=== PATIENT | male | born 1950 | race Hispanic/Latino ===

== ENCOUNTER 2018-09-17 16:44 | Inpatient (IN) ==
[2018-09-17 22:04] LABS: BASO# 0.04 X1000 (0.0-0.2); BASO% 0.8 % (0.0-0.8); EOS# 0.18 X1000 (0.0-0.7); EOS% 3.5 % (0.0-10.0); HEMATOCRIT 26.7 % (42.0-52.0); HEMOGLOBIN 8.2 g/dL (14.0-18.0); LYMPH# 1.09 X1000 (1.2-3.4); LYMPH% 21.5 % (20.5-51.1); MCH 27.4 PG (27-31); MCHC 30.7 g/dL (33-37); MCV 89.3 FL (81-99); MONO# 0.68 X1000 (0.11-0.59); MONO% 13.4 % (1.7-9.3); MPV 12.5 FL (7.4-10.4); NEUT# 3.09 X1000 (1.4-6.5); NEUT% 60.8 % (42.2-75.2); PLT 104 X1000 (130-400); RBC 2.99 XMIL (4.7-6.1); WBC 5.08 X1000 (4.8-10.8)
[2018-09-17 22:07] LABS: INR 1.11; PROTIME 15.2 Seconds (11.0-16.0)
[2018-09-17 22:08] LABS: PTT 32.1 Seconds (22.3-41.8)
[2018-09-17 22:21] LABS: ALBUMIN 3.5 g/dL (3.5-5.0); CALCIUM 9.3 mg/dL (8.8-10.2); CREATININE 1.3 mg/dL (0.7-1.2); POTASSIUM 5.8 mmol/L (3.5-5.1); TOTAL BILIRUBIN 0.72 mg/dL (0.20-1.00); TOTAL PROTEIN 7.1 g/dL (6.3-8.3)
[2018-09-17] MEDS ORDERED: MORPHINE IV ONE (22:40)
[2018-09-17] MEDS ORDERED: ZOFRAN IV ONE (22:40)
[2018-09-17] MEDS ORDERED: ZOSYN 3.375 GM in NS 50 ML IV ONE (22:41)
[2018-09-17] MEDS ORDERED: VANCOMYCIN 1 GM/NS 1 GM/250 ML IVPB IV ONE (22:41)
[2018-09-17] MEDS ORDERED: KAYEXALATE PO ONE (22:43)
[2018-09-17] MEDS ORDERED: D50W SYRINGE IV ONE (22:43)
[2018-09-17] MEDS ORDERED: HUMULIN R IV ONE (22:43)
[2018-09-17] MEDS ORDERED: CALCIUM GLUCONATE IV PUSH ONE (22:43)
--- NOTE | 2018-09-17 22:48 | PROVIDER DOCUMENTATION ---
This chart was entered by Deanne Stewart Scribe, acting as scribe for David Jones MD. HPI-Rash/Wound/ReCheck - General Chief Complaint: Sores/Lesions Stated Complaint: RT FOOT PAIN Time Seen by Provider: 09/17/18 21:01 Source: patient Allergies/Adverse Reactions: Allergies Allergy/AdvReac Type Severity Reaction Status Date / Time No Known Allergies Allergy Verified 06/25/18 16:08 Home Medications: Home Medication List Medication Instructions Recorded Confirmed Last Taken Type Insulin Glargine [Lantus] 24 unit SUBQ QAM 12/22/14 09/03/18 02/26/18 History 21 Prednisone 7.5 mg PO DAILY 10/09/17 09/03/18 02/26/18 History Aspirin 81 mg PO QAM 12/22/17 09/03/18 09/02/18 History Insulin Lispro [Humalog] 10 unit SUBQ HS 12/22/17 09/03/18 02/26/18 History Tacrolimus [Prograf] 2 mg PO BID 12/22/17 09/03/18 02/26/18 History Metoprolol [Lopressor] 50 mg PO BID #60 tab 12/29/17 09/03/18 09/02/18 Rx Amlodipine [Norvasc] 10 mg PO DAILY 02/26/18 09/03/18 09/02/18 History Docusate Sodium [Colace] 100 mg PO PRN PRN 02/26/18 09/03/18 02/26/18 History LISINOpril [Prinivil] 10 mg PO DAILY 02/26/18 09/03/18 09/02/18 History Mycophenolate Sodium [Myfortic] 720 mg PO BID 02/26/18 09/03/18 09/02/18 History Hydrocodone/Acetaminophen 1 mg PO Q6HR PRN 02/27/18 09/03/18 09/03/18 History [Hydrocodone-Acetamin 10-325 mg] Clonidine [Catapres] 0.1 mg PO BID #60 tab 03/01/18 09/03/18 09/02/18 Rx Acetaminophen with Codeine 1 ea PO Q4H PRN PRN #10 tab 06/25/18 09/03/18 Unknown Rx [Tylenol with Codeine #3] Polyethylene Glycol 3350 [Miralax] 17 gm PO PRN PRN 09/03/18 09/03/18 Unknown History Cyanocobalamin [Vitamin B-12] 1,000 microgm PO DAILY tablet 09/10/18 Unknown Rx Folic Acid 1 mg PO BID #120 tab 09/10/18 Unknown Rx Sodium Bicarbonate 650 mg PO BID #120 tab 09/10/18 Unknown Rx - History of Present Illness-Dermatology Nature of Presenting Problem: pt is a 68 yr old male presenting with complaint of right foot pain, wounds, pt was seen by ortho [employer], ortho sent here for possible admission. pt had last surgery to right foot 2 months ago, wound not healing, multiple debridments. pt denies any other complaints, pt did have right 2-5 toes amputated 2 months ago. Location: reports: feet (right) Quality: reports: painful Severity: reports: severe Onset/Duration: reports: gradual Timing: reports: still present, getting worse Context/Associated Symptoms: reports: other (large non healing wound to right plantar surface) Identifiable cause?: No Exposure: reports: unknown cause Similar Symptoms Previously?: Yes Recently seen or treated by another doctor?: Yes Review of Systems - Adult - REVIEW OF SYSTEMS - ADULT Constitutional: denies: chills, fever Eyes: reports: no symptoms reported Ears, Nose, Mouth & Throat: reports: no symptoms reported Cardiovascular: reports: no symptoms reported Respiratory: reports: no symptoms reported Gastrointestinal: reports: no symptoms reported Genitourinary: reports: no symptoms reported Musculoskeletal: reports: no symptoms reported Integumentary: reports: skin sores/ulcer Endocrine: reports: no symptoms reported Allergic/Immunologic: reports: no symptoms reported All Other Systems: Reviewed and Negative Past History - Adult - PAST MEDICAL HISTORY-ADULT Review of Records: reports: Old Records Reviewed, Nursing Assessment Review, Medications Reviewed, Social history reviewed & non-contributory. Major Childhood Illnesses: reports: denies history Cardiovascular: reports: HTN, hyperlipidemia Respiratory: reports: denies history Gastrointestinal: reports: denies history Obstetrical/Gynecological: reports: denies history Genitourinary: reports: other (kidney transplant) Musculoskeletal: reports: denies history Neurological: reports: CVA Psychiatric: reports: denies history Endocrine/Immune: reports: Diabetes Other Conditions: reports: denies history - PRIOR SURGERIES/PROCEDURES Surgical/Procedure History: reports: cholecystectomy, orthopedic (extremity) ( toe amputation right foot), other (cardiac cath, cataract removal, kidney transplant, hemodialysis port) - PRIOR HOSPITALIZATIONS Prior Hospitalizations: reports: for similar symptoms - IMMUNIZATION STATUS Childhood Immunizations: See Nurse Assessment Flu Vaccine: See Nurse Assessment - FAMILY HISTORY Family History: reviewed, not pertinent - SOCIAL HISTORY Smoking: denies Substance Use: denies Living Situation: family Physical Exam-General - PHYSICAL EXAM-ADULT Initial Vital Signs Reviewed: Yes - CONSTITUTIONAL General Appearance: alert, moderate distress - EYES Eyes: PERRL/EOMI - HEAD, EARS, NOSE, MOUTH & THROAT HENMT: normocephalic/atraumatic, moist mucous membranes, normal ENT inspection - NECK Neck: non-tender, full range of motion, supple, normal inspection - RESPIRATORY Respiratory: chest non-tender, lungs clear, normal breath sounds - CARDIOVASCULAR Cardiovascular: normal peripheral pulses, regular rate, rhythm, no edema - GASTROINTESTINAL (ABDOMEN) Abdominal Exam: normal bowel sounds, non tender, soft - LYMPHATIC Lymphatic: no adenopathy - MUSCULOSKELETAL Back Exam: normal inspection, no CVA tenderness, no vertebral tenderness Extremity: normal range of motion, other (amputated 2nd-5th right toes) - SKIN Integumentary: normal color, normal turgor, warm/dry, other (large infected stage 4 ulcer in plantar aspect of right foot) - NEUROLOGIC Neurologic: grossly normal, no motor/sensory deficits - PSYCHIATRIC Psych/Mental Status: normal mood/affect, normal thought content, normal thought process, oriented x 3 Progress - PLAN OF CARE/RESULTS Progress/Plan/Lab Results: Vital Signs - 8 hr 09/17/18 17:28 09/17/18 20:55 Temperature 97.3 F L 98.3 F Pulse Rate 69 61 Respiratory Rate 16 14 Blood Pressure 150/56 154/60 O2 Sat by Pulse Oximetry 100 100 Laboratory Results - last 24 hr 09/17/18 09/17/18 09/17/18 21:39 21:39 21:39 WBC 5.08 RBC 2.99 L Hgb 8.2 L Hct 26.7 L MCV 89.3 MCH 27.4 MCHC 30.7 L RDW Std Deviation 17.0 H Plt Count 104 L MPV 12.5 H Immature Gran % (Auto) 0.0 Neut % (Auto) 60.8 Lymph % (Auto) 21.5 Crawford % (Auto) 13.4 H Eos % (Auto) 3.5 Baso % (Auto) 0.8 Immature Gran # (Auto) 0.00 Neut # (Auto) 3.09 Lymph # (Auto) 1.09 L Crawford # (Auto) 0.68 H Eos # (Auto) 0.18 Baso # (Auto) 0.04 PT 15.2 INR 1.11 PTT (Actin FS) 32.1 Sodium 138 Potassium 5.8 H Chloride 109 H Carbon Dioxide 20 L Anion Gap 9 BUN 32 H Creatinine 1.3 H Estimated GFR/1.73 m2 55 BUN/Creatinine Ratio 25 Glucose 144 H Calculated Osmolality 285 Calcium 9.3 Total Bilirubin 0.72 AST 576 H ALT 351 H Alkaline Phosphatase 175 H Total Protein 7.1 Albumin 3.5 Globulin 3.6 Albumin/Globulin Ratio 1.0 Orders Category Date Time Status BLOOD CULTURE [BLDCUL] Stat Lab 09/17/18 21:39 Results CBC WITH ELECTRONIC DIFF [HEME] Stat Lab 09/17/18 21:39 Completed COMPREHENSIVE METABOLIC PANEL [CHEM] Stat Lab 09/17/18 21:39 Completed PT [PROTIME WITH INR] [COAG] Stat Lab 09/17/18 21:39 Completed PTT [COAG] Stat Lab 09/17/18 21:39 Completed Calcium Gluconate Med 09/17/18 22:43 Once 1 gm IV PUSH NOW ONE Dextrose 50% Syringe [D50w Syringe] Med 09/17/18 22:43 Once 50 ml IV NOW ONE Insulin Human Regular [Humulin R] Med 09/17/18 22:43 Once 10 unit IV NOW ONE Morphine Med 09/17/18 22:40 Discontinued 4 mg IV NOW ONE Ondansetron [Zofran] Med 09/17/18 22:40 Discontinued 4 mg IV NOW ONE Piperacillin/Tazobactam [Zosyn] 3.375 gm Med 09/17/18 22:41 Active 0.9% Sodium Chloride Inj [Ns] 50 ml IV NOW Sodium Polystyrene [Kayexalate] Med 09/17/18 22:43 Once 30 gm PO NOW ONE Vancomycin 1 gm/Ns Med 09/17/18 22:41 Active 1 gm in 250 ml IV NOW EKG [EKG] Stat Ther 09/17/18 22:42 Ordered Result Diagrams: 09/17/18 21:39 09/17/18 21:39 - CONSULTS/PCP/HOSPITALIST Notification #1 *Consult/PCP/Hospitalist*: Dr. Loyd Time Discussed: 22:48 Consult Disposition: Admit Departure - Departure Date of Disposition Decision: 09/17/18 Time of Disposition Decision: 22:48 DIAGNOSIS: Gangrene, Osteomyelitis due to type 2 diabetes mellitus, Hyperkalemia Disposition: ADMITTED INPATIENT 09 Certified Medical Emergency: Emergent Condition: Serious - Critical Care Note This patient required my direct & personal management of CC.: No Attestation - Physician/ GERI Attestation The physician spent face to face time with patient:: Yes Advanced Practice Provider documentation review:: Supervising physician onsite and consulted in the evaluation and care of this patient. The physician did have a face to face encounter with the patient. This chart was documented by the indicated scribe, (Deanne Stewart Scribe) and accurately reflects the services I performed and decisions made by me, David Jones MD, as attested by the provider's signature.
[2018-09-18] MEDS ORDERED: ZOFRAN IV PRN (01:19)
[2018-09-18] MEDS ORDERED: TYLENOL PO PRN (01:19)
[2018-09-18] MEDS ORDERED: VANCOMYCIN IV PER PHARMACY MISC SCH (01:19)
[2018-09-18] MEDS ORDERED: NORCO-7.5 PO PRN (01:19)
[2018-09-18] MEDS: NS 1,000 ML IV SCH ×2 (01:34→18:33)
[2018-09-18] MEDS: ZOSYN 3.375 GM in NS 50 ML IV SCH ×4 (01:34→21:48)
[2018-09-18 02:20] LABS: HEMOGLOBIN A1C 7.2 % (4.8-6.0)
[2018-09-18] MEDS ORDERED: VANCOMYCIN 1,300 MG in NS 250 ML IV SCH (03:00)
[2018-09-18] MEDS: HUMALOG SUBQ SCH ×3 (07:01→21:53)
[2018-09-18] MEDS: LOVENOX SUBQ SCH (07:16)
--- NOTE | 2018-09-18 08:49 | HISTORY AND PHYSICAL ---
Patient of Dr. Holden. REASON FOR ADMISSION: Worsening right lower extremity leg pain. Mr. Jude Lynch is a 68-year-old man with past medical history of type 2 diabetes. He has a history of chronic kidney disease secondary to type 2 diabetes and hypertension. He is status post a renal transplant and is followed by [facility] for management of his renal graft. He was sent over to the ER by Dr. Alcantara, his convention services director to get admitted for possible elective right BKA when in consultation with Dr. Stark. Patient reports he has been having increasing pain in his right leg for over the last couple of weeks. He denies any fever or chills. No polyuria or polydipsia. He has had a chronic right lower extremity infection with osteomyelitis and has been managed conservatively with antibiotics by Dr. Alcantara. However, today when Dr. Alcantara saw his leg and foot, he felt that conservative management has failed and he needed to be admitted for a right BKA. REVIEW OF SYSTEMS: No cardiorespiratory complaints. No GI or complaints per patient. No neurological complaints. No rash. Does have occasional complaints of constipation however but this is not active. ALLERGIES: None. HOME MEDICATIONS: Have not been reconciled but he is on Prograf, prednisone, mycophenolate, lisinopril, Lantus, Humalog, Norvasc, aspirin, [place], metoprolol, Catapres, folic acid and sodium bicarbonate. SURGICAL HISTORY: 1. He has had renal transplant. 2. He has had amputation of his third right toe. 3. Cholecystectomy. 4. Cataract surgery. FAMILY HISTORY: No diabetes or kidney disease in first degree relatives. SOCIAL HISTORY: He does not smoke, drink or use illicit drugs. He is . White count 5,000, H and H 8 and 26, platelets 104,000 which is down from just under a week ago. Normal differential. Potassium is 5.8, bicarb 20, anion gap 9, BUN 32, creatinine 1.3, glucose 144. AST 5676, ALT 531, alk phos 175. PTT is normal. PHYSICAL EXAMINATION: VITAL SIGNS: Blood pressure 154/60, heart rate 61, respirations 14, temperature is 98.3 degrees, 100% on room air. GENERAL: He is a thin, slightly underweight pleasant man who is in no acute distress. A and O x3, normal mood and affect. HEENT: Head is normocephalic, atraumatic. Eyes PERRL, EOMI. Anicteric, not pale. ENT and oropharyngeal exam is grossly normal. NECK: Supple. No JVD, carotid bruits. CHEST: Clear to auscultation with good air entry in all lung goldsmith. CARDIOVASCULAR: First and second heart sounds are heard. No gallops, murmurs or rubs. Rhythm is regular. ABDOMEN: Full, soft, no tenderness or megaly. Bowel sounds are hyperactive. RECTAL: Deferred at this time. EXTREMITIES: The patient has a huge but dry necrotic area in the mid third of his right plantar surface of his foot. There is also a huge ulceration of the distal medial aspect part of his right leg. No overt erythema noted but there is barely any pulse in the dorsum of his right foot compared to the left. But he does have a good popliteal pulse on the right leg. No foul odor noted. No exudation noted. No clubbing or peripheral cyanosis. No edema. NEUROLOGIC: No focal deficits. SKIN: See above. MUSCULAR: Grossly normal. ASSESSMENT: 1. Chronic diabetic foot infection with osteomyelitis of the right foot. 2. Peripheral arterial disease. 3. Chronic kidney disease. 4. Hypertension. 5. Type 2 diabetes. PLAN: Patient is going to be admitted today. Start him on empiric antibiotics. Dr. Stark will be consulted in conjunction with Dr. Alcantara. Patient's A1c will be checked and blood sugars will be aggressively managed during this period. Blood pressure medications will also be reviewed and started. The patient has hyperkalemia and this is currently being corrected and will be followed over the next few hours. The patient also has thrombocytopenia. Although he was started on Lovenox because of DVT risk, this also needs to be followed and if it should drop, Lovenox needs to be discontinued. Etiology for thrombocytopenia has yet to be determined. Another thing that we need to be observing is Zosyn which can also cause thrombocytopenia, especially if it worsens. Antibiotic regimen might need to be Bactrim. cc: MD Shirley Potter MD Joseph R. Dupper, DPM
[2018-09-18 12:43] LABS: BASO# 0.02 X1000 (0.0-0.2); BASO% 0.4 % (0.0-0.8); EOS# 0.19 X1000 (0.0-0.7); EOS% 4.2 % (0.0-10.0); HEMATOCRIT 27.9 % (42.0-52.0); HEMOGLOBIN 8.7 g/dL (14.0-18.0); IMM GRAN# 0.03 X1000 (0.0-0.04); IMM GRAN% 0.7 % (0.0-0.5); LYMPH# 0.75 X1000 (1.2-3.4); LYMPH% 16.7 % (20.5-51.1); MCH 27.7 PG (27-31); MCHC 31.2 g/dL (33-37); MCV 88.9 FL (81-99); MONO# 0.44 X1000 (0.11-0.59); MONO% 9.8 % (1.7-9.3); MPV 12.6 FL (7.4-10.4); NEUT# 3.07 X1000 (1.4-6.5); NEUT% 68.2 % (42.2-75.2); PLT 111 X1000 (130-400); RBC 3.14 XMIL (4.7-6.1); RDW 16.8 % (11.5-14.5)
[2018-09-18 13:18] LABS: ALB/GLOB RATIO 0.8; ALBUMIN 3.3 g/dL (3.5-5.0); CALCIUM 9.5 mg/dL (8.8-10.2); CREATININE 1.2 mg/dL (0.7-1.2); POTASSIUM 5.3 mmol/L (3.5-5.1); TOTAL PROTEIN 7.2 g/dL (6.3-8.3)
--- NOTE | 2018-09-18 14:07 | PROGRESS NOTE ---
DATE: 09/18/2018 SUBJECTIVE: No acute events overnight. This patient has been admitted because of worsening right lower extremity pain, but at this moment he is not complaining of that much pain. Apparently, Dr. Alcantara saw his leg and he felt that conservative management has failed and sent this patient for possible right BKA. The problem is that at this moment his LFTs are elevated. Recently he was discharged on 09/10/2018 with daptomycin which can cause elevated LFTs. Also, he treatment with tacrolimus can cause elevated LFTs/ he came in, also hyperkalemic which can be cause also for this medication. I will hold this medication for now. Probably I will call his kidney transplant doctor next Thursday and discuss about it, about these patient. This patient has been placed on Zosyn and vancomycin. It looks like he received a dose of vancomycin today and he is going to be every 36 hours, so my plan is to continue with this and ask Infectious Disease department to evaluate this patient tomorrow morning. OBJECTIVE: Vital Signs: Temperature 97.6 degrees, pulse 77, respiratory rate 18, blood pressure 136/43, oxygen saturation 99% on room air. HEENT: Head normocephalic. No trauma. PERRLA. Neck: Supple. No JVD. No masses. Central trachea. Chest: Clear to auscultation. No wheezing. No rales. Abdomen: Soft, nontender, nondistended. No hepatosplenomegaly. Extremities: He does have a big necrotic area in the right plantar surface. I do not see any secretions. There is also a big ulcer at the level of the medial aspect of the right leg. I do not see any erythema, no foul odor or secretions like I mentioned before. Pulses are decreased distally. Neurologic: No focal deficits. LABORATORY: WBC 4.5, hemoglobin 8.7, hematocrit 27.9, platelets 111,000. Sodium 138, potassium 5.3, chloride 106, bicarbonate 21, BUN 32, creatinine 1.2, glucose 155, calcium 9.5. AST 485, ALT 468, alkaline phosphatase 272, albumin 3.3. ASSESSMENT AND PLAN: 1. Chronic diabetic foot infection with osteomyelitis on the right foot. He was recently discharged on 09/10/2018 and he was discharged with antibiotics, including daptomycin. He came in because his primary doctor recommended an amputation. His liver enzymes are elevated and probably is related with he is renal transplant treatment and daptomycin. Since tacrolimus also can cause elevated LFTs, I will hold those medications for now. He has been already placed on antibiotics during the night. Surgery Department has been consulted. But I think for now we need to continue with monitoring this patient. 2. Elevated LFTs. This is probably related to medications which are daptomycin and tacrolimus. He was recently discharged with daptomycin and he is supposed to use daptomycin for 8 weeks. We will monitor this closely. I will ask for new lab work in the morning. Compared with yesterday, his AST is trending down a little bit, but ALT and alkaline phosphatase are going up. 3. Thrombocytopenia probably also related to medications, but compared with yesterday a little bit better. We will monitor. 4. Hyperkalemia. Upon admission, his potassium level was 5.8. He was described that tacrolimus/Prograf can cause elevated potassium. His kidney function looks stable at baseline. 5. Chronic kidney disease in a patient with history of renal transplant, this seems to be stable. We will monitor. Continue with IV fluids. 6. Peripheral artery disease, aware. 7. Type 2 diabetes. Continue with the same management. Pattern of blood sugar and sliding scale insulin. 8. Hypertension, stable. I will restart some of his home medications. cc: Nakul Ware MD
[2018-09-18] MEDS: NORVASC PO SCH (14:11)
--- NOTE | 2018-09-18 15:02 | GENERAL SURGERY CONSULTATION ---
DATE: 09/18/2018 TIME: 1:55 p.m. SUBJECTIVE: Mr. Lynch is a patient of Dr. Alcantara who has followed him regarding his ischemic disease of his right foot. He has undergone a transmetatarsal amputation in the past and has ulceration of the right lateral foot and plantar aspect of the foot. He has extremely poor blood flow and he does not have disease that is amenable to revascularization. I have been asked to see him regarding amputation. He has a history of chronic kidney disease, and now has had a renal transplant. He has type 2 diabetes. He has hypertension. Previous surgery includes the renal transplant, amputation of the 3rd toe, and partial transmetatarsal amputation, cholecystectomy, and cataract surgery. MEDICATIONS: Listed. ALLERGIES: He has no known drug allergies. FAMILY HISTORY: Negative. SOCIAL HISTORY: Denies smoking or alcohol use. He is . REVIEW OF SYSTEMS: As noted in his HPI. PHYSICAL EXAMINATION: Vital Signs: He is afebrile. Heart rate 77, blood pressure 136/43, bilateral breath sounds are present. Heart: Regular rhythm and rate. Abdomen: Soft. Extremities: Femoral pulses are present. No pedal pulses are present. He has an ulceration on the right lateral foot in the plantar aspect of the right foot. Tendons are exposed. DIAGNOSTICS AND LABORATORY DATA: White count 4500, hemoglobin 8.7, hematocrit 27.9. BUN 23, creatinine 1.2. His LFTs are elevated. ASSESSMENT: Ischemic necrosis right foot. PLAN: The plan is amputation. We tentatively plan a BK amputation for Thursday, and we will get an SAMSON study to be certain that his flow is adequate below his knee to heal a BK amputation. cc: Azael Stark MD
[2018-09-18] MEDS: LOPRESSOR PO SCH (21:49)
[2018-09-18] MEDS: FOLIC ACID PO SCH (21:49)
--- NOTE | 2018-09-19 01:43 | ED EKG INTERP ---
This chart was entered by Deanne Stewart Scribe, acting as scribe for David Jones MD. EKG Interpretation - EKG Time of EKG reading by physician:: 23:23 EKG Read and Signed by:: David Jones EKG Interpretation (*Must complete 3 of following elements*): Abnormal (left anteroir fasicular block, bifascicular block, septal infarct-age undetermined) Rate: 68 Rhythm: nsr [place]: normal QRS: RBB SC Interval: normal ST Wave: normal Attestation - Physician/ GERI Attestation Patient care was provided by Advanced Practice Provider:: No The physician spent face to face time with patient:: Yes Advanced Practice Provider documentation review:: Supervising physician onsite and consulted in the evaluation and care of this patient. The physician did have a face to face encounter with the patient. This chart was documented by the indicated scribe, (Deanne Stewart Scribe) and accurately reflects the services I performed and decisions made by Karen allison Kofi X., MD, as attested by the provider's signature.
[2018-09-19] MEDS: ZOSYN 3.375 GM in NS 50 ML IV SCH ×4 (02:13→22:08)
[2018-09-19] MEDS: NS 1,000 ML IV SCH ×3 (02:16→19:03)
[2018-09-19] MEDS: LOVENOX SUBQ SCH (07:08)
[2018-09-19] MEDS: HUMALOG SUBQ SCH ×5 (07:18→22:12)
[2018-09-19 07:21] LABS: BASO# 0.03 X1000 (0.0-0.2); BASO% 0.6 % (0.0-0.8); EOS% 3.8 % (0.0-10.0); HEMATOCRIT 25.7 % (42.0-52.0); HEMOGLOBIN 7.8 g/dL (14.0-18.0); LYMPH# 0.88 X1000 (1.2-3.4); LYMPH% 16.8 % (20.5-51.1); MCHC 30.4 g/dL (33-37); MCV 88.9 FL (81-99); MONO# 0.43 X1000 (0.11-0.59); MONO% 8.2 % (1.7-9.3); MPV 12.6 FL (7.4-10.4); NEUT# 3.71 X1000 (1.4-6.5); NEUT% 70.6 % (42.2-75.2); PLT 92 X1000 (130-400); RBC 2.89 XMIL (4.7-6.1); RDW 16.6 % (11.5-14.5); WBC 5.25 X1000 (4.8-10.8)
[2018-09-19 07:47] LABS: ALB/GLOB RATIO 1.1; ALBUMIN 3.2 g/dL (3.5-5.0); CALCIUM 8.5 mg/dL (8.8-10.2); CREATININE 1.5 mg/dL (0.7-1.2); POTASSIUM 5.1 mmol/L (3.5-5.1); TOTAL BILIRUBIN 0.89 mg/dL (0.20-1.00); TOTAL PROTEIN 6.1 g/dL (6.3-8.3)
--- NOTE | 2018-09-19 08:27 | GENERAL SURGERY PROGRESS NOTE ---
DATE: 09/19/2018 Mr. Lynch is scheduled for an amputation tomorrow. We will check an SAMSON on him to be certain that the below-knee level will be adequately perfused. We will have blood prepared for him for surgery. cc: Azael Stark MD
[2018-09-19] MEDS: LOPRESSOR PO SCH ×2 (09:12→22:08)
[2018-09-19] MEDS: ULTRAM PO PRN ×2 (09:12→16:20)
[2018-09-19] MEDS: NORVASC PO SCH (09:12)
[2018-09-19] MEDS: VITAMIN B-12 PO SCH (09:12)
[2018-09-19] MEDS: PREDNISONE PO SCH (09:12)
[2018-09-19] MEDS: FOLIC ACID PO SCH ×2 (09:13→22:08)
--- NOTE | 2018-09-19 10:07 | PROGRESS NOTE ---
DATE: 09/19/2018 SUBJECTIVE: No acute events overnight. He is still complaining of some right lower extremity pain. His LFTs are getting better so we will continue with the same management. Vancomycin will be stopped due to his CKD and history of renal transplant patient. OBJECTIVE: Vital Signs: Temperature 98.1 degrees, pulse 65, respiratory rate 18, blood pressure 162/34, oxygen saturation 99 on room air. HEENT: Head normocephalic. No trauma. PERRLA. Neck: Supple. No JVD. No masses. Central trachea. Chest: Clear to auscultation. No wheezing. No rales. Abdomen: Soft, nontender, nondistended. No hepatosplenomegaly. Extremities: There is a big ulcer at the level of the medial aspect of the right leg. I do not see erythema. No foul odor or secretion. He does have a big necrotic area on the right plantar ulcer surface. Pulses are decreased distally. Neurological Examination: This patient is alert and oriented x3. No focal motor deficits. Laboratory: WBC 5.2, hemoglobin 7.8, hematocrit 25.7, platelets 92,000. Sodium 140, potassium 5.1, chloride 110, bicarbonate 17, BUN 26, creatinine 1.5, glucose 129, calcium 8.5. AST 166, ALT 304, alkaline phosphatase 216, albumin 3.2. ASSESSMENT AND PLAN: 1. Chronic diabetic foot infection with osteomyelitis to the right foot, recently discharged on 09/10/2018 with antibiotics including daptomycin which has been stopped due to elevated liver function tests. Infectious disease department following this patient currently. The plan is to go ahead and do an amputation tomorrow. 2. Elevated liver function tests. This is getting better. I will continue holding his daptomycin and tacrolimus which has been described to increase the liver function tests. Probably is related only to the antibiotic. After surgery, probably I will put this patient back on tacrolimus and I will check on that. 3. Thrombocytopenia, likely related to medications as well. I will keep an eye on that. 4. Hyperkalemia, resolved. 5. Chronic kidney disease in a patient with a history of renal transplant. Seems to be stable. Continue with fluids. We will stop the vancomycin due to nephrotoxicity. 6. Peripheral arterial disease. Aware. 7. Type 2 diabetes. Continue with the same management, pattern of blood sugar and sliding scale insulin. 8. Hypertension, stable. Some of his home medication have been restarted. cc: Nakul Ware MD
[2018-09-19] MEDS: PATIENT'S OWN MED PO SCH ×2 (10:31→22:16)
[2018-09-19] MEDS: TEFLARO 600 MG in NS 250 ML IV SCH ×2 (10:31→22:07)
--- NOTE | 2018-09-19 11:44 | INFECTIOUS DISEASE PROGRESS NO ---
DATE: 09/19/2018 PRESENT ILLNESS: The patient was readmitted because his right foot has gotten worse, to the point that the patient needs a jcyed-wpo-wxdv amputation of the leg. MEDICATIONS: The patient currently is on vancomycin and Zosyn. PHYSICAL EXAMINATION: Vital Signs: Temperature is 98.1 degrees, pulse 65, respirations 18, blood pressure 162/34. General: This is an ill-appearing, elderly male. He is in no acute distress. Head, eyes, ears, nose, throat: He can hear my spoken words and see near objects. He does not have any white patches on his tongue. Neck: No stiffness. Lungs: Clear to auscultation. Cardiovascular: Diminished peripheral pulses. Heart rate is regular. Abdomen : Soft and nontender. Extremities: The patient's right foot has large dry wounds with devitalized tissue. There is no odor to the wounds and there is no erythema of the foot. There is also no purulent drainage. Unfortunately, the foot has shown no signs of healing. LAB AND RADIOLOGY: CBC-WBC 5.25, hgb 7.8, platelets [id number]. Creatinine-1.5. GFR- 47. Liver function tests improving. Blood cultures negative at 48 hours. No radiographic today. ASSESSMENT AND PLAN: The patient has grown methicillin-resistant Staphylococcus aureus and Pseudomonas from his right foot. Therefore, I think it would be reasonable to put the patient on antibiotics to treat that infection, especially because the patient is going to have surgery tomorrow. I would probably continue the antibiotics to treat those 2 organisms for a few days after surgery, until such time that the patient's incision is healing well. The patient's creatinine is going up a little bit and he has a renal transplant, so I think it would be best to stop vancomycin and I have substituted ceftaroline. Dr. Abreu has discovered that the patient's liver function studies became elevated while the patient was on daptomycin and as a result of that daptomycin cannot be reinstituted. COMORBIDITIES: He is elderly. He has diabetes. He had end-stage renal disease. He has had a renal transplant and is on immunosuppressive medication for that transplant. cc: MD RAMIN Mendoza
[2018-09-20] MEDS: ZOSYN 3.375 GM in NS 50 ML IV SCH ×4 (01:16→21:42)
[2018-09-20] MEDS: NS 1,000 ML IV SCH ×2 (03:17→18:40)
[2018-09-20] MEDS: HUMALOG SUBQ SCH ×3 (06:24→17:28)
[2018-09-20] MEDS: LOVENOX SUBQ SCH (06:28)
[2018-09-20 07:27] LABS: BASO# 0.02 X1000 (0.0-0.2); BASO% 0.4 % (0.0-0.8); EOS# 0.11 X1000 (0.0-0.7); HEMATOCRIT 23.6 % (42.0-52.0); HEMOGLOBIN 7.4 g/dL (14.0-18.0); LYMPH# 0.94 X1000 (1.2-3.4); LYMPH% 17.3 % (20.5-51.1); MCH 27.5 PG (27-31); MCHC 31.4 g/dL (33-37); MCV 87.7 FL (81-99); MONO# 0.54 X1000 (0.11-0.59); MONO% 9.9 % (1.7-9.3); MPV 12.9 FL (7.4-10.4); NEUT# 3.83 X1000 (1.4-6.5); NEUT% 70.4 % (42.2-75.2); PLT 91 X1000 (130-400); RBC 2.69 XMIL (4.7-6.1); RDW 16.2 % (11.5-14.5); WBC 5.44 X1000 (4.8-10.8)
--- NOTE | 2018-09-20 07:33 | EKG Report ---
Test Performed on : 09/17/2018 11:23:56 PM Test Reason : HYPERKALEMIA Blood Pressure : / mmHG Vent. Rate : 068 BPM Atrial Rate : 068 BPM P-R Int : 164 ms QRS Dur : 114 ms QT Int : 390 ms P-R-T Axes : 036 -57 069 degrees QTc Int : 414 ms Normal sinus rhythm. Right bundle branch block Left anterior fascicular block Bifascicular block Septal infarct (cited on or before 22-DEC-2017) Abnormal ECG When compared with ECG of 03-SEP-2018 12:44, (Unconfirmed) Questionable change in initial forces of Septal leads Unconfirmed Result
[2018-09-20 07:35] LABS: ALB/GLOB RATIO 0.9; ALBUMIN 2.9 g/dL (3.5-5.0); CALCIUM 8.9 mg/dL (8.8-10.2); CREATININE 1.5 mg/dL (0.7-1.2); POTASSIUM 4.3 mmol/L (3.5-5.1); TOTAL BILIRUBIN 0.49 mg/dL (0.20-1.00); TOTAL PROTEIN 6.3 g/dL (6.3-8.3)
[2018-09-20] MEDS: LOPRESSOR PO SCH ×2 (08:10→21:40)
[2018-09-20] MEDS: PREDNISONE PO SCH (08:12)
[2018-09-20] MEDS: FOLIC ACID PO SCH ×2 (08:12→21:41)
[2018-09-20] MEDS: VITAMIN B-12 PO SCH (08:12)
[2018-09-20] MEDS: PATIENT'S OWN MED PO SCH ×2 (08:13→09:20)
[2018-09-20] MEDS: NORVASC PO SCH (08:13)
[2018-09-20] MEDS ORDERED: ROBINUL ONE (08:25)
[2018-09-20] MEDS ORDERED: QUELICIN (DOSE) ONE (08:25)
[2018-09-20] MEDS ORDERED: XYLOCAINE-MPF 2% ONE (08:25)
[2018-09-20] MEDS ORDERED: DIPRIVAN 1% ONE (08:26)
[2018-09-20] MEDS ORDERED: EPHEDRINE ONE (09:28)
[2018-09-20] MEDS: TEFLARO 600 MG in NS 250 ML IV SCH ×2 (09:30→22:44)
[2018-09-20] MEDS ORDERED: FENTANYL ONE (09:50)
[2018-09-20] MEDS: MORPHINE ONE ×6 (10:43→11:25)
[2018-09-20] MEDS ORDERED: ZOFRAN ONE (11:07)
[2018-09-20 11:41] LABS: HEMATOCRIT 25.3 % (42.0-52.0); HEMOGLOBIN 7.9 g/dL (14.0-18.0)
[2018-09-20] MEDS ORDERED: NORCO-10 ONE (11:45)
--- NOTE | 2018-09-20 11:49 | OPERATIVE NOTE ---
PROCEDURE DATE: 09/20/2018 PROCEDURE PERFORMED: Right below-knee amputation. SURGEON: Azael Stark MD. DATA COMPILER: Chelsie. PREOPERATIVE DIAGNOSIS: Ischemic gangrene of the right foot. POSTOPERATIVE DIAGNOSIS: Ischemic gangrene of the right foot. DESCRIPTION OF PROCEDURE: Satisfactory general anesthesia was achieved, the right leg was prepped and draped in a sterile fashion. The foot was excluded. We made a jessie 4 fingerbreadths below the tibial tubercle and then measured 12 cm distal to that to jessie our posterior flap. We then incised the skin in a fishmouth fashion with a short anterior flap and a long posterior flap. We carried our incision through the subcutaneous tissue. We ligated the greater saphenous vein incision with a 3-0 silk tie. We dissected through the anterior muscle compartment with electrocautery until we could surround the tibia. We then transected the tibia with a Gigli saw, tapering it anteriorly. We dissected the fibula. We raised the periosteum proximally and transected it with a bone biter. We then used a guillotine knife to slide behind both bones until we reached the distal end of the posterior flap and transected it there. The tibial vessels were suture ligated with 2-0 silk suture ligature. The distal leg and foot was handed off. We used a file on the bone to smooth it off on its anterior aspect. We then copiously irrigated the flap to remove all debris. We brought the posterior flap forward and used 0 Polysorb in the muscle groups into the fascia over the bone. We then used 3-0 Polysorb in the subcutaneous tissue. The skin was reapproximated with christopher. Xeroform, sterile 4 x 4s, sterile Kerlix was applied. This was followed by an OCL splint, and a 6-inch Hilton to keep the joint straight. He tolerated it well, was sent to the recovery room in satisfactory condition. cc: Azael Stark MD
[2018-09-20] MEDS: MORPHINE IV PRN ×4 (13:31→21:35)
--- NOTE | 2018-09-20 18:08 | PROGRESS NOTE ---
DATE: 09/20/2018 SUBJECTIVE: No acute events overnight. He just had a surgery done today, right gukcu-ipc-fbfu amputation. This patient is complaining of some pain, but it is tolerable. Family members at the bedside. All of their questions were answered. He has been placed back on his diet. OBJECTIVE: Vital Signs: Temperature 96.1, pulse 63, respiratory rate 18, blood pressure 145/56, oxygen saturation 98% on nasal cannula. HEENT: Head normocephalic. No trauma. PERRLA. Neck: Supple. No JVD. No masses. Central trachea. Chest: Clear to auscultation. No wheezing. No rales. Abdomen: Soft, nontender, nondistended. No hepatosplenomegaly. Extremities: He has a right BKA that is covered with a clean dressing. Neurological: The patient is alert and oriented x3. No focal deficits. LABORATORY DATA: WBC 5.4, hemoglobin 7.9, hematocrit 25.3, platelets 91,000. Sodium 141, potassium 4.3, chloride 109, bicarbonate 22, BUN 24, creatinine 1.5, glucose 178, calcium 8.9, AST 59, ALT 185, alkaline phosphatase 163. Albumin 2.9. ASSESSMENT AND PLAN: 1. 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 Continue with pain medication. Surgery Department on board, as well as Infectious Disease Department on board. 2. Elevated liver function tests. This is getting better. Likely it was related to his treatment with daptomycin, which has been stopped, and even though tacrolimus has been described to increase the LFTs, I will put him back on that and monitor closely because he has a history of renal transplant. 3. Thrombocytopenia. Stable. Continue to monitor. 4. Hyperkalemia, resolved. 5. Chronic kidney disease in a patient with a history of renal transplant, seems to be stable, seems to be at baseline. 6. Peripheral arterial disease. Aware. 7. Type 2 diabetes. Continue with the same management, sliding scale insulin and pattern blood sugar. 8. Hypertension, stable. I have restarted some of his home medications already. cc: Nakul Ware MD
--- NOTE | 2018-09-20 19:23 | INFECTIOUS DISEASE PROGRESS NO ---
DATE: 09/20/2018 PRESENT ILLNESS: The patient is status post nyvgs-dby-bslk amputation of the right leg. MEDICATIONS: The patient is receiving ceftaroline and Zosyn. PHYSICAL EXAMINATION: Vital Signs: Temperature is 97 degrees, pulse 63, respirations 18, blood pressure 145/56. General: This is an ill-appearing elderly male. He is in no acute distress. Head, Eyes, Ears, Nose, and Throat: He can hear my spoken words and see near objects. He does not have any white patches on his tongue. Neck: No meningismus. Lungs: Clear to auscultation. Cardiovascular: Heart rate is regular. Abdomen: Soft and nontender. Extremities: The patient has a large dressing on his right leg. He has just come back from having a right below knee amputation. Neurologic: The patient is awake. He can move his extremities. There is no tremor. LAB AND X-RAY: CBC today shows a white count of 5440, hemoglobin 7.9, and platelet count 91,000. Creatinine is 1.5. GFR is 47. ALT is 185. Blood cultures are sterile. ASSESSMENT AND PLAN: The patient is status post right BKA. My plan is to continue antibiotics for a few more days, until we are sure that the patient's wound is healing well. COMORBIDITIES: The patient is elderly, and he has diabetes mellitus. He also has end-stage renal disease. He is a renal transplant patient, and he on immunosuppressive medication to prevent rejection of the transplant. cc: Ochoa Minor MD
[2018-09-20] MEDS: PROGRAF PO SCH (22:37)
[2018-09-21] MEDS: MORPHINE IV PRN ×6 (02:10→22:18)
[2018-09-21] MEDS: ZOSYN 3.375 GM in NS 50 ML IV SCH ×4 (02:11→22:18)
[2018-09-21] MEDS: HUMALOG SUBQ SCH ×5 (02:19→22:52)
[2018-09-21] MEDS: LOVENOX SUBQ SCH (06:42)
[2018-09-21] MEDS: NS 1,000 ML IV SCH ×3 (06:42→23:47)
[2018-09-21 07:38] LABS: BASO# 0.03 X1000 (0.0-0.2); BASO% 0.4 % (0.0-0.8); EOS# 0.05 X1000 (0.0-0.7); EOS% 0.7 % (0.0-10.0); HEMATOCRIT 25.1 % (42.0-52.0); HEMOGLOBIN 7.6 g/dL (14.0-18.0); LYMPH# 0.59 X1000 (1.2-3.4); LYMPH% 8.4 % (20.5-51.1); MCH 27.2 PG (27-31); MCHC 30.3 g/dL (33-37); MONO% 7.1 % (1.7-9.3); MPV 12.8 FL (7.4-10.4); NEUT# 5.86 X1000 (1.4-6.5); NEUT% 83.4 % (42.2-75.2); PLT 103 X1000 (130-400); RBC 2.79 XMIL (4.7-6.1); RDW 16.9 % (11.5-14.5); WBC 7.03 X1000 (4.8-10.8)
[2018-09-21 07:49] LABS: CALCIUM 9.2 mg/dL (8.8-10.2); CREATININE 1.2 mg/dL (0.7-1.2); POTASSIUM 4.5 mmol/L (3.5-5.1)
[2018-09-21] MEDS: VITAMIN B-12 PO SCH (08:34)
[2018-09-21] MEDS: PREDNISONE PO SCH (08:34)
[2018-09-21] MEDS: FOLIC ACID PO SCH ×2 (08:34→22:17)
[2018-09-21] MEDS: NORVASC PO SCH (08:35)
[2018-09-21] MEDS: TEFLARO 600 MG in NS 250 ML IV SCH ×2 (08:35→22:15)
[2018-09-21] MEDS: LOPRESSOR PO SCH ×2 (08:35→22:17)
[2018-09-21] MEDS: NORCO-10 PO PRN ×2 (11:41→15:25)
[2018-09-21] MEDS ORDERED: MIRALAX PO PRN (14:09)
--- NOTE | 2018-09-21 14:58 | PROGRESS NOTE ---
DATE: 09/21/2018 SUBJECTIVE: No acute events overnight. He had a right stwjo-fnv-gkvk amputation yesterday. He is still complaining of some pain, but it is tolerable. Family members at the bedside. All their questions were answered. We started talking about rehab center placement. He will think about it. I do believe he prefers to go home with physical therapy at home. OBJECTIVE: Vital Signs: Temperature. 98, pulse 88, respiratory rate 20, blood pressure 163/80, oxygen saturation 99% on room air. HEENT: Head normocephalic. No trauma. PERRLA. Neck: Supple. No JVD. No masses. Central trachea. Chest: Clear to auscultation. No wheezing. No rales. Abdomen: Soft, nontender, nondistended. No hepatosplenomegaly. Extremities: He has a right BKA that is covered with a clean dressing. Neurologic: The patient is alert and oriented x 3. No focal deficits. LABORATORY: WBC 7, hemoglobin 7.6, hematocrit 25.1, platelet 103,000. Sodium 137, potassium 4.5, chloride 105, bicarbonate 20, BUN 15, creatinine 1.2, glucose 175, calcium 9.2. ASSESSMENT AND PLAN: 1. 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 Continue with pain medication, antibiotics. Surgery Department on board as well as Infectious Disease Department. 2. Elevated liver function tests. This is getting better. I will repeat the liver function tests in the morning. I do believe this is related to the daptomycin that he was getting before. LFTs trending down. We will monitor. 3. Thrombocytopenia, stable. Continue to monitor. 4. Hyperkalemia, resolved. 5. Chronic kidney disease in a patient with a history of renal transplant. Seems to be stable, baseline. 6. Peripheral arterial disease. Aware. 7. Type 2 diabetes. Continue with same management. Sliding-scale insulin and pattern of blood sugar. 8. Hypertension. We have restarted some of his home medications already. Blood pressure is still elevated, though. cc: Nkaul Ware MD MTDD
--- NOTE | 2018-09-21 15:03 | VASCULAR LAB ---
DATE: 09/20/2018 PROCEDURE: Bilateral lower extremity segmental Doppler exam. INTERPRETING PHYSICIAN: Marisela Mcleod MD. BUS GIRL: Pham. REQUESTING PHYSICIAN: Dr. Azael Stark. INDICATION: Evaluate for amputation level. Ischemic right foot. PRESSURES: Brachial pressure on the right is 155. High thigh on the right is noncompressible, on the left noncompressible. Low thigh on the right is noncompressible, on the left noncompressible. Calf on the right is noncompressible, on the left noncompressible. DP on the right is noncompressible, on the left noncompressible. PT on the right is noncompressible, on the left noncompressible. TJ on the right is 1.61, on the left 1.61. Toe pressure on the right is 0, on the left 79 with toe-brachial indices on the left of 0.51. SUMMARY: There are pulsatile waveforms to the level of the tibial vessels bilaterally. However, this does suggest significant calcific disease and non compressibility throughout. There is lack of pulsatile flow to the right toe. FINDINGS: Severe peripheral vascular disease changes suspect, but there is pulsatile flow noted to the level of the tibial vessels. cc: MD Azael Guevara MD
[2018-09-21] MEDS: PROGRAF PO SCH ×2 (15:25→22:18)
[2018-09-21] MEDS: PATIENT'S OWN MED PO SCH ×2 (15:26→22:20)
--- NOTE | 2018-09-21 19:35 | INFECTIOUS DISEASE PROGRESS NO ---
DATE: 09/21/2018 PRESENT ILLNESS: Mr. Lynch is status post right dohnc-jrr-eutp amputation due to ischemic gangrene with a previous methicillin-resistant Staph aureus and Pseudomonas to that right foot. MEDICATIONS: Today is day 3 of Zosyn 3.375 g IV every 6 hours and day 2 of ceftaroline 600 mg IV every 12 hours. PHYSICAL EXAMINATION: Vital Signs: Temperature is 98 degrees, pulse rate 88, respiratory rate 22, blood pressure 163/80, O2 saturation 99% on room air. General: This is a chronically ill- appearing elderly gentleman. He is lying in bed in no acute distress. HEENT: Atraumatic, normocephalic. Oral mucous membranes are pink and moist. Conjunctivae are pale. Neck: Supple. Trachea is midline. Cardiovascular: Heart rate and rhythm are regular. Normal sinus rhythm on the monitor. Left pedal and radial pulses are +1. There is a surgical dressing in place to the right qidbp-dhu-rxfe amputation; not removed at this time. It is clean, dry and intact. Respiratory: Lung sounds are clear in the upper lobes. Crackles noted to the left lower lobe. Diminished to the right middle and lower lobes. Abdomen: Soft, round and nontender. Bowel sounds are active. Neurologic: He is awake, alert and oriented; able to move all extremities fairly well in the bed. No tremors noted. There is a PICC line in place to the right upper arm. The site is without edema, erythema, or drainage. LABORATORY AND X-RAY: Today his white count is 7.03, hemoglobin 7.6, platelet count 103,000, creatinine is 1.2, GFR 60. No imaging reports today. ASSESSMENT AND PLAN: Mr. Lynch is doing fairly well status post right below- the-knee amputation. He is receiving ceftaroline and Zosyn which we will continue for the previous bacteria which he had grown to his right foot. At this point the duration of treatment will relate to the progress of his healing. The plan is to eventually get him to a rehab unit. His son is in the room and discussed plans with him and the patient. These plans have been discussed with and recommended by Dr. Minor. COMORBIDITIES: Include that he is elderly with diabetes mellitus, history of renal transplant with immunosuppressive medications. He currently has a noted anemia, thrombocytopenia and transaminitis. Dictated by ESHA Cortes for Ochoa Minor MD This chart was documented by, ESHA Cortes and accurately reflects the services performed, treatment plan and medical decisions as attested by the providers signature Ochoa Minor MD. cc: Ochoa Minor MD [facility]
[2018-09-21] MEDS: CATAPRES PO SCH (22:17)
[2018-09-22] MEDS: ZOSYN 3.375 GM in NS 50 ML IV SCH ×3 (01:24→09:25)
[2018-09-22] MEDS: MORPHINE IV PRN ×4 (01:24→18:27)
[2018-09-22] MEDS: NORCO-10 PO PRN ×2 (01:24→09:30)
--- NOTE | 2018-09-22 01:47 | GENERAL SURGERY PROGRESS NOTE ---
DATE: 09/21/2018 SUBJECTIVE: Mr. Lynch is postop day 1 after right below-knee amputation. His splint is still in place. His hemodynamics were okay. PLAN: The plan will be to remove the splint tomorrow and look at his wound. His pain relief appears adequate. cc: Azael Stark MD
[2018-09-22] MEDS: NS 1,000 ML IV SCH ×3 (05:16→18:29)
[2018-09-22] MEDS: HUMALOG SUBQ SCH ×4 (06:17→23:10)
[2018-09-22] MEDS: LOVENOX SUBQ SCH (06:18)
[2018-09-22 07:54] LABS: ALB/GLOB RATIO 0.9; CALCIUM 9.1 mg/dL (8.8-10.2); CREATININE 1.3 mg/dL (0.7-1.2); POTASSIUM 4.7 mmol/L (3.5-5.1); TOTAL BILIRUBIN 0.65 mg/dL (0.20-1.00); TOTAL PROTEIN 6.3 g/dL (6.3-8.3)
[2018-09-22 07:58] LABS: BASO# 0.02 X1000 (0.0-0.2); BASO% 0.3 % (0.0-0.8); EOS# 0.05 X1000 (0.0-0.7); EOS% 0.7 % (0.0-10.0); HEMATOCRIT 21.5 % (42.0-52.0); HEMOGLOBIN 6.6 g/dL (14.0-18.0); LYMPH# 1.01 X1000 (1.2-3.4); LYMPH% 13.8 % (20.5-51.1); MCH 27.6 PG (27-31); MCHC 30.7 g/dL (33-37); MONO# 0.77 X1000 (0.11-0.59); MONO% 10.5 % (1.7-9.3); MPV 13.1 FL (7.4-10.4); NEUT# 5.45 X1000 (1.4-6.5); NEUT% 74.7 % (42.2-75.2); PLT 95 X1000 (130-400); RBC 2.39 XMIL (4.7-6.1)
[2018-09-22] MEDS: LOPRESSOR PO SCH ×2 (09:26→20:46)
[2018-09-22] MEDS: PROGRAF PO SCH ×2 (09:26→20:44)
[2018-09-22] MEDS: PREDNISONE PO SCH (09:26)
[2018-09-22] MEDS: TEFLARO 600 MG in NS 250 ML IV SCH (09:27)
[2018-09-22] MEDS: PRINIVIL PO SCH (09:27)
[2018-09-22] MEDS: CATAPRES PO SCH ×2 (09:27→20:46)
[2018-09-22] MEDS: NORVASC PO SCH (09:27)
[2018-09-22] MEDS: FOLIC ACID PO SCH ×2 (09:27→20:46)
[2018-09-22] MEDS: VITAMIN B-12 PO SCH (09:27)
[2018-09-22] MEDS: PATIENT'S OWN MED PO SCH ×2 (09:31→20:50)
[2018-09-22] MEDS: ASPIRIN PO SCH (09:31)
--- NOTE | 2018-09-22 10:12 | GENERAL SURGERY PROGRESS NOTE ---
DATE: 09/22/2018 TIME: 9:50 in the morning. Mr. Lynch's stump is inspected. It is healing satisfactorily. We will leave his splint off and just wrap his stump with a Kerlix. We will get Physical Therapy to assist him with transfer training. His hemoglobin today is 6.6, hematocrit 21.5. We will order a unit of blood. cc: Azael Stark MD
--- NOTE | 2018-09-22 14:58 | PROGRESS NOTE ---
DATE: 09/22/2018 SUBJECTIVE: Patient seems to be stable. He is having some generalized weakness. He has had a right qillz-tja-gokx amputation two days ago. He is still complaining of some pain. Hemoglobin dropped to 6.6, and he is getting 2 units of PRBCs. Now he has decided to go to a rehab center. wire web worker on board. OBJECTIVE: Vital Signs: Temperature 98.1, pulse 59, respiratory rate 18, blood pressure 162/45. Oxygen saturation 100% on room air. HEENT: Head normocephalic. No trauma. PERRLA. Neck: Supple. No JVD. No masses. Central trachea. Chest: Clear to auscultation. No wheezing. No rales. Abdomen: Soft, nontender, nondistended. No hepatosplenomegaly. Extremities: Right BKA that is covered with a dressing. Neurological: The patient is alert and oriented x3. No focal deficits. LABORATORY: WBC 7.3, hemoglobin 6.6, hematocrit 21.5, platelets 95. Sodium 137, potassium 4.7, chloride 107, bicarbonate 22, BUN 14, creatinine 1.3, glucose 111, calcium 9.1. AST 95, ALT 183, alkaline phosphatase 205, albumin 3. ASSESSMENT AND PLAN: 1. 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 Postoperative day #2. Continue with pain medication, antibiotics. Surgery department on board as well as Infectious Disease department. 2. Elevated liver function tests. This has been stable. It has been decreasing compared with admission, but we will monitor. Probably this was related to his previous treatment with daptomycin which has been already stopped. 3. Thrombocytopenia, stable. Continue to monitor. 4. Hyperkalemia, resolved. 5. Chronic kidney disease in a patient with a history of renal transplant, he seems to be stable. Probably this is his baseline. 6. Peripheral arterial disease. Aware. 7. Type 2 diabetes. Continue with same management. Sliding-scale insulin and pattern of blood sugar. 8. Hypertension, stable. He has been a little bit hypertensive, but probably also related to his pain. 9. Generalized weakness in a patient with recent amputation. We are trying to set up a rehab center for this patient. cc: Nakul Ware MD
--- NOTE | 2018-09-22 16:29 | INFECTIOUS DISEASE PROGRESS NO ---
DATE: 09/22/2018 PRESENT ILLNESS: Mr. Lynch is status post right veczv-tod-nwsh amputation with a previous methicillin-resistant Staph aureus and Pseudomonas to that right foot. MEDICATIONS: He is on day 3 of ceftaroline 600 mg IV every 12 hours and day 4 of Zosyn 3.375 g IV every 6 hours. PHYSICAL EXAMINATION: Vital Signs: Temperature 98.1 degrees, pulse rate 59, respiratory rate 18, blood pressure 162/45, O2 saturations 99% on room air. General: This is a chronically ill- appearing, elderly gentleman. He is lying in the bed, currently in no acute distress. HEENT: Atraumatic, normocephalic. Oral mucous membranes are pink and moist. Conjunctivae are pale. Neck: Supple. Trachea is midline. Cardiovascular: Heart rate and rhythm are regular and slow, sinus bradycardia on the monitor. Radial pulses are palpable bilaterally. Right fycbq-uvq-cpxq amputation stump has a dressing in place which is dry and intact. No edema, erythema or drainage around the dressing. The patient does not tolerate checking his popliteal pulse on that side. Respiratory: Lung sounds are clear to auscultation, diminished in the bases. Abdomen: Soft, round and nontender. Bowel sounds are active. Neurologic: He is awake, alert and oriented, able to move upper extremities without weakness. Bilateral lower extremities are weak. Extremities: There is a PICC line in place to the right upper arm. Site is without edema, erythema, or drainage. LABORATORY AND X-RAY: Today, his white count is 7.3, hemoglobin 6.6. He is receiving a unit of blood at this time. Platelet count is 95,000. Creatinine is 1.3. GFR 55. AST 95, ALT 183, alkaline phosphatase 205. Blood cultures show no growth after 48 hours. No imaging reports today. ASSESSMENT AND PLAN: Mr. Lynch is doing fair status post right awdny-ntt-wujv amputation. Dr. Minor has spoken with Dr. Stark, and they agree on discontinuing ceftaroline and Zosyn. These have been discontinued. At this point, we will sign off, and be available as needed. COMORBIDITIES: He is elderly with diabetes mellitus and history of a renal transplant with immunosuppressive medications. He is currently having a noted anemia and thrombocytopenia as well as a transaminitis. Dictated by ESHA Cortes for Ochoa Minor MD This chart was documented by, ESHA Cortes and accurately reflects the services performed, treatment plan and medical decisions as attested by the providers signature Ochoa Minor MD. cc: Ochoa Minor MD [facility]
[2018-09-23] MEDS: MORPHINE IV PRN ×3 (01:29→11:51)
[2018-09-23] MEDS: NS 1,000 ML IV SCH (01:30)
[2018-09-23] MEDS: LOVENOX SUBQ SCH (06:11)
[2018-09-23] MEDS: HUMALOG SUBQ SCH ×2 (06:13→12:41)
[2018-09-23 07:22] LABS: BASO# 0.02 X1000 (0.0-0.2); BASO% 0.3 % (0.0-0.8); EOS# 0.06 X1000 (0.0-0.7); EOS% 0.8 % (0.0-10.0); HEMATOCRIT 29.9 % (42.0-52.0); HEMOGLOBIN 9.7 g/dL (14.0-18.0); LYMPH% 14.9 % (20.5-51.1); MCH 28.6 PG (27-31); MCHC 32.4 g/dL (33-37); MCV 88.2 FL (81-99); MONO# 0.74 X1000 (0.11-0.59); MPV 12.7 FL (7.4-10.4); NEUT# 5.45 X1000 (1.4-6.5); PLT 94 X1000 (130-400); RBC 3.39 XMIL (4.7-6.1); RDW 16.2 % (11.5-14.5); WBC 7.37 X1000 (4.8-10.8)
[2018-09-23 07:43] LABS: AGAP 9; ALB/GLOB RATIO 0.7; ALBUMIN 2.7 g/dL (3.5-5.0); ALKALINE PHOSPHATASE 175 U/L (32-122); BUN 21 mg/dL (8-22); CALCIUM 9.5 mg/dL (8.8-10.2); CHLORIDE 108 mmol/L (98-107); COSMO 283; CREATININE 1.1 mg/dL (0.7-1.2); ESTIMATED GFR > 60; GLUCOSE 175 mg/dL (70-104); GOT 35 U/L (10-34); GPT 130 U/L (10-44); POTASSIUM 4.9 mmol/L (3.5-5.1); SODIUM 138 mmol/L (136-145); TCO2 21 mmol/L (25-35); TOTAL BILIRUBIN 0.73 mg/dL (0.20-1.00); TOTAL PROTEIN 6.4 g/dL (6.3-8.3)
[2018-09-23 08:04] VITALS: BP 148/47
[2018-09-23] MEDS: PRINIVIL PO SCH (09:47)
[2018-09-23] MEDS: VITAMIN B-12 PO SCH (09:47)
[2018-09-23] MEDS: NORVASC PO SCH (09:47)
[2018-09-23] MEDS: ASPIRIN PO SCH (09:47)
[2018-09-23] MEDS: NORCO-10 PO PRN (09:48)
[2018-09-23] MEDS: LOPRESSOR PO SCH (09:48)
[2018-09-23] MEDS: FOLIC ACID PO SCH (09:48)
[2018-09-23] MEDS: CATAPRES PO SCH (09:48)
[2018-09-23] MEDS: PREDNISONE PO SCH (09:48)
[2018-09-23] MEDS: PROGRAF PO SCH (09:51)
[2018-09-23] MEDS: PATIENT'S OWN MED PO SCH (09:55)
--- NOTE | 2018-09-23 13:45 | DISCHARGE SUMMARY ---
ADMISSION DATE: 09/17/2018 DISCHARGE DATE: 09/23/2018 DISCHARGE DIAGNOSES: 1. 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 2. Elevated liver function test, likely medication related. 3. Thrombocytopenia. 4. Hyperkalemia/resolved. 5. Chronic kidney disease in a patient with history of renal transplant. 6. Peripheral arterial disease. 7. Type 2 diabetes. 8. Hypertension. 9. Generalized weakness. HOSPITAL COURSE: A 68-year-old male with a past medical history of type 2 diabetes, CKD with a history of renal transplant, hypertension. He was sent over to the ER by Dr. Alcantara, his tube sorter, to get admitted for possible elective right BKA. Surgery Department , Dr. Stark, evaluated this patient. The patient was admitted on 09/17/2018. At that time, he reported that he has been having increasing pain in his right leg for at least 2 weeks. He denied fever or chills. No polyuria. No polydipsia. He has had a chronic right lower extremity infection with osteomyelitis, and this has been managed conservatively with antibiotics and wound care by Dr. Alcantara. After evaluation by Surgery Department, they did a bilateral lower extremity segmental Doppler exam that shows severe peripheral vascular disease changes suspect, but there is pulsatile flow noted to the level of the tibial vessels. Infectious Disease Department has evaluated this patient before, and actually he was discharged on 09/10/2018 home with daptomycin. Upon admission, we noticed that this patient became a little bit hyperkalemic, that then got better and also, he came in with elevated LFTs that likely is related with his medications. We stopped the daptomycin, and we placed this patient on another antibiotic. He had an amputation on 09/20/2018 due to has ischemic gangrene right foot, and he had a right below-the -knee amputation. The patient tolerated the procedure well. The next day, his hemoglobin dropped to 6.6, so he received 2 units of PRBCs. This patient is still complaining of some pain, but is appropriate due to his amputation. We have decided to stop completely the antibiotics since the source of infection has been gone, and the vital signs have been stable. I will continue with the home medications including the medication to avoid rejection of his kidney transplant: Dr. Stark, from Surgery Department, would like to follow this patient up as an outpatient in 3 weeks. Also follow up with his primary care doctor, but he needs to call for an appointment. At the moment of discharge, this patient was in a stable medical condition tolerating p.o., working with physical therapy. Family members at the bedside. He will be discharged to a rehab center. PHYSICAL EXAMINATION: Vital signs: Temperature 98.4 degrees, pulse 51, respiratory rate 22, blood pressure 148/47, oxygen saturation 98 on room air. HEENT: Head normocephalic. No trauma. PERRLA. Neck: Supple. No JVD. No masses. Central trachea. Chest: Clear to auscultation. No wheezing. No rales. Abdomen: Soft, nontender, nondistended. No hepatosplenomegaly. Extremities: Right BKA with no sign of bleeding or infection. Neurological: Alert and oriented x3. No focal deficits. LABORATORY: WBC 7.3, hemoglobin 9.7, hematocrit 29.9, platelets 94,000. Sodium 138, potassium 4.9, chloride 108, bicarbonate 21, BUN 21, creatinine 1.1, glucose 175, calcium 9.5. AST 35, ALT 138, alkaline phosphatase 175, albumin 2.7. DISCHARGE MEDICATIONS: Prograf 2 mg p.o. b.i.d., sodium bicarbonate 650 mg p.o. b.i.d., prednisone 7.5 mg p.o. daily, MiraLAX 17 g p.o. as needed, mycophenolate sodium 720 mg p.o. b.i.d., metoprolol 50 mg p.o. b.i.d., lisinopril 10 mg p.o. daily, Lantus 24 units subq q.a.m., folic acid 1 mg p.o. b.i.d., vitamin B12 1000 mcg p.o. daily, clonidine 0.1 mg p.o. b.i.d., aspirin 81 mg p.o. q.a.m., amlodipine 10 mg p.o. daily, docusate 100 mg p.o. as needed, [place] 10 one tablet p.o. q.4 hours as needed, and Tylenol 650 p.o. q.6 hours as needed for fever. TIME DISCHARGING THIS PATIENT: 35 minutes. cc: Nakul Ware MD MTDD
== END 2018-09-23 17:21 | DRG 240 ==
LOC: ED 16:44 → 3N 16:45 → SUATTDRO 16:45
PROVIDERS: ATTEND Internal Medicine
CPT/HCPCS: 36415; 36430; 80048; 80053; 82550; 82948; 83036; 85014; 85018; 85025; 85610; 85730; 86850; 86900; 86901; 86920; 87040; 88307; 93005; 93923; 94761; 94799; 96374; 96375; 97110; 97162; 97530; 99285; A9270; J0330; J0610; J0712; J1650; J1815; J2270; J2405; J2543; J3010; J3370; J7030; J7050; J7506; J7512; P9016; XXXXX

== ENCOUNTER 2019-04-14 11:14 | Inpatient (IN) ==
[2019-04-14] MEDS ORDERED: NS 1,000 ML IV ONE (12:32)
[2019-04-14] MEDS ORDERED: ZOFRAN IV ONE ×2 (12:32→16:13)
--- NOTE | 2019-04-14 12:56 | Diag Imaging Result Doc PS360 ---
FLAT/UPRIGHT ABD/1 VIEW CHEST - 04/14/2019 INDICATION: vomiting TECHNIQUE: COMPARISON: 12/22/2014 FINDINGS: There is some minimal scarring in the right middle lobe. Otherwise the lungs are clear. Heart size is normal. No pneumothorax or pleural effusion. There is a dense calcification overlying the upper right psoas muscle. This may represent a renal stone. This measures about 15 x 6 mm. No bowel obstruction or free air. There is extremely severe vascular disease, with severe calcification of all the arteries in the pelvis. IMPRESSION: Possible right renal stone. Electronically signed by Too Arriaga 04/14/2019 12:53 PM
[2019-04-14 12:57] LABS: HEMOGLOBIN 15.3 g/dL (14.0-18.0); MCHC 32.6 g/dL (33-37); NEUT% 84.7 % (42.2-75.2); PLT 84 X1000 (130-400); RBC 5.28 XMIL (4.7-6.1); RDW 13.9 % (11.5-14.5); WBC 18.13 X1000 (4.8-10.8)
[2019-04-14 12:58] LABS: BASO# 0.02 X1000 (0.0-0.2); BASO% 0.1 % (0.0-0.8); EOS# 0.04 X1000 (0.0-0.7); EOS% 0.2 % (0.0-10.0); IMM GRAN# 0.16 X1000 (0.0-0.04); IMM GRAN% 0.9 % (0.0-0.5); LYMPH# 1.14 X1000 (1.2-3.4); LYMPH% 6.3 % (20.5-51.1); MONO# 1.41 X1000 (0.11-0.59); MONO% 7.8 % (1.7-9.3); NEUT# 15.36 X1000 (1.4-6.5)
[2019-04-14 13:20] LABS: ALLEN TEST YES; BE -18.2 mmoll (-3.0-3.0); BLOOD TYPE ARTERIAL; HCO3-(ACT) 10.7 mmoll (20.0-26.0); METHB 0.6 % (0.0-1.5); O2(CT) 19.4 mL/dL (15.0-23.0); O2HB 95.9 % (95.0-99.0); PCO2(98.6) 26 mmHg (35-45); PO2(98.6) 99 mmHg (60-100); SAMPLE BLOOD; SAO2 97.3 % (95.0-100.0); THB 14.3 g/dL (11.5-17.4)
[2019-04-14 13:23] LABS: MODALITY ROOM AIR; pH(98.6) 7.15 (7.35-7.45)
--- NOTE | 2019-04-14 13:29 | Diag Imaging Result Doc PS360 ---
EXAM: CHEST-1 VIEW 04/14/2019 HISTORY: leukocytosis TECHNIQUE: AP portable upright at 1321 COMMENT: Considering differences in inspiration the appearance the chest has not changed significantly since the previous study of 1247. The opacity in the right middle lobe present on 12/22/2014 is no longer present. IMPRESSION: No evidence of acute disease. Electronically signed by Paras Panda 04/14/2019 1:27 PM
[2019-04-14 13:38] LABS: ALB/GLOB RATIO 1.2; ALBUMIN 3.4 g/dL (3.5-5.0); POTASSIUM 8.2 mmol/L (3.5-5.1); TOTAL BILIRUBIN 0.82 mg/dL (0.20-1.00); TOTAL PROTEIN 6.3 g/dL (6.3-8.3)
[2019-04-14] MEDS ORDERED: CALCIUM GLUCONATE 1 GM in NS 50 ML IV ONE (13:56)
[2019-04-14] MEDS ORDERED: ALBUTEROL NEB INH ONE (13:57)
[2019-04-14] MEDS ORDERED: HUMULIN R IV ONE ×2 (13:57→20:49)
[2019-04-14] MEDS ORDERED: SOLU-MEDROL IV ONE (14:15)
[2019-04-14] MEDS ORDERED: NS 500 ML IV ONE ×3 (14:17→19:10)
--- NOTE | 2019-04-14 15:53 | EKG Report ---
Test Performed on : 04/14/2019 1:59:52 PM Test Reason : ED. No order in [place] Blood Pressure : / mmHG Vent. Rate : 101 BPM Atrial Rate : 101 BPM P-R Int : 204 ms QRS Dur : 124 ms QT Int : 360 ms P-R-T Axes : 065 -85 084 degrees QTc Int : 466 ms Sinus tachycardia. Left axis deviation Right bundle branch block Septal infarct (cited on or before 22-DEC-2017) Abnormal ECG When compared with ECG of 17-SEP-2018 23:23, Significant changes have occurred Unconfirmed Result
[2019-04-14] MEDS ORDERED: ZOFRAN ONE (16:05)
[2019-04-14] MEDS ORDERED: HUMULIN R SUBQ ONE (17:53)
[2019-04-14 18:41] LABS: INR 1.17; PROTIME 15.1 Seconds (11.0-16.0)
[2019-04-14 18:42] LABS: PTT 27.1 Seconds (22.3-41.8)
[2019-04-14] MEDS: HUMALOG SUBQ SCH ×2 (18:57→19:59)
[2019-04-14] MEDS ORDERED: SODIUM BICARBONATE 8.4% IV PUSH ONE (19:11)
[2019-04-14] MEDS ORDERED: LEVOPHED 8 MG in D5 1/2 NS 250 ML IV SCH (19:15)
--- NOTE | 2019-04-14 19:43 | HISTORY AND PHYSICAL ---
PRIMARY CARE PHYSICIAN: Dr. Holden. BASTING MARKER: Dr. Stephens. CHIEF COMPLAINT: Vomiting coffee-ground emesis and abdominal pain, that began on Thursday and has progressively worsened. HISTORY OF PRESENTING ILLNESS: This is a 69-year-old male who presents to [facility], with complaints of coffee-ground emesis and abdominal pain since Thursday. He is noncompliant with his medication and medical regimen. He had a kidney transplant in 2009 and is a diabetic, but does not check his blood glucose levels. His laboratory data showed a white blood cell count of 18.13. His ABGs showed a pH of 7.15, pCO2 of 26, pO2 99, bicarb 10.7, and this was on room air. His sodium is 130, potassium of 8.2, chloride 94, CO2 10, anion gap of 26, BUN of 86, creatinine 5, glucose 671. Amylase and lipase were both negative. His acetone level was negative. Abdomen x-ray showed a possible right renal stone, and his chest x-ray showed no evidence of acute disease. So, he will be admitted for further evaluation and treatment. PAST MEDICAL HISTORY: 1. Diabetes type 2. 2. Chronic kidney disease. 3. Hypertension. 4. CVA. 5. Hyperlipidemia. PAST SURGICAL HISTORY: 1. Renal transplant in 2009 that is followed by [facility]. 2. Amputation of the right 3rd toe. 3. Cholecystectomy. 4. Cataract surgery. 5. Right BKA. FAMILY HISTORY: Reviewed and noncontributory. SOCIAL HISTORY: He currently lives with family. Denies any tobacco, alcohol, or illicit drug use. LABORATORY DATA: White blood cell count of 18.13, hemoglobin 15.3, hematocrit 47, platelets 84,000. ABG with a pH of 7.15, pCO2 26, pO2 99, bicarb 10.7 on room air. Sodium 130, potassium 8.2, chloride 94, CO2 10, BUN of 86, creatinine 5, glucose 671. Troponin of 0.059. Amylase 64, lipase 37. Acetone level was negative. Abdomen x-ray shows a possible right renal stone. Chest x-ray showed no evidence of acute disease. REVIEW OF SYSTEMS: He denied any fever, chills, blurred vision, dizziness, chest pain, coughing, shortness of breath. He did have abdominal pain, nausea, vomiting of coffee ground emesis. Denied any constipation or burning or hurting with urination. PHYSICAL EXAMINATION: VITAL SIGNS: On arrival, he had a pulse of 97, respirations 21, blood pressure 90/69, saturating 100% on room air. Currently, blood pressure is up to 122/68. GENERAL: This is a 69-year-old male who is lying in the bed. Answers questions appropriately. HEENT: Normocephalic, atraumatic. Normal ENT inspection. Oropharynx and nares are clear. EYES: Pupils are equal, round, reactive to light and accommodation. Extraocular movements are intact. NECK: Normal inspection. Normal range of motion. LUNGS: Clear to auscultation bilaterally with equal lung expansion and chest wall movement. HEART: Regular rate and rhythm. No murmurs, rubs, or gallops. ABDOMEN: Soft. There is some generalized tenderness to palpation. Bowel sounds are present x4 quadrants. MUSCULOSKELETAL: He has 5/5 strength to his upper extremities. He did have a right BKA and he has 4/5 strength to his lower left extremity. NEUROLOGICAL: The cranial nerves 2 through 12 appear grossly intact. ASSESSMENT: 1. Diabetic ketoacidosis. 2. Upper gastrointestinal bleed. 3. Hyperkalemia. 4. Acute kidney injury on chronic kidney disease. 5. Leukocytosis. PLAN: 1. He will be admitted to the intensive care unit. 2. We will consult Nephrology and GI. 3. Place on diabetic ketoacidosis protocol. 4. Place on telemetry. 5. Hold n.p.o. 6. In the emergency room, he received Solu-Medrol 125 mg intravenously x1, albuterol 2.5 mg intravenously x1, calcium gluconate 1 gram intravenously x1, regular insulin 10 units intravenously x1, and 2 L of normal saline. PENDING LABS: Include blood cultures x2, magnesium, PT with INR and a PTT, urinalysis, and serial lactate. Further orders after seen by Attending and by consultants. Dictated by ESHA Mcdowell for Srinivas Vital MD cc: ESHA Mcdowell MD Dr. Sparacino
--- NOTE | 2019-04-14 19:48 | HISTORY AND PHYSICAL ---
HISTORY OF PRESENT ILLNESS: Mr. Jude Lynch came to the emergency department today because of generalized weakness, nausea, vomiting that has been going on for about 4 days, associated with some coffee-grounds emesis. Upon presenting to the emergency department, he has been thoroughly evaluated. His initial blood pressures were in the low end with 90/69. PHYSICAL EXAM: GENERAL: Shows an elderly gentleman who looks chronically ill, emaciated, with BMI of 19.1. HEENT: Mucosa is dry. Anicteric, acyanotic. NECK: Is supple. CHEST: Clear to auscultation. CARDIOVASCULAR: Tachycardic. ABDOMEN: Is soft. There is an old scar on the right flank from previous renal surgery. There is a right BKA. The left side is unremarkable. There is the left previous fistula on the left arm. LABORATORY DATA: Has been reviewed. The patient has leukocytosis predominantly neutrophilia. His ABG shows significant metabolic acidosis with elevated lactic acid. His chemistry shows a high anion gap metabolic acidosis with elevated potassium and glucose of 671. ASSESSMENT: 1. Severe clinical volume depletion associated with hypotension and lactic acidosis. The patient will continue with adequate fluid resuscitation. 2. High anion gap metabolic acidosis presumably from lactic acid. However, patient's glucose is also remarkably elevated and there is a very high probability that he could also be in diabetic ketoacidosis. Unfortunately, the acetone is negative; however, acetone is a very late byproduct of the ketone body. It is very possible Mr. Lynch could be in diabetic ketoacidosis with negative acetone. 3. Leukocytosis with hypotension with elevated lactic acidosis. This is all concerning for infectious etiology. Patient will be covered with IV antibiotics until we know the infection has completely been ruled out. So far chest x-ray does not show any acute pathology. A KUB shows a possible right renal stone. 4. Chronic kidney disease stage IIIB with worsening renal function. 5. Status post renal transplant on chronic immunosuppressive therapy. 6. Status post right below-knee amputation due to severe peripheral vascular disease. 7. Critical hyperkalemia. This has been treated emergently. We will repeat the labs and continue addressing all the electrolyte abnormalities. Please refer to the details of the history and physical that has been dictated by the SEPARATOR TENDER in the chart. cc: Srinivas Vital MD
[2019-04-14] MEDS ORDERED: HUMALOG SUBQ SCH (20:00)
[2019-04-14] MEDS ORDERED: D5 1/2 NS 1,000 ML IV PRN (20:49)
[2019-04-14] MEDS ORDERED: MAGNESIUM SULFATE 2 GM/S.W.I. 2 GM/50 ML IVPB IV PRN (20:49)
[2019-04-14] MEDS ORDERED: ZOSYN 2.25 GM in NS 50 ML IV ONE (20:57)
[2019-04-14] MEDS ORDERED: HUMULIN R 100 UNIT in NS 100 ML IV SCH (21:00)
[2019-04-14] MEDS ORDERED: BLISTEX MEDICATED BERRY LIP BALM TOP PRN (21:03)
--- NOTE | 2019-04-14 21:10 | NEPHROLOGY CONSULTATION ---
DATE: 04/14/2019 REASON FOR ADMISSION: DKA, dehydration, life-threatening hyperkalemia. REASON FOR CONSULTATION: Assist with management of above. CONSULTING PHYSICIAN: Dr. Vital. HISTORY OF PRESENT ILLNESS: This is a 69-year-old gentleman known to our service for renal transplantation with previous dialysis in the distant past. He has moderate baseline chronic kidney disease secondary to an episode of rejection historically. His last admission to the hospital was in September of this year, for a chronic infection of his right foot. Since then, he has done fairly well. His baseline creatinine since that time has been about 1.8 and he was this in March of this year. The patient, when I see him, is extremely lethargic. Information is obtained from his . She states that he has had nausea, vomiting, and diarrhea since at least Thursday. They had planned to go see his primary care physician, but because he was so ill, she called the ambulance instead and had him brought to the emergency room. Initial workup here indicated the patient with a sodium of 130, a potassium of 8.2, a CO2 of 10, a creatinine of 5. His glucose was 671. His acetone level currently is negative. He had a blood gas with a pH of 7.1, pCO2 of 26, bicarbonate of 10.7, a base excess of -18.2, lactate of 3.8. Blood counts with a WBC of 18.3, hemoglobin 15.3, and a platelet count of 84,000. The patient has had some continued vomiting of bilious material. The patient has extremely tenuous IV access and his last blood draw, they were unable to obtain enough to rerun his potassium level after he has been treated with insulin, D50, calcium, albuterol. PAST MEDICAL HISTORY: Diabetes, hypertension, hyperlipidemia, chronic kidney disease, history of renal transplantation. SURGICAL HISTORY: He has had a 3rd toe amputation, diabetic wound treatment, a renal transplant about 8 years ago, cholecystectomy, cataract surgery. ALLERGIES: No known drug allergies. HOME MEDICATIONS: Medication list is currently being reconciled. It is noted that he has been on mycophenolate, prednisone, and Prograf in the past for his transplant. FAMILY HISTORY: Noncontributory. SOCIAL HISTORY: He is . His is at the bedside. No ETOH, tobacco, or illicit drug use currently. REVIEW OF SYSTEMS: Patient is significantly lethargic. Nausea, vomiting, diarrhea. PHYSICAL EXAMINATION: Vital Signs: Temperature 96.2 degrees. Heart rate on the monitor is 120, respiratory rate is 18, blood pressure 122/68. General: This is a chronically ill-appearing, critically ill-appearing gentleman currently in bed. He is lethargic. It takes a good deal of tactile stimuli to get him to open his eyes and acknowledge my presence. He drifts off back to sleep almost immediately. HEENT: Normocephalic, atraumatic. His oral mucosa is exceptionally dry, dentition poor. Neck: Supple. His neck veins are flat. Cardiovascular: Tachycardic, regular. Pulmonary: He has no rales or wheezes. He has equal excursion. Abdomen: Soft. Denies tenderness. Genitourinary: He has not voided. Extremities: There is no clubbing, cyanosis, edema. His extremities are extremely thin. Integumentary: His skin is dry, warm. Neurologic: Again, quite sleepy. LABORATORY DATA: Initial WBC of 18.1, hemoglobin 15.3, platelets of 87,000. Sodium 130, potassium 8.2, chloride 94, CO2 of 10, BUN 86, creatinine 5.0, glucose of 671. Acetone negative. Blood gases, pH of 7.15, base excess of -18, pCO2 of 26, and a lactate of 3.8. IMAGING: Chest x-ray was negative. Abdomen flat and upright, possible right renal stone. ASSESSMENT AND PLAN: 1. Profound hyperkalemia in the setting of diabetic ketoacidosis. His gap is 25. He has received 1 liter of IV fluid resuscitation. He has a second liter infusing. We have been unable to obtain an adequate specimen to recheck his potassium. His volume status is low. I requested to the attending, if the patient needs additional access to go ahead and place a vascular catheter with a third port, so that if his potassium level does not improve and he requires emergent dialysis, we will already have access, and then they will also have a central access for fluid resuscitation and blood draw. 2. Acute on chronic kidney disease. He has extremely high BUN and likely this is dehydration, acute on top of his chronic disease. Again, recheck labs and further orders to follow. 3. Acid base balance. CO2 is 10. Would add bicarbonate. Dictated by ESHA Hanson for Claudio Stephens MD Face to face encounter, data reviewed, discussed with Jayden Castillo on 04/14/19. I agree with the above assessment and plan of care. cc: Claudio Stephens MD [facility]
[2019-04-14] MEDS: NS 1,000 ML IV SCH (21:25)
[2019-04-14] MEDS ORDERED: NS 1,000 ML ONE (21:27)
[2019-04-14 21:51] LABS: URINE SOURCE CATH
[2019-04-14 22:28] LABS: BILIRUBIN URINE NEGATIVE (NEGATIVE); BLOOD URINE NEGATIVE (NEGATIVE); COLOR YELLOW; GLUCOSE URINE 70 mg/dL (NEGATIVE); KETONE URINE NEGATIVE (NEGATIVE); LEUKOCYTES URINE NEGATIVE (NEGATIVE); NITRITE URINE NEGATIVE (NEGATIVE); PROTEIN URINE 30 mg/dL (NEGATIVE); TURBIDITY URINE CLEAR (CLEAR); UROBILINOGEN URINE NORMAL (NORMAL)
[2019-04-14 22:29] LABS: UR EPITHELIAL CELLS <10 /HPF (<10); URINE BACTERIA NEGATIVE /HPF; URINE RBC <10 /HPF (<10); URINE WBC <10 /HPF (<10)
[2019-04-14] MEDS ORDERED: VANCOMYCIN 1 GM/NS 1 GM/250 ML IVPB IV ONE (22:30)
[2019-04-14 23:09] LABS: HEMOGLOBIN A1C 10.4 % (4.8-6.0)
[2019-04-14 23:40] LABS: ALBUMIN 2.4 g/dL (3.5-5.0); CALCIUM 8.9 mg/dL (8.8-10.2); CREATININE 4.5 mg/dL (0.7-1.2); MAGNESIUM 1.9 mg/dL (1.5-2.7); PHOSPHORUS 5.7 mg/dL (2.7-4.5)
[2019-04-14 23:57] LABS: HEMATOCRIT 33.8 % (42.0-52.0); HEMOGLOBIN 11.3 g/dL (14.0-18.0)
[2019-04-15] MEDS: NEXIUM IV SCH ×3 (00:13→22:44)
--- NOTE | 2019-04-15 00:29 | OPERATIVE NOTE ---
PROCEDURE DATE: 04/14/2019 PREOPERATIVE DIAGNOSIS: Acute on chronic kidney disease, dehydration. POSTOPERATIVE DIAGNOSIS: Acute on chronic kidney disease, dehydration. PROCEDURE: Attempted central venous catheter placement. SURGEON: Fantasma Fraser MD. ESTIMATED BLOOD LOSS: Scant. FINDINGS: The right internal jugular vein was very small and perhaps had some thrombus in it. TECHNIQUE: He was placed in Trendelenburg. His right neck was prepped and draped in usual sterile fashion. Lidocaine 1% was used to anesthetize the skin. The right internal jugular vein was visualized with ultrasound, and initially it was felt to be compressible, patent, and without thrombus. I accessed the vein twice under ultrasound-guidance, but could not thread the wire successfully. Further evaluation of the vein revealed a small nondistended vein and there was some sonographic haziness that could be indicative of thrombus in the proximal portion of the vein. At this point, the patient was getting nauseated and felt like he needed to throw up and we aborted the procedure at this time. He will get another bolus of IV fluids and we will re-attempt later tonight. cc: Fantasma Fraser MD
[2019-04-15] MEDS: HUMALOG SUBQ SCH ×7 (01:33→21:50)
[2019-04-15] MEDS: FLAGYL 500 MG/NS 500 MG/100 ML IVPB IV SCH ×4 (01:35→18:42)
[2019-04-15 01:39] LABS: CALCIUM 8.7 mg/dL (8.8-10.2); CREATININE 4.8 mg/dL (0.7-1.2); MAGNESIUM 1.9 mg/dL (1.5-2.7); POTASSIUM 3.9 mmol/L (3.5-5.1)
[2019-04-15] MEDS: ZOFRAN IV PRN (01:40)
--- NOTE | 2019-04-15 02:28 | OPERATIVE NOTE ---
PROCEDURE DATE: 04/14/2019 PREOPERATIVE DIAGNOSES: 1. Acute on chronic kidney failure with hypotension and hypovolemia. 2. Hyperkalemia. 3. Metabolic acidosis. POSTOPERATIVE DIAGNOSES: 1. Acute on chronic kidney failure with hypotension and hypovolemia. 2. Hyperkalemia. 3. Metabolic acidosis. PROCEDURE: Insertion of central venous Trialysis-type catheter in the right femoral vein with ultrasound guidance. SURGEON: Fantasma Fraser MD. ANESTHESIA: None. ESTIMATED BLOOD LOSS: 5 mL. COMPLICATIONS: None apparent. SPECIMENS: None. FINDINGS: The right femoral vein was found with ultrasound. It was compressible, patent, and without thrombus. TECHNIQUE: He was kept supine in his ICU bed. His right groin was prepped and draped in usual sterile fashion. lidocaine 1% was used to anesthetize the skin over the femoral vein, which was found with ultrasound. The vein was compressible, patent, and without thrombus. The vein was then accessed with a needle and syringe under ultrasound guidance, drawing back dark, nonpulsatile blood. The wire passed through the needle. The track was dilated over the wire. A Trialysis catheter was passed over the wire via the Seldinger technique into the femoral vein. The wire was removed. All ports effie back blood and were flushed with saline. Sterile caps were applied. The port was anchored to the skin with nylon suture and a sterile dressing was applied. There were no apparent complications. cc: Fantasma Fraser MD
[2019-04-15 02:49] LABS: ALLEN TEST YES; BE -14.1 mmoll (-3.0-3.0); BLOOD TYPE ARTERIAL; HCO3-(ACT) 13.9 mmoll (20.0-26.0); METHB 0.7 % (0.0-1.5); O2(CT) 16.3 mL/dL (15.0-23.0); O2HB 95.9 % (95.0-99.0); PCO2(98.6) 30 mmHg (35-45); PO2(98.6) 93 mmHg (60-100); SAMPLE BLOOD; SAO2 97.3 % (95.0-100.0); pH(98.6) 7.22 (7.35-7.45)
[2019-04-15 02:50] LABS: MODALITY ROOM AIR
[2019-04-15 05:18] LABS: BASO% 0.1 % (0.0-0.8); HEMATOCRIT 34.7 % (42.0-52.0); HEMOGLOBIN 11.9 g/dL (14.0-18.0); IMM GRAN% 0.7 % (0.0-0.5); LYMPH% 8.3 % (20.5-51.1); MCH 29.4 PG (27-31); MCHC 34.3 g/dL (33-37); MCV 85.7 FL (81-99); MONO% 15.6 % (1.7-9.3); MPV 13.8 FL (7.4-10.4); NEUT% 75.3 % (42.2-75.2); PLT 117 X1000 (130-400); RBC 4.05 XMIL (4.7-6.1); RDW 13.3 % (11.5-14.5); WBC 13.13 X1000 (4.8-10.8)
[2019-04-15 05:19] LABS: BASO# 0.01 X1000 (0.0-0.2); IMM GRAN# 0.09 X1000 (0.0-0.04); LYMPH# 1.09 X1000 (1.2-3.4); MONO# 2.05 X1000 (0.11-0.59); NEUT# 9.89 X1000 (1.4-6.5)
[2019-04-15 05:32] LABS: CALCIUM 8.6 mg/dL (8.8-10.2); CREATININE 4.9 mg/dL (0.7-1.2); MAGNESIUM 1.8 mg/dL (1.5-2.7); POTASSIUM 4.1 mmol/L (3.5-5.1)
[2019-04-15 05:49] LABS: BANDS 6 % (0-1); LYMPHS 9 % (21-51); MONO 10 % (1-9); SEGS 74 % (42-75)
[2019-04-15] MEDS ORDERED: VANCOMYCIN ORAL SOLN PO SCH (08:00)
[2019-04-15] MEDS: VANCOMYCIN ORAL SOLN PO SCH ×3 (08:53→20:18)
[2019-04-15] MEDS ORDERED: LANTUS INSULIN SUBQ SCH (09:45)
[2019-04-15] MEDS ORDERED: D5 1/2 NS 1,000 ML IV PRN (09:47)
--- NOTE | 2019-04-15 10:21 | PROGRESS NOTE ---
DATE: 04/15/2019 SUBJECTIVE: This morning Mr. Lynch refers to be doing a little better. He still is complaining of generalized weakness, mild abdominal discomfort, diarrhea, and thirsty. OBJECTIVE: Vital Signs: Blood pressure is 105/58, pulse of 105, respirations 13, and temperature 97.5 degrees. General: Mr. Lynch is a 69-year-old gentleman. He is in bed in no distress. Mucosa is pink and slightly dry. Anicteric. Acyanotic. Neck: Supple. Chest: Good air entry bilaterally. No crepitations. No rhonchi. Cardiovascular: Regular rate and rhythm. No murmurs. No rubs. No gallops. GI: Abdomen is soft. There is an old scar on the right flank. Extremities: No pedal edema. There is a right BKA. Left is unremarkable. LABORATORY DATA: WBC is down to 13.13, hemoglobin is 11.9, and platelet count of 117,000. Chemistry is also reviewed. Creatinine is down to 4.9. Potassium has normalized. Bicarb is 14 with anion gap of 19. Glucose is down to 141. So far, blood cultures are still pending. Stool is positive for C. Diff. ASSESSMENT: 1. Septic shock on presentation secondary to C. Diff colitis. The patient is currently on both IV metronidazole as well as p.o. vancomycin. He seems to be hemodynamically more stable today. 2. High anion gap metabolic acidosis presumably combination of lactic acid and mild DKA, improving. 3. Acute on chronic renal disease (stage IIIB). The patient is getting IV fluids, and he is making some urine as well. We are going to continue with the current fluid resuscitation. Nephrology is on board. 4. Status post renal transplant on chronic immunosuppressive therapy. The patient was given some a stress dose of methylprednisone yesterday. We will continue with methylprednisone IV for now until he is able to tolerate his po prednisone. His Prograf will also be started, however, we will hold off on the CellCept for now. 5. Status post right below-knee amputation due to severe peripheral vascular disease. 6. Critical hyperkalemia on presentation resolved. In general, Mr. Lynch seems to be a little bit more stable today. He presented yesterday because of nausea and vomiting, diarrhea, which has proven to be C. Diff colitis leading to severe/septic shock associated with severe lactic acidosis and mild diabetic ketoacidosis. He continues to be on IV fluids and antibiotics for the C. Diff colitis, and control of his other chronic comorbidities. We are going to start him also on diabetic diet today if he can tolerate it, and titrate his insulin demands for better glycemic control. I have spoken to the mold yard supervisor about the care of Mr. Lynch today. TIME SPENT: Critical time spent is 45 minutes. cc: Srinivas Vital MD [facility]
[2019-04-15] MEDS: NS 1,000 ML IV SCH (11:02)
[2019-04-15 11:11] LABS: CALCIUM 8.4 mg/dL (8.8-10.2); POTASSIUM 4.6 mmol/L (3.5-5.1)
[2019-04-15 11:12] LABS: MAGNESIUM 1.9 mg/dL (1.5-2.7)
[2019-04-15] MEDS: SOLU-MEDROL IV SCH ×2 (11:37→22:42)
[2019-04-15] MEDS: SODIUM CHLORIDE 0.9% INJ SCH ×2 (11:38→22:44)
[2019-04-15 15:27] LABS: CREATININE 4.1 mg/dL (0.7-1.2); MAGNESIUM 1.8 mg/dL (1.5-2.7); POTASSIUM 4.6 mmol/L (3.5-5.1)
[2019-04-15 20:28] LABS: CREATININE 3.7 mg/dL (0.7-1.2)
[2019-04-15 20:29] LABS: CALCIUM 7.9 mg/dL (8.8-10.2)
--- NOTE | 2019-04-15 20:51 | NEPHROLOGY PROGRESS NOTE ---
DATE: 04/15/2019 SUBJECTIVE: Patient is much more awake and alert today. He is able to discuss events. OBJECTIVE: Vital Signs: Temperature 97.5 degrees, pulse 103, respiratory rate 16, blood pressure 92/44. Intake 1.7 L, output 250 mL. General: This is a chronically ill- appearing, elderly gentleman, resting in bed. He is awake and alert today. He does not appear in distress. HEENT: Normocephalic, atraumatic. His oral mucous is moist. Neck: Supple without JVD. Cardiovascular: Controlled rate, occasional PVCs. Pulmonary: No wheezes, rales, rhonchi. Abdomen: Soft. Positive bowel sounds. Genitourinary: Voiding. He has a Vas-Cath to the right groin with insertion site clean, dry, and intact. Extremities: No clubbing, cyanosis, edema. integumentary: Skin is warm and dry. LABORATORY DATA: WBC of 13.1, hemoglobin 11.3. Sodium 142, potassium 4.6, CO2 of 12, anion gap of 17, creatinine 5.0, calcium 8.4. Clostridium difficile assay toxin positive. ASSESSMENT/PLAN: 1. Acute on chronic kidney disease. His renal function is improving. Patient has been aggressively rehydrated in the emergency room and then in the unit overnight. We will make no changes. 2. Electrolytes, acid-base balance. His potassium is in normal range. His anion gap is closing. 3. Sepsis secondary to Clostridium difficile colitis. He has been placed on vancomycin and metronidazole. 4. Status post renal transplant. He has Solu-Medrol ordered. We are getting a final list from Pharmacy regarding his other anti-rejection medications. Dictated by ESHA Hanson for Claudio Stephens MD Face to face encounter, data reviewed, discussed with Jayden Castillo on 04/15/19. I agree with the above assessment and plan of care. cc: Claudoi Stephens MD [facility]
[2019-04-15] MEDS ORDERED: SODIUM BICARBONATE 8.4% 100 MEQ in D5W 1,000 ML IV SCH (21:45)
[2019-04-15 21:48] LABS: POTASSIUM 6.2 mmol/L (3.5-5.1)
[2019-04-15] MEDS ORDERED: CALCIUM GLUCONATE 1 GM in NS 50 ML IV ONE (21:58)
[2019-04-15] MEDS ORDERED: ALBUTEROL 0.5% INH CONC FOR HYPERKALEMIA INH ONE (21:59)
[2019-04-15] MEDS ORDERED: HUMULIN R IV ONE (22:00)
--- NOTE | 2019-04-15 23:58 | GASTROENTEROLOGY CONSULTATION ---
DATE: 04/15/2019 Reason for consultation: abdominal pain, coffee ground emesis HPI: Mr. Jude Lynch is a 69 year old man with poorly controlled IDDM2, ESRD s/p renal transplant (2009), HTN, prior CVA, HLD who presented with coffee ground emesis and lower abdominal pain. The patient reports that his hematemesis and abdominal pain was proceeded with multiple episodes of N/V with retching. +diarrhea. No melena or rectal bleeding. No prior EGD or colonoscopy. No NSAIDs. ROS: as per HPI; otherwise 12 point ROS negative PMH: IDDM2, ESRD s/p renal transplant, HTN, CVA, HLD PSH: renal transplant 2010, Amputation of the right 3rd toe, CCY, cataract surgery, right BKA FH: No FHx of GI malignancies SH: No T/E/D MED: reviewed in chart ALL: NKDA PE: On arrival, P 97, RR 21, BP 90/69, 100% on room air. Currently, blood pressure is up to 122/68 GEN: awake, alert, mild distress HEENT: anicteric, MMM, EOMI NECK: supple, no LAD CV: RRR, no mumurs PULM: CTAB, no wheezing ABD: mid abdominal TTP, NABS, negative Carnett's EXT: no cce NEURO: nonfocal LABS: White blood cell count of 18.13, hemoglobin 15.3, hematocrit 47, platelets 84,000. ABG with a pH of 7.15, pCO2 26, pO2 99, bicarb 10.7 on room air. Sodium 130, potassium 8.2, chloride 94, CO2 10, BUN of 86, creatinine 5, glucose 671. Troponin of 0.059. Amylase 64, lipase 37. Acetone level was negative. Abdomen x-ray shows a possible right renal stone. Chest x-ray showed no evidence of acute disease. A/P: Mr. Jude Lynch is a 69 year old man with poorly controlled IDDM2, ESRD s/p renal transplant (2009), HTN, prior CVA, HLD who presented with coffee ground emesis and lower abdominal pain found to be in DKA. He has been hypotensive concerning for sepsis. His coffee ground emesis is likely secondary to MWT vs esophagitis in the setting of multiple episodes of N/V with retching. He is insulin drip and PPI IV. Notable KAY on CKD. Recommend holding blood thinners, fluid resuscitation, and PPI. # Hematemesis: continue PPI and antiemetics prn # Anemia: stable # DKA: defer mgmt to primary # History of renal transplant: noted # KAY on CKD; fluids as above # Hyperkalemia: corrected metabolic derangements Thank you for this consult. Will follow with you AXELD
[2019-04-16] MEDS: NS 1,000 ML IV SCH (00:15)
[2019-04-16] MEDS: FLAGYL 500 MG/NS 500 MG/100 ML IVPB IV SCH ×4 (00:18→18:21)
[2019-04-16 01:27] LABS: CALCIUM 8.4 mg/dL (8.8-10.2); CREATININE 4.4 mg/dL (0.7-1.2); MAGNESIUM 1.8 mg/dL (1.5-2.7); POTASSIUM 5.4 mmol/L (3.5-5.1)
[2019-04-16] MEDS: VANCOMYCIN ORAL SOLN PO SCH ×4 (02:21→19:40)
[2019-04-16] MEDS: HUMALOG SUBQ SCH ×7 (06:19→20:56)
[2019-04-16 06:47] LABS: BASO# 0.01 X1000 (0.0-0.2); BASO% 0.1 % (0.0-0.8); EOS# 0.01 X1000 (0.0-0.7); EOS% 0.1 % (0.0-10.0); HEMATOCRIT 33.3 % (42.0-52.0); HEMOGLOBIN 11.8 g/dL (14.0-18.0); IMM GRAN# 0.08 X1000 (0.0-0.04); IMM GRAN% 0.7 % (0.0-0.5); LYMPH# 0.19 X1000 (1.2-3.4); LYMPH% 1.7 % (20.5-51.1); MCH 29.6 PG (27-31); MCHC 35.4 g/dL (33-37); MCV 83.7 FL (81-99); MONO# 0.73 X1000 (0.11-0.59); MONO% 6.6 % (1.7-9.3); NEUT# 10.01 X1000 (1.4-6.5); NEUT% 90.8 % (42.2-75.2); PLT 78 X1000 (130-400); RBC 3.98 XMIL (4.7-6.1); RDW 13.7 % (11.5-14.5); WBC 11.03 X1000 (4.8-10.8)
[2019-04-16 07:36] LABS: BANDS 32 % (0-1); HYPOCHROM 1+; LYMPHS 6 % (21-51); SEGS 54 % (42-75)
[2019-04-16 08:00] LABS: CALCIUM 8.1 mg/dL (8.8-10.2); CREATININE 4.9 mg/dL (0.7-1.2); MAGNESIUM 1.8 mg/dL (1.5-2.7); PHOSPHORUS 5.4 mg/dL (2.7-4.5); POTASSIUM 5.2 mmol/L (3.5-5.1)
[2019-04-16] MEDS: SOLU-MEDROL IV SCH ×2 (09:07→22:46)
[2019-04-16] MEDS: LANTUS INSULIN SUBQ SCH (09:07)
[2019-04-16] MEDS: SODIUM BICARBONATE 8.4% 100 MEQ in STERILE WATER INJ. 1,000 ML IV SCH ×2 (09:15→23:49)
[2019-04-16] MEDS: ZOFRAN IV PRN ×2 (10:56→16:04)
--- NOTE | 2019-04-16 12:27 | PROGRESS NOTE ---
DATE: 04/16/2019 Today Mr. Lynch referred to be doing a lot better. Feels stronger. No new complaints. OBJECTIVE: Vital signs: Blood pressure is 117/63, pulse of 123, respirations 17, temperature 98.6 degrees. The patient is saturating about 94%. General: Mr. Lynch is a 69-year-old gentleman. He is in bed, no distress. HEENT: Mucosa is pink. Still slightly dry but anicteric. Acyanotic. Neck: Supple. No JVD. No carotid bruit. Cardiovascular: Regular rate and rhythm. No murmurs, no rubs, no gallops. Respiratory: There is good air entry bilaterally. No crepitations. No rhonchi. GI: Abdomen is soft, nontender. Bowel sounds present. There is an old scar on the right flank. Extremities: No pedal edema. There is a right BKA. Left is unremarkable. LABORATORY DATA: WBC is down to 13.03, hemoglobin is 11.8, platelet count 78,000. The patient has 32% of bands on the peripheral smear. Chemistry is also reviewed. Glucose is 396, gap is closed and bicarb is still elevated. So far blood cultures have been 48 hours negative. ASSESSMENT: 1. Septic shock on presentation secondary to C. diff colitis, improving. The patient was on pressor which this has been gradually tapered off. We will continue with current antimicrobial therapy. 2. High anion gap metabolic acidosis secondary to lactic acid and mild diabetic ketoacidosis. Gap is closed. The patient continues to be acidotic, which I think it is due to his underlying renal disease. 3. Acute on chronic renal disease. 4. Status post renal transplant on chronic immunosuppressive therapy. The patient is on stress doses of prednisone at this point. 5. Status post right below-knee amputation due to severe peripheral vascular disease. 6. Critical hyperkalemia on presentation resolved. 7. Diabetes mellitus, insulin dependent, with presenting A1c of 10.4. The patient is currently on insulin regimen. So today Mr. Lynch is doing a lot better. We are going to switch his fluids to sterile with bicarb. Continue with the current insulin regimen and antimicrobials. Re-evaluate him with blood tests in the morning. The patient is also being seen by Nephrology and we will be pending any further recommendations from them. cc: Srinivas Vital MD
[2019-04-16] MEDS: SODIUM CHLORIDE 0.9% INJ SCH ×2 (12:30→22:47)
[2019-04-16] MEDS: NEXIUM IV SCH ×2 (12:30→22:47)
--- NOTE | 2019-04-16 20:10 | NEPHROLOGY PROGRESS NOTE ---
DATE: 04/16/2019 SUBJECTIVE: Patient is doing much better today. He is still complaining of nausea and vomiting. OBJECTIVE: Vital Signs: Temperature 98.6 degrees, pulse 123, respiratory rate 17, blood pressure 117/63. Intake 3.1 L, output 400 mL plus multiple liquid stools. PHYSICAL EXAMINATION: General: Elderly gentleman resting in bed. Awake and alert. No acute distress. HEENT: Normocephalic, atraumatic. MADI. Neck: Supple without JVD. Cardiovascular: Regular rate and rhythm. Pulmonary: Clear bilaterally. Abdomen: Soft, positive bowel sounds. : Voiding. Continues with a Vas-Cath right groin. Extremities: No clubbing, cyanosis, or edema. Integumentary: Skin is warm and dry. LAB DATA: WBC of 11, hemoglobin 11.8, sodium 135, potassium 5.3. CO2 12, BUN 15, creatinine 4.9, albumin 2.0, calcium 8.1. ASSESSMENT AND PLAN: 1. Acute on chronic kidney disease. His renal function with minimal change overnight. We would like to put this patient back on his anti-rejection medications, however he is still complaining of some nausea and vomiting. We will leave him on Solu-Medrol probably over today and maybe tomorrow and then get him back to home medications. 2. C. difficile followed by primary on appropriately dosed vancomycin and Flagyl. 3. Status post transplant. We do have his home medications reconciled in the computer but again until we are sure that he can keep those down, we will keep him on the stress doses of steroids. It is noted that the patient did have acute kidney injury with residual decreased kidney function previously and we would prefer to try to maintain this patient's transplanted kidneys if at all possible. Dictated by ESHA Hanson for Claudio Stephens MD cc: Claudio Stephens MD [facility]
[2019-04-17] MEDS: VANCOMYCIN ORAL SOLN PO SCH ×4 (03:24→19:55)
[2019-04-17] MEDS: FLAGYL 500 MG/NS 500 MG/100 ML IVPB IV SCH ×4 (03:24→19:55)
[2019-04-17] MEDS: HUMALOG SUBQ SCH ×7 (06:24→20:02)
[2019-04-17 07:17] LABS: CALCIUM 7.2 mg/dL (8.8-10.2); CREATININE 4.4 mg/dL (0.7-1.2); PHOSPHORUS 5.3 mg/dL (2.7-4.5); POTASSIUM 5.4 mmol/L (3.5-5.1)
[2019-04-17] MEDS: ZOFRAN IV PRN ×3 (08:23→19:58)
[2019-04-17] MEDS: LANTUS INSULIN SUBQ SCH (08:23)
--- NOTE | 2019-04-17 08:56 | Diag Imaging Result Doc PS360 ---
EXAM: CHEST-PORTABLE HISTORY: dyspnea TECHNIQUE: Portable chest single view COMPARISON: 04/14/2019 FINDINGS: The lungs are well expanded. The heart is not enlarged. The vessels are not distended. There are increased interstitial markings medially in the right base with minimal increased markings posterior to the heart in the left base. No effusion identified. IMPRESSION: Small basilar infiltrates and atelectasis. Electronically signed by Branden Scales 04/17/2019 8:53 AM
[2019-04-17] MEDS: SODIUM BICARBONATE 8.4% 150 MEQ in STERILE WATER INJ. 1,000 ML IV SCH ×2 (09:40→22:39)
--- NOTE | 2019-04-17 11:18 | PROGRESS NOTE ---
DATE: 04/17/2019 SUBJECTIVE: This morning, Mr. Lynch refers to be feeling a little stronger. He said he still continues to have diarrhea. There is documented 5 bowel movements yesterday, only 2 this morning. OBJECTIVE: Vital Signs: Blood pressure is 129/79, pulse of 110, respirations 17, temperature 97.9 degrees, the patient is saturating 93%. General: Mr. Lynch is a 69-year-old gentleman. He is in bed. No distress. HEENT: Mucosa is pink and moist. Anicteric. Acyanotic. Neck: Supple. No JVD. No carotid bruit. Cardiovascular: Regular rate and rhythm. No murmurs, no rubs, no gallops. Respiratory: There is good air entry bilaterally. Few crackles in the posterior lung goldsmith. GI: Abdomen is soft, nontender. Bowel sounds present. There is an old scar on the right flank from the renal transplant. Extremities: No pedal edema. There is a right BKA. COMMERCIAL ROOFING ESTIMATOR: The patient is awake, alert, and oriented. LABORATORY DATA: Sodium is 133, potassium is 5.4, chloride 99, bicarb is 18, creatinine is 4.4. The patient continues to make marginal urine output. ASSESSMENT: 1. Septic shock on presentation secondary to Clostridium difficile colitis, improving. The patient is not on any more pressors. 2. High anion gap metabolic acidosis on presentation secondary to lactic acid and mild diabetic ketoacidosis. Gap is closed. 3. Acute on chronic renal failure. Creatinine continues to be trending down. 4. Status post renal transplant, on chronic immunosuppressive therapy. Medications have been restarted. 5. Status post right below-knee amputation due to severe peripheral vascular disease noted. 6. Critical hyperkalemia on presentation, improving. 7. Diabetes mellitus with presenting A1c of 10.4. Will continue with insulin regimen. 8. Mild hypoxemia. The patient is on O2 therapy. A chest x-ray reveals mild atelectasis. Would encourage the patient to do incentive spirometer, sit up in the chair to help open up some of the atelectatic lung. cc: Srinivas Vital MD MTDD
[2019-04-17] MEDS: SODIUM CHLORIDE 0.9% INJ SCH ×2 (11:36→22:39)
[2019-04-17] MEDS: SOLU-MEDROL IV SCH ×2 (11:36→22:39)
[2019-04-17] MEDS: NEXIUM IV SCH ×2 (11:36→22:40)
[2019-04-17] MEDS: ALBUTEROL NEB INH PRN ×2 (11:46→16:31)
--- NOTE | 2019-04-17 12:59 | NEPHROLOGY PROGRESS NOTE ---
DATE: 04/17/2019 SUBJECTIVE: Patient resting in bed. No events overnight. OBJECTIVE: Vital Signs: Temperature 97.9 degrees, pulse 110, respiratory rate 17, blood pressure 129/79. Intake 2.4 L, output 425 mL. He also has multiple liquid stools. General: This is an elderly gentleman, resting in bed. No acute distress. HEENT: Normocephalic, atraumatic. Oral mucosa dry. Neck: Supple. No JVD. Cardiovascular: Regular rate and rhythm. Pulmonary: Clear bilaterally. Equal excursion. Abdomen: Soft. Positive bowel sounds. : Continues to void. Extremities: No clubbing, cyanosis, or edema. Integumentary: Skin is warm and dry. IMAGING AND LABORATORY DATA: No CBC. Sodium 133, potassium 5.4, CO2 of 18, creatinine 4.4 (4.9), his glucose was 191, calcium 7.2, phosphorus is 5.3, and albumin is 2.0. His chest x-ray this morning indicates infiltrates versus atelectasis. ASSESSMENT AND PLAN: 1. Acute on chronic kidney disease in a transplanted patient. His creatinine has been stable and slightly improved overnight. Urine output, he is voiding as well as liquid stools, and unclear if there is any incontinence. The patient is not overloaded on exam. Again, we are continuing the patient on a stress-dose steroid until his nausea and vomiting has resolved for the next probably 24 hours, and then will reinitiate his home dosing of antirejection medications. 2. Clostridium difficile, on appropriately dosed vancomycin and Flagyl. 3. Acidosis. He continues on sodium bicarbonate. Dictated by ESHA Hanson for Claudio Stephens MD cc: Claudio Stephens MD
[2019-04-18] MEDS: SODIUM BICARBONATE 8.4% 150 MEQ in STERILE WATER INJ. 1,000 ML IV SCH (00:43)
[2019-04-18] MEDS: VANCOMYCIN ORAL SOLN PO SCH ×4 (03:09→23:02)
[2019-04-18] MEDS: FLAGYL 500 MG/NS 500 MG/100 ML IVPB IV SCH ×4 (03:09→23:01)
[2019-04-18] MEDS: HUMALOG SUBQ SCH ×7 (06:09→23:02)
[2019-04-18 07:01] LABS: ALBUMIN 1.7 g/dL (3.5-5.0); CALCIUM 7.2 mg/dL (8.8-10.2); CREATININE 4.3 mg/dL (0.7-1.2); PHOSPHORUS 5.6 mg/dL (2.7-4.5); POTASSIUM 5.4 mmol/L (3.5-5.1)
[2019-04-18 07:12] LABS: BASO# 0.01 X1000 (0.0-0.2); BASO% 0.1 % (0.0-0.8); EOS# 0.01 X1000 (0.0-0.7); EOS% 0.1 % (0.0-10.0); HEMATOCRIT 33.2 % (42.0-52.0); HEMOGLOBIN 11.5 g/dL (14.0-18.0); IMM GRAN# 0.11 X1000 (0.0-0.04); IMM GRAN% 1.1 % (0.0-0.5); LYMPH# 0.41 X1000 (1.2-3.4); LYMPH% 4.1 % (20.5-51.1); MCHC 34.6 g/dL (33-37); MCV 83.6 FL (81-99); MONO# 0.75 X1000 (0.11-0.59); MONO% 7.5 % (1.7-9.3); MPV 13.8 FL (7.4-10.4); NEUT# 8.77 X1000 (1.4-6.5); NEUT% 87.1 % (42.2-75.2); PLT 62 X1000 (130-400); RBC 3.97 XMIL (4.7-6.1); RDW 13.9 % (11.5-14.5); WBC 10.06 X1000 (4.8-10.8)
[2019-04-18 07:23] LABS: BANDS 10 % (0-1); HYPOCHROM 1+; LARGE PLATELETS 1+; LYMPHS 2 % (21-51); MONO 2 % (1-9); SEGS 86 % (42-75)
[2019-04-18] MEDS: LANTUS INSULIN SUBQ SCH (08:07)
[2019-04-18] MEDS ORDERED: LOKELMA POWDER PACKET PO SCH (09:00)
[2019-04-18] MEDS: SOLU-MEDROL IV SCH (09:14)
[2019-04-18] MEDS: SODIUM BICARBONATE PO SCH ×2 (09:14→23:01)
[2019-04-18] MEDS: PREDNISONE PO SCH (10:06)
--- NOTE | 2019-04-18 10:27 | PROGRESS NOTE ---
DATE: 04/18/2019 SUBJECTIVE: This morning, Mr. Lynch referred to be doing a whole lot better. No new complaints. He is tolerating his meals. He, however, continues to have bowel movements. OBJECTIVE: Vital Signs: Blood pressure is 99/57, pulse of 97, respirations are 20, temperature is 97.4 degrees, patient is saturating 92% on room air. General Examination: Mr. Lynch is a 69- year-old, gentleman. He is in bed. No distress. HEENT: Mucosa is pink and moist. Anicteric. Acyanotic. Neck: Supple. Chest: Good air entry bilaterally. A few crackles in the posterior lung. Cardiovascular: Regular rate and rhythm. Abdomen: Soft, nontender. Bowel sounds present. There is an old scar at the right flank from a previous right renal transplant surgery. Extremities: No pedal edema. There is a right BKA. COMPENSATION ADJUSTER: The patient is awake, alert, oriented. The patient had a total of five BMs yesterday. Two have been documented so far today. The ones today look soft, green, but nonliquid. Laboratory Data: Has also been reviewed. WBC is back to normal at 10.09, hemoglobin and hematocrit are 11.5 and 33.3, platelet count is 63,000. Chemistry is also reviewed. Creatinine is 4.3. ASSESSMENT: 1. Septic shock on presentation secondary to Clostridium difficile colitis, improving. 2. High anion gap metabolic acidosis on presentation due to lactic acid and mild diabetic ketoacidosis, improved. 3. Acute on chronic renal failure. Creatinine continues to be trending slowly down. 4. Status post renal transplant, on chronic immunosuppressive therapy. Medications have been restarted. 5. Status post right below knee amputation due to severe peripheral vascular disease, noted. 6. Critical hyperkalemia on presentation, resolved. 7. Diabetes mellitus with presenting A1c of 10.4. Patient continues to be on insulin regimen. 8. Mild hypoxemia, presumably due to atelectasis, improving. PLAN: In general, I think Mr. Lynch seems to be doing a whole lot better. He feels well. We are going to discontinue the Kat catheter. We have changed his steroids to p.o. prednisone and we have restarted his Prograf and mycophenolate this morning. We are going to transfer him to a regular medical floor and also get physical therapy to start working with him. cc: Srinivas Vital MD
[2019-04-18] MEDS: SODIUM CHLORIDE 0.9% INJ SCH (11:50)
[2019-04-18] MEDS: NEXIUM IV SCH ×2 (11:50→23:01)
[2019-04-18] MEDS: LOKELMA POWDER PACKET PO SCH (11:51)
[2019-04-18] MEDS ORDERED: PROGRAF PO SCH (12:00)
--- NOTE | 2019-04-18 14:04 | GASTROENTEROLOGY PROGRESS NOTE ---
DATE: 04/18/2019 ATTENDING PHYSICIAN: Dr. Vital. PRIMARY CARE DOCTOR: None. SUBJECTIVE: The patient is resting in bed. He is feeling better. His diarrhea is slowly improving. He had 2 bowel movements today which were soft, green, but he continues to have poor oral intake. He denies any fevers, rigors, and chills. He denies any blood in the stools. Denies any nausea or vomiting, or vomiting blood. PHYSICAL EXAMINATION: Vital Signs: Temperature of 97.4 degrees, pulse rate of 97, respiratory rate 20, blood pressure 114/61, saturating 91% on room air. Body weight of 126 pounds and 5 ounces. BMI 21.0 kg/m2. General Appearance: Thinly built, lying in bed, in no acute distress. HEENT: Mild pallor. No icterus. Pupils equal, reactive to light and accommodation. Neck: Supple. Abdomen: Soft. Mild discomfort periumbilical region. No rebound or guarding. Extremities: No cyanosis, clubbing. He has status post right below-knee amputation. Otherwise, no cyanosis, clubbing, and edema on the left lower extremity. Neurology: He is awake, alert, oriented x3. LABS: Hemoglobin and hematocrit are 11.5 and 33.2, white count of 10.06, platelet count of 62,000. Sodium of 132, potassium 5.4, chloride 96, bicarb 20, anion gap 15, BUN of 107, creatinine 4.3, glucose of 147, calcium 7.2, phosphorus 5.6, and albumin of 1.7. His lipase was 37, amylase 64, lactate was 1.6, his AST is 17, ALT 10, alkaline phosphatase 85, total protein 6.3 on admission. Urinalysis positive for protein and glucose. Microbiology, stool for white cells were few. C. difficile toxin was positive. Stool for occult blood was positive. Blood culture x2 negative after 48 hours. Imaging reyes, he had a chest x-ray done yesterday. It showed small bibasilar infiltrates and atelectasis. An abdominal x-ray done on 04/14/2019 showed possible right renal stone. IMPRESSION AND PLAN: 1. Septic shock on presentation, likely secondary to Clostridium difficile colitis. It is improving. Patient is on oral vancomycin 250 mg every 6 hours, started on 04/15/2019 and then patient also is on Flagyl 500 mg intravenous every 6 hours. We will start the patient on Culturelle 1 capsule by mouth twice a day. The patient needs to be on vancomycin for 10 days. He will continue on Culturelle for 6 weeks. We will continue to follow his electrolytes and they need to be repleted per the primary care team. 2. Gastrointestinal prophylaxis with Nexium twice a day. 3. Diabetes. He is on Lantus and sliding scale insulin. 4. Malnutrition. He is on a diabetic diet. We will start him on Glucerna 3 times daily. 5. Anemia. We will continue to watch and transfuse as needed. I will start him on iron C twice a day and multivitamin once daily. 6. Peripheral vascular disease. Aware. 7. On admission, he had lactic acid doses and diabetic ketoacidosis has improved. 8. Status post renal transplant, on chronic immunosuppressive therapy. Aware. 9. Acute on chronic renal failure. Aware. Continue to follow up with the primary care team. 10. Status post right below-knee amputation. There is severe vascular disease. Aware. 11. We will follow along. The along the above plan was discussed with the patient and all questions were answered. I also spoke to the nursing staff. Please call us with any further questions. cc: MD Srinivas Sparrow MD Reginald D. Gladish, MD MTDD
--- NOTE | 2019-04-18 14:47 | NEPHROLOGY PROGRESS NOTE ---
DATE: 04/18/2019 TIME SEEN: 0705 SUBJECTIVE: Mr. Lynch is resting quietly in bed. He states that he is feeling much better. He is more awake and alert with no complaints. OBJECTIVE: Vital Signs: Temperature 97.8 degrees, blood pressure 105/60, heart rate 90, respirations 16, he is on room air, last recorded saturation 93%, he has had 1620 in, 250 out to Kat catheter. LAB: Sodium 132, potassium 5.4, chloride 96, CO2 21, BUN 107, creatinine 4.3, glucose 147, his anion gap is 15, calcium 7.2, phosphorus 5.6, albumin 1.7. White count 10.06, hemoglobin 11.5, hematocrit 33.2 with a platelet count of 62,000. PHYSICAL EXAMINATION: General: This is a 69-year-old male he is resting quietly in bed. He appears chronically ill no acute distress. Skin: Warm and dry. HEENT: Normocephalic, atraumatic. Conjunctiva is pale pink. He has MADI. Mucous membranes are dry. Neck: Supple. Trachea midline. No evidence of JVD. Cardiovascular: Regular rate and rhythm. He is without murmur or gallop. Lungs: Clear to auscultation bilaterally. Equal excursion on room air. Abdomen: Soft, nontender, positive bowel sounds. Palpable donor kidney to the right lower quadrant. No distress. Genitourinary: Not inspected. Patient has Kat catheter in place. Urine output has diminished. Extremities: Have no edema, no clubbing or cyanosis. Neurologic: Alert and oriented x3. Integumentary: Warm and dry without rashes or lesions. ASSESSMENT AND PLAN: 1. Acute on chronic kidney disease status post transplant. The patient's BUN and creatinine have remained stable over the last 48 hours. Urine output has decreased. He continues with a Kat catheter. We will continue to keep a strict I and O. We will restart his Prograf back at half his dose and his CellCept at his full dose continuing with the prednisone and continue to encourage patient to eat and drink. He continues on sodium bicarbonate in sterile water at 75 mL an hour. We will continue to monitor patient's labs. No indications for intervention at this time. 2. Electrolytes and acidosis. Patient's acidosis is slowly improving. He continues on a sodium bicarbonate drip in sterile water at 75 mL an hour. Mild hyperkalemia. We will monitor. 3. Anemia. This remains stable. 4. Clostridium difficile appropriately dosed on Vancocin and Flagyl. Like to thank you for allowing us to follow with this patient. Dictated by ESHA Cho for Claudio Stephens MD Face to face encounter, data reviewed, discussed with Milagros Bermudez on 04/18/19. I agree with the above assessment and plan of care. cc: ESHA Cho MD [facility]
[2019-04-18] MEDS: PROGRAF PO SCH ×2 (15:08→23:01)
[2019-04-18] MEDS: PATIENT'S OWN MED PO SCH ×2 (16:45→23:04)
[2019-04-18] MEDS ORDERED: CULTURELLE PO SCH (21:00)
[2019-04-18] MEDS ORDERED: MYCOPHENOLATE SODIUM 720 MG PO SCH (21:00)
[2019-04-18] MEDS ORDERED: ICAR-C PO SCH (21:00)
[2019-04-19] MEDS: ZOFRAN IV PRN ×4 (02:50→21:06)
[2019-04-19] MEDS: FLAGYL 500 MG/NS 500 MG/100 ML IVPB IV SCH ×4 (02:50→21:06)
[2019-04-19] MEDS: VANCOMYCIN ORAL SOLN PO SCH ×4 (02:50→21:06)
[2019-04-19] MEDS: HUMALOG SUBQ SCH ×8 (06:07→21:07)
[2019-04-19 07:30] LABS: HEMATOCRIT 41.2 % (42.0-52.0); HEMOGLOBIN 13.8 g/dL (14.0-18.0); MCH 29.1 PG (27-31); MCHC 33.5 g/dL (33-37); MCV 86.9 FL (81-99); PLT 64 X1000 (130-400); RBC 4.74 XMIL (4.7-6.1); RDW 14.7 % (11.5-14.5); WBC 12.08 X1000 (4.8-10.8)
[2019-04-19 08:09] LABS: CALCIUM 7.8 mg/dL (8.8-10.2); CREATININE 4.7 mg/dL (0.7-1.2); PHOSPHORUS 7.1 mg/dL (2.7-4.5); POTASSIUM 5.6 mmol/L (3.5-5.1)
[2019-04-19] MEDS: LR 1,000 ML IV SCH ×3 (08:36→23:29)
[2019-04-19] MEDS: PREDNISONE PO SCH (08:39)
[2019-04-19] MEDS: PROGRAF PO SCH ×2 (08:39→21:05)
[2019-04-19] MEDS: LANTUS INSULIN SUBQ SCH ×2 (08:39→08:43)
[2019-04-19] MEDS: SODIUM BICARBONATE PO SCH ×2 (08:39→21:05)
[2019-04-19] MEDS: PATIENT'S OWN MED PO SCH ×2 (08:40→21:07)
[2019-04-19] MEDS ORDERED: CENTRUM SILVER PO SCH (09:00)
[2019-04-19] MEDS ORDERED: ALBUTEROL 0.5% INH CONC FOR HYPERKALEMIA INH ONE (09:11)
[2019-04-19] MEDS ORDERED: NS 2,000 ML MISC PRN (09:14)
--- NOTE | 2019-04-19 10:05 | NEPHROLOGY PROGRESS NOTE ---
DATE: 04/19/2019 SUBJECTIVE: Mr. Lynch is resting in bed. States that he is not well. He is chronically nauseated. He does have some dry heaves, decreased urinary output. He states that he is unable to eat or drink. OBJECTIVE: His most recent vital signs temperature 98 degrees, blood pressure 116/61, heart rate 87, respirations 14. He is on room air. Last recorded saturation 92%. He has had 295 in, he has had 100 out per Kat and 2 voids in 24 hours. He is 8 L positive. LABORATORY DATA: Sodium is 134, potassium 5.6, chloride 96, CO2 23, BUN 124, creatinine 4.7, glucose 94. Anion gap is 15, calcium 7.8, phosphorus 7.1, albumin is 2. White count 12, hemoglobin 13.8, hematocrit 41.2 with a platelet count of 64,000. PHYSICAL EXAMINATION: General: This is a 69-year-old male who is currently resting in bed. He appears ill, modest distress secondary to chronic nausea and abdominal discomfort with chronic stooling. Skin: Warm and dry. HEENT: Normocephalic, atraumatic. Conjunctiva is pale pink. He has MADI. Mucous membranes are dry. Neck: Supple. Trachea midline. He has no JVD. Cardiovascular: Regular rate and rhythm without murmur or gallop. Lungs: Clear to auscultation bilaterally. Equal excursion on room air. Abdomen: Slightly tender right upper quadrant. No tenderness noted over the transplant kidney to the right lower quadrant. Genitourinary: Not inspected. Diminished urinary output. Kat catheter had been in place. Extremities: Have no edema. No clubbing or cyanosis. Neurological: Alert and oriented x3. Integumentary: No rashes or lesions evident. ASSESSMENT AND PLAN: 1. Acute on chronic kidney disease. Patient is status post renal transplant. We have started him back on his antirejection medications yesterday. The patient's BUN and creatinine have continued to elevate over the last 24 to 48 hours with decreased urinary output. We have started IVF of LR at 150ml/hr. We had discussed secondary to these findings that if his labs returned today and were not improved, that we would start hemodialysis. The patient stated understanding. Due to these findings today, we have consulted Dr. Fantasma Fraser for placement of Vas-Cath. Once in place, we will plan for hemodialysis today and again plans for tomorrow. 2. Electrolytes. Patient has mild hyperkalemia, again with plan for correction on dialysis. 3. Acidosis. This remains fairly stable. His sodium bicarbonate drip had been stopped when he was moved out of ICU. We will continue to monitor with correction on dialysis. 4. Anemia. This remains in target. 5. Positive Clostridium difficile, patient remains on renally dosed antibiotics followed by primary care. I would like to thank you for allowing us to follow with this patient. Dictated by ESHA Cho for Claudio Stephens MD Face to face encounter, data reviewed, discussed with Milagros Bermudez on 04/19/19. I agree with the above assessment and plan of care. cc: ESHA Cho MD [facility] [place]
--- NOTE | 2019-04-19 11:16 | PROVIDER PROGRESS NOTE ---
Progress Note S: Patient reports abdominal pain and continued diarrhea without rectal bleeding with PO intake. No vomiting. Afebrile. No CP/SOB O: Last Vital Signs Temp 98.9 F 04/19/19 08:00 Pulse 98 H 04/19/19 09:50 Resp 20 04/19/19 09:50 BP 86/62 04/19/19 10:00 Pulse Ox 98 04/19/19 09:50 Height 5 ft 5 in Weight 124 lb 8 oz RA GEN: awake, alert, NAD HEENT: anicteric NECK: supple, no jvd CV: tachycardic, regular PULM: CTAB, no wheezing ABD: obese, BS present, TTP throughout, no rebound or guarding EXT: right BKA, no cce on left NEURO: nonfocal LABS: 04/19/19 04/19/19 06:43 06:43 WBC 12.08 H Hgb 13.8 L D Plt Count 64 L Sodium 134 L Potassium 5.6 H Chloride 96 L Carbon Dioxide 23 L Anion Gap 15 BUN 124 H Creatinine 4.7 H Glucose 94 Calcium 7.8 L Phosphorus 7.1 H Albumin 2.0 L A/P: Mr. Jude Lynch is a 69 year old man with HTN, HLD, prior CVA, IDDM2 and CKD s/p DDRT who was admitted with septic shock, DKA, and AKY in the setting of N/V and diarrhea found to have cdiff infection. # CDI: continue oral vancomycin 250mg QID; continue for 14d; consider stopping flagyl; trend BMs daily, I/O # Anemia: stable hgb # N/V with coffee ground emesis: improved: continue PPI and antiemetics prn Will follow with you. Please call with questions.
[2019-04-19] MEDS: PROTONIX IV SCH ×2 (12:28→21:06)
[2019-04-19] MEDS: SODIUM CHLORIDE 0.9% INJ SCH ×2 (12:28→21:06)
[2019-04-19] MEDS: LOKELMA POWDER PACKET PO SCH (12:28)
[2019-04-19] MEDS ORDERED: SOLU-MEDROL IV ONE (12:55)
[2019-04-19] MEDS ORDERED: LEVOPHED 8 MG in D5 1/2 NS 250 ML IV SCH (13:00)
--- NOTE | 2019-04-19 13:08 | PROVIDER DOCUMENTATION ---
This chart was entered by Malika Tuttle Scribe, acting as scribe for Fred Galo MD. HPI-General Adult - General Chief Complaint: Nausea/Vomiting Stated Complaint: n/v Time Seen by Provider: 04/14/19 12:10 Source: patient, family, EMS Allergies/Adverse Reactions: Patient Allergies Allergy/AdvReac Type Severity Reaction Status Date / Time No Known Allergies Allergy Verified 04/14/19 13:16 Home Medications: Home Medication List Medication Instructions Recorded Confirmed Last Taken Type Insulin Glargine [Lantus] 22 unit SUBQ QAM 12/22/14 04/16/19 03/15/19 08:00 History Prednisone 7.5 mg PO DAILY 10/09/17 04/16/19 03/15/19 08:00 History Aspirin 81 mg PO QAM 12/22/17 09/18/18 09/17/18 08:00 History Tacrolimus [Prograf] 2 mg PO BID 12/22/17 04/16/19 03/15/19 20:00 History Metoprolol [Lopressor] 50 mg PO BID #60 tab 12/29/17 04/16/19 03/15/19 08:00 Rx Amlodipine [Norvasc] 10 mg PO DAILY 02/26/18 09/18/18 09/17/18 08:00 History Docusate Sodium [Colace] 100 mg PO PRN PRN 02/26/18 09/18/18 02/26/18 History LISINOpril [Prinivil] 10 mg PO DAILY 02/26/18 04/16/19 03/15/19 08:00 History Mycophenolate Sodium [Myfortic] 720 mg PO BID 02/26/18 04/16/19 03/15/19 20:00 History Clonidine [Catapres] 0.1 mg PO BID #60 tab 03/01/18 09/18/18 09/17/18 08:00 Rx Polyethylene Glycol 3350 [Miralax] 17 gm PO PRN PRN 09/03/18 09/18/18 Unknown History Cyanocobalamin [Vitamin B-12] 1,000 microgm PO DAILY tablet 09/10/18 09/18/18 09/17/18 08:00 Rx Folic Acid 1 mg PO BID #120 tab 09/10/18 09/18/18 09/17/18 08:00 Rx Sodium Bicarbonate 650 mg PO BID #120 tab 09/10/18 09/18/18 09/17/18 08:00 Rx Acetaminophen [Tylenol] 650 mg PO Q6H PRN PRN tablet 09/23/18 Unknown Rx Hydrocodone/APAP 10 mg/325 mg 1 each PO Q4H PRN PRN #0 tablet 09/23/18 Unknown Rx [Deary-10] Amlodipine Besylate 10 mg PO DAILY 04/16/19 04/16/19 03/15/19 08:00 History Chlorthalidone 12.5 mg PO DAILY 04/16/19 04/16/19 03/15/19 08:00 History Insulin Lispro [Humalog Kwikpen] 10 unit SQ TID 04/16/19 04/16/19 03/15/19 18:00 History - History of Present Illness -Gen Adult Nature of Presenting Problems: 69 yom presents to the ed with c/o coffee ground emesis and abdominal pain since thursday. pt did have a kidney transplant in 2009 and is a diabetic but does not check his BGL. pt on exam is ill appearing and is actively vomiting Location of Pain/Injury: reports: abdomen Pain Radiation: reports: no radiation Quality of Pain: reports: cramping Severity: reports: moderate Onset/Duration: reports: 4 days ago Timing: reports: still present, intermittent, getting worse Context/Activities at Onset: reports: light activity Modifying Factors: improves with: nothing. worse with: other (anything PO) Associated Symptoms: reports: fatigue, malaise, nausea, vomiting, weakness. denies: back/neck pain, chest pain, diarrhea, shortness of breath Similar Symptoms Previously?: No Recently seen or treated by another doctor?: No - Diabetes Related Context Context: reports: high blood sugar, prior DKA hospitalization Review of Systems - Adult - REVIEW OF SYSTEMS - ADULT Constitutional: reports: fatiedwar. denies: chills, fever Eyes: reports: no symptoms reported Ears, Nose, Mouth & Throat: reports: no symptoms reported Cardiovascular: denies: chest pain, palpitations, syncope Respiratory: denies: shortness of breath, wheezing Gastrointestinal: reports: see HPI, abdominal pain, hematemesis, nausea, poor appetite, vomiting. denies: diarrhea, rectal bleeding Genitourinary: reports: no symptoms reported Musculoskeletal: denies: back pain, neck pain Integumentary: reports: no symptoms reported Neurological: denies: dizziness/vertigo, headache/migraines Psychiatric: reports: no symptoms reported Endocrine: reports: no symptoms reported Hematologic/Lymphatic: reports: no symptoms reported Allergic/Immunologic: reports: no symptoms reported All Other Systems: Reviewed and Negative Past History - Adult - PAST MEDICAL HISTORY-ADULT Review of Records: reports: Nursing Assessment Review, Medications Reviewed, Social history reviewed & non-contributory. Major Childhood Illnesses: reports: denies history Cardiovascular: reports: HTN, hyperlipidemia Respiratory: reports: denies history Gastrointestinal: reports: denies history Obstetrical/Gynecological: reports: denies history Genitourinary: reports: dialysis (in past), ESRD (in past), other (kidney transplant) Musculoskeletal: reports: denies history Neurological: reports: CVA Psychiatric: reports: denies history Endocrine/Immune: reports: Diabetes Other Conditions: reports: denies history - PRIOR SURGERIES/PROCEDURES Surgical/Procedure History: reports: cholecystectomy, orthopedic (extremity) (toe amputation right foot), other (cardiac cath, cataract removal, kidney transplant, hemodialysis port) - PRIOR HOSPITALIZATIONS Prior Hospitalizations: reports: for similar symptoms - IMMUNIZATION STATUS Childhood Immunizations: See Nurse Assessment Flu Vaccine: See Nurse Assessment - FAMILY HISTORY Family History: reviewed, not pertinent - SOCIAL HISTORY Smoking: denies Substance Use: denies Living Situation: family Physical Exam-General - PHYSICAL EXAM-ADULT Initial Vital Signs Reviewed: Yes - CONSTITUTIONAL General Appearance: alert, moderate distress, thin. negative: appears well - EYES Eyes: PERRL/EOMI, pale conjunctivae - HEAD, EARS, NOSE, MOUTH & THROAT HENMT: TMs normal. negative: moist mucous membranes (dry oral) - NECK Neck: full range of motion, normal inspection - RESPIRATORY Respiratory: chest non-tender, normal breath sounds - CARDIOVASCULAR Cardiovascular: normal peripheral pulses, tachycardia (102) - GASTROINTESTINAL (ABDOMEN) Abdominal Exam: soft, guarding, tenderness (generalized), other (well healed scar on RLQ). negative: distended - LYMPHATIC Lymphatic: no adenopathy - MUSCULOSKELETAL Back Exam: normal inspection, no CVA tenderness, no vertebral tenderness Extremity: normal range of motion, normal capillary refill, pelvis stable, tenderness, other (RBKA noted well healed) - SKIN Integumentary: normal color, normal turgor, warm/dry - NEUROLOGIC Neurologic: grossly normal, no motor/sensory deficits - PSYCHIATRIC Psych/Mental Status: normal mood/affect, normal thought content, normal thought process, oriented x 3 Progress - PLAN OF CARE/RESULTS Progress/Plan/Lab Results: Orders Category Date Time Status FLAT/UPRIGHT ABD/1 VIEW CHEST [RAD] Stat Exams 04/14/19 12:34 Ordered ABG [RESP] Routine Lab 04/14/19 12:32 Ordered ACETONE SERUM [CHEM] Stat Lab 04/14/19 12:32 Ordered AMYLASE [CHEM] Stat Lab 04/14/19 12:11 Uncollected CBC WITH ELECTRONIC DIFF [HEME] Stat Lab 04/14/19 12:11 Uncollected COMPREHENSIVE METABOLIC PANEL [CHEM] Stat Lab 04/14/19 12:11 Uncollected LIPASE [CHEM] Stat Lab 04/14/19 12:11 Uncollected TROPONIN T Stat Lab 04/14/19 12:34 Ordered URINALYSIS W/POSS RFLX CULT [URINALYSIS] Stat Lab 04/14/19 12:11 Uncollected 0.9% Sodium Chloride Inj [Ns] 1,000 ml Med 04/14/19 12:32 Active IV 999 mls/hr Ondansetron [Zofran] Med 04/14/19 12:32 Discontinued 4 mg IV NOW ONE Result Diagrams: 04/20/19 15:37 04/20/19 05:30 - REASSESSMENT Reassessment #1 Time Reassessed: 13:30 ( at bedside) Status: unchanged Reassessment #2 Time Reassessed: 13:40 (pt is dka and acute renal failure) Status: unchanged Reassessment #3 Time Reassessed: 14:06 (dr crockett at bedside) Status: unchanged - EKG 1 Time of EKG reading by physician:: 13:59 EKG Read and Signed by:: Fred Galo EKG Interpretation (*Must complete 3 of following elements*): Abnormal Rate: 101 Rhythm: sinus tachycardia [place]: left (deviation) QRS: RBB RI Interval: normal Prior EKG Comparison: changes noted (09/17/18 peaked T waves) - XRAY 1 XRAY: Bilateral XRAY Study: Abdomen Impression: See EMR Report (FLAT/UPRIGHT ABD/1 VIEW CHEST - 04/14/2019 INDICATION: vomiting TECHNIQUE: COMPARISON: 12/22/2014 FINDINGS: There is some minimal scarring in the right middle lobe. Otherwise the lungs are clear. Heart size is normal. No pneumothorax or pleural effusion. There is a dense calcification overlying the upper right psoas muscle. This may represent a renal stone. This measures about 15 x 6 mm. No bowel obstruction or free air. There is extremely severe vascular disease, with severe calcification of all the arteries in the pelvis. IMPRESSION: Possible right renal stone. Electronically signed by Too Arriaga 04/14/2019 12:53 PM 04/14/19 1253 Interpreting Physician: Too Arriaga MD Dictated Date/Time: 04/14/19 1252 cc: Fred Galo MD; None,PCP) 2 XRAY: Bilateral XRAY Study: Chest Impression: See EMR Report (EXAM: CHEST-1 VIEW 04/14/2019 HISTORY: leukocytosis TECHNIQUE: AP portable upright at 1321 COMMENT: Considering differences in inspiration the appearance the chest has not changed significantly since the previous study of 1247. The opacity in the right middle lobe present on 12/22/2014 is no longer present. IMPRESSION: No evidence of acute disease. Electronically signed by Paras Panda 04/14/2019 1:27 PM 04/14/19 1327 In terpreting Physician: Paras Panda MD Dictated Date/Time: 04/14/19 1325 cc: Fred Galo MD; None,PCP) - CONSULTS/PCP/HOSPITALIST Notification #1 *Consult/PCP/Hospitalist*: dr breaux Time Discussed: 13:52 (dka and renal failure/wants to see if EKG has changes if so call y dr breaux back juan a) Reason/Comments: phone consult #2 Consult: dr breaux Time Discussed: 14:01 (pt willgo to dialysis) Reason/Comments: phone consult #3 Consult: hospitalist dr britt Time Discussed: 13:58 Consult Disposition: Admit Departure - Departure Date of Disposition Decision: 04/14/19 Time of Disposition Decision: 17:50 DIAGNOSIS: DKA (diabetic ketoacidoses), Renal failure Disposition: ADMITTED INPATIENT 09 Certified Medical Emergency: Emergent Condition: Serious - Critical Care Note This patient required my direct & personal management of CC.: Yes Total Time (mins): 37 Critical Care Statement: This patient required my direct personal management to treat or rule out processes, the absence of which, could potentiallly result in sudden, clinically significant life or limb threatening deterioration. Attestation - Physician/ GERI Attestation Patient care was provided by Advanced Practice Provider:: No The physician spent face to face time with patient:: Yes Advanced Practice Provider documentation review:: Supervising physician onsite and consulted in the evaluation and care of this patient. The physician did have a face to face encounter with the patient. This chart was documented by the indicated scribe, (Malika Tuttle Scribe) and accurately reflects the services I performed and decisions made by me, Fred Galo MD, as attested by the provider's signature.
--- NOTE | 2019-04-19 13:32 | PROGRESS NOTE ---
DATE: 04/19/2019 SUBJECTIVE: Mr. Lynch this morning has been extremely nauseated and vomiting, continues to also have diarrhea. He is feeling remarkably sicker than yesterday. cc: Srinivas Vital MD
--- NOTE | 2019-04-19 13:38 | PROGRESS NOTE ---
DATE: 04/19/2019 SUBJECTIVE: This morning Mr. Lynch refers to be feel sicker, extremely nauseating, and has been having multiple bowel movements which just continues to be diarrhea. He feels very weak with stomach pain. OBJECTIVE: Vital Signs: Blood pressure 63/41, pulse of 121, respirations 14 and temperature is 98.6 degrees. General: Mr. Lynch is a 69-year-old male. He is in bed. He looks sick. HEENT: Mucosa is pink and moist. Anicteric. Acyanotic. Neck: Supple. Chest: Good air entry bilaterally. No crepitations. No rhonchi. Cardiovascular: Regular rate and rhythm. Abdomen: Soft. Some tenderness in the mid abdomen. There are some old scars on the anterior abdominal wall. Extremities: There is right BKA. Left is unremarkable. SENIOR RESEARCH FELLOW: Patient is awake, alert, and oriented. LABORATORY DATA: WBC is 12.08, hemoglobin is 13.8, and platelet count of 64,000. Chemistry is also reviewed. Creatinine is climbing up. ASSESSMENT: 1. Septic shock on presentation secondary to C. Diff colitis. This seems to have improved, however, this morning just a while ago patient has been extremely hypotensive with tachycardia. We are concerned if the patient has developed any superimposed infection. We are going to do a CT scan of the chest, abdomen, and pelvis. The patient has been started on IV fluids by Nephrology. We will transfer him from the medical floor to the ICU. We will give the patient stress doses of steroids. 2. Acute on chronic renal failure. Creatinine has gone up this morning. The patient has been started back on IV fluids, and we will follow up with further renal studies that has been ordered by Nephrology. 3. Status post renal transplant. Patient is on chronic immunosuppressive therapy. Medications were restarted yesterday. 4. Diabetes mellitus with presenting A1c of 10.4. In general, Mr. Lynch is continued to be nauseated. Continues having multiple bowel movements which still is diarrhea and he is hypotensive. We are going to transfer him to the ICU. We will continue with the current fluids. He is going to be started back on IV steroids at stress doses. We will get a CT scan of the chest, abdomen, and pelvis to rule out any occult infection. We will consult ID. cc: Srinivas iVtal MD [facility]
[2019-04-19 13:41] LABS: URINE SOURCE CATH
[2019-04-19 13:51] LABS: BILIRUBIN URINE NEGATIVE (NEGATIVE); BLOOD URINE NEGATIVE (NEGATIVE); COLOR ORANGE; GLUCOSE URINE NEGATIVE (NEGATIVE); KETONE URINE NEGATIVE (NEGATIVE); LEUKOCYTES URINE NEGATIVE (NEGATIVE); NITRITE URINE NEGATIVE (NEGATIVE); PROTEIN URINE TRACE mg/dL (NEGATIVE); SP GRAVITY URINE 1.016; TURBIDITY URINE CLEAR (CLEAR); UR EPITHELIAL CELLS <10 /HPF (<10); URINE BACTERIA NEGATIVE /HPF; URINE RBC <10 /HPF (<10); URINE WBC <10 /HPF (<10); UROBILINOGEN URINE NORMAL (NORMAL)
[2019-04-19 14:21] LABS: UR CREAT RANDOM 129.1 mg/dL (14-26); UR PROT RANDOM 19.7 mg/dL; UR SODIUM < 10 mmoll
--- NOTE | 2019-04-19 15:37 | Diag Imaging Result Doc PS360 ---
EXAM: CT THORAX/ABD/PELVIS W/O CON INDICATION: hypotension. Sepsis TECHNIQUE: This exam was performed using automated exposure control, adjustment of mA or kV according to patient size, and/or use of iterative reconstruction technique. COMPARISON: CT chest dated 12/22/2014. No prior abdominal CT is available for comparison. FINDINGS: CHEST: There is a small right pleural effusion and a trace left effusion. There is associated bibasilar atelectasis. There is focal fibrosis and traction bronchiectasis involving the right middle lobe this is in the region of a pulmonary abscess seen on the previous study from 2014. There is also a calcified granuloma in the right middle lobe. There are a few calcified mediastinal and right hilar lymph nodes indicating prior granulomatous disease. There is no cardiomegaly. There is patchy coronary artery and aortic atherosclerotic calcification. ABDOMEN/PELVIS: There has been a prior cholecystectomy. There is small volume ascites tracking around the liver and spleen and along the paracolic gutters. The liver, spleen, pancreas, and adrenal glands are grossly unremarkable. There are markedly atrophic [place] kidneys bilaterally. There is a pelvic renal allograft on the right. There is a Kat catheter in urinary bladder and the bladder is largely nondistended. There has been a prior hysterectomy. There is severe wall thickening involving the ascending, transverse, and at least part of the descending colon indicating severe colitis. Although likely infectious, ischemic and inflammatory etiologies should be considered. There is no obstructive bowel pattern. The remainder of the GI tract is essentially unremarkable as imaged with unenhanced CT. No free abdominal gas is appreciated. There is patchy aortoiliac atherosclerotic calcification. IMPRESSION: 1.Very severe colitis as described. 2.Small volume ascites. 3.Small right pleural effusion and trace left effusion with adjacent atelectasis. 4.Focal fibrosis involving the right middle lobe. 5.Other incidental/nonacute findings detailed above. Electronically signed by Ifeanyi Martin 04/19/2019 3:34 PM
[2019-04-19] MEDS ORDERED: MISC. PHARMACY COMMUNICATION SCH (16:15)
--- NOTE | 2019-04-19 16:27 | INFECTIOUS DISEASE CONSULT REP ---
DATE: 04/19/2019 CONCLUSION: Mr. Lynch has a Clostridium difficile colitis with complaints of nausea, vomiting, diarrhea, and abdominal pain which started about a week ago. RECOMMENDATIONS: We agree with the use of vancomycin 250 mg oral solution by mouth every 6 hours. He is also on metronidazole 500 mg IV every 6 hours which we will change to every 8 hours. Because the patient is vomiting, he may not be able to keep down the oral vancomycin, so we suggest leaving the Flagyl until the vomiting has subsided. The CT scan done today shows "very severe colitis," so we will order vancomycin enemas. These plans have been discussed with and recommended by Dr. Minor. DISCUSSION: Mr. Lynch is a patient known to us from a bout of osteomyelitis to his right lower extremity last year. The patient is known to be noncompliant. He ended up having to have a right [id number] amputation. It was difficult to get an accurate, updated history from the patient. He is clearly not feeling well at this time. The patient has a history of renal transplant. At this point, there is an acute kidney injury on chronic kidney disease, and there are plans for hemodialysis. DIAGNOSTIC STUDIES: Today his white count is 12.08, hemoglobin 13.8, platelet count 64,000. Creatinine is 4.7, GFR is 12. A urinalysis done today shows no urine bacteria and less than 10 WBCs. Stool for C difficile toxin was positive. Blood cultures have shown no growth after 48 hours. Another set of blood cultures has been ordered this afternoon and is preliminary. A CT scan of the chest, abdomen, and pelvis done today shows severe colitis, a small amount of ascites, pleural effusions, atelectasis, and some fibrosis. PAST MEDICAL HISTORY: Positive for poorly controlled diabetes mellitus, hypertension, chronic kidney disease, previous stroke, and hyperlipidemia. PAST SURGICAL HISTORY: Includes renal transplant, right 3rd toe amputation with a subsequent ojnko-uth-jake amputation on the right, cholecystectomy, and cataract surgery. FAMILY HISTORY: Positive for hypertension. SOCIAL HISTORY: He lives with family and has had home health care in the past, but not currently. He denies any tobacco, alcohol, or illicit drug use. ALLERGIES: No known drug allergies. MEDICATIONS AT HOME: Include Lantus, prednisone, Prograf, Lopressor, Myfortic, Prinivil, chlorthalidone, amlodipine, and lispro insulin. PHYSICAL EXAMINATION: Vital Signs: He has been afebrile this admission. Most recently, his temperature was 97.6, pulse rate 114, respiratory rate 16, blood pressure 101/58, O2 saturation 94% on room air. General: This is a chronically ill-appearing, elderly gentleman. He is lying in the bed, currently on his right lateral side. He is nauseated and has recently vomited a small amount of green fluid. HEENT: Atraumatic, normocephalic. Conjunctiva are pink. Oral mucous membranes are pink and dry. Neck: Supple. Trachea is midline. Respiratory: Lung sounds are clear to auscultation bilaterally. No work of breathing is noted. Cardiovascular: Heart rate and rhythm are regular and tachycardic. Sinus tachycardia on the monitor. Abdomen: Soft, round, and tender, particularly to the lower quadrants. Bowel sounds are audible. He is complaining of abdominal pain, nausea, vomiting, and diarrhea. Extremities: He does have a right elagk-[id number]-[id number] amputation. That incision is clean, dry and healed. There is a Trialysis catheter in place to his right groin. That site is without edema, erythema, or drainage. Neurologic: He is awake, alert, and oriented. Able to move from side to side in the bed independently. Thank you for allowing us to see Mr. Lynhc. Dictated by ESHA Cortes for Ochoa Minor MD cc: Ochoa Minor MD [facility]
[2019-04-19] MEDS: TYLENOL PO PRN (16:39)
[2019-04-19] MEDS: NON-FORMULARY MED PR SCH (17:47)
[2019-04-19] MEDS ORDERED: FLAGYL 500 MG/NS 500 MG/100 ML IVPB IV SCH (22:00)
[2019-04-20] MEDS: NON-FORMULARY MED PR SCH ×2 (01:50→06:44)
[2019-04-20] MEDS: VANCOMYCIN ORAL SOLN PO SCH ×4 (02:30→20:02)
[2019-04-20] MEDS: LR 1,000 ML IV SCH ×3 (05:20→20:00)
[2019-04-20] MEDS: FLAGYL 500 MG/NS 500 MG/100 ML IVPB IV SCH ×2 (05:20→20:02)
[2019-04-20 06:01] LABS: BASO# 0.02 X1000 (0.0-0.2); BASO% 0.1 % (0.0-0.8); HEMATOCRIT 36.1 % (42.0-52.0); HEMOGLOBIN 12.5 g/dL (14.0-18.0); IMM GRAN# 0.55 X1000 (0.0-0.04); IMM GRAN% 3.3 % (0.0-0.5); LYMPH# 0.56 X1000 (1.2-3.4); LYMPH% 3.4 % (20.5-51.1); MCH 29.1 PG (27-31); MCHC 34.6 g/dL (33-37); MCV 84.1 FL (81-99); MONO# 0.93 X1000 (0.11-0.59); MONO% 5.6 % (1.7-9.3); NEUT# 14.56 X1000 (1.4-6.5); NEUT% 87.6 % (42.2-75.2); PLT 73 X1000 (130-400); RBC 4.29 XMIL (4.7-6.1); RDW 13.9 % (11.5-14.5); WBC 16.62 X1000 (4.8-10.8)
[2019-04-20 06:07] LABS: CALCIUM 7.3 mg/dL (8.8-10.2); CREATININE 6.1 mg/dL (0.7-1.2); PHOSPHORUS 7.1 mg/dL (2.7-4.5)
[2019-04-20] MEDS ORDERED: NS 2,000 ML MISC PRN (06:31)
[2019-04-20] MEDS: HUMALOG SUBQ SCH ×7 (06:44→20:01)
[2019-04-20] MEDS: SOLU-MEDROL IV SCH ×2 (06:44→18:02)
[2019-04-20 07:21] LABS: LYMPHS 4 % (21-51); MONO 1 % (1-9); SEGS 95 % (42-75)
[2019-04-20] MEDS ORDERED: CATHFLO IV ONE ×2 (08:08→08:09)
[2019-04-20] MEDS ORDERED: STERILE WATER INJ. INJ ONE ×2 (08:08→08:09)
--- NOTE | 2019-04-20 08:23 | NEPHROLOGY PROGRESS NOTE ---
DATE: 04/20/2019 TIME SEEN: 0655. SUBJECTIVE: Mr. Lynch is awake and alert, lying quietly in bed. Able to turn himself. OBJECTIVE: His most recent vital signs, temperature 97.9 degrees, blood pressure 112/72, heart rate 109, respirations are 17. He is on 2 L nasal cannula. Last recorded saturation is 95%. He has had 1600 in, 100 out to Kat catheter. Labs: Sodium is 137, potassium 5, chloride is 100, CO2 is 23, BUN 132, creatinine is 6.1, glucose 237, anion gap 14, calcium 7.3, phosphorus 7.1, albumin 2. White count 16.6, hemoglobin 12.5, hematocrit 36.1, with a platelet count of 73,000. Physical Examination: General: This is a 69-year-old male who is currently resting quietly in bed. He appears chronically ill. He is in no acute distress. Skin is warm and dry. HEENT: Normocephalic, atraumatic. Conjunctivae are pale. He has MADI. Mucous membranes are dry. Neck: Supple. Trachea midline. No evidence of JVD. Cardiovascular: He is regular rate and rhythm. He is without murmur or gallop. Tachycardic on the monitor. Lungs: Clear to auscultation bilaterally. Equal excursion, on O2. Abdomen: Soft, nontender. Positive bowel sounds. Palpable donor kidney to the right lower quadrant. No complaints of pain. Genitourinary: Not inspected. Diminished urine output documented. Extremities: The patient has a right BKA, no edema. No edema to the left lower extremity. Neurological: Alert and oriented x3. ASSESSMENT AND PLAN: 1. Acute on chronic kidney disease. Patient's BUN and creatinine have continued to worsen over the last 72 hours. Patient has a right femoral catheter. We will start the patient on sustained low-efficiency dialysis today. He is to be on a 4 K bath. He is to dialyze for [address] him on 30 bicarb. We will attempt to pull 2 L with ultrafiltration. 2. Sepsis with hemodynamic instability. Patient has been on Levophed secondary to hypotension yesterday. He remains on renal dosed antibiotics. Levophed is currently on hold. This is available during dialysis if needed. 3. Electrolytes and acid-base balance, with correction on dialysis. 4. Anemia. This is close to target. 5. Positive Clostridium difficile. Patient remains on renal dosed antibiotics, now receiving vancomycin per enema per Dr. Minor. I would like to thank you for allowing us to follow with this patient. Dictated by ESHA Cho for Claudio Stephens MD Face to face encounter, data reviewed, discussed with Milagros Bermudez on 04/20/19. I agree with the above assessment and plan of care. cc: ESHA Cho MD [facility]
[2019-04-20] MEDS: SODIUM BICARBONATE PO SCH ×2 (08:43→20:01)
[2019-04-20] MEDS: TYLENOL PO PRN (08:43)
[2019-04-20] MEDS: ZOFRAN IV PRN (08:43)
[2019-04-20] MEDS: PROGRAF PO SCH ×2 (08:43→20:01)
[2019-04-20] MEDS: LANTUS INSULIN SUBQ SCH (09:05)
[2019-04-20] MEDS: PATIENT'S OWN MED PO SCH ×2 (09:39→20:01)
[2019-04-20] MEDS: PROTONIX IV SCH ×2 (10:46→21:26)
[2019-04-20] MEDS: SODIUM CHLORIDE 0.9% INJ SCH ×2 (10:47→21:26)
[2019-04-20] MEDS: LOKELMA POWDER PACKET PO SCH (10:47)
--- NOTE | 2019-04-20 11:02 | INFECTIOUS DISEASE PROGRESS NO ---
DATE: 04/20/2019 PRESENT ILLNESS: The patient has very severe Clostridium difficile colitis. MEDICATIONS: The patient is getting IV Flagyl, p.o. vancomycin and vancomycin enemas. PHYSICAL EXAMINATION: Vital Signs: Temperature is 97.6 degrees, pulse 106, respirations 16, blood pressure 133/72. General: This is an ill-appearing, elderly male. He is in no acute distress. Head, Eyes, Ears, Nose, and Throat: He can hear my spoken words and see near objects. He does not have any white patches on his tongue. Neck: No meningismus. Lungs: Clear to auscultation. Cardiovascular: Regular heart rate. Abdomen: Soft and to light palpation was not tender. The patient has a Trialysis catheter in the right groin. Neurologic: The patient is alert. He can move his extremities. There is no tremor. LAB AND X-RAY: A CT scan of the abdomen and pelvis shows very severe colitis. The creatinine is 6.1. GFR is 9. CBC shows a white count of 16,620, hemoglobin 12.5, and platelet count 73,000. ASSESSMENT AND PLAN: The patient has very severe Clostridium difficile colitis. My plan is to continue intravenous Flagyl and continue oral vancomycin. Because the patient is having nausea and vomiting, I am going to also continue the vancomycin enemas. The patient's white blood cell count is increased and this is due to the patient having Clostridium difficile colitis and also because the patient is on steroids, the white count is elevated. COMORBIDITIES: The patient is a renal transplant patient. He is on immunosuppressive medication. The patient also is a diabetic and the patient has end-stage renal disease. cc: Ochoa Minor MD
[2019-04-20] MEDS: CALMOSEPTINE OINTMENT TOP PRN (13:47)
--- NOTE | 2019-04-20 14:38 | PROGRESS NOTE ---
DATE: 04/20/2019 SUBJECTIVE: This morning, Mr. Lynch refers to be doing a lot better. He still continues to have some diarrhea which this morning, I am told is bloody. OBJECTIVE: Vital Signs: Blood pressure is 105/67, pulse of 101, respirations are 18, temperature is 97.6 degrees. General Examination: Mr. Lynch is a 69-year-old, male. He is in bed. No distress. HEENT: Mucosa is pink and moist. Anicteric. Acyanotic. Neck: Supple. Chest: Good air entry bilaterally. No crepitations. No rhonchi. Cardiovascular: Regular rate and rhythm. Slightly tachycardic. Abdomen: Soft. It is minimally tender in the entire anterior abdomen. Bowel sounds are present but hypoactive. There are old scars on the anterior abdominal wall. Extremities: There is a right BKA. Left is unremarkable. 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 Laboratory Data: WBC is up to 16.61, hemoglobin is 12.5, platelet count of 73,000. There are no bands at this time. Chemistry is also reviewed. Creatinine is up to 6.1. Imaging Studies: A CT scan of the abdomen, pelvis, and chest was done yesterday which shows very severe colitis as described, small volume ascites, there was a right pleural effusion with adjacent atelectasis. There is a focal fibrosis involving the right middle lobe. ASSESSMENT: 1. Septic shock on presentation secondary to Clostridium difficile colitis. 2. Severe colitis. The patient had been treated for Clostridium difficile. He was doing slightly better. However, yesterday, he was borderline hypotensive again and tachycardic, and was transferred to the intensive care unit. His imaging studies revealed severe colitis. I am not 100% sure if this is all infectious. I think there is now a great component of ischemic colitis, taking into consideration that he has severe peripheral vascular disease and he has been hypotensive on other occasions during this hospital course. 3. Acute on chronic renal failure. Creatinine has gotten remarkably worse. Nephrology plans to start dialysis. 4. Status post renal transplant. 5. Diabetes mellitus with a presenting A1c of 10.4. Patient is on insulin regimen. PLAN: In general, I think Mr. Lynch is now a little bit more stable than yesterday. He is still complaining of some abdominal pain. Unfortunately, we cannot give him contrast to check on the abdomen vessels because of his kidney function. However, I have been told that he had some bloody stool. He is having abdominal pain. He ran a few episodes of hypotension and he has a history of severe peripheral vascular disease. I suspect Mr. Lynch has some element of ischemic colitis on top of the C. difficile colitis at this point. I am going to repeat his lactate and follow it accordingly. If there is no any remarkable improvement, I think it would be reasonable to involve surgery. cc: Srinivas Vital MD MTDD
--- NOTE | 2019-04-20 15:31 | PROVIDER PROGRESS NOTE ---
Progress Note S: Patient reports multiple episodes of N/V and diarrhea since yesterday. He has diffuse moderate abdominal discomfort. No CP or SOB. Patient will be started on dialysis today. He is receiving vancomycin enemas given N/V. O: Last Vital Signs Temp 97.8 F 04/20/19 12:00 Pulse 104 H 04/20/19 14:02 Resp 18 04/20/19 14:02 BP 104/65 04/20/19 14:02 Pulse Ox 92 L 04/20/19 14:00 Height 5 ft 5 in Weight 135 lb RA GEN: awake, alert, NAD HEENT: anicteric NECK: supple, no jvd CV: tachycardic, regular PULM: CTAB, no wheezing ABD: obese, BS present, TTP throughout, no rebound or guarding EXT: right BKA, no cce on left NEURO: nonfocal LABS: 04/20/19 04/20/19 05:30 05:30 WBC 16.62 H Hgb 12.5 L Plt Count 73 L Sodium 137 Potassium 5.0 Chloride 100 Carbon Dioxide 23 L BUN 132 H Creatinine 6.1 H Glucose 237 H D Calcium 7.3 L Phosphorus 7.1 H Albumin 2.0 L A/P: Mr. Jude Lynch is a 69 year old man with HTN, HLD, prior CVA, IDDM2 and CKD s/p DDRT who was admitted with septic shock, DKA, and oligouric KAY in the setting of N/V and diarrhea found to have cdiff infection. I suspect that his persistent N/V may be related uremia. Typically patients with cdiff do not have vomiting. He has persistent leukocytosis and low albumin concerning for severe CDI. ID is giving him oral and rectal vancomycin as well as flagyl. # CDI: on abx; defer mgmt to ID; trend BMs daily, I/O # Anemia: stable hgb; trending # N/V: continue PPI and antiemetics prn; added phenergan, current electrolyte abnormalities; consider checking tacrolimus trough # Oligouric KAY: HD per renal # DM2: glycemic control Will follow with you. Please call with questions.
[2019-04-20 15:37] LABS: HEMOGLOBIN 12.1 g/dL (14.0-18.0)
[2019-04-20] MEDS: PHENERGAN IV PRN (20:00)
[2019-04-20] MEDS: SODIUM CHLORIDE 0.9% INJ PRN (20:01)
--- NOTE | 2019-04-20 20:54 | OPERATIVE NOTE ---
PROCEDURE DATE: 04/20/2019 PREOPERATIVE DIAGNOSES: 1. Acute on chronic kidney disease. 2. Dysfunctional dialysis catheter. POSTOPERATIVE DIAGNOSES: 1. Acute on chronic kidney disease. 2. Dysfunctional dialysis catheter. PROCEDURE: Insertion of central venous dialysis catheter with ultrasound guidance. FINDINGS: The right internal jugular vein was found with ultrasound and found to be compressible, patent without thrombus. TECHNIQUE: He was placed in Trendelenburg in his ICU bed. His right neck was prepped and draped in usual sterile fashion. 1% lidocaine was used to anesthetize the skin over the right internal jugular vein, which was seen with ultrasound. The vein was accessed under ultrasound guidance with a needle and syringe. The wire passed through the needle. The track was dilated over the wire. A Trialysis catheter was passed over the wire into the internal jugular vein. The wire was removed. Each port effie back blood and was flushed with saline easily. Sterile caps were applied. The port was anchored to the skin with nylon suture. A sterile dressing was applied. There were no apparent complications. cc: Fantasma Fraser MD
[2019-04-21] MEDS: LR 1,000 ML IV SCH (03:10)
[2019-04-21] MEDS: VANCOMYCIN ORAL SOLN PO SCH ×4 (03:10→21:09)
[2019-04-21] MEDS: FLAGYL 500 MG/NS 500 MG/100 ML IVPB IV SCH ×2 (03:10→16:57)
[2019-04-21] MEDS: NORCO-7.5 PO PRN (03:35)
[2019-04-21] MEDS: SODIUM CHLORIDE 0.9% INJ PRN (03:36)
[2019-04-21] MEDS: PHENERGAN IV PRN (03:36)
[2019-04-21 05:50] LABS: HEMATOCRIT 32.3 % (42.0-52.0); HEMOGLOBIN 10.7 g/dL (14.0-18.0)
[2019-04-21] MEDS: SOLU-MEDROL IV SCH ×2 (05:58→21:08)
[2019-04-21] MEDS: HUMALOG SUBQ SCH ×7 (06:22→21:09)
[2019-04-21] MEDS ORDERED: NS 2,000 ML MISC PRN (06:25)
[2019-04-21 06:57] LABS: ALBUMIN 1.8 g/dL (3.5-5.0); CALCIUM 7.3 mg/dL (8.8-10.2); CREATININE 3.5 mg/dL (0.7-1.2); PHOSPHORUS 7.3 mg/dL (2.7-4.5)
[2019-04-21 07:08] LABS: POTASSIUM 5.9 mmol/L (3.5-5.1)
--- NOTE | 2019-04-21 07:49 | INFECTIOUS DISEASE PROGRESS NO ---
DATE: 04/21/2019 PRESENT ILLNESS: The patient has very severe Clostridium difficile colitis. This morning, I notice the patient also appears to have oral candidiasis. MEDICATIONS: The patient is getting IV Flagyl and p.o. vancomycin. Because he was having hematochezia last night, I stopped the patient's vancomycin enemas, and his diarrhea is not quite as severe as it was yesterday. PHYSICAL EXAMINATION: Vital Signs: Temperature is 97.4 degrees, pulse 97, respirations 13, blood pressure is 127/71. General: This is an ill-appearing, elderly male. He is in no acute distress. HEENT: He can hear my spoken words and see near objects. He does have white coating on his tongue now. Neck: The patient has a right-sided dialysis catheter in the internal jugular vein that was put in yesterday by Dr. Fraser. Lungs: Clear to auscultation. Cardiovascular: Heart rate is regular. Abdomen: Soft and nontender. The right groin catheter has been removed. The right groin site is not erythematous or draining. Neurologic: The patient is alert. He can move his extremities. He does not have a tremor. LABORATORY DATA: The patient's CBC today shows a white count of 16,620, hemoglobin 10.7, and platelet count 73,000. Creatinine is 3.5. GFR is 17. Blood cultures are negative. ASSESSMENT AND PLAN: The patient has Clostridium difficile colitis. I am going to continue with intravenous Flagyl and oral vancomycin. The patient also appears to have now oral candidiasis. I have ordered for that, nystatin swish and swallow. COMORBIDITIES: The patient has a renal transplant, and because of that, he is on immunosuppressive medication. The patient also has diabetes, and he has end-stage renal disease. cc: Ochoa Minor MD
[2019-04-21] MEDS: SODIUM BICARBONATE PO SCH ×2 (09:01→21:08)
[2019-04-21] MEDS: MYCOSTATIN SUSP PO SCH ×4 (09:01→21:08)
[2019-04-21] MEDS: PROGRAF PO SCH ×2 (09:01→21:08)
[2019-04-21] MEDS: PROTONIX IV SCH ×2 (09:01→21:08)
[2019-04-21] MEDS: PATIENT'S OWN MED PO SCH ×2 (09:03→21:09)
[2019-04-21] MEDS: LANTUS INSULIN SUBQ SCH (09:03)
[2019-04-21] MEDS: D50W 250 ML, AMINOSYN 15% 500 ML, LIPOSYN 20% 250 ML MISC SCH ×3 (10:25)
--- NOTE | 2019-04-21 11:29 | PROGRESS NOTE ---
DATE: 04/21/2019 SUBJECTIVE: This morning, Mr. Lynch refers to be doing a little better. He is less nauseated, and he has been able to tolerate some breakfast. He is, however, continues to have multiple bowel movements which are still diarrhea. Yesterday, 5 were documented; however, this morning, only 1 has been documented. OBJECTIVE: Vital Signs: Blood pressure is 109/66, pulse of 116, respiration is 18, temperature is 97.6 degrees. On general exam, Mr. Lynch is a 69-year-old male. He is in be. No distress. Mucosa is pink and moist. Anicteric. Acyanotic. Neck is supple. His face looks slightly puffy. Chest: Good air entry bilaterally, a few crackles posteriorly. Cardiovascular: Slightly tachycardic. No murmurs. Abdomen is soft, mildly tender, but less than yesterday. Bowel sounds are present, but hypoactive. There are old scars on the anterior abdominal wall. Extremities: There is a right BKA. Left is unremarkable. Central Nervous System: Patient is awake, alert, and oriented. There is no focal deficit. LABORATORY DATA: WBC is 10.7. Chemistry is reviewed, which is consistent with renal disease. ASSESSMENT: 1. Septic shock on presentation secondary to Clostridium difficile colitis. The patient is doing relatively a little better than days before. He was off the Levophed. They had to put him back on that for dialysis. 2. Severe Clostridium difficile colitis. Patient is currently on p.o. vancomycin, IV metronidazole, and p.r.n. vancomycin enema. Infectious Disease is on board. Fidaxomicin will be the next agent to be used if needed; however, this morning Mr. Lynch refers to be doing a little better. 3. Intractable nausea. We think this was probably related to the worsening renal function (uremia). This morning Mr. Lynch refers to feel a lot better since he got dialyzed yesterday. He is currently undergoing another session of dialysis. 4. Acute on chronic renal failure. 5. Status post renal transplant. Patient is on immunosuppressive therapy. He is currently on IV steroids for stress doses. 6. Diabetes mellitus with presenting A1c of 10.4. Patient is on insulin regimen. In general, I think Mr. Lynch is looking a little better today. He is undergoing another session of dialysis. He has been able to tolerate some food this morning. We are going to continue with the current antimicrobial therapy, and we will follow up with further recommendations from the subspecialties involved. We appreciate the input from Nephrology, ID, Surgery, and Gastroenterology. cc: Srinivas Vital MD Critical time 45 minutes. AXELD
--- NOTE | 2019-04-21 12:36 | GASTROENTEROLOGY PROGRESS NOTE ---
DATE: 04/21/2019 SUBJECTIVE: Patient is resting in bed. His diarrhea is slowing. He is on oral vancomycin 250 mg every 6 hours and Flagyl 500 mg IV q.8 h. The patient is starting to eat. He is having liquid brown stools. No blood seen this morning. OBJECTIVE: Vital signs: Temperature of 97.6, pulse rate of 116, respiratory rate 18, blood pressure 109/60, saturating 97% on 4 L nasal cannula. Weight: Body weight of 139 pounds 9.6 ounces, BMI 23.2 kg/m2. General Appearance: Thinly built, lying in bed, in no acute. HEENT: Pale conjunctivae. No icterus. Neck is supple. Abdomen: Mild periumbilical discomfort noted. no rebound or guarding. Extremities: No cyanosis or clubbing. He has a right below-knee amputation. Neurologic: He is alert, awake, oriented x3. DIAGNOSTIC STUDIES: Hemoglobin 10.7, hematocrit 32.3, white count yesterday was 16.6, platelet count 73,000. Sodium 133, potassium 5.9, chloride 102, bicarbonate 21, anion gap 13, BUN 62, creatinine 3.5, glucose 126, calcium 7.3, phosphorus 7.3, albumin 1.8. Lactate of 1.8 yesterday. Urinalysis done 2 days ago showed trace protein. Blood culture x2 negative at 48 hours from 04/19/2019. PROCEDURE: The patient had a dialysis catheter placed on 04/20/[address] Fraser. IMPRESSION AND PLAN: 1. Clostridium difficile colitis. ID is following. He will continue on intravenous Flagyl and oral vancomycin. 2. He also is on nystatin swish and swallow for oral candidiasis per Dr. Minor. We will start him on Culturelle 1 capsule p.o. b.i.d. for probiotic effect. 3. Anemia. Continue to follow and transfuse as needed. 4. End-stage renal disease, on hemodialysis. He is getting SLED today. He had a catheter placement yesterday by Dr. Fraser. 5. Nausea and vomiting, improved. Continue PPIs, antiemetics. 6. Type 2 diabetes. Continue sliding scale. 7. History of hypertension, hyperlipidemia, and prior cerebrovascular accident. Aware. 8. History of right below-knee amputation. Aware. 9. Hypoalbuminemia. We will start him on Glucerna shakes 3 times daily. 10. Gastrointestinal prophylaxis with Protonix. Bowel regimen not required. Patient is having diarrhea. 11. History of kidney transplant. He is on tacrolimus. The above plans were discussed with the patient and the nursing staff and also with Dr. Vital. All questions were answered. Please call us with any further questions. cc: MD Srinivas Sparrow MD MTDD
--- NOTE | 2019-04-21 12:48 | NEPHROLOGY PROGRESS NOTE ---
DATE: 04/21/2019 DATE AND TIME SEEN: 04/21/2019 at 0700. SUBJECTIVE: Mr. Lynch is resting quietly in bed. Head of the bed is slightly elevated. He denies any chest pain or increased work of breathing. OBJECTIVE: VITAL SIGNS: Temperature 97.4 degrees, blood pressure 127/71, heart rate 102, respirations 14. He is on 2 L nasal cannula. Last recorded saturation 96%. He has had 2627 in, 1770 out with 1.6 L on dialysis yesterday. LABORATORY DATA: Sodium 136, potassium 5.9, chloride 102, CO2 21, BUN 62, creatinine 3.5, glucose 156, anion gap 13, calcium 7.3. Phosphorus 7.3, albumin 1.8. Previous hemoglobin 10.7 with hematocrit of 32.3. Blood cultures have returned negative. PHYSICAL EXAMINATION: General: This is a 69-year-old male who appears chronically ill. He is in no acute distress. Skin: Warm and dry. HEENT: Normocephalic, atraumatic. Conjunctiva is pale pink. He has MADI. Mucous membranes are dry. Neck: Supple. Trachea midline. No evidence of JVD. Cardiovascular: Regular rate and rhythm. He is tachycardic on the monitor. Lungs: Clear to auscultation bilaterally. Equal excursion on O2. Abdomen: Soft, nontender. Positive bowel sounds with palpable donor kidney to the right lower quadrant. No complaints of pain. Genitourinary: Not inspected. Minimal urine out with dialysis assist yesterday. Extremities: Has right BKA. No edema to the left lower extremity. Facial swelling is present. Neurological: Alert and oriented x3. ASSESSMENT AND PLAN: 1. Acute on chronic kidney disease. Patient's BUN and creatinine have improved. We will plan for dialysis again today. We will place him on SLED, 4K bath, 8 hours, 30 bicarb with plan to pull 2 to 3 L of ultrafiltration as tolerated. 2. Sepsis with hemodynamic instability. Patient remains on Levophed. Blood pressure is stable. Renal dosed antibiotics continue. 3. Electrolytes and acid-base balance. Correction on dialysis. 4. Anemia. This is close to target. 5. Fluid volume overload. We will stop patient's lactated Ringer's. He continues on Levophed for blood pressure support. 6. Positive Clostridium difficile. The patient remains on renal dosed antibiotics and receiving vancomycin per enema per Dr. Minor. I would like to thank you for allowing us to follow with this patient. Dictated by ESHA Cho for Claudio Stephens MD Face to face encounter, data reviewed, discussed with Milagros Bermudez on 04/21/19. I agree with the above assessment and plan of care. cc: ESHA Cho MD [facility]
[2019-04-21] MEDS: TYLENOL PO PRN (14:43)
[2019-04-21] MEDS: CULTURELLE PO SCH (21:08)
[2019-04-21] MEDS: SODIUM CHLORIDE 0.9% INJ SCH (21:08)
[2019-04-22] MEDS: VANCOMYCIN ORAL SOLN PO SCH ×4 (01:21→20:49)
[2019-04-22] MEDS: HUMALOG SUBQ SCH ×7 (06:11→20:48)
[2019-04-22] MEDS ORDERED: NS 2,000 ML MISC PRN (06:27)
[2019-04-22 06:31] LABS: BASO# 0.01 X1000 (0.0-0.2); BASO% 0.1 % (0.0-0.8); HEMATOCRIT 34.1 % (42.0-52.0); HEMOGLOBIN 11.1 g/dL (14.0-18.0); IMM GRAN# 0.24 X1000 (0.0-0.04); IMM GRAN% 1.3 % (0.0-0.5); LYMPH% 2.8 % (20.5-51.1); MCH 28.8 PG (27-31); MCHC 32.6 g/dL (33-37); MCV 88.6 FL (81-99); MONO# 0.69 X1000 (0.11-0.59); MONO% 3.8 % (1.7-9.3); NEUT# 16.54 X1000 (1.4-6.5); PLT 66 X1000 (130-400); RBC 3.85 XMIL (4.7-6.1); RDW 14.5 % (11.5-14.5); WBC 17.98 X1000 (4.8-10.8)
[2019-04-22 06:46] LABS: CALCIUM 7.7 mg/dL (8.8-10.2); CREATININE 2.1 mg/dL (0.7-1.2); PHOSPHORUS 3.8 mg/dL (2.7-4.5); POTASSIUM 5.7 mmol/L (3.5-5.1)
[2019-04-22] MEDS: MYCOSTATIN SUSP PO SCH ×4 (08:48→20:48)
[2019-04-22] MEDS: PROGRAF PO SCH ×2 (08:49→20:48)
[2019-04-22] MEDS: SOLU-MEDROL IV SCH (08:49)
[2019-04-22] MEDS: CULTURELLE PO SCH ×2 (08:49→20:48)
[2019-04-22] MEDS: LANTUS INSULIN SUBQ SCH (08:49)
[2019-04-22] MEDS: SODIUM BICARBONATE PO SCH ×2 (08:50→20:48)
[2019-04-22] MEDS: FLAGYL 500 MG/NS 500 MG/100 ML IVPB IV SCH ×3 (08:50→16:16)
[2019-04-22] MEDS: PATIENT'S OWN MED PO SCH ×2 (08:50→20:56)
[2019-04-22] MEDS: PROTONIX IV SCH (09:00)
[2019-04-22] MEDS: TYLENOL PO PRN (09:00)
--- NOTE | 2019-04-22 09:02 | Diag Imaging Result Doc PS360 ---
EXAM: CHEST-PORTABLE 04/22/2019 HISTORY: dyspnea TECHNIQUE: AP portable upright at 0838 COMMENT: There are bilateral pleural effusions which were not present on 04/17/2019. There is a right internal jugular central venous catheter with its tip just above the right atrium. There is atelectasis in the right middle and lower lobes and the left lower lobe. IMPRESSION: Bibasilar atelectasis and/or pneumonia with pleural effusions. Electronically signed by Paras Panda 04/22/2019 8:59 AM
[2019-04-22] MEDS: D50W 250 ML, AMINOSYN 15% 500 ML, LIPOSYN 20% 250 ML MISC SCH ×3 (10:15)
--- NOTE | 2019-04-22 10:35 | INFECTIOUS DISEASE PROGRESS NO ---
DATE: 04/22/2019 PRESENT ILLNESS: The patient has severe Clostridium difficile colitis. It appears that it is getting better now. The patient also has oral candidiasis. MEDICATIONS: The patient is on IV Flagyl and p.o. vancomycin. This is day 7 of treatment with these 2 agents. The patient is on nystatin swish and swallow for his oral candidiasis. PHYSICAL EXAMINATION: Vital Signs: Temperature is 97.5 degrees, pulse 98, respirations 19, blood pressure is 176/89. General: This is an ill-appearing elderly male. He is in no acute distress. Head/eyes/ears/nose/throat: He can hear my spoken words and see near objects. The patient's white coating on his tongue is looking better. Neck: The patient has a right internal jugular vein dialysis catheter in place. He is actually receiving dialysis when I came in the room to see him. Lungs: Clear to auscultation. Cardiovascular: Heart rate is regular. Abdomen: Soft and nontender. Neurologic: The patient is alert. He can move his extremities. He does not have a tremor. He talks in a coherent fashion. LAB AND RADIOLOGIC STUDIES: CBC shows a white count of 17,980, hemoglobin 11.1, and platelet count 66,000. There is no other lab reports back at this time. The patient does not have a radiographic study ordered for today. ASSESSMENT AND PLAN: The patient has Clostridium difficile colitis. I plan to continue with IV Flagyl and p.o. vancomycin. Dr. Cruz has added Culturelle which is a probiotic to the patient's regimen. The patient does have a leukocytosis, certainly part of it could be from his Clostridium difficile diarrhea, but also the patient is on a high dose of steroids which could be contributing to the leukocytosis as well. COMORBIDITIES: The patient's comorbidities: He is a renal transplant patient and is on immunosuppressive medication. He also has diabetes and end-stage renal disease. The patient also is elderly. cc: Ochoa Minor MD
--- NOTE | 2019-04-22 11:27 | PROGRESS NOTE ---
DATE: 04/22/2019 SUBJECTIVE: This morning Mr. Lynch refers to be doing a little better. No abdominal pain, and he has a little bit of better appetite today. He said he had a bowel movement which was a little soft, but not as watery as days before. He has been able to tolerate some breakfast this morning. OBJECTIVE: Vital signs: Blood pressure is 126/78, pulse of 97, respirations 23, temperature was 97.8. General: Mr. Lynch is a 69-year-old gentleman, he is in bed, no distress. HEENT: Mucosa is pink and moist. Anicteric. Acyanotic. Neck: Supple. Chest: Good air entry bilaterally. 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 Cardiovascular: Regular rate and rhythm. Abdomen: Soft, it is nontender. Bowel sounds are present but hypoactive. There are some old scars on the anterior abdominal wall from previous laparoscopic surgeries. Extremities: Positive right BKA. The left is unremarkable. 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 Has no focal neurological deficit. LABORATORY DATA: Has been reviewed. WBC is up to 17.98, but I think it is because of the steroids. Potassium is also slightly elevated. So far repeat blood cultures have been 48 hours negative. A chest x-ray this morning shows bibasilar atelectasis and/or pneumonia with pleural effusions. ASSESSMENT: 1. Septic shock on presentation secondary to Clostridium difficile colitis. The patient is currently on intravenous metronidazole and by p.o. vancomycin. He is no more on Levophed. 2. Severe colitis presumably due to Clostridium difficile; however, an underlying ischemic colitis is also a possibility. The patient seems to be doing a lot better now. 3. Intractable nausea, improved. 4. Acute on chronic renal failure. The patient is currently on sustained low- efficiency dialysis. 5. Status post renal transplant. The patient is on immunosuppressive therapy. 6. Diabetes mellitus with presenting A1c of 10.4. The patient is on insulin regimen. 7. Leukocytosis. We think this is a combination of infection and the fact that the patient is on steroids as well. So in general I think Mr. Lynch is improving clinically. He is getting some intravenous nutrition with dialysis, but he is also tolerating some by mouth diet. Abdominal pain seems to have resolved and he is clinically getting better. We are going to continue with the current antimicrobial and follow with further recommendations from the other subspecialties involved with his care. cc: Srinivas Vital MD MTDD
--- NOTE | 2019-04-22 19:34 | NEPHROLOGY PROGRESS NOTE ---
DATE: 04/22/2019 SUBJECTIVE: He states he is still not feeling well. Still having diarrhea. OBJECTIVE: Vital Signs: Blood pressure 124/81, heart rate 97, respirations 16, afebrile. General: No acute distress. Skin: Warm and dry. Pale. Neck: Neck veins are not appreciated. Heart: Regular and tachycardic. Lungs: Equal. Abdomen: Soft. Bowel sounds are present. Mildly tender. Extremities: Have 1+ edema. IMPRESSION: Acute kidney injury overlying chronic kidney disease and renal transplantation. We have decreased his Prograf dose and continued his mycophenolate at his home dose. He is still receiving intravenous steroids. I will cut the dose down to 20 mg once a day. SLED today and a goal of 4 L ultrafiltration as his blood pressure allows. We will administer IV albumin. cc: Claudio Stephens MD
--- NOTE | 2019-04-22 23:08 | PROVIDER PROGRESS NOTE ---
Progress Note S: No acute overnight events. Patient tolerating diet this AM. No N/V. No rectal bleeding. O: Last Vital Signs Temp 99.2 F 04/22/19 19:35 Pulse 96 H 04/22/19 21:02 Resp 21 04/22/19 21:02 BP 117/69 04/22/19 21:02 Pulse Ox 97 04/22/19 21:02 Height 5 ft 5 in Weight 136 lb 4.8 oz GEN: awake, alert, NAD HEENT: anicteric NECK: supple, no jvd CV: tachycardic, regular PULM: CTAB, no wheezing ABD: obese, BS present, NT, no rebound or guarding EXT: right BKA, no cce on left NEURO: nonfocal LABS: 04/22/19 04/22/19 05:10 05:10 WBC 17.98 H Hct 34.1 L Plt Count 66 L Sodium 139 Potassium 5.7 H Chloride 108 H Carbon Dioxide 25 BUN 34 H Creatinine 2.1 H Glucose 99 Calcium 7.7 L Phosphorus 3.8 Albumin 2.0 L A/P: Mr. Jude Lynch is a 69 year old man with HTN, HLD, prior CVA, IDDM2 and CKD s/p DDRT who was admitted with septic shock, DKA, and oligouric KAY in the setting of N/V and diarrhea found to have severe cdiff infection that is slowly improving with flagyl and vancomyin. Hgb stable. Persistent leukocytosis. # CDI: on abx; defer mgmt to ID; trend BMs daily, I/O # Anemia: stable hgb; trending # N/V: continue PPI and antiemetics prn; added phenergan, current electrolyte abnormalities # Oligouric KAY: HD per renal # DM2: glycemic control Will follow with you. Please call with questions
[2019-04-23] MEDS: FLAGYL 500 MG/NS 500 MG/100 ML IVPB IV SCH ×3 (01:44→17:40)
[2019-04-23] MEDS: VANCOMYCIN ORAL SOLN PO SCH ×4 (01:45→20:53)
[2019-04-23] MEDS: HUMALOG SUBQ SCH ×7 (06:09→21:06)
[2019-04-23 07:10] LABS: BASO# 0.01 X1000 (0.0-0.2); EOS# 0.02 X1000 (0.0-0.7); EOS% 0.1 % (0.0-10.0); HEMATOCRIT 35.5 % (42.0-52.0); HEMOGLOBIN 11.4 g/dL (14.0-18.0); IMM GRAN# 0.15 X1000 (0.0-0.04); IMM GRAN% 0.7 % (0.0-0.5); LYMPH# 0.69 X1000 (1.2-3.4); LYMPH% 3.2 % (20.5-51.1); MCH 28.9 PG (27-31); MCHC 32.1 g/dL (33-37); MCV 89.9 FL (81-99); MONO% 3.2 % (1.7-9.3); NEUT# 20.08 X1000 (1.4-6.5); NEUT% 92.8 % (42.2-75.2); PLT 43 X1000 (130-400); RBC 3.95 XMIL (4.7-6.1); RDW 14.8 % (11.5-14.5); WBC 21.65 X1000 (4.8-10.8)
[2019-04-23 07:25] LABS: ALBUMIN 1.7 g/dL (3.5-5.0); CALCIUM 7.3 mg/dL (8.8-10.2); CREATININE 1.8 mg/dL (0.7-1.2); PHOSPHORUS 2.2 mg/dL (2.7-4.5); POTASSIUM 4.5 mmol/L (3.5-5.1)
[2019-04-23] MEDS: ALBUMIN 25% IV SCH (08:01)
[2019-04-23] MEDS: SODIUM BICARBONATE PO SCH ×2 (08:02→20:54)
[2019-04-23] MEDS: PROTONIX IV SCH (08:02)
[2019-04-23] MEDS: CULTURELLE PO SCH ×2 (08:03→20:54)
[2019-04-23] MEDS: PROGRAF PO SCH ×2 (08:03→20:53)
[2019-04-23] MEDS: MYCOSTATIN SUSP PO SCH ×4 (08:06→20:53)
[2019-04-23] MEDS: PATIENT'S OWN MED PO SCH ×2 (08:06→20:54)
[2019-04-23] MEDS: LANTUS INSULIN SUBQ SCH (08:06)
[2019-04-23] MEDS ORDERED: SOLU-MEDROL IV SCH (09:00)
[2019-04-23 09:06] LABS: INR 1.51; PROTIME 18.5 Seconds (11.0-16.0)
--- NOTE | 2019-04-23 09:47 | PROGRESS NOTE ---
DATE: 04/23/2019 SUBJECTIVE: This morning, Mr. Lynch referred to be doing a whole lot better. He was taking his breakfast at the time of the encounter. He denies any abdominal pain. He had 4 bowel movements yesterday, has 2 this morning which according to him is soft, not as watery as days before. OBJECTIVE: Vital signs: Blood pressure is 108/63, pulse of 97, respiration is 18, temperature is 97.3 degrees. General: Mr. Lynhc is a 69-year-old male. He is in bed in no distress. HEENT: Mucosa is pink and moist. Anicteric. Acyanotic. Neck: Supple. Chest: Good air entry bilateral. There was no crepitations no rhonchi. Cardiovascular: Regular rate and rhythm. Abdomen: Soft, nontender. There are some old scars on the anterior abdominal wall from previous surgeries. Extremities: Right has a BKA. Left is unremarkable. Central nervous system: Patient is awake, alert, oriented. There is no focal neurological deficit. LABORATORY DATA: WBC is up to 21.65, hemoglobin is 11.4, platelet count of 43,000. Chemistry is also reviewed. Creatinine is down to 1.8. ASSESSMENT: 1. Septic shock on presentation secondary to Clostridium difficile colitis. The patient is off pressor for the past almost 48 hours. 2. Severe Clostridium difficile colitis, improving. 3. Intractable nausea, improved. Presumably uremic component. 4. Acute on chronic renal failure, improved. 5. Status post renal transplant. Patient is on chronic immunosuppressive therapy. 6. Diabetes mellitus controlled on insulin. 7. Leukocytosis, presumably being driven by the steroids. The dose of the IV steroids has been titrated down. 8. Thrombocytopenia presumably as a result of the acute illness. Hopefully in the next couple days, he should be bouncing back. PLAN: In general, Mr. Lynch looks a lot better this morning. He is tolerating his breakfast. We are going to be keeping an eye on his CBC numbers. He will still be observed in the ICU throughout the weekend. Mr. Lynch is also seen by Nephrology, GI and ID, and we appreciate their input. cc: Srinivas Vital MD
[2019-04-23] MEDS: TYLENOL PO PRN (10:54)
[2019-04-23 13:24] LABS: HEPATITIS PROFILE ACUTE SEE COMMENTS
--- NOTE | 2019-04-23 15:47 | NEPHROLOGY PROGRESS NOTE ---
DATE: 04/23/2019 SUBJECTIVE: He states he still has diarrhea. No vomiting, no shortness of breath. OBJECTIVE: Vital Signs: Blood pressure 135/81, heart rate 98, respirations 23, afebrile. Intake 1 L. Output 1.8 L. Physical Examination: No acute distress. Skin: Warm and dry. Neck: Neck veins are not appreciated. Heart: Regular. Lungs: Equal. No crackles. Abdomen: Soft, nontender. Decreased bowel sounds. Extremities: 2+ edema in the elbows, around the hips. No clubbing or cyanosis. 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 We have decreased his overall anti-rejection medications. He is currently receiving his tacrolimus 2 mg b.i.d. and steroids in the form of methylprednisolone. I will cut that down 10 mg today. His mycophenolate is being withheld currently as it may worsen his diarrhea. cc: Claudio Stephens MD
[2019-04-24] MEDS: VANCOMYCIN ORAL SOLN PO SCH ×4 (01:33→20:42)
[2019-04-24] MEDS: FLAGYL 500 MG/NS 500 MG/100 ML IVPB IV SCH ×3 (01:33→16:15)
[2019-04-24 06:40] LABS: EOS# 0.05 X1000 (0.0-0.7); EOS% 0.3 % (0.0-10.0); HEMATOCRIT 30.2 % (42.0-52.0); HEMOGLOBIN 9.6 g/dL (14.0-18.0); IMM GRAN# 0.08 X1000 (0.0-0.04); IMM GRAN% 0.5 % (0.0-0.5); LYMPH# 0.67 X1000 (1.2-3.4); MCH 28.7 PG (27-31); MCHC 31.8 g/dL (33-37); MCV 90.1 FL (81-99); MONO# 0.56 X1000 (0.11-0.59); MONO% 3.4 % (1.7-9.3); MPV 12.7 FL (7.4-10.4); NEUT% 91.8 % (42.2-75.2); RBC 3.35 XMIL (4.7-6.1); RDW 14.8 % (11.5-14.5); WBC 16.66 X1000 (4.8-10.8)
[2019-04-24] MEDS: HUMALOG SUBQ SCH ×7 (06:44→21:12)
[2019-04-24 06:55] LABS: PLT 37 X1000 (130-400)
[2019-04-24 07:03] LABS: ALBUMIN 2.4 g/dL (3.5-5.0); CALCIUM 7.8 mg/dL (8.8-10.2); CREATININE 2.9 mg/dL (0.7-1.2); PHOSPHORUS 2.6 mg/dL (2.7-4.5); POTASSIUM 4.7 mmol/L (3.5-5.1)
[2019-04-24] MEDS: ALBUMIN 25% IV SCH (08:47)
[2019-04-24] MEDS: SODIUM CHLORIDE 0.9% INJ SCH (08:48)
[2019-04-24] MEDS: SODIUM BICARBONATE PO SCH ×2 (08:48→20:43)
[2019-04-24] MEDS: PROGRAF PO SCH ×2 (08:48→20:43)
[2019-04-24] MEDS: SOLU-MEDROL IV SCH (08:48)
[2019-04-24] MEDS: PROTONIX IV SCH (08:48)
[2019-04-24] MEDS: MYCOSTATIN SUSP PO SCH ×4 (08:48→20:42)
[2019-04-24] MEDS: CULTURELLE PO SCH ×2 (08:48→20:43)
[2019-04-24] MEDS: LANTUS INSULIN SUBQ SCH (08:49)
[2019-04-24] MEDS: PATIENT'S OWN MED PO SCH ×2 (08:49→20:43)
--- NOTE | 2019-04-24 09:38 | PROGRESS NOTE ---
DATE: 04/24/2019 SUBJECTIVE: This morning, Mr. Lynch refers to be doing a little better. However, he continues to have constant persistent diarrhea, which is bloody. OBJECTIVE: Vital Signs: Blood pressure is 143/81, pulse of 81, respirations are 16, temperature is 98.3 degrees. General Examination: Mr. Lynch is a 69-year-old, male. He is in bed. No distress. HEENT: Mucosa is pink and moist. Anicteric. Acyanotic. Neck: Supple. Chest: Good air entry bilaterally. 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 Cardiovascular: Regular rate and rhythm. Abdomen: Soft, nontender. Extremities: There is a right BKA. Left is unremarkable. There is remarkable edema on the left upper extremity. FONDANT PUFF MAKER: The patient is awake, alert, and oriented. Laboratory Data: WBC is down to 16.66, hemoglobin is 9.6, platelet count of 37,000. Still pending the manual differential. Chemistry is also reviewed. Creatinine is up to 2.9 this morning. The patient's Is and Os, urine output was just about 230 in 24 hours. The patient is still positive balance of over 13,000 mL. Current medications have all been reviewed. The patient is still on IV metronidazole, p.o. vancomycin. ASSESSMENT: 1. Septic shock on presentation secondary to Clostridium difficile colitis. The patient has been off pressors. 2. Severe Clostridium difficile colitis. The patient continues to have bowel movements which are diarrhea with bloody stool. This is presumed to be from the Clostridium difficile colitis. However, an underlying ischemic colitis is also possible. Lactate level is ok. 3. Intractable nausea and vomiting, improved. 4. Acute on chronic renal failure. The patient has been on sustained low- efficiency dialysis for about 2 days. Nephrology is on board. Creatinine continues to be creeping up. Urine output is very oliguric and patient seems to be retaining fluid in the upper extremities. He probably will need renal replacement therapy in the coming days. 5. Status post renal transplant. Patient is on chronic immunosuppressive therapy. 6. Diabetes mellitus, controlled. 7. Thrombocytopenia of unclear course but presumed to be related to the acute illness. The patient's fibrinogen is low and INR is slightly elevated, which would be concerning for disseminated intravascular coagulation. We are going to repeat the panel again today and get hematology/oncology to evaluate him. cc: Srinivas Vital MD [facility]
[2019-04-24] MEDS: TYLENOL PO PRN (10:24)
[2019-04-24] MEDS: CALMOSEPTINE OINTMENT TOP PRN (10:24)
[2019-04-24 10:35] LABS: IRON SATURATION 52 %; TIBC 60 ug/dL; TOTAL IRON 31 ug/dL (53-167); UNBOUND IRON 29 ug/dL (112-346)
[2019-04-24 10:47] LABS: FERRITIN 229 ng/mL (30-400)
[2019-04-24 10:49] LABS: ANISOCYTOSIS 1+; LYMPHS 2 % (21-51); MONO 2 % (1-9); NRBC 1 % (0-0); SEGS 96 % (42-75)
[2019-04-24 10:53] LABS: POIKILOCYTOSIS 1+; SCHISTOCYTES 1+
[2019-04-24 11:02] LABS: INR 1.34; PROTIME 16.8 Seconds (11.0-16.0)
[2019-04-24 13:05] LABS: RETIC% 2.42 % (0.8-2.1); RETIC-HE 35.1 PG (28.2-36.6)
[2019-04-24] MEDS: FOLIC ACID PO SCH (14:00)
--- NOTE | 2019-04-24 14:42 | HEMO/ONC CONSULTATION ---
DATE: 04/24/2019 CHIEF COMPLAINT: We are being consulted for evaluation of thrombocytopenia. HISTORY OF PRESENT ILLNESS: The patient was admitted on April 14 with complaints of coffee- grounds emesis and abdominal pain the Thursday before. He has a history of a kidney transplant in 2009 and is a diabetic. It is noted that he is noncompliant with medications, medical regimen, and checking his blood glucose levels. Since this admission, he has been diagnosed with Clostridium difficile colitis, resulting in septic shock, acute on chronic renal failure, and thrombocytopenia. It is noted that the patient came in with thrombocytopenia which has slowly decreased until the present critical level. It is also noted that the patient has had several admissions in the past where he has also had thrombocytopenia. The patient appears comfortable today, although his daughter states that he continues to have bloody diarrhea. PAST MEDICAL HISTORY: 1. Type 2 diabetes. 2. Chronic kidney disease. 3. Hypertension. 4. CVA. 5. Hyperlipidemia. PAST SURGICAL HISTORY: 1. Renal transplant in 2009, followed by [facility]. 2. Amputation of the right third toe. 3. Cholecystectomy. 4. Cataract surgery. 5. Right BKA. SOCIAL HISTORY: Denies tobacco, alcohol, or illicit drugs. REVIEW OF SYSTEMS: Vomiting coffee-grounds emesis, bloody diarrhea, abdominal pain, nausea, vomiting. ALLERGIES: No known allergies. HOME MEDICATIONS: Amlodipine, aspirin, chlorthalidone, clonidine, vitamin B12, folic acid, [place] 10, Lantus, insulin lispro, lisinopril, metoprolol, tacrolimus. VITAL SIGNS: Temperature 97.9 degrees, pulse rate 102, respiratory rate 18, blood pressure 148/89, O2 saturation 95% on 3 L via nasal cannula, 0/10 pain. PHYSICAL EXAMINATION: General: Elderly-appearing, chronically ill, male in no acute distress. HEENT: Oral mucosa is pink and moist. Sclerae are anicteric. Chest: Upper airways sound clear. A few crackles in the bases. Cardiovascular: Normal S1, S2. Regular rate and rhythm. Slightly tachycardic. Abdomen: Soft, nontender, nondistended. Extremities: There is a right BKA. Left is unremarkable. Edema noted to left upper extremity. Neurological: Awake, alert, and oriented. Follows commands. LABORATORY: WBCs 16.66, hemoglobin 9.6, hematocrit 30.2, platelet count 37,000, ANC 15.30. PT 16.8, INR 1.34, fibrinogen 137, D-dimer 5.79. LDH 136. Creatinine 2.9, calcium 7.8, phosphorus 2.6. Iron 31, iron percent saturation 52%, ferritin 229, vitamin B12 of 966, folate 7.2. Chest, abdomen, and pelvis CT reveals normal spleen. There is severe colitis. ASSESSMENT: 1. Septic shock on presentation secondary to Clostridium difficile colitis. 2. Severe Clostridium difficile colitis. 3. Intractable nausea and vomiting. 4. Acute on chronic renal failure. 5. Thrombocytopenia. PLAN: We have added further labs for a DIC profile. We will continue to monitor and evaluate, and provide further suggestions. Continue treatment per medical management. We will continue to monitor closely. Dictated by ESHA Wilkinson for Kurt Sampson MD Patient seen and examined. Patient presented with nausea, vomiting, diarrhea and abdominal pain of 1 week duration. He was diagnosed to have septic shock . CT scan revealed severe colitis. He was diagnosed to have Clostridium difficile colitis. He has been started on vancomycin and Flagyl. He has a history of kidney transplant and is on tacrolimus. He has acute kidney injury. He has chronic thrombocytopenia which has worsened during this admission. We will check labs and review his blood smear. No splenomegaly on his recent scan reported. 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 Transfuse platelets if bleeding or count less than 20,000. We will continue to follow with you. Kurt Sampson M.D. cc: Kurt Sampson MD [facility]
[2019-04-24] MEDS: NORCO-7.5 PO PRN (20:42)
[2019-04-24] MEDS ORDERED: MYLICON PO ONE (21:58)
[2019-04-25] MEDS: VANCOMYCIN ORAL SOLN PO SCH ×4 (01:43→20:03)
[2019-04-25] MEDS: FLAGYL 500 MG/NS 500 MG/100 ML IVPB IV SCH ×2 (01:44→09:21)
[2019-04-25] MEDS: NORCO-7.5 PO PRN ×2 (06:07→10:08)
[2019-04-25] MEDS: HUMALOG SUBQ SCH ×7 (06:26→20:01)
[2019-04-25 06:30] LABS: RBC 3.14 XMIL (4.7-6.1); WBC 14.36 X1000 (4.8-10.8)
[2019-04-25 06:31] LABS: EOS# 0.06 X1000 (0.0-0.7); EOS% 0.4 % (0.0-10.0); HEMATOCRIT 28.1 % (42.0-52.0); IMM GRAN# 0.07 X1000 (0.0-0.04); IMM GRAN% 0.5 % (0.0-0.5); LYMPH% 4.9 % (20.5-51.1); MCH 28.7 PG (27-31); MCV 89.5 FL (81-99); MONO# 0.68 X1000 (0.11-0.59); MONO% 4.7 % (1.7-9.3); MPV 12.7 FL (7.4-10.4); NEUT# 12.85 X1000 (1.4-6.5); NEUT% 89.5 % (42.2-75.2); PLT 50 X1000 (130-400); RDW 14.6 % (11.5-14.5)
[2019-04-25 06:52] LABS: CREATININE 2.5 mg/dL (0.7-1.2); POTASSIUM 4.6 mmol/L (3.5-5.1)
[2019-04-25 06:53] LABS: ALBUMIN 2.5 g/dL (3.5-5.0); CALCIUM 7.9 mg/dL (8.8-10.2); PHOSPHORUS 2.7 mg/dL (2.7-4.5)
[2019-04-25] MEDS: ALBUMIN 25% IV SCH (09:20)
[2019-04-25] MEDS: FOLIC ACID PO SCH (09:21)
[2019-04-25] MEDS: MYCOSTATIN SUSP PO SCH ×4 (09:21→20:01)
[2019-04-25] MEDS: SOLU-MEDROL IV SCH (09:21)
[2019-04-25] MEDS: CULTURELLE PO SCH ×2 (09:21→20:01)
[2019-04-25] MEDS: PROGRAF PO SCH ×2 (09:21→20:01)
[2019-04-25] MEDS: SODIUM BICARBONATE PO SCH ×2 (09:21→20:01)
[2019-04-25] MEDS: PROTONIX IV SCH (09:22)
[2019-04-25] MEDS: LANTUS INSULIN SUBQ SCH (09:40)
[2019-04-25] MEDS: PATIENT'S OWN MED PO SCH ×2 (09:41→20:02)
--- NOTE | 2019-04-25 11:38 | NEPHROLOGY PROGRESS NOTE ---
DATE: 04/25/2019 SUBJECTIVE: Patient resting in bed. States he is still having bloody stools. OBJECTIVE: Vital Signs: Temperature 98.3 degrees, pulse 72, respiratory rate 17, blood pressure 146/80. Intake 1.1 L, output 1.21. General: Elderly gentleman resting in bed. No acute distress. HEENT: Normocephalic, atraumatic. MADI. Neck: Supple without JVD. Cardiovascular: Regular rate and rhythm. Pulmonary: Clear bilaterally. Equal excursion. Abdomen: Soft, positive bowel sounds. : Minimal void. Kat catheter. Extremities: 1+ to 2+ edema. No clubbing or cyanosis. Integumentary: Skin is warm and dry. LABORATORY DATA: Sodium 138, potassium 4.6, CO2 22, creatinine 2.5 (2.9). ASSESSMENT AND PLAN: 1. 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 We have adjusted his anti-rejection medications. He did have dialysis transiently over the weekend primarily for fluid removal in the form of SLED. He has had adequate urine output over the last 24 hours and his creatinine is actually dropped so hold his dialysis today. 2. Clostridium difficile colitis. Followed by primary. Followed by GI. 3. Thrombocytopenia. Hematology/oncology evaluating. [place] that this is related to his acute illness. They will follow and transfuse platelets as needed. 4. Immunosuppression. Continue Prograf and prednisone. ross Dictated by ESHA Hanson for Claudio Stephens MD Face to face encounter, data reviewed, discussed with Jayden Castillo on 04/25/19. I agree with the above assessment and plan of care. ross cc: Claudio Stephens MD [facility]
--- NOTE | 2019-04-25 12:31 | GASTROENTEROLOGY PROGRESS NOTE ---
DATE: 04/25/2019 SUBJECTIVE: The patient is resting in bed. His is present at the bedside. The patient has shown improvement. He is having soft, brown stools. He was noted to have a very small amount of blood in the stools, which according to the nursing staff could be from anal irritation or hemorrhoids. He denies any fevers, rigors, chills. OBJECTIVE: Vital Signs: Temperature 97.8, pulse of 80, respiratory rate 17, blood pressure 137/87, saturating 98% on 3 L nasal cannula. Body weight of 140 pounds, BMI 23.3 kg. General Appearance: Thinly built, lying in bed in no acute distress. HEENT: Pale conjunctiva. No icterus. Neck: Supple. Abdomen: Soft, nondistended. No guarding. Mild discomfort in the periumbilical region. Extremities: No cyanosis, clubbing. He is status post right-sided below-knee amputation. Neurologic: He is alert, awake, oriented x3. LABORATORY DATA: His hemoglobin and hematocrit are 9 and 28.1, white count of 14.36, platelet count of 50,000. Sodium 138, potassium 4.6, chloride 111, BUN of 52, creatinine of 2.5, glucose of 92, calcium is 7.9. Phosphorus 2.7. Albumin of 2.5. Iron studies show a percent saturation of 52, iron level of 31, TIBC 60, and ferritin of 29. Hepatitis panel nonreactive. Blood cultures x2 are negative for 5 days from 04/19/2019. IMPRESSION AND PLAN: 1. Clostridium difficile colitis. He is on oral vancomycin 250 mg every 6 hours and Flagyl 500 mg intravenously every 8 hours. He also continues on Culturelle 1 capsule by mouth twice daily. 2. He continues on a diabetic diet. 3. Status post kidney transplant. He is on tacrolimus 2 mg by mouth twice daily per the primary care team. 4. Gastrointestinal prophylaxis with proton pump inhibitors once daily. 5. Oral candidiasis. He is on nystatin suspension 5 mL by mouth 4 times daily. 6. Diabetes. He is on sliding scale Humalog and insulin glargine. 7. Pain control, on hydrocodone/acetaminophen. 8. He is day 10 of his oral vancomycin. 9. Nausea and vomiting is improved. 10. History of hypertension, hyperlipidemia, prior cerebrovascular accident, chronic kidney disease. Aware. The above plans were discussed with the patient and family at bedside. All questions were answered. Please call us with any further questions. cc: MD Srinivas Sparrow MD MTDD
[2019-04-25] MEDS: PRINIVIL PO SCH (13:24)
--- NOTE | 2019-04-25 13:39 | PROGRESS NOTE ---
DATE: 04/25/2019 SUBJECTIVE: This morning Mr. Lynch refers to be doing a whole lot better. Still has some bowel movement which is blood tinged but not as frequent as days before. OBJECTIVE: Vital signs: Blood pressure is 178/86, pulse of 97, respiration is 19, temperature is 98 degrees, patient is saturating 96 percent on 3 L. General: Mr. Lynch is a 69-year-old male he is in bed no distress. Mucosa is pink and moist. Anicteric. Acyanotic. Neck: Supple. No JVD. Chest: Good entry bilaterally. Few crackles in the posterior lung goldsmith. Cardiovascular: Regular rate and rhythm. No murmurs, no rubs, no gallops. Abdomen: Soft, nontender. Bowel sounds present. There is some old scars on anterior abdominal wall. Extremities: There is a right BKA. Left is unremarkable. There is edema in the upper extremities which seems to be a little better than yesterday. CHIEF ORDER DISPATCHER: Patient is awake, alert, and oriented. The patient I's and O's urine output has been 1245 today. There is a remarkable improvement from days before. CURRENT MEDICATIONS: Have all been reviewed. No changes. ASSESSMENT: 1. Septic shock on presentation secondary to Clostridium difficile colitis. Patient was on pressors at some point currently off, blood pressure is actually on the high end. We will start him back on his p.o. medications. 2. Severe Clostridium difficile colitis. Will continue on the p.o. vanc and IV metronidazole. ID and GI on board. 3. Intractable nausea and vomiting improved. 4. Acute on chronic renal failure. Patient did receive SLED last week, over the weekend he seems to be fairly stable. His creatinine seems to be trending down today and he is making adequate urine output. Nephrology is on board. We are going to follow up with further recommendations from them. 5. Status post renal transplant. Patient is on immunosuppressive therapy. He was started on intravenous steroids. We will switch this to p.o. his regular dose at home. 6. Diabetes mellitus controlled. 7. Thrombocytopenia of unclear course. Patient has been evaluated by Heme-Onc. Platelet count this morning is trending up. So in general Mr. Lynch is 11 days in hospital because of severe C difficile colitis. He was hypotensive and shock at some point and his renal function worsened. During the hospital course he seems to be progressively getting better. This morning he feels a lot stronger. He is making less bowel movement and he is making urine. His creatinine is down to 2.5 from 2.9 yesterday. We going to continue with the current antimicrobial therapy and continue follow up with the rest of subspecialties that have been seeing him. cc: Srinivas Vital MD [facility]
--- NOTE | 2019-04-25 13:52 | HEMO/ONC PROGRESS NOTE ---
DATE: 04/25/2019 HISTORY OF PRESENT ILLNESS: The patient is awake this morning, lying comfortably in bed. He has no complaints today. He states that he feels much better than he did yesterday. He tells me that he is still having blood in his stool. He denies any pain. OBJECTIVE: Vital Signs: Temperature 98 degrees, pulse rate 97, respiratory rate 19, blood pressure 178/86, O2 saturation 96% on nasal cannula at 3 L. He is in 2/10 pain. PHYSICAL EXAM: General: He is a frail, elderly appearing, chronically ill male in no acute distress. Oral mucosa is pink and moist. The sclera is anicteric. Conjunctivae pale. Respiratory: Lung sounds clear. No respiratory distress. Cardiovascular: Normal S1, S2. Regular rate and rhythm. Abdomen: Soft and nondistended. He has pain to palpation to epigastric area and lower quadrants. Extremities: There is a right [id number]. Left leg is unremarkable. Edema noted to the upper extremities. Neurological: Awake, alert, and oriented. Follows commands appropriately. LABORATORY: WBC 14.36, hemoglobin 9.0, hematocrit 28.0, MCV 89.5, platelet count 50,000. ANC 12.85, creatinine 2.5. Iron profile is adequate. B12 and folate adequate. ASSESSMENT: 1. Septic shock on presentation secondary to clostridium difficile colitis. 2. Severe clostridium difficile colitis. 3. Intractable nausea, vomiting. 4. Acute on chronic renal failure. 5. Thrombocytopenia. PLAN: The patient was thrombocytopenic upon admission, which has worsened during his stay. We will continue to monitor labs, review his blood smear. No splenomegaly is noted. Dr. Sampson suspects he has chronic peripheral destruction is now increased due to this acute illness. Transfuse platelets if bleeding or count of less than 20,000. Will continue to follow closely. Dictated by ESHA Wilkinson for Kurt Sampson MD Patient seen and examined. As above. Patient has chronic thrombocytopenia. During this admission his platelet count has gradually trended down. 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 For now continue to monitor and expect improvement in his platelets. If not we will consider therapy for ITP. Transfuse for platelet count less than 20,000 or if bleeding. Kurt Sampson M.D. cc: Kurt Sampson MD [facility]
--- NOTE | 2019-04-25 14:21 | INFECTIOUS DISEASE PROGRESS NO ---
DATE: 04/25/2019 HISTORY OF PRESENT ILLNESS: Mr. Lynch is being treated for Clostridium difficile colitis and oral Candidiasis. MEDICATIONS: He is receiving Flagyl 500 mg IV every 8 hours, vancomycin 250 mg by mouth every 6 hours, and nystatin swish and swallow 4 times a day. PHYSICAL EXAMINATION: Vital Signs: Temperature is 98 degrees, pulse rate 88, respiratory rate 15, blood pressure 141/72, O2 saturation is 97% on 3 L nasal cannula. General: This is a chronically ill-appearing elderly gentleman. He is sitting up in bed, currently in no acute distress. HEENT: Atraumatic, normocephalic. Oral mucous membranes are pink and dry with a mild white coating to the back of his tongue which seems to be improving. Conjunctivae are pale. Neck: Has a right internal jugular Trialysis catheter in place. The site is without edema, erythema, or drainage. Respiratory: Lung sounds are clear to auscultation bilaterally. No work of breathing is noted. Cardiovascular: Heart rate and rhythm are regular. Normal sinus rhythm on the monitor. Abdomen: Soft, round, and nontender. Bowel sounds are active. Neurologic: He is awake, alert, and oriented and able to move around in the bed with generalized mild edema and weakness. There is a left [id number] amputation. LABORATORY AND X-RAY: Today, his white count is 14.36, hemoglobin 9, platelet count 50,000. Creatinine is 2.5, GFR 26. No imaging reports today. ASSESSMENT AND PLAN: Mr. Lynch is being treated for Clostridium difficile colitis and oral candidiasis. We have been giving him vancomycin by mouth and IV Flagyl due to the patient's difficulty in keeping down the vancomycin. At this point, it looks as though he is taking oral vancomycin without difficulty, so we will stop the IV Flagyl at this time and continue oral vancomycin as ordered. He is also receiving nystatin swish and swallow and the oral candidiasis is improving, so we will continue the swish and swallow as well. These plans have been discussed with and recommended by Dr. Minor. COMORBIDITIES: For Mr. Lynch include that he is elderly, with acute kidney injury on chronic kidney disease with intermittent hemodialysis, diabetes mellitus, thrombocytopenia, and anemia. Dictated by ESHA Cortes for Ochoa Minor MD cc: Ochoa Minor MD [facility]
[2019-04-25] MEDS: LOPRESSOR PO SCH (20:01)
[2019-04-26] MEDS: VANCOMYCIN ORAL SOLN PO SCH ×4 (02:00→20:00)
[2019-04-26] MEDS: NORCO-7.5 PO PRN ×3 (05:38→18:07)
[2019-04-26] MEDS: HUMALOG SUBQ SCH ×7 (06:03→20:40)
[2019-04-26 06:18] LABS: EOS# 0.02 X1000 (0.0-0.7); EOS% 0.2 % (0.0-10.0); HEMATOCRIT 27.4 % (42.0-52.0); HEMOGLOBIN 8.9 g/dL (14.0-18.0); IMM GRAN# 0.05 X1000 (0.0-0.04); IMM GRAN% 0.4 % (0.0-0.5); LYMPH# 0.61 X1000 (1.2-3.4); LYMPH% 4.9 % (20.5-51.1); MCH 29.1 PG (27-31); MCHC 32.5 g/dL (33-37); MCV 89.5 FL (81-99); MONO# 0.67 X1000 (0.11-0.59); MONO% 5.4 % (1.7-9.3); MPV 13.3 FL (7.4-10.4); NEUT% 89.1 % (42.2-75.2); PLT 64 X1000 (130-400); RBC 3.06 XMIL (4.7-6.1); RDW 14.8 % (11.5-14.5); WBC 12.35 X1000 (4.8-10.8)
[2019-04-26 06:41] LABS: LYMPHS 4 % (21-51); MONO 4 % (1-9); SEGS 90 % (42-75)
[2019-04-26 07:07] LABS: CALCIUM 8.3 mg/dL (8.8-10.2); CREATININE 2.6 mg/dL (0.7-1.2); PHOSPHORUS 3.1 mg/dL (2.7-4.5); POTASSIUM 4.8 mmol/L (3.5-5.1)
[2019-04-26] MEDS: PROGRAF PO SCH ×2 (08:08→20:40)
[2019-04-26] MEDS: CULTURELLE PO SCH ×2 (08:08→20:41)
[2019-04-26] MEDS: SODIUM BICARBONATE PO SCH ×2 (08:08→20:40)
[2019-04-26] MEDS: MYCOSTATIN SUSP PO SCH ×4 (08:09→20:40)
[2019-04-26] MEDS: FOLIC ACID PO SCH (08:09)
[2019-04-26] MEDS: PREDNISONE PO SCH (08:09)
[2019-04-26] MEDS: PRINIVIL PO SCH (08:09)
[2019-04-26] MEDS: LOPRESSOR PO SCH ×2 (08:10→20:40)
[2019-04-26] MEDS: PROTONIX IV SCH (08:13)
--- NOTE | 2019-04-26 09:12 | NEPHROLOGY PROGRESS NOTE ---
DATE: 04/26/2019 SUBJECTIVE: Patient is sitting up in bed. He states that he has not wanted anything to eat. OBJECTIVE: Vital Signs: Temperature 97.9 degrees, pulse 67, respiratory rate 12, blood pressure 140/69. Intake 1.4 L. Output 1.6 L plus multiple liquid stools. General: This is a chronically ill-appearing elderly gentleman sitting up in bed. He is in no acute distress today. HEENT: Normocephalic, atraumatic. MADI. His oral mucosa is dry. Dentition poor. Neck: Supple without JVD. Cardiovascular: Regular rate and rhythm. No murmur. Equal excursion. Remains on O2 supplementation. Abdomen: Soft, slightly tender. Positive bowel sounds. : He has a Kat catheter. He had 2 L of urine output. Extremities: Continues with 1 to 2+ upper and lower extremity edema. No clubbing, cyanosis. Integumentary: Skin remains pale, warm, and dry. LAB DATA: WBC of 12.3, hemoglobin 8.9. Sodium 139, potassium 4.8, CO2 21, creatinine 2.6 (2.5). Albumin 3. ASSESSMENT AND PLAN: 1. Acute kidney injury in a patient with chronic transplant glomerulonephropathy. We did not dialyze him yesterday. His renal function remains stable. His baseline creatinine is 2. Urine output has been adequate over the last 24 hours, so we believe we will not have to continue with further dialysis intervention at this time. 2. Fluid volume. The patient has been in negative territory and nutrition is of concern. It appears that between his urine output and liquid stools he is likely remaining in negative territory. We will start IV fluids today so that he does not become intravascularly depleted. 3. Clostridium difficile colitis. Followed by Primary and GI. Dictated by ESHA Hanson for Claudio Stephens MD Face to face encounter, data reviewed, discussed with Jayden Castillo on 04/26/19. I agree with the above assessment and plan of care. cc: Claudio Stephens MD [facility]
--- NOTE | 2019-04-26 09:14 | INFECTIOUS DISEASE PROGRESS NO ---
DATE: 04/26/2019 SUBJECTIVE: The patient is being treated for Clostridium difficile colitis and oral candidiasis. MEDICATIONS: The patient is on the 11th day of p.o. vancomycin. The patient also is receiving nystatin for his oral candidiasis. PHYSICAL EXAMINATION: Vital Signs: Temperature is 98 degrees, pulse 67, respirations 12, blood pressure 140/69. General: This is an ill-appearing, elderly male. He is weak. HEENT: He can hear my spoken words and see near objects. I did not notice any white patches in his mouth. Neck: The patient has an internal jugular venous catheter in place. The site is not erythematous or purulent. Lungs: Clear to auscultation. Cardiovascular: Heart rate is regular. Abdomen: Soft and nontender. Neurologic: The patient is awake. He can move his extremities. There is no tremor. Integument: No rash noted. IMAGING AND LABORATORY DATA: The patient's CBC shows a white count of 12,350, hemoglobin 8.9, and platelet count is 64,000. Creatinine is 2.9. GFR is 25. Hepatitis panel is nonreactive. The patient does not have any recent radiographic study. ASSESSMENT AND PLAN: The patient has Clostridium difficile diarrhea. My plan is to continue with oral vancomycin. The patient also has oral candidiasis. I plan on continuing with nystatin swish and swallow. COMORBIDITIES: The patient has a renal transplant and is on immunosuppressive therapy. He also is elderly. He has acute kidney injury superimposed on chronic kidney disease with intermittent hemodialysis. The patient also has diabetes mellitus, thrombocytopenia, and anemia. cc: Ochoa Minor MD
[2019-04-26] MEDS: LANTUS INSULIN SUBQ SCH (09:37)
[2019-04-26] MEDS: NS 1,000 ML IV SCH ×2 (09:37→22:00)
[2019-04-26] MEDS: PATIENT'S OWN MED PO SCH ×2 (09:54→20:41)
[2019-04-26] MEDS: DIFICID PO SCH ×2 (11:52→20:40)
--- NOTE | 2019-04-26 12:04 | PROGRESS NOTE ---
DATE: 04/26/2019 SUBJECTIVE: The patient is still having a lot of diarrhea. I do think he is improving overall, but per the nurse, he had 5 bowel movements last night, and 3 are recorded today. OBJECTIVE: Vital Signs: Blood pressure is 142/64, heart rate 61, respiratory rate 21, temperature 97.2 degrees. Cardiovascular: Regular rate and rhythm. Pulmonary: Bilateral breath sounds. Clear to auscultation. GI: Soft, nontender, nondistended. Bowel sounds are positive. LABORATORY DATA: White count is down to 10, hemoglobin and hematocrit 11 and 33, platelets 62,000. BUN and creatinine are 56 and 2.6, which is pretty much unchanged compared to yesterday. PROBLEM LIST: 1. Septic shock due to Clostridium difficile. He is off pressors. His blood pressure is actually a little bit on the high side. I am going to hold lisinopril just because I am worried about his renal function, but it will need to be resumed at some point since he has got glomerulonephropathy. 2. Severe Clostridium difficile colitis. He is on oral vancomycin alone. I think Flagyl was stopped, but he is having still a lot of diarrhea. I know his white count is better, but clinically still having a lot of diarrhea to the point that we had to start fluids today to compensate for his volume loss, so I am going to go ahead and start Dificid, at least until he improves. Gastroenterology and Infectious Disease are on board. 3. Acute on chronic renal failure. Kidney function is stable. We started intravenous fluids. 4. Status post renal transplant. He is on his regular immunosuppressive therapy, which is Prograf and prednisone. 5. Hypertension. We may use different agents pending. Reluctant to start Norvasc because he has already got such significant peripheral edema. He is on Lopressor. Will continue to follow. 6. Disposition. He is stabilizing. He is off pressors. He may be able to go to the floor soon. Will continue to follow closely. cc: Robert Cunningham MD
--- NOTE | 2019-04-26 23:52 | PROVIDER PROGRESS NOTE ---
Progress Note S: Minimal diarrhea. No rectal bleeding. 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 Jude Lynhc is a 69 year old man with HTN, HLD, prior CVA, IDDM2 and CKD s/p DDRT who was admitted with septic shock, DKA, and oligouric KAY in the setting of N/V and diarrhea from severe cdiff infection. He was on flagyl and vancomycin. Switched to Dificid. Hgb stable. Leukocytosis improving. # CDI: on abx; defer mgmt to ID; trend BMs daily, I/O # Anemia: stable hgb; trending # N/V: continue PPI and antiemetics prn # Oligouric KAY: HD per renal # DM2: glycemic control Will sign off. Please call with questions
[2019-04-27] MEDS: NORCO-7.5 PO PRN ×2 (00:57→12:27)
[2019-04-27] MEDS: VANCOMYCIN ORAL SOLN PO SCH ×4 (01:45→21:00)
[2019-04-27] MEDS: HUMALOG SUBQ SCH ×8 (06:06→21:23)
[2019-04-27 06:32] LABS: EOS# 0.07 X1000 (0.0-0.7); EOS% 0.8 % (0.0-10.0); HEMATOCRIT 25.4 % (42.0-52.0); HEMOGLOBIN 8.1 g/dL (14.0-18.0); IMM GRAN# 0.03 X1000 (0.0-0.04); IMM GRAN% 0.3 % (0.0-0.5); LYMPH# 0.56 X1000 (1.2-3.4); LYMPH% 6.1 % (20.5-51.1); MCH 28.7 PG (27-31); MCHC 31.9 g/dL (33-37); MCV 90.1 FL (81-99); MONO# 0.71 X1000 (0.11-0.59); MONO% 7.8 % (1.7-9.3); MPV 13.2 FL (7.4-10.4); NEUT# 7.77 X1000 (1.4-6.5); PLT 81 X1000 (130-400); RBC 2.82 XMIL (4.7-6.1); WBC 9.14 X1000 (4.8-10.8)
[2019-04-27 06:48] LABS: ALBUMIN 2.4 g/dL (3.5-5.0); CALCIUM 8.1 mg/dL (8.8-10.2); CREATININE 2.3 mg/dL (0.7-1.2); PHOSPHORUS 2.8 mg/dL (2.7-4.5); POTASSIUM 4.8 mmol/L (3.5-5.1)
[2019-04-27] MEDS: PREDNISONE PO SCH (08:33)
[2019-04-27] MEDS: FOLIC ACID PO SCH (08:33)
[2019-04-27] MEDS: LOPRESSOR PO SCH ×2 (08:33→21:06)
[2019-04-27] MEDS: SODIUM BICARBONATE PO SCH ×2 (08:33→21:08)
[2019-04-27] MEDS: CULTURELLE PO SCH ×2 (08:34→21:05)
[2019-04-27] MEDS: LANTUS INSULIN SUBQ SCH (08:34)
[2019-04-27] MEDS: MYCOSTATIN SUSP PO SCH ×4 (08:34→21:07)
[2019-04-27] MEDS: PROTONIX PO SCH (08:34)
[2019-04-27] MEDS: PROGRAF PO SCH ×2 (08:35→21:07)
[2019-04-27] MEDS: DIFICID PO SCH ×2 (08:35→21:05)
[2019-04-27] MEDS: PATIENT'S OWN MED PO SCH ×2 (08:36→21:07)
[2019-04-27] MEDS: NS 1,000 ML IV SCH ×3 (11:06→23:51)
[2019-04-27] MEDS ORDERED: LASIX IV ONE (12:09)
[2019-04-27] MEDS ORDERED: ALBUMIN 25% IV ONE (12:09)
--- NOTE | 2019-04-27 12:44 | INFECTIOUS DISEASE PROGRESS NO ---
DATE: 04/27/2019 PRESENT ILLNESS: The patient has Clostridium difficile diarrhea. MEDICATIONS: This is the 12th day medications the question this is the 12th day of p.o. vancomycin. Because the patient still has a lot of diarrhea, Dr. Cunningham added Dificid and this is day 1 of Dificid and it does seem that the Dificid has cut down the amount of diarrhea. PHYSICAL EXAMINATION: Vital Signs: Temperature is 97 degrees, pulse 75, respirations 14, blood pressure 154/73. General: This is a chronically ill-appearing elderly male. He is in no acute distress. Head/eyes/ears/nose/throat: There is no drainage from the nose or ears. He can hear my spoken words and see near objects. Patient does not have any white coating of his tongue. Neck: No meningismus. The patient has a right-sided internal jugular venous catheter in place. The site is not erythematous or purulent. Lungs: Clear to auscultation. Cardiovascular: Heart rate is regular. Abdomen: Soft and nontender. Neurologic: The patient is alert. He can move his extremities. He does not have a tremor. Integument: No rash noted. LABORATORY AND RADIOLOGY: There is no new radiographic study. The patient's CBC today shows a white count of 9140, hemoglobin 8.1, and platelet count 81,000. Creatinine is 2.3. GFR is 28. ASSESSMENT AND PLAN: The patient has Clostridium difficile diarrhea. I plan to continue oral vancomycin. It does certainly seem that the Dificid that Dr. Cunningham added has cut back the patient's diarrhea. I also plan on continuing nystatin swish and swallow for the patient's oral candidiasis. COMORBIDITIES: Patient is a renal transplant and is on immunosuppressive therapy. He also is elderly. He has diabetes mellitus. He has chronic kidney disease and he has had hemodialysis. The patient also is thrombocytopenic and anemic. cc: Ochoa Minor MD
--- NOTE | 2019-04-27 12:51 | PROGRESS NOTE ---
DATE: 04/27/2019 SUBJECTIVE: Patient has no major complaints. OBJECTIVE: Vital signs: Blood pressure is 162/89, heart rate of 80, respiratory rate of 10, temperature was 96 degrees. Cardiovascular: Regular rate and rhythm. Pulmonary: Diminished at the bases. Gastrointestinal: Soft, nontender, nondistended. Bowel sounds are positive. Extremities: He has 2 to 3+ pitting edema in his legs and in his upper extremities. LABORATORY DATA: His white count is 9, hemoglobin and hematocrit 8 and 25, platelets of 81,000, which is all an improvement. Creatinine is down to 2.3, albumin 2.4. PROBLEM LIST: 1. Clostridium difficile with septic shock. He is improving. He is still having a lot of diarrhea per himself. Recorded, he has only had 1 today, maybe 3 yesterday and it looks like it is forming up a bit more. In any case, I put him on Dificid just because he was still having a lot of diarrhea and he is on oral vancomycin, and ID is following and GI is following. 2. Acute on chronic renal failure, slowly improving. He is still on IV fluids. He is third- spacing significantly. I am going to give him a dose of Lasix with albumin and see how he does. 3. Status post renal transplant. He is on Prograf, prednisone, not sure what the status of his transplant is, but we will follow. 4. Hypertension. He is on Lopressor. Probably do need to add another agent. May put him on a little bit of hydralazine and we will see how he does. DISPOSITION: He is still very weak and does not look like he is getting around very much at all. I am going to pursue PT, possibly consider LTAC and follow clinically. cc: Robert Cunningham MD
[2019-04-27] MEDS ORDERED: APRESOLINE PO SCH (13:00)
--- NOTE | 2019-04-27 13:10 | HEMO/ONC PROGRESS NOTE ---
DATE: 04/27/2019 SUBJECTIVE: The patient is awake and comfortable this morning. He states he continues to have multiple bowel movements. He does feel better than he did yesterday. He denies any significant pain. OBJECTIVE: VITAL SIGNS: Temperature 96 degrees, heart rate 80, respiratory rate 18, blood pressure 162/89, O2 saturation 96% on room air. 0/10 pain. PHYSICAL EXAMINATION: General: Frail, elderly-appearing male, in no acute distress. Skin: Warm, dry, and intact. Color appropriate for ethnicity. HEENT: Oral mucosa is pink and moist. Sclerae is anicteric. Conjunctivae pale. Cardiovascular: Normal S1, S2. Regular heart rate and rhythm. Respiratory: Lung sounds are clear to auscultation. No signs of respiratory distress. Abdomen: Soft and nondistended. General tenderness all over. Extremities: There is a right BKA. Left leg is unremarkable. Edema noted to bilateral upper extremities. Neurological: Awake, alert, and oriented. Follows commands appropriately. LABORATORY DATA: WBC 9.14, hemoglobin 8.1, hematocrit 25.4, platelet count 81,000. ANC 7.77. PLAN: The patient appears to have chronic thrombocytopenia. 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 For now, we will continue to monitor and slowly expect improvement in his platelets, as it has been doing over the last several days. If it began to decrease again, we will consider therapy for ITP. Transfuse for platelet count less than 20,000 or if he is bleeding. Please refer the patient to our clinic for an outpatient follow-up. We will sign off at this point. Please contact us if we are needed for anything further. Dictated by ESHA Wilkinson for Kurt Sampson MD cc: Kurt Sampson MD [facility]
--- NOTE | 2019-04-27 13:58 | NEPHROLOGY PROGRESS NOTE ---
DATE: 04/27/2019 SUBJECTIVE: Patient resting in bed. He states that he feels he is doing better. He has not been out of bed but has been working with physical therapy. OBJECTIVE: Vital Signs: Temperature 98.3 degrees, pulse 84, respiratory rate 15, blood pressure 144/68. Intake 2.6 L. Output 870 mL. General: This is a chronically ill- appearing elderly gentleman, resting in bed. He is in no acute distress. HEENT: Normocephalic, atraumatic. MADI. Oral mucosa is moist today. Neck: Supple. There is no JVD noted. Cardiovascular: Regular rate and rhythm. No gallop or murmur. Pulmonary: Equal excursion. Clear bilaterally. Abdomen: Soft, positive bowel sounds. : Continues with a Kat catheter. Yellow urine noted. Extremities: Upper extremities with 1 to 2+ edema but more wrinkling and softer today. Lower extremities continue with 1+ edema. Integumentary: Skin is warm and dry. LAB DATA: WBC of 9.1, hemoglobin 8.1. Sodium 140, potassium 4.8, CO2 20, creatinine 2.3 (2.6), calcium 8.1, albumin 2.4. ASSESSMENT AND PLAN: 1. Acute kidney injury. Patient with chronic transplant glomerulonephropathy. We have been able to discontinue his dialysis. His renal function has improved slightly and urine output has been adequate. We will continue to monitor him daily with further orders as indicated. 2. Fluid volume. We did give him a little bit of fluid yesterday and he was just slightly positive. His edema actually appears to be improving. Hopefully we will continue to make some progress there. 3. Clostridium difficile colitis, followed by primary and GI. The patient does have some improvement. Dictated by ESHA Hnason for Claudio Stephens MD Face to face encounter, data reviewed, discussed with Jayden Castillo on 04/27/19. I agree with the above assessment and plan of care. cc: Claudio Stephens MD [facility]
[2019-04-28] MEDS: VANCOMYCIN ORAL SOLN PO SCH ×4 (01:17→21:00)
[2019-04-28] MEDS: HUMALOG SUBQ SCH ×7 (06:04→21:28)
[2019-04-28 07:16] LABS: EOS# 0.09 X1000 (0.0-0.7); EOS% 1.1 % (0.0-10.0); HEMATOCRIT 26.8 % (42.0-52.0); HEMOGLOBIN 8.6 g/dL (14.0-18.0); IMM GRAN% 0.4 % (0.0-0.5); LYMPH# 0.52 X1000 (1.2-3.4); LYMPH% 6.2 % (20.5-51.1); MCH 29.2 PG (27-31); MCHC 32.1 g/dL (33-37); MCV 90.8 FL (81-99); MONO# 0.67 X1000 (0.11-0.59); MPV 12.9 FL (7.4-10.4); NEUT# 7.09 X1000 (1.4-6.5); NEUT% 84.3 % (42.2-75.2); PLT 68 X1000 (130-400); RBC 2.95 XMIL (4.7-6.1); RDW 15.1 % (11.5-14.5)
[2019-04-28 07:17] LABS: IMM GRAN# 0.03 X1000 (0.0-0.04)
[2019-04-28 07:30] LABS: ALBUMIN 2.7 g/dL (3.5-5.0); CALCIUM 8.4 mg/dL (8.8-10.2); CREATININE 1.7 mg/dL (0.7-1.2); PHOSPHORUS 2.4 mg/dL (2.7-4.5); POTASSIUM 4.5 mmol/L (3.5-5.1)
[2019-04-28] MEDS: FOLIC ACID PO SCH (09:06)
[2019-04-28] MEDS: PROGRAF PO SCH ×2 (09:06→21:28)
[2019-04-28] MEDS: PREDNISONE PO SCH (09:06)
[2019-04-28] MEDS: SODIUM BICARBONATE PO SCH ×2 (09:06→21:28)
[2019-04-28] MEDS: LANTUS INSULIN SUBQ SCH (09:07)
[2019-04-28] MEDS: PROTONIX PO SCH (09:07)
[2019-04-28] MEDS: MYCOSTATIN SUSP PO SCH ×4 (09:07→21:27)
[2019-04-28] MEDS: LOPRESSOR PO SCH ×2 (09:07→21:28)
[2019-04-28] MEDS: CULTURELLE PO SCH ×2 (09:09→21:28)
[2019-04-28] MEDS: PATIENT'S OWN MED PO SCH ×2 (09:09→21:28)
[2019-04-28] MEDS: NORCO-7.5 PO PRN (10:28)
[2019-04-28] MEDS: DIFICID PO SCH ×2 (10:28→21:27)
[2019-04-28] MEDS: NS 1,000 ML IV SCH ×2 (13:03→15:14)
--- NOTE | 2019-04-28 14:34 | NEPHROLOGY PROGRESS NOTE ---
DATE: 04/28/2019 SUBJECTIVE: The patient has been transferred out of the intensive care unit to a regular room. He states that he feels fine today. OBJECTIVE: Vital Signs: Temperature 97.9 degrees, pulse 63, respiratory rate 15, blood pressure 149/61. Intake 2.5 L. Output 3 L. General: This is an elderly gentleman resting in bed. He is awake and alert. No acute distress. HEENT: He is normocephalic and atraumatic. MADI. Neck: Supple. He has no JVD. Cardiovascular: Regular rate and rhythm without murmur or gallop. Pulmonary: He is clear bilaterally. He has equal excursion and no increased work of breathing. Abdomen: Soft, with positive bowel sounds. He continues to have a small amount of diarrhea but much improved. : Kat catheter with significant urine. Extremities: No clubbing or cyanosis. He continues with 1 to 2+ upper and lower extremity edema. This appears dependent. Integumentary: Skin is warm and dry. He has a Vas-Cath to the right IJ. Dressing is clean, dry, and intact. Lab Data: WBC of 8.4, hemoglobin 8.6. Sodium 139, potassium 4.5, CO2 of 20, creatinine 1.7, calcium 8.4, albumin 2.7. ASSESSMENT AND PLAN: Acute on chronic kidney injury. Patient has chronic transplant glomerulonephropathy. His creatinine has continued to improve. His urine output has been excellent. We will continue him on his mycophenolate and prednisone therapy. We are holding his CellCept. Dictated by ESHA Hanson for Claudio Stephens MD Face to face encounter, data reviewed, discussed with Jayden Castillo on 04/28/19. I agree with the above assessment and plan of care. cc: Claudio Stephens MD [facility]
[2019-04-28] MEDS ORDERED: ALBUMIN 25% IV ONE (14:36)
--- NOTE | 2019-04-28 15:07 | PROGRESS NOTE ---
DATE: 04/28/2019 SUBJECTIVE: Patient has no major complaints. OBJECTIVE: Blood pressure 153/59, heart rate of 62, respiratory rate 15, temperature 97.8 degrees, 100% on room air. Cardiovascular: Regular rate and rhythm. Pulmonary: Bilateral breath sounds clear to auscultation. GI: Soft, nontender, nondistended. Bowel sounds were positive. Laboratory Data: White count is 8, hemoglobin and hematocrit 8 and 26, platelets 68,000. Creatinine is down to 1.7. PROBLEM LIST: 1. Clostridium difficile is improving. He is on Dificid and vancomycin. Infectious disease is following. Gastroenterology is following. 2. Acute on chronic renal failure. He is improving. I am just worried about his significant third-spacing. We did give him a little bit of Lasix yesterday so we will continue to follow. I am going to give him another dose of albumin today and hold any Lasix, but maybe we can stop the fluids tomorrow. 3. Status post renal transplant for chronic glomerulonephropathy. He is on his usual medications. 4. Disposition. He really wants to go home. I am just not really sure. He just seems so profoundly weak. I do not know how well he is going to do getting up and around. As far as I can tell, there is no physical therapy but we need to get him up a bit and see how he does. Disposition pending clinical status. cc: Robert Cunningham MD
[2019-04-29] MEDS: NS 1,000 ML IV SCH ×3 (01:04→16:29)
[2019-04-29] MEDS: VANCOMYCIN ORAL SOLN PO SCH (01:04)
[2019-04-29] MEDS: HUMALOG SUBQ SCH ×7 (05:59→21:16)
--- NOTE | 2019-04-29 06:53 | INFECTIOUS DISEASE PROGRESS NO ---
DATE: 04/29/2019 PRESENT ILLNESS: The patient has Clostridium difficile diarrhea. The patient initially was very ill and he has gotten over that part of it, but he still was having loose stools and it was not until Dificid was added that his stool count now is down to just 1 per 24 hours for the past 2 days. MEDICATIONS: This is the 14th day of treatment with vancomycin and the third day of treatment with Dificid. PHYSICAL EXAMINATION: Vital Signs: Temperature is 97.9 degrees, pulse 67, respirations 17, blood pressure is 166/64. General: This is a chronically ill-appearing, elderly male. He is in no acute distress. Head, eyes, ears, nose, and throat: The patient does not have any drainage from his nose or ears. He can hear my spoken words and see near objects. I saw just a few white patches on his tongue. Neck: No pain with movement of the neck. The patient has a right-sided jugular venous catheter in place. The site is not purulent or tender. Lungs: Clear to auscultation. Cardiovascular: Heart rate is regular. Abdomen: Soft and nontender. The patient is alert. He can move his extremities. He does not have a tremor. Integument: No rash. LABORATORY AND RADIOLOGY: The patient's CBC shows a white count of 8400, hemoglobin 8.6, and platelet count 68,000. Patient's creatinine is 1.7. The GFR is 40. There is no new radiographic study for today. ASSESSMENT AND PLAN: The patient has Clostridium difficile diarrhea. He has completed 2 weeks of vancomycin and I am going to stop it today. The patient did seem to get much better when Dificid was added. This is day 3 of Dificid. I would suggest giving the patient 11 more days to complete a 2 week course of Dificid. As regarding the patient's nystatin, I would suggest keeping it going for another 3 to 5 days. COMORBIDITIES: The patient is a renal transplant patient and he is on immunosuppressive therapy. He also has diabetes, chronic kidney disease, and he is on hemodialysis. The patient also is thrombocytopenic and anemic. cc: Ochoa Minor MD [facility]
[2019-04-29] MEDS: MYCOSTATIN SUSP PO SCH ×4 (08:26→20:26)
[2019-04-29] MEDS: PROTONIX PO SCH (08:26)
[2019-04-29] MEDS: PREDNISONE PO SCH (08:26)
[2019-04-29] MEDS: DIFICID PO SCH ×2 (08:26→20:26)
[2019-04-29] MEDS: FOLIC ACID PO SCH (08:26)
[2019-04-29] MEDS: CULTURELLE PO SCH ×2 (08:26→20:26)
[2019-04-29] MEDS: SODIUM BICARBONATE PO SCH ×2 (08:26→20:26)
[2019-04-29] MEDS: LOPRESSOR PO SCH ×2 (08:26→20:26)
[2019-04-29] MEDS: PATIENT'S OWN MED PO SCH ×2 (08:28→20:52)
[2019-04-29] MEDS: LANTUS INSULIN SUBQ SCH (08:42)
[2019-04-29] MEDS: PROGRAF PO SCH ×2 (08:42→20:54)
[2019-04-29 09:05] LABS: ALBUMIN 2.9 g/dL (3.5-5.0); CALCIUM 8.3 mg/dL (8.8-10.2); CREATININE 1.4 mg/dL (0.7-1.2); PHOSPHORUS 1.9 mg/dL (2.7-4.5); POTASSIUM 4.2 mmol/L (3.5-5.1)
[2019-04-29 09:18] LABS: EOS# 0.05 X1000 (0.0-0.7); EOS% 0.7 % (0.0-10.0); HEMATOCRIT 23.8 % (42.0-52.0); HEMOGLOBIN 7.6 g/dL (14.0-18.0); IMM GRAN# 0.02 X1000 (0.0-0.04); IMM GRAN% 0.3 % (0.0-0.5); LYMPH# 0.53 X1000 (1.2-3.4); LYMPH% 7.5 % (20.5-51.1); MCHC 31.9 g/dL (33-37); MCV 90.8 FL (81-99); MONO# 0.66 X1000 (0.11-0.59); MONO% 9.4 % (1.7-9.3); MPV 12.2 FL (7.4-10.4); NEUT# 5.79 X1000 (1.4-6.5); NEUT% 82.1 % (42.2-75.2); PLT 90 X1000 (130-400); RBC 2.62 XMIL (4.7-6.1); RDW 15.2 % (11.5-14.5); WBC 7.05 X1000 (4.8-10.8)
[2019-04-29] MEDS: D50W SYRINGE IV PRN (11:43)
[2019-04-29] MEDS ORDERED: SODIUM PHOSPHATE 40 MEQ in NS 250 ML IV ONE (12:30)
--- NOTE | 2019-04-29 14:23 | NEPHROLOGY PROGRESS NOTE ---
DATE: 04/29/2019 SUBJECTIVE: He is still having diarrhea. No real abdominal pain. Still having some swelling. OBJECTIVE: Vital Signs: Blood pressure 132/53, heart rate 74, respirations 17, afebrile. General: No acute distress. Skin: Warm and dry. Neck: Neck veins are not distended. Heart: Regular. No gallops. Lungs: Equal. No crackles or wheezes. Abdomen: Soft, nontender. Extremities: Have edema only in the elbows. 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 Back to baseline. He is currently receiving prednisone and Prograf but no mycophenolate. I would continue this regimen until his diarrhea is resolved. He is receiving 7.5 mg of prednisone where his baseline dose is 5 mg. Continue same. cc: Claudio Stephens MD
--- NOTE | 2019-04-29 17:39 | PROGRESS NOTE ---
DATE: 04/29/2019 SUBJECTIVE: Patient has no major complaints. OBJECTIVE: Vital Signs: Blood pressure 154/58, heart rate of 66, respiratory rate of 16, temperature 97.8 degrees, 97% on room air. Cardiovascular: Regular rate and rhythm. Pulmonary: Bilateral breath sounds, clear to auscultation Gastrointestinal: Soft, nontender, nondistended. Bowel sounds are positive. DIAGNOSTIC DATA: White count 7, hemoglobin and hematocrit of 7 and 23, platelets of 90,000. Creatinine is down to 1.4. PROBLEM LIST: 1. Acute on chronic renal failure. He seems to be doing okay. Urine output has been pretty good, 3000, 2140s, 600 today, so he is still fairly edematous, but we will continue to follow. Today I am just going to kind of monitor. 2. Clostridium difficile colitis. He is on Dificid, which is now day 4 and oral vancomycin, he has got 2 weeks of it. 3. Acute on chronic renal failure is stable. He has got chronic transplant glomerulopathy, stage III. He is at baseline. He is on prednisone, Prograf, and we will continue to follow. DISPOSITION: Need to work on strength training. He is very weak. He cannot walk, but he does not want to go to rehab, so we are having to deal with those issues and follow accordingly. cc: Robert Cunningham MD
[2019-04-30] MEDS: NORCO-7.5 PO PRN (00:22)
[2019-04-30] MEDS: NS 1,000 ML IV SCH (05:05)
[2019-04-30] MEDS: HUMALOG SUBQ SCH ×7 (06:03→20:02)
[2019-04-30 07:08] LABS: EOS# 0.08 X1000 (0.0-0.7); EOS% 1.4 % (0.0-10.0); HEMATOCRIT 22.7 % (42.0-52.0); HEMOGLOBIN 7.2 g/dL (14.0-18.0); LYMPH# 0.58 X1000 (1.2-3.4); LYMPH% 10.2 % (20.5-51.1); MCH 28.9 PG (27-31); MCHC 31.7 g/dL (33-37); MCV 91.2 FL (81-99); MONO# 0.48 X1000 (0.11-0.59); MONO% 8.5 % (1.7-9.3); MPV 11.7 FL (7.4-10.4); NEUT# 4.52 X1000 (1.4-6.5); NEUT% 79.9 % (42.2-75.2); PLT 94 X1000 (130-400); RBC 2.49 XMIL (4.7-6.1); RDW 15.3 % (11.5-14.5); WBC 5.66 X1000 (4.8-10.8)
[2019-04-30 07:37] LABS: ALBUMIN 2.7 g/dL (3.5-5.0); CALCIUM 7.5 mg/dL (8.8-10.2); CREATININE 1.5 mg/dL (0.7-1.2); POTASSIUM 4.3 mmol/L (3.5-5.1)
[2019-04-30] MEDS: PROGRAF PO SCH ×2 (08:54→20:36)
[2019-04-30] MEDS: DIFICID PO SCH ×2 (08:54→20:37)
[2019-04-30] MEDS: PROTONIX PO SCH (08:55)
[2019-04-30] MEDS: PREDNISONE PO SCH (08:55)
[2019-04-30] MEDS: LOPRESSOR PO SCH ×2 (08:55→20:37)
[2019-04-30] MEDS: CULTURELLE PO SCH ×2 (08:55→20:36)
[2019-04-30] MEDS: FOLIC ACID PO SCH (08:55)
[2019-04-30] MEDS: MYCOSTATIN SUSP PO SCH ×4 (08:56→20:36)
[2019-04-30] MEDS: SODIUM BICARBONATE PO SCH ×2 (08:56→20:37)
[2019-04-30] MEDS: LANTUS INSULIN SUBQ SCH (08:56)
[2019-04-30] MEDS: PATIENT'S OWN MED PO SCH ×2 (08:57→20:38)
[2019-04-30] MEDS ORDERED: BENADRYL PO ONE (16:06)
[2019-04-30] MEDS ORDERED: NS 500 ML IV ONE ×2 (16:06→17:45)
[2019-04-30] MEDS ORDERED: TYLENOL PO ONE (16:06)
[2019-04-30] MEDS ORDERED: LASIX IV SCH (16:15)
--- NOTE | 2019-04-30 17:21 | PROGRESS NOTE ---
DATE: 04/30/2019 SUBJECTIVE: The patient has no major complaints. OBJECTIVE: 161/56, heart rate 66, respiratory rate of 18, temperature 98.5 degrees, 95% on room air.Cardiovascular: Regular rate and rhythm. Pulmonary: Bilateral breath sounds clear to auscultation. GI: Soft, nontender, nondistended. Bowel sounds are positive. LABORATORY DATA: White count 5, hemoglobin and hematocrit 7 and 22, platelets 94,000. Creatinine of 1.5. PROBLEM LIST: 1. Acute on chronic renal failure. He is doing well and he is not really on any medications, he has been on some IV fluids but today I am going to give him 1 unit of blood and will see how he does. 2. Clostridium difficile colitis. That also seems to be improving. He is on Dificid, continue that for a total of 10 days. 3. 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 Again that seems to be stable on Prograf and prednisone. We are not doing mycophenolate. 4. Disposition. He really needs PT, he cannot walk but he can stand which is better than what it has been but he has not done anything so we will look at rehab options next week. cc: Robert Cunningham MD
[2019-05-01] MEDS: HUMALOG SUBQ SCH ×6 (06:18→21:50)
[2019-05-01] MEDS: NORCO-7.5 PO PRN (06:28)
[2019-05-01] MEDS: PHENERGAN IV PRN (06:28)
[2019-05-01 07:20] LABS: BASO# 0.01 X1000 (0.0-0.2); BASO% 0.2 % (0.0-0.8); EOS# 0.04 X1000 (0.0-0.7); EOS% 0.6 % (0.0-10.0); HEMATOCRIT 27.4 % (42.0-52.0); HEMOGLOBIN 9.1 g/dL (14.0-18.0); IMM GRAN# 0.02 X1000 (0.0-0.04); IMM GRAN% 0.3 % (0.0-0.5); LYMPH# 0.61 X1000 (1.2-3.4); LYMPH% 9.5 % (20.5-51.1); MCHC 33.2 g/dL (33-37); MCV 90.4 FL (81-99); MONO# 0.39 X1000 (0.11-0.59); MONO% 6.1 % (1.7-9.3); MPV 11.7 FL (7.4-10.4); NEUT# 5.34 X1000 (1.4-6.5); NEUT% 83.3 % (42.2-75.2); PLT 88 X1000 (130-400); RBC 3.03 XMIL (4.7-6.1); RDW 14.6 % (11.5-14.5); WBC 6.41 X1000 (4.8-10.8)
[2019-05-01 07:29] LABS: ALBUMIN 2.7 g/dL (3.5-5.0); CREATININE 1.4 mg/dL (0.7-1.2); PHOSPHORUS 2.8 mg/dL (2.7-4.5); POTASSIUM 4.4 mmol/L (3.5-5.1)
[2019-05-01] MEDS: MYCOSTATIN SUSP PO SCH ×4 (08:52→20:15)
[2019-05-01] MEDS: PROGRAF PO SCH ×2 (08:53→20:15)
[2019-05-01] MEDS: LOPRESSOR PO SCH ×2 (08:53→20:15)
[2019-05-01] MEDS: LANTUS INSULIN SUBQ SCH (08:53)
[2019-05-01] MEDS: CULTURELLE PO SCH ×2 (08:53→20:15)
[2019-05-01] MEDS: SODIUM BICARBONATE PO SCH ×2 (08:53→20:15)
[2019-05-01] MEDS: FOLIC ACID PO SCH (08:53)
[2019-05-01] MEDS: DIFICID PO SCH ×2 (08:53→20:15)
[2019-05-01] MEDS: PREDNISONE PO SCH (08:53)
[2019-05-01] MEDS: PROTONIX PO SCH (08:53)
[2019-05-01] MEDS: PATIENT'S OWN MED PO SCH ×2 (08:54→21:50)
--- NOTE | 2019-05-01 10:26 | INFECTIOUS DISEASE PROGRESS NO ---
DATE: 05/01/2019 PRESENT ILLNESS: The patient has Clostridium difficile diarrhea. The patient is passing 1 and 2 stools a day. Some are listed as watery, others are listed as soft but not watery. MEDICATIONS: The patient is on day 5 of treatment with Dificid. The patient has completed a 2- week treatment course with p.o. vancomycin. PHYSICAL EXAMINATION: Vital Signs: Temperature is 97.9 degrees, pulse 67, respirations 17, blood pressure 166/68. General: This is a chronically ill-appearing elderly male. He is in no acute distress. Head, eyes, ears, nose, and throat: Can hear my spoken words and see near objects. There is no drainage from the nose or ears. He does not have any white patches in his mouth. Neck: No pain with movement of the neck. Lungs: Clear to auscultation. Cardiovascular: Heart rate is regular. Abdomen: Soft and nontender. Neurologic: The patient is awake. He seems somewhat confused. He can move his extremities. There is no tremor. LAB AND X-RAY: CBC today shows a white count of 6410, hemoglobin 9.1, platelet count 88,000. Creatinine is 1.4. GFR is 50. There is no radiographic study for today. There is no radiographic study today for the patient. ASSESSMENT AND PLAN: The patient has Clostridium difficile diarrhea. He has finished 2 weeks of p.o. vancomycin. I would suggest continuing Dificid for 9 more days which will complete a 2-week treatment course with it. Regarding the patient's oral candidiasis, it appears to have cleared, and I think when the patient goes, it can be discontinued. COMORBIDITIES: The patient is a renal transplant patient and because of that, he is on immunosuppressive therapy. The patient also has diabetes, chronic kidney disease, which has necessitated the patient being on dialysis. The patient also has thrombocytopenia and anemia. cc: Ochoa Minor MD
[2019-05-01] MEDS ORDERED: LASIX IV ONE (15:01)
--- NOTE | 2019-05-01 15:22 | PROGRESS NOTE ---
DATE: 05/01/2019 SUBJECTIVE: Patient has no major complaints. OBJECTIVE: Blood pressure is 151/59, heart rate 63, respiratory 17, temperature 97.3 degrees, 94% on room air.Cardiovascular: Regular rate and rhythm. Pulmonary: Bilateral breath sounds. Clear to auscultation. GI: Soft, nontender, nondistended. Bowel sounds are positive. LABORATORY DATA: White count 6, hemoglobin and hematocrit 9 and 27, platelets 88,000. Creatinine is at 1.4. PROBLEM LIST: 1. Acute on chronic renal failure. He has been doing fine. Creatinine stable. His urine output is decent. I would like to work on a little bit of diuresis because he is just so overloaded third spacing so I am just going to put him on a little bit of Lasix. 2. Clostridium difficile colitis he is on Dificid, which we started on the . He has had about 5 days. Bowel movements are less so we will continue to follow. 3. 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 We will continue to monitor. His blood sugars have kind of been all over the place. He is on a pretty decent amount of Lantus so I am going to stop that. I am not stop as much as I am going to cut down on it and see how that works. DISPOSITION: I think he is stable to go to the floor now. He will need a private room though because of his transplant status and we will continue his Prograf and prednisone and follow. We are waiting on see how he progresses with PT which he is standing. He was not doing that before, that being said he is very debilitated. I think he has somewhat unrealistic idea of how well he is going to progress and then just going to have to see how he does. Disposition pending clinical status as above. cc: Robert Cunningham MD
[2019-05-01] MEDS: TYLENOL PO PRN (20:15)
[2019-05-02] MEDS: HUMALOG SUBQ SCH ×5 (06:54→21:03)
--- NOTE | 2019-05-02 07:13 | INFECTIOUS DISEASE PROGRESS NO ---
DATE: 05/02/2019 HISTORY OF PRESENT ILLNESS: The patient has Clostridium difficile diarrhea. He passed, according to the information in the computer one stool two days ago and two stools yesterday. They were described as being soft and formed. I saw the stool myself this morning and it is a dark brown color. It does not have much of an odor and it does look soft but not watery. MEDICATIONS: This is the 6th day of treatment with Dificid. PHYSICAL EXAMINATION: Vital Signs: Temperature 98.6 degrees, pulse 79, respirations 20, and blood pressure 162/62. General: This is an ill-appearing elderly male who is in no acute distress. Head/eyes/ears/nose/throat: He can hear my spoken words and see near objects. He does not have any white patches on his tongue or anywhere else in his mouth. Neck: No pain with movement. The patient has a right-sided internal jugular venous catheter in place. The site is not erythematous or purulent. Lungs: Clear to auscultation. Cardiovascular: Heart rate is regular. Abdomen: Soft and nontender. Neurologic: The patient is awake. He can move his extremities. There is no tremor. LABS: There are no new labs yet for today in the computer. IMAGING STUDIES: There are no new radiographic studies either. ASSESSMENT AND PLAN: The patient has Clostridium difficile diarrhea. I agree with Dr. Cunningham that overall the patient is getting better. I am going to go ahead and stop his nystatin because he does not have any more oral candidiasis. Regarding his diarrhea, my plan would be to continue with Dificid every 12 hours for a total of 14 days and then put the patient on Dificid daily for 14 days and then have the patient take Dificid every other day for 14 days and hopefully that will be the end of his Clostridium difficile diarrhea. COMORBIDITIES: The patient is a renal transplant and he is on immunosuppressive therapy. He also has diabetes and chronic kidney disease, for which he is on dialysis. The patient also has thrombocytopenia and anemia. cc: Ochoa Minor MD
[2019-05-02 07:41] LABS: BASO# 0.01 X1000 (0.0-0.2); BASO% 0.1 % (0.0-0.8); EOS# 0.03 X1000 (0.0-0.7); EOS% 0.4 % (0.0-10.0); HEMATOCRIT 28.7 % (42.0-52.0); HEMOGLOBIN 9.6 g/dL (14.0-18.0); LYMPH# 0.43 X1000 (1.2-3.4); LYMPH% 5.2 % (20.5-51.1); MCH 31.1 PG (27-31); MCHC 33.4 g/dL (33-37); MCV 92.9 FL (81-99); MONO# 0.43 X1000 (0.11-0.59); MONO% 5.2 % (1.7-9.3); MPV 11.8 FL (7.4-10.4); NEUT# 7.31 X1000 (1.4-6.5); NEUT% 89.1 % (42.2-75.2); PLT 66 X1000 (130-400); RBC 3.09 XMIL (4.7-6.1); RDW 14.8 % (11.5-14.5); WBC 8.21 X1000 (4.8-10.8)
[2019-05-02] MEDS: FOLIC ACID PO SCH (07:59)
[2019-05-02] MEDS: SODIUM BICARBONATE PO SCH ×2 (07:59→21:02)
[2019-05-02] MEDS: PROTONIX PO SCH (07:59)
[2019-05-02] MEDS: DIFICID PO SCH ×2 (07:59→21:02)
[2019-05-02] MEDS: LOPRESSOR PO SCH ×2 (07:59→21:02)
[2019-05-02] MEDS: PREDNISONE PO SCH (07:59)
[2019-05-02] MEDS: CULTURELLE PO SCH ×2 (08:00→21:02)
[2019-05-02] MEDS: TYLENOL PO PRN (08:01)
[2019-05-02] MEDS: MYCOSTATIN SUSP PO SCH ×4 (08:01→21:02)
[2019-05-02] MEDS: PROGRAF PO SCH ×2 (08:01→21:02)
[2019-05-02 08:03] LABS: BANDS 6 % (0-1); EOS 2 % (1-10); LYMPHS 2 % (21-51); MONO 4 % (1-9); SEGS 86 % (42-75)
[2019-05-02 08:04] LABS: HYPOCHROM 1+
[2019-05-02 08:08] LABS: ALBUMIN 2.7 g/dL (3.5-5.0); CALCIUM 8.6 mg/dL (8.8-10.2); CREATININE 1.4 mg/dL (0.7-1.2); PHOSPHORUS 2.7 mg/dL (2.7-4.5); POTASSIUM 4.4 mmol/L (3.5-5.1)
[2019-05-02] MEDS: LANTUS INSULIN SUBQ SCH (08:12)
--- NOTE | 2019-05-02 09:58 | NEPHROLOGY PROGRESS NOTE ---
DATE: 05/02/2019 SUBJECTIVE: Mr. Lynch is resting quietly in bed. States that he feels just a slightly bit stronger. He does continue to complain of slight abdominal cramping. He also states that he has been attempting to get up and out of bed during the day. OBJECTIVE: Vital Signs: Temperature 98.6 degrees, blood pressure 162/62, heart rate is 79, respirations are 20. He is on room air, last recorded saturation 100%. He has had 1480 in, 2200 out to Kat catheter. Laboratory data: His sodium is 139. His potassium is 4.4, chloride is 110, CO2 is 21, BUN is 31. His creatinine is down to 1.4, glucose of 90. The patient has an anion gap of 8. His calcium is 8.6, phosphorus 2.7, albumin is 2.7. The patient has a white count of 8.21, hemoglobin 9.6, hematocrit is 28.7 with a platelet count of 66,000. General: This is a 69-year-old white male resting quietly in bed. He appears chronically ill in no acute distress. Skin: Warm and dry. HEENT: Normocephalic, atraumatic. Conjunctiva is pale. Mucous membranes are dry. Neck: Supple. Trachea midline. He has no evidence of JVD. Cardiovascular: Regular rate and rhythm. S4 is present. Lungs: Clear to auscultation bilaterally. Equal excursion on room air. Abdomen: Soft with slight tenderness to the right upper quadrant. Genitourinary: Not inspected. Patient has Kat catheter in place. Adequate urine output documented. Extremities: Has no edema except into the upper arms. Integumentary: Patient has a Vas-Cath to his right IJ. This is dry and intact. Neurological: Alert and oriented x3. Occasional complaints of a headache. ASSESSMENT AND PLAN: 1. Acute kidney injury, overlying chronic transplant glomerulopathy stage III. The patient is currently at his baseline. He does remain on prednisone and Prograf. We continue to hold his mycophenolate. Adequate urine output noted per Kat catheter. We will remove the Kat catheter today. Request that the patient start getting up out of bed at least for meals. Continue with physical therapy. 2. Electrolytes and acid-base balance and anemia. These are all acceptable. 3. Chronic Clostridium difficile. This continues to be followed by Dr. Ochoa Minor. He continues on Dificid. I would like to thank you for allowing us to follow with this patient. Dictated by ESHA Cho for Claudio Stephens MD Face to face encounter, data reviewed, discussed with Milagros Bermudez on 05/02/19. I agree with the above assessment and plan of care. cc: ESHA Cho MD [facility]
[2019-05-02] MEDS: NORCO-7.5 PO PRN ×4 (10:41→22:59)
[2019-05-02] MEDS: PATIENT'S OWN MED PO SCH ×2 (11:33→21:03)
[2019-05-02] MEDS ORDERED: IMODIUM PO PRN (11:58)
--- NOTE | 2019-05-02 12:26 | PROGRESS NOTE ---
DATE: 05/02/2019 SUBJECTIVE: The patient is still having diarrhea. He is still very weak, but no major issues. OBJECTIVE: Vital Signs: Blood pressure is 168/64, heart rate of 80, respiratory rate 18, temperature 98.5 degrees. He is afebrile. He has had recorded 4 bowel movements, so it has kind of bumped up again. Cardiovascular: Regular rate and rhythm. Pulmonary: Bilateral breath sounds, clear to auscultation. Gastrointestinal: Soft, nontender, nondistended. DIAGNOSTIC DATA: White count is 8; hemoglobin and hematocrit are 9 and 28, which are stable; platelets 66,000. Creatinine 1.4 which is also stable. PROBLEM LIST: 1. Clostridium difficile colitis. It is still persistent, so this is day 6 of Dificid, Dr. Minor says for a total of 14 days, and then he is recommending Dificid every other day for 14 days in case it comes back. I will add a little bit of Questran maybe to slow down the bowel movements and see how he does there. 2. Acute on chronic renal failure. He is back to baseline. He is status post renal transplant. We are going to continue to follow. 3. Posttransplant glomerular nephropathy. He seems to be doing okay. We will continue Prograf. We will continue prednisone. 4. Disposition: Still very weak. He is working with physical therapy. I personally think he will need rehabilitation, but he really wants to go home if at all possible, but I am not entirely sure that is realistic. 5. Anemia, felt to be due to chronic inflammation. We will continue to monitor closely. cc: Robert Cunningham MD
[2019-05-02] MEDS: QUESTRAN PO SCH ×2 (12:33→22:15)
[2019-05-03] MEDS: HUMALOG SUBQ SCH ×4 (06:06→20:33)
[2019-05-03 08:10] LABS: HEMOGLOBIN 9.9 g/dL (14.0-18.0); RBC 3.21 XMIL (4.7-6.1); WBC 7.46 X1000 (4.8-10.8)
[2019-05-03 08:11] LABS: BASO# 0.02 X1000 (0.0-0.2); BASO% 0.3 % (0.0-0.8); EOS# 0.07 X1000 (0.0-0.7); EOS% 0.9 % (0.0-10.0); HEMATOCRIT 30.6 % (42.0-52.0); LYMPH% 5.4 % (20.5-51.1); MCH 30.8 PG (27-31); MCHC 32.4 g/dL (33-37); MCV 95.3 FL (81-99); MONO# 0.46 X1000 (0.11-0.59); MONO% 6.2 % (1.7-9.3); MPV 11.5 FL (7.4-10.4); NEUT# 6.51 X1000 (1.4-6.5); NEUT% 87.2 % (42.2-75.2); PLT 47 X1000 (130-400)
[2019-05-03] MEDS: NORCO-7.5 PO PRN ×3 (08:16→17:19)
[2019-05-03] MEDS: MYCOSTATIN SUSP PO SCH ×4 (08:17→20:33)
[2019-05-03] MEDS: CULTURELLE PO SCH ×2 (08:17→20:33)
[2019-05-03] MEDS: PREDNISONE PO SCH (08:17)
[2019-05-03] MEDS: LOPRESSOR PO SCH ×2 (08:17→20:33)
[2019-05-03] MEDS: FOLIC ACID PO SCH (08:17)
[2019-05-03] MEDS: PROGRAF PO SCH ×2 (08:18→20:33)
[2019-05-03] MEDS: PROTONIX PO SCH (08:18)
[2019-05-03] MEDS: DIFICID PO SCH ×2 (08:18→20:33)
[2019-05-03] MEDS: SODIUM BICARBONATE PO SCH ×2 (08:18→20:34)
[2019-05-03] MEDS: QUESTRAN PO SCH ×2 (08:18→21:57)
[2019-05-03 08:25] LABS: BANDS 6 % (0-1); LYMPHS 8 % (21-51); SEGS 86 % (42-75)
[2019-05-03] MEDS: PATIENT'S OWN MED PO SCH ×2 (08:25→20:33)
[2019-05-03] MEDS: LANTUS INSULIN SUBQ SCH (08:26)
[2019-05-03 08:44] LABS: ALBUMIN 2.7 g/dL (3.5-5.0); CALCIUM 8.2 mg/dL (8.8-10.2); CREATININE 1.6 mg/dL (0.7-1.2); PHOSPHORUS 2.8 mg/dL (2.7-4.5); POTASSIUM 5.2 mmol/L (3.5-5.1)
[2019-05-03] MEDS ORDERED: LASIX IV ONE (09:00)
--- NOTE | 2019-05-03 09:50 | NEPHROLOGY PROGRESS NOTE ---
DATE: 05/03/2019 TIME SEEN: 0710. SUBJECTIVE: Mr. Lynch is resting quietly in bed. His head of the bed is elevated. States that he is feeling very well today. OBJECTIVE: Vital Signs: Temperature afebrile, heart rate 79, respirations 12. He is on room air. Last recorded saturation 95%. He has had 720 in. He has voided 1100. Laboratory Data: Sodium 134, his potassium is 5.2, chloride is 107, CO2 is 19, his BUN is 30, his creatinine is 1.6, glucose is 131, the patient has an anion gap of 8, his calcium is 8.2, phosphorus is 2.8, albumin of 2.7. White count 7.46, hemoglobin 9.9, hematocrit is 30.6, platelet count of 47,000. Physical Examination: General: This is a 69-year-old male who is currently resting quietly in bed. He appears chronically ill. No acute distress. Skin is warm and dry. HEENT: Normocephalic, atraumatic. Conjunctivae pale. Mucous membranes are dry. Neck: Supple. Trachea midline. Positive JVD of 6 cm. Cardiovascular: He is regular rate and rhythm. No murmur or gallop appreciated. Lungs: Clear to auscultation bilaterally. Equal excursion, on room air. Abdomen: Soft, nontender. Palpable transplant kidney to the right lower quadrant. Genitourinary: Not inspected. Patient is voiding. Kat catheter removed. Extremities: Now has 1+ edema to the lower extremities. He has 2+ to 3+ edema to the upper arms. Integumentary: Vas-Cath remains to the right IJ. Skin is dry and intact. Neurological: Alert and oriented x3. ASSESSMENT AND PLAN: 1. 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 The patient's BUN and creatinine are back to his baseline. Adequate urine output continues. 2. Electrolytes and acid-base balance. These are acceptable. 3. Anemia. This is low but stable. 4. Hypoalbuminemia. The patient's albumin level is less than 2.7. I will order albumin x3 days. 5. Fluid volume overload. Patient now has positive jugular venous distention with lower extremity swelling and upper extremity swelling. We will give him Lasix intravenous push 40 mg at this time. Re-evaluate in the morning. I would like to thank you for allowing us to follow with this patient. Dictated by ESHA Cho for Claudio Stephens MD Face to face encounter, data reviewed, discussed with Milagros Bermudez on 05/03/19. I agree with the above assessment and plan of care. cc: ESHA Cho MD [facility]
[2019-05-03] MEDS: ALBUMIN 25% IV SCH (10:01)
--- NOTE | 2019-05-03 10:46 | PROGRESS NOTE ---
DATE: 05/03/2019 SUBJECTIVE: Patient has no major complaints. OBJECTIVE: Vital Signs: Blood pressure is 168/68, heart rate 73, respiratory rate 22, temperature 97.8 degrees, satting 98% on room air. Cardiovascular: Regular rate and rhythm. Pulmonary: Bilateral breath sounds. Clear to auscultation. Extremities: Upper extremity has 2+ to 3+ pitting edema. LABORATORY DATA: White count is 7, hemoglobin and hematocrit is 9.9 and 30.6, platelets down to 47, potassium 5.2, BUN and creatinine of 30 and 1.6. PROBLEM LIST: 1. Clostridium difficile colitis. This is day 7 of Dificid. We will continue to follow. He is on Questran just to slow bowel movements down a bit. It is charted he had 4 yesterday, but only 1 today. He feels like that is better. 2. Acute on chronic renal failure. He is I think at his baseline status post renal transplant. 3. Posttransplant glomerulonephropathy. Renal is following. They have started albumin because he is extremely edematous and third spacing, and then we also gave him Lasix. Just stopped his fluids I think yesterday because he has just been getting overloaded. 4. Anemia is stable. DISPOSITION: Again he really should pursue inpatient rehab, but he continues to fight that, but he cannot ambulate, he really cannot do very much for himself. I do not think he has progressed very much at all with PT, but we will continue to follow and see how he does. cc: Robert Cunningham MD
[2019-05-03] MEDS: TYLENOL PO PRN (20:33)
[2019-05-04] MEDS: HUMALOG SUBQ SCH ×4 (06:35→21:05)
[2019-05-04] MEDS: D50W SYRINGE IV PRN (06:39)
[2019-05-04 07:41] LABS: BASO# 0.01 X1000 (0.0-0.2); BASO% 0.1 % (0.0-0.8); EOS# 0.03 X1000 (0.0-0.7); EOS% 0.4 % (0.0-10.0); HEMATOCRIT 25.9 % (42.0-52.0); HEMOGLOBIN 8.2 g/dL (14.0-18.0); LYMPH# 0.24 X1000 (1.2-3.4); LYMPH% 3.6 % (20.5-51.1); MCH 29.6 PG (27-31); MCHC 31.7 g/dL (33-37); MCV 93.5 FL (81-99); MONO# 0.43 X1000 (0.11-0.59); MONO% 6.4 % (1.7-9.3); MPV 11.4 FL (7.4-10.4); NEUT# 5.97 X1000 (1.4-6.5); NEUT% 89.5 % (42.2-75.2); PLT 64 X1000 (130-400); RBC 2.77 XMIL (4.7-6.1); RDW 14.7 % (11.5-14.5); WBC 6.68 X1000 (4.8-10.8)
[2019-05-04 07:42] LABS: ALBUMIN 2.8 g/dL (3.5-5.0); CALCIUM 8.5 mg/dL (8.8-10.2); PHOSPHORUS 2.9 mg/dL (2.7-4.5); POTASSIUM 4.8 mmol/L (3.5-5.1)
--- NOTE | 2019-05-04 08:00 | INFECTIOUS DISEASE PROGRESS NO ---
DATE: 05/04/2019 PRESENT ILLNESS: The patient has Clostridium difficile diarrhea. Two days ago, the patient had according to the data in the chart four stools, and they were listed as being liquid. Yesterday he had 1 stool, but it was also listed as being liquid. MEDICATIONS: This is the 8th day of Dificid treatment. PHYSICAL EXAMINATION: Vital Signs: Temperature is 99.4 degrees, pulse 86, respirations 14, blood pressure is 172/47. General: This is an ill-appearing elderly male. He is in no acute distress. Head/eyes/ears/nose/throat: He can hear my spoken words and see near objects. I did not see any white patches on his tongue today. Neck: No pain with movement. The patient has a right-sided internal jugular venous catheter in place. The site is not swollen or tender. Lungs: Clear to auscultation. Cardiovascular: Regular heart rate. Abdomen: Soft and nontender. Neurologic: The patient is alert. He can move his extremities. He does not have a tremor. He talks in a coherent fashion. LAB AND X-RAY: The CBC for today is pending. There is no other laboratory study or radiographic study ordered for today. ASSESSMENT AND PLAN: Patient has Clostridium difficile diarrhea. My suggestion would be to continue Dificid every 12 hours for 14 days, and then take Dificid every other day for 14 days. If this is not successful, then I think the next step for the patient would be a fecal transplant. COMORBIDITIES: Patient has a renal transplant and he is on immunosuppressive therapy. He also is a diabetic and he has chronic kidney disease for which he gets dialyzed. The patient also has thrombocytopenia and anemia. cc: Ochoa Minor MD
[2019-05-04 08:02] LABS: BANDS 12 % (0-1); EOS 2 % (1-10); LYMPHS 6 % (21-51); MONO 4 % (1-9); SEGS 76 % (42-75)
[2019-05-04] MEDS: ALBUMIN 25% IV SCH (09:15)
[2019-05-04] MEDS: PROTONIX PO SCH (09:16)
[2019-05-04] MEDS: PREDNISONE PO SCH (09:16)
[2019-05-04] MEDS: MYCOSTATIN SUSP PO SCH ×4 (09:16→21:04)
[2019-05-04] MEDS: PROGRAF PO SCH ×2 (09:16→21:05)
[2019-05-04] MEDS: FOLIC ACID PO SCH (09:17)
[2019-05-04] MEDS: SODIUM BICARBONATE PO SCH ×2 (09:17→21:05)
[2019-05-04] MEDS: CULTURELLE PO SCH ×2 (09:17→21:04)
[2019-05-04] MEDS: DIFICID PO SCH ×2 (09:17→21:05)
[2019-05-04] MEDS: LOPRESSOR PO SCH ×2 (09:17→21:05)
[2019-05-04] MEDS: LANTUS INSULIN SUBQ SCH (09:18)
[2019-05-04] MEDS: QUESTRAN PO SCH ×2 (09:18→21:04)
[2019-05-04] MEDS: PATIENT'S OWN MED PO SCH ×2 (09:18→21:06)
--- NOTE | 2019-05-04 09:19 | Diag Imaging Result Doc PS360 ---
CHEST-PORTABLE - 05/04/2019 INDICATION: dyspnea COMPARISON: 04/22/2019 FINDINGS: There is a stable right central line with the catheter tip at the lower SVC. There has been significant improvement in the consolidation at the right lung base. There is some residual patchy infiltrate in the right lung base. There is also improvement in the consolidation of the left lower lobe, with some residual patchy infiltrate/atelectasis. No significant pleural effusion. Heart size is top normal. IMPRESSION: Significant improvement in aeration of both lung bases. Electronically signed by Too Arriaga 05/04/2019 9:17 AM
[2019-05-04] MEDS: NORCO-7.5 PO PRN ×2 (09:34→17:43)
[2019-05-04] MEDS: LASIX IV SCH ×2 (10:14→21:04)
--- NOTE | 2019-05-04 14:22 | NEPHROLOGY PROGRESS NOTE ---
DATE: 05/04/2019 TIME SEEN: DICTATION CUT OFF SUBJECTIVE: Mr. Lynch is resting quietly in bed. He states that he is feeling slightly better. He is attempting to get up on the side of the bed with physical therapy. OBJECTIVE: Vital Signs: Temperature 99.4, blood pressure 172/47, heart rate 86, respirations 14. He is on room air. Last recorded saturation is 95%. He has had 1040 in and 1300 out to void. LABS: Sodium 136, potassium 4.8, chloride 104, C02 23, BUN 37, creatinine 2, glucose 155, anion gap 9, calcium 8.5, phosphorus 2.9, albumin 2.8, white count 6.65, hemoglobin 8.2, hematocrit 25.9 with platelet count 64. PHYSICAL EXAMINATION: This is a 69-year-old male who is currently resting quietly in bed. The head of the bed is elevated. He appears chronically ill but in no acute distress. Skin: Warm and dry. HEENT: Normocephalic, atraumatic. Conjunctiva are pale. He has MADI. Mucous membranes are dry. Neck: Supple. Trachea midline. He continues with positive JVD in the upright position. Cardiovascular: Regular rate and rhythm. No gallop appreciated. Lungs: Clear to auscultation bilaterally. Equal excursion on room air. Abdomen: Soft, nontender. Positive bowel sounds. Genitourinary: Not inspected. The patient has been voiding adequate amounts. Extremities: The patient has 2+ dependent upper extremity edema and 1-2+ lower extremity edema up into the mid thigh/hip region. Left leg pulse palpable. Right BKA. Integumentary: Vascath remains to the right IJ. Skin is warm and dry. Neurological: Alert and oriented x 3. ASSESSMENT AND PLAN: 1. 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 The patient's BUN and creatinine remain at his baseline. He continues to have swelling. We will go ahead and add some Lasix 40 mg b.i.d. for the next several days to assist with this and monitor his creatinine. 2. Electrolytes and acid based balance. These are acceptable. 3. Anemia. This is stable. 4. Hypoalbuminemia. We have started him on albumin yesterday 50 grams x 3 days. Today will be his second dose. 5. Fluid volume overload. The patient does have JVD and edema. We gave Lasix 40 mg IV push one time yesterday. We will add Lasix 40 b.i.d. for the next 1-2 days and continue with albumin and re-evaluate at that time. 6. Positive C. difficile. This is followed by primary care and Dr. Minor. I would like to thank you for allowing us to follow with this patient. Dictated by ESHA Cho for Claudio Stephens MD Face to face encounter, data reviewed, discussed with Milagros Bermudez on 05/04/19. I agree with the above assessment and plan of care. cc: ESHA Cho MD [facility]
[2019-05-04] MEDS ORDERED: CUBICIN 600 MG in NS 100 ML IV SCH ×2 (16:00→16:30)
[2019-05-04 16:51] LABS: INR 1.25; PROTIME 15.9 Seconds (11.0-16.0)
--- NOTE | 2019-05-04 17:07 | PROGRESS NOTE ---
DATE: 05/04/2019 SUBJECTIVE: He does not feel good today, but no major issues. He did have a little bit of a fever, but he had a temperature of a 102.9 degrees yesterday, and I did not know that OBJECTIVE: Vital Signs: Temperature maximum was 102.9 degrees. Cardiovascular: Regular rate and rhythm. Pulmonary: Bilateral breath sounds clear to auscultation. Gastrointestinal: Soft, nontender, nondistended. Bowel sounds are positive. LABORATORY DATA: White count 6, hemoglobin 8, hematocrit 25, platelets 64,000. Creatinine has come up to 2. PROBLEM LIST: 1. Clostridium difficile colitis. Day 8 of Dificid, I think out of 10 days. 2. Acute on chronic renal failure, seems stable. 3. Fever. I am worried that his IV line may be infected. Try to see if we can get a peripheral on him and take out his dialysis catheter because it has been in there for a little bit of time; it was put in on the 7th, that was 2 weeks ago. I will discuss with Dr. Minor. I will put him on daptomycin, and we will continue to follow. 4. Status post renal transplant. Seems to be doing okay. His repeat C difficile toxin is negative, which to me would suggest that he has potentially not active C difficile right now, although we obviously need to treat for the allotted number of times, and we will follow. I think I may go ahead and start daptomycin just to be on the safe side. cc: Robert Cunningham MD
[2019-05-04 21:48] LABS: URINE SOURCE CATH
[2019-05-04 22:12] LABS: BILIRUBIN URINE NEGATIVE (NEGATIVE); BLOOD URINE LARGE (NEGATIVE); COLOR ORANGE; GLUCOSE URINE NEGATIVE (NEGATIVE); KETONE URINE NEGATIVE (NEGATIVE); LEUKOCYTES URINE LARGE (NEGATIVE); NITRITE URINE POSITIVE (NEGATIVE); PH URINE 6.5; PROTEIN URINE 200 mg/dL (NEGATIVE); TURBIDITY URINE TURBID (CLEAR); UROBILINOGEN URINE NORMAL (NORMAL)
[2019-05-04 22:17] LABS: UR EPITHELIAL CELLS <10 /HPF (<10); URINE BACTERIA 2+ /HPF; URINE RBC TNTC /HPF (<10); URINE WBC TNTC /HPF (<10)
[2019-05-04 22:34] LABS: URINE YEAST NONE SEEN
[2019-05-04 22:35] LABS: URINE CASTS NONE SEEN; URINE CRYSTALS NONE SEEN; URINE SMALL ROUND CELLS NONE SEEN
[2019-05-05] MEDS: HUMALOG SUBQ SCH ×4 (06:13→21:05)
[2019-05-05 07:30] LABS: BASO# 0.01 X1000 (0.0-0.2); BASO% 0.2 % (0.0-0.8); EOS# 0.01 X1000 (0.0-0.7); EOS% 0.2 % (0.0-10.0); HEMATOCRIT 24.7 % (42.0-52.0); IMM GRAN# 0.03 X1000 (0.0-0.04); IMM GRAN% 0.5 % (0.0-0.5); LYMPH# 0.35 X1000 (1.2-3.4); LYMPH% 5.6 % (20.5-51.1); MCH 30.1 PG (27-31); MCHC 32.4 g/dL (33-37); MCV 92.9 FL (81-99); MONO# 0.52 X1000 (0.11-0.59); MONO% 8.3 % (1.7-9.3); MPV 11.3 FL (7.4-10.4); NEUT# 5.38 X1000 (1.4-6.5); NEUT% 85.2 % (42.2-75.2); PLT 59 X1000 (130-400); RBC 2.66 XMIL (4.7-6.1); RDW 14.9 % (11.5-14.5)
[2019-05-05 07:39] LABS: ALBUMIN 3.2 g/dL (3.5-5.0); CALCIUM 8.3 mg/dL (8.8-10.2); CREATININE 2.4 mg/dL (0.7-1.2); PHOSPHORUS 3.4 mg/dL (2.7-4.5); POTASSIUM 4.8 mmol/L (3.5-5.1)
[2019-05-05 07:56] LABS: BANDS 1 % (0-1); LYMPHS 6 % (21-51); MONO 4 % (1-9); SEGS 89 % (42-75)
[2019-05-05] MEDS: LOPRESSOR PO SCH ×2 (08:00→21:05)
[2019-05-05] MEDS: FOLIC ACID PO SCH (08:00)
[2019-05-05] MEDS: SODIUM BICARBONATE PO SCH ×2 (08:00→21:05)
[2019-05-05] MEDS: QUESTRAN PO SCH ×2 (08:00→21:05)
[2019-05-05] MEDS: LASIX IV SCH (08:01)
[2019-05-05] MEDS: MYCOSTATIN SUSP PO SCH ×4 (08:01→21:05)
[2019-05-05] MEDS: DIFICID PO SCH ×2 (08:01→21:05)
[2019-05-05] MEDS: PROGRAF PO SCH ×2 (08:01→21:05)
[2019-05-05] MEDS: PROTONIX PO SCH (08:01)
[2019-05-05] MEDS: TYLENOL PO PRN ×2 (08:01→21:17)
[2019-05-05] MEDS: PREDNISONE PO SCH (08:01)
[2019-05-05] MEDS: PATIENT'S OWN MED PO SCH ×2 (08:02→21:06)
[2019-05-05] MEDS: NORCO-7.5 PO PRN (08:59)
[2019-05-05] MEDS: ALBUMIN 25% IV SCH (08:59)
[2019-05-05] MEDS: CULTURELLE PO SCH ×2 (09:24→21:05)
[2019-05-05] MEDS: MAXIPIME 1 GM in NS 50 ML IV SCH ×2 (11:50→21:45)
--- NOTE | 2019-05-05 15:26 | INFECTIOUS DISEASE PROGRESS NO ---
DATE: 05/05/2019 PRESENT ILLNESS: The laboratory just called to notify us that the patient has a positive blood culture for gram-negative rods. There is only 1 positive blood culture out of 2, but because the organism that is in the positive blood culture is a gram-negative edouard, then that always means that it is a true infection and not a contaminant. The origin of the patient's gram-negative edouard bacteremia is most likely the dialysis catheter in his neck. His urine culture is negative. The patient does have infiltrates in his chest x-ray that could be due to pneumonia, but the chest x- ray is improving even though the patient has not been receiving any antibiotic treatment for a gram-negative edouard. Therefore, I doubt the patient's infiltrates in his lungs are the source of the bacteremia. The patient also has Clostridium difficile diarrhea. MEDICATIONS: This is the 9th day of treatment with Dificid for the patient's Clostridium difficile diarrhea. PHYSICAL EXAMINATION: Vital Signs: Temperature is 100.9 degrees, pulse 86, respirations 19, blood pressure 160/56. General: This is an ill-appearing, elderly male. He is in no acute distress. Head, eyes, ears, nose, and throat: He can hear my spoken words and see near objects. He does not have any white coating of his tongue. Neck: The patient has a jugular vein catheter in place on the right side. The site is not erythematous or purulent. Lungs: Clear to auscultation. Cardiovascular: Heart rate is regular. Abdomen: Soft and nontender. Neurologic: Patient is alert and coherent. He can move his extremities. LAB AND X-RAY: The patient's CBC for today shows a white count of 6,300, hemoglobin is 8, platelet count 59,000. Creatinine is 2.4. GFR is 27. Urinalysis showed white cells and bacteria but the urine culture is negative. One out of two blood cultures are growing a gram-negative edouard. The patient has had 1 stool a day for the last 2 days. The stool from 2 days ago was described as liquid and the 1 described from a day ago was described as soft. ASSESSMENT AND PLAN: The patient has a gram-negative edouard bacteremia which I think originates from his jugular vein catheter in the neck. I have started the patient on cefepime and I have modified the dose because of the patient's renal failure. I have requested that the jugular vein catheter be removed now. I plan to continue with daptomycin for the patient's Clostridium difficile diarrhea. COMORBIDITIES: The patient has had a renal transplant and is on immunosuppressive medication. He is a diabetic. He has chronic kidney disease and he had been getting dialyzed through the jugular vein catheter. The patient also has thrombocytopenia and anemia. cc: Ochoa Minor MD
--- NOTE | 2019-05-05 17:37 | PROGRESS NOTE ---
DATE: 05/05/2019 SUBJECTIVE: He came in with vomiting, coffee-grounds emesis, abdominal pain that began a couple days before and progressively worsened. This is a 69-year-old who presented to [facility] complaining of coffee-ground emesis and abdominal pain since the Thursday before. He is noncompliant with his medications and medical regimen. He had a kidney transplant in 2009. He is a diabetic. He does not check his blood sugar levels. His laboratory data showed a white count of 18,130. ABG showed a pH is 7.15, pCO2 26, PO2 of 99, bicarb was 10. Sodium was 130, potassium 3.2, chloride was 94, bicarb was 10, anion gap of 25, BUN was 86, creatinine 5, and glucose 671. ADMISSION DIAGNOSES: 1. Diabetic ketoacidosis. 2. Upper gastrointestinal bleed. 3. Hypokalemia. 4. Acute kidney injury on top of chronic kidney disease. 5. Leukocytosis. Started on DKA regimen. OBJECTIVE: Vital signs: This morning temp is 98.3 degrees, pulse 70, respirations 19, blood pressure 186/75. HEENT: His pupils are equal. Lungs: Clear in all lung goldsmith. Cardiovascular: Regular rhythm and rate without murmur or S3. Abdomen: Soft. Skin: Warm and dry. Urine output from the day before I believe with dialysis was 1800 mL. ASSESSMENT AND PLAN: This is a 69-year-old with history of hypertension, hyperlipidemia, prior cerebrovascular accident, diabetes mellitus type 2, chronic kidney disease, status post DDRT was admitted with septic shock, diabetic ketoacidosis, and acute kidney injury in the setting of nausea, vomiting, diarrhea, found to have Clostridium difficile infection. 1. Clostridium difficile infection. Continue oral vancomycin 250 mg q.i.d. for a total 14 days. 2. Anemia which has been stable. 3. He is followed by Infectious Disease, Dr. Jong Minor. The patient had positive blood culture for gram-negative edouard. He only has 1 positive culture out of 2, but because the organism that is in the culture was gram-negative edouard, we need to treat it as a true infection. Origin of the patient's gram-negative edouard is most likely the dialysis catheter in the neck and urine catheter. Urine culture was negative. The patient has infiltrates on the chest x-ray that could be due to pneumonia, but the chest x-ray is improving and the patient has not been receiving any antibiotic treatment for gram-negative edouard. Dr. Minor would like to pursue removing the dialysis catheter. 4. This is the 9th day of treatment for Clostridium difficile colitis. 5. Acute kidney injury in the face of chronic kidney disease. The volume status and electrolytes appear stable. 6. Status post renal transplant. He is followed by Dr. Stephens. 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 The patient's BUN and creatinine remain at baseline. He continues to have swelling and so he was put on Lasix 40 mg b.i.d. for several days, so not getting any dialysis. 7. Volume overload. He has JVD and edema. He was given Lasix. cc: Noble Fisher MD
--- NOTE | 2019-05-05 18:12 | NEPHROLOGY PROGRESS NOTE ---
DATE: 05/05/2019 TIME SEEN: 0715. SUBJECTIVE: Mr. Lynch states that he is unable to get up well without assistance. Denies chest pain or abdominal discomfort. Patient's most recent vital signs, temperature 100.9 degrees, blood pressure 160/56, heart rate 86, respirations 19. He is on room air. Last recorded saturation is 92%. He has had 800 in, 1525 out. LABORATORY: Sodium 143, potassium 4.8, chloride 105, CO2 is 24, BUN is 40, creatinine is up to 2.4, glucose of 103. His anion gap is 14, his calcium is 8.3, phosphorus 3.4, albumin is 3.2. White count 6.3, hemoglobin 8, hematocrit 24.7, with a platelet count of 59,000. PHYSICAL EXAMINATION: General: This is a 69-year-old male. He is currently resting quietly in bed. No complaints of acute distress. He appears chronically ill. Skin: Warm and dry. HEENT: Normocephalic, atraumatic. Conjunctivae pale. He has PERRL. Mucous membranes are dry. Neck: Supple. Trachea midline. He continues with positive JVD. Cardiovascular: Regular rate and rhythm. S4 is present. Lungs: Clear to auscultation bilaterally. Equal excursion on room air. Abdomen: Soft, nontender. Palpable donor kidney to the right lower quadrant. Genitourinary: Not inspected. Patient has been voiding, adequate amount documented. Extremities: A right BKA. Left leg pulse palpable. Integumentary: Vas-Cath remains intact to the right IJ. Skin is warm and dry. No rashes or lesions. Neurological: Alert and oriented x3. ASSESSMENT AND PLAN: 1. Acute kidney injury overlying transplant kidney stage 3, due to glomerular nephropathy. The patient's BUN and creatinine are just slowly elevating. More than likely this is secondary to his diuretic effect. He has fluid volume overload. We will continue to leave him on his Lasix 40 mg b.i.d. IV and re-evaluate his labs on a daily basis. 2. Electrolytes and acid-base balance. These are acceptable. 3. Anemia. This is low, but stable. 4. Hypoalbuminemia. The patient is currently receiving Lasix and albumin 50 g x3 days. His last dose was in the a.m. 5. Leukocytosis associated with fever. We will discuss with the primary care in regards of possible removal of his Vas-Cath to his right IJ. 6. Positive Clostridium difficile. Followed by primary care and Dr. Minor. I would like to thank you for allowing us to follow with this patient. Dictated by ESHA Cho for Claudio Stephens MD Face to face encounter, data reviewed, discussed with Milagros Bermudez on 05/05/19. I agree with the above assessment and plan of care. cc: ESHA Cho MD [facility]
[2019-05-06] MEDS: HUMALOG SUBQ SCH ×4 (06:08→21:51)
[2019-05-06 07:12] LABS: BASO# 0.01 X1000 (0.0-0.2); BASO% 0.2 % (0.0-0.8); EOS# 0.01 X1000 (0.0-0.7); EOS% 0.2 % (0.0-10.0); HEMATOCRIT 25.3 % (42.0-52.0); HEMOGLOBIN 8.3 g/dL (14.0-18.0); LYMPH# 0.23 X1000 (1.2-3.4); LYMPH% 3.6 % (20.5-51.1); MCHC 32.8 g/dL (33-37); MCV 91.3 FL (81-99); MONO% 3.2 % (1.7-9.3); MPV 11.9 FL (7.4-10.4); NEUT# 5.86 X1000 (1.4-6.5); NEUT% 92.8 % (42.2-75.2); PLT 58 X1000 (130-400); RBC 2.77 XMIL (4.7-6.1); RDW 14.9 % (11.5-14.5); WBC 6.31 X1000 (4.8-10.8)
[2019-05-06 07:24] LABS: ALBUMIN 3.3 g/dL (3.5-5.0); CALCIUM 9.4 mg/dL (8.8-10.2); CREATININE 2.3 mg/dL (0.7-1.2); LYMPHS 4 % (21-51); MONO 2 % (1-9); POTASSIUM 4.3 mmol/L (3.5-5.1); SEGS 94 % (42-75)
[2019-05-06] MEDS: PROTONIX PO SCH (09:14)
[2019-05-06] MEDS: LOPRESSOR PO SCH ×2 (09:14→21:24)
[2019-05-06] MEDS: PROGRAF PO SCH ×2 (09:14→21:24)
[2019-05-06] MEDS: DIFICID PO SCH ×2 (09:14→21:24)
[2019-05-06] MEDS: FOLIC ACID PO SCH (09:14)
[2019-05-06] MEDS: PREDNISONE PO SCH (09:14)
[2019-05-06] MEDS: CULTURELLE PO SCH ×2 (09:14→21:23)
[2019-05-06] MEDS: SODIUM BICARBONATE PO SCH ×2 (09:14→21:24)
[2019-05-06] MEDS: QUESTRAN PO SCH ×2 (09:14→21:24)
[2019-05-06] MEDS: MYCOSTATIN SUSP PO SCH ×4 (09:14→21:24)
[2019-05-06] MEDS: PATIENT'S OWN MED PO SCH ×2 (09:18→21:17)
--- NOTE | 2019-05-06 10:31 | INFECTIOUS DISEASE PROGRESS NO ---
DATE: 05/06/2019 PRESENT ILLNESS: The patient has a gram-negative edouard bacteremia which I think originated from the patient's internal jugular vein catheter, which has been removed. Initially, only 1 blood culture was positive for gram-negative rods, but both blood cultures are positive for gram-negative rods. The patient also has Clostridium difficile diarrhea and the patient also has oral candidiasis. There was some thought that the patient may have a gram-negative edouard pneumonia, but the patient's infiltrates had started to clear even before he was put on antibiotics to treat the gram-negative edouard bacteremia. I think this makes it unlikely that the patient does have pneumonia. MEDICATIONS: This is the 10th day of treatment with Dificid and before that, the patient had p.o. vancomycin. The patient is on cefepime. Day 1 will be the first day that the patient's repeat blood cultures are sterile. I am not going to order repeat blood cultures now; instead, I am going to wait and see what the identification of the gram-negative edouard is to make sure that the current antibiotic, namely cefepime, covers that organism. Then I will order repeat blood cultures and day 1 will be the first day that the repeat blood cultures are sterile. PHYSICAL EXAMINATION: Vital Signs: Temperature is 98 degrees, pulse is 59, respirations 17, blood pressure is 180/56. General: This is a chronically ill-appearing elderly male. He is in no acute distress. Head, eyes, ears, nose, and throat: Can hear my spoken words and see near objects. I think I did see white coating on his tongue today. Neck: The jugular venous catheter has been removed from the right side. The site is not swollen or draining. Lungs: Clear to auscultation. Cardiovascular: Regular heart rate. Abdomen: Soft and nontender. Neurologic: The patient is alert today. He is talking in a coherent fashion. He can move his extremities. LAB AND X-RAY: CBC today shows a white count of 6210, hemoglobin 8.3, and platelet count 58,000. As mentioned above, now both blood cultures are growing gram-negative rods. The patient's creatinine is 2.3 with a GFR of 28. Urine culture was no growth on May 04 and yesterday, another urine culture was obtained, the result of which is pending. ASSESSMENT AND PLAN: I am going to continue cefepime pending the identification and susceptibility testing of the patient's gram-negative edouard bacteremia. Also, I am going to continue Dificid for 4 more days, which will complete a 14 day treatment course. After that 14 days, I will keep the patient on Dificid, only it will be once a day for 14 days. Also, I am going to continue nystatin for the patient's oral candidiasis. COMORBIDITIES: The patient has a renal transplant and is on immunosuppressive medication. He is elderly. He has chronic kidney disease and was getting dialyzed. The patient also has thrombocytopenia and anemia. cc: Ochoa Minor MD
[2019-05-06] MEDS ORDERED: ALBUMIN 25% IV SCH (10:45)
--- NOTE | 2019-05-06 12:02 | NEPHROLOGY PROGRESS NOTE ---
DATE: 05/06/2019 SUBJECTIVE: He feels like is about the same. Diarrhea is improved however. He is trying to work with therapy but remains fairly limited. OBJECTIVE: Vital Signs: Blood pressure 135/47, heart rate 66, respirations 20, afebrile. General: No acute distress. Skin: Warm and dry. Neck: Neck veins are not appreciated. Heart: Regular. No gallops. Lungs: Equal. No crackles. Abdomen: Soft, nontender. Bowel sounds present. Extremities: 1+ edema. No clubbing or cyanosis. IMPRESSION: 1. Acute kidney injury. Likely secondary to diuretic therapy. We have withdrawn this. I will administer albumin over the next 3 days and observe. I believe this is prerenal only. 2. History of renal transplantation. Continue current immunosuppression. cc: Claudio Stephens MD
[2019-05-06] MEDS: MAXIPIME 1 GM in NS 50 ML IV SCH ×2 (12:04→23:41)
[2019-05-06] MEDS: TYLENOL PO PRN (12:07)
[2019-05-06] MEDS: PHENERGAN IV PRN (12:15)
--- NOTE | 2019-05-06 14:16 | PROGRESS NOTE ---
DATE: 05/06/2019 SUBJECTIVE: Mr. Pope is having some nausea at the present time. Breathing comfortably. Remains afebrile. Has an emesis basin. He says the nausea is improving. OBJECTIVE: Vital signs: Temperature 98.1 degrees, pulse 76, respirations 20, blood pressure 147/53. HEENT: Pupils are equal and round. Lungs: Clear in all lung goldsmith. Cardiovascular: Regular rhythm and rate without murmur or S3. Abdomen: Soft, nondistended. Skin: Warm and dry. Urine output was 1500 mL yesterday. ASSESSMENT AND PLAN: 1. Acute kidney injury, likely secondary to diuretic therapy, so I have withdrawn this and giving some albumin over the next couple days under Dr. Stephens's direction. 2. History of renal transplant. 3. Gram-negative bacteremia, I think originated from the patient's internal jugular vein catheter, which this was removed. Continue current antibiotics. 4. Clostridium difficile diarrhea and some more candidiasis. Continue to treat. We need to get identification of the gram-negative edouard and make sure current antibiotic his is going to be sufficient. He is currently on cefepime. REVIEW OF ORDERS: I do not see any change at this point. LABORATORY DATA: Hematocrit is stable at 25, hemoglobin 8.3, white count 6310, platelet count 58,000. Sodium 139, potassium 4.3, chloride 99, BUN 51, creatinine 2.3. Blood sugars 209 , 240, 253 and 205. cc: Noble Fisher MD
[2019-05-06] MEDS: LABETALOL IV PRN (23:55)
[2019-05-07] MEDS: HUMALOG SUBQ SCH ×4 (06:35→21:04)
[2019-05-07 07:37] LABS: EOS# 0.04 X1000 (0.0-0.7); EOS% 0.6 % (0.0-10.0); HEMATOCRIT 24.6 % (42.0-52.0); IMM GRAN# 0.04 X1000 (0.0-0.04); IMM GRAN% 0.6 % (0.0-0.5); LYMPH# 0.29 X1000 (1.2-3.4); LYMPH% 4.3 % (20.5-51.1); MCH 29.3 PG (27-31); MCHC 32.5 g/dL (33-37); MCV 90.1 FL (81-99); MONO# 0.26 X1000 (0.11-0.59); MONO% 3.9 % (1.7-9.3); MPV 12.4 FL (7.4-10.4); NEUT# 6.06 X1000 (1.4-6.5); NEUT% 90.6 % (42.2-75.2); PLT 75 X1000 (130-400); RBC 2.73 XMIL (4.7-6.1); RDW 14.9 % (11.5-14.5); WBC 6.69 X1000 (4.8-10.8)
[2019-05-07 08:02] LABS: ALBUMIN 3.7 g/dL (3.5-5.0); CALCIUM 9.5 mg/dL (8.8-10.2); CREATININE 2.4 mg/dL (0.7-1.2); PHOSPHORUS 3.8 mg/dL (2.7-4.5); POTASSIUM 4.1 mmol/L (3.5-5.1)
[2019-05-07] MEDS: PREDNISONE PO SCH (09:00)
[2019-05-07] MEDS: MAXIPIME 1 GM in NS 50 ML IV SCH ×2 (10:21→23:24)
[2019-05-07] MEDS: MYCOSTATIN SUSP PO SCH ×4 (10:22→21:06)
[2019-05-07] MEDS: DIFICID PO SCH ×2 (10:22→21:06)
[2019-05-07] MEDS: PROGRAF PO SCH ×2 (10:22→21:06)
[2019-05-07] MEDS: SODIUM BICARBONATE PO SCH ×2 (10:22→21:06)
[2019-05-07] MEDS: FOLIC ACID PO SCH (10:23)
[2019-05-07] MEDS: CULTURELLE PO SCH ×2 (10:23→21:06)
[2019-05-07] MEDS: QUESTRAN PO SCH ×2 (10:23→21:06)
[2019-05-07] MEDS: PATIENT'S OWN MED PO SCH ×2 (10:23→21:49)
[2019-05-07] MEDS: PROTONIX PO SCH (10:23)
[2019-05-07] MEDS: LOPRESSOR PO SCH ×2 (10:23→21:06)
--- NOTE | 2019-05-07 12:49 | PROGRESS NOTE ---
DATE: 05/07/2019 SUBJECTIVE: Mr. Lynch is maybe a little better. He is still having some nausea but feels a little better than yesterday. OBJECTIVE: Vital signs: Afebrile, temperature 98.9 degrees, pulse 80, respirations 18, blood pressure 179/74. HEENT: Pupils are equal round. Lungs: Clear in all lung goldsmith. Cardiovascular: Regular rhythm and rate without murmur or S3. Urine output is 2500 mL. ASSESSMENT: 1. Acute kidney injury secondary I think to diuretic therapy, is doing much better. He also has been given some albumin. 2. History of renal transplant. 3. Gram-negative bacteremia originating from the patient's internal jugular vein catheter we believe. This has been removed. 4. Clostridium difficile. I am going to let him try a little bit of Questran as the diarrhea is very bothersome to him, so he is on Questran 4 g p.o. b.i.d. He is also on lactobacillus. REVIEW OF ORDERS: We will continue his current medication. He is getting sodium bicarb 650 mg p.o. b.i.d. Acute kidney injury seems to be improving. Hematocrit 24 hemoglobin is 8, white count 6690, platelet count 75,000. Sodium 139, potassium 4.1, chloride 100, BUN 55, creatinine 2.4. Blood sugars running a little high at 235, 319, 334 and 344. Looking at his diabetic medication, I think I will put him on some 70/30 just 8 units before breakfast and before supper. cc: Noble Fisher MD
--- NOTE | 2019-05-07 13:18 | NEPHROLOGY PROGRESS NOTE ---
DATE: 05/07/2019 SUBJECTIVE: He states he has had some more diarrhea. Not eating well at all. In fact, almost no intake according to the staff. OBJECTIVE: Vital Signs: Blood pressure 159/67, heart rate 86, respiration 18, afebrile. General: No acute distress. Skin is warm and dry. Conjunctivae are pink. Neck: Neck veins are not distended. Heart: Regular. No gallops. Lungs: Equal. No crackles. Abdomen: Soft, nontender. Extremities: Have 1 to 2+ edema. No clubbing or cyanosis. IMPRESSION: 1. 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 His labs have stabilized over the last 3 days. He did have bacteruria with bacteremia. Presumed transplant pyelonephritis. He is on appropriate antibiotics under the care of Dr. Minor. 2. History of renal transplantation. He is on prednisone and tacrolimus. Continue same. We will add supplements. No other changes. cc: Claudio Stephens MD
[2019-05-07] MEDS ORDERED: INSULIN PEN NEEDLES ONE (16:23)
[2019-05-07] MEDS: HUMULIN 70/30 SUBQ SCH (16:32)
[2019-05-07] MEDS: NORCO-7.5 PO PRN (17:36)
[2019-05-08] MEDS: LABETALOL IV PRN ×3 (00:27→13:58)
[2019-05-08] MEDS: HUMALOG SUBQ SCH ×4 (06:23→21:27)
[2019-05-08] MEDS: HUMULIN 70/30 SUBQ SCH ×2 (06:23→17:07)
[2019-05-08 07:15] LABS: HEMOGLOBIN 8.6 g/dL (14.0-18.0); IMM GRAN# 0.02 X1000 (0.0-0.04); IMM GRAN% 0.4 % (0.0-0.5); LYMPH# 0.26 X1000 (1.2-3.4); LYMPH% 5.7 % (20.5-51.1); MCH 29.8 PG (27-31); MCHC 33.1 g/dL (33-37); MONO% 2.2 % (1.7-9.3); MPV 12.3 FL (7.4-10.4); NEUT# 4.17 X1000 (1.4-6.5); NEUT% 91.7 % (42.2-75.2); PLT 75 X1000 (130-400); RBC 2.89 XMIL (4.7-6.1); RDW 14.8 % (11.5-14.5); WBC 4.55 X1000 (4.8-10.8)
[2019-05-08] MEDS: QUESTRAN PO SCH ×2 (09:42→23:09)
[2019-05-08] MEDS: PREDNISONE PO SCH (09:43)
[2019-05-08] MEDS: PROTONIX PO SCH (09:43)
[2019-05-08] MEDS: FOLIC ACID PO SCH (09:43)
[2019-05-08] MEDS: DIFICID PO SCH ×2 (09:43→21:27)
[2019-05-08] MEDS: MYCOSTATIN SUSP PO SCH ×4 (09:43→21:27)
[2019-05-08] MEDS: CULTURELLE PO SCH ×2 (09:43→21:27)
[2019-05-08] MEDS: LOPRESSOR PO SCH ×2 (09:43→21:27)
[2019-05-08] MEDS: SODIUM BICARBONATE PO SCH ×2 (09:43→21:27)
[2019-05-08] MEDS: PATIENT'S OWN MED PO SCH ×2 (09:44→21:28)
[2019-05-08] MEDS: PROGRAF PO SCH ×2 (09:44→21:27)
[2019-05-08] MEDS: MAXIPIME 1 GM in NS 50 ML IV SCH ×2 (09:49→22:29)
--- NOTE | 2019-05-08 14:26 | PROGRESS NOTE ---
DATE: 05/08/2019 Mr. Lynch feels better. The nausea is much better. He is eating and so remains afebrile, temperature 98.2 degrees, pulse 74, respirations 16, blood pressure was 193/73. His range has been between 159 to 193/62 to 76. Pupils are equal and round. Lungs are clear in all lung goldsmith. Cardiovascular regular rhythm and rate without murmur or S3. Abdomen is soft. Skin is warm and dry. Urine output from yesterday was 2800, almost 3 L. ASSESSMENT AND PLAN: 1. Acute kidney injury, which is improving. Thought it was secondary to diuretic therapy, received some albumin. 2. History of renal transplant. 3. Gram-negative bacteremia, originating we think from internal jugular vein catheter on the right, which has been removed. 4. Clostridium difficile, seeing some clinical improvement with this. REVIEW OF ORDERS: I do not see any change. LABORATORY DATA: Today, white count has come down to 4550, hematocrit is 26, hemoglobin 8.6, platelet count 75,000. Reviewed electrolytes from yesterday and blood sugars, last 3 have been 263, 324, 323. Recently started him on some 70/30, and I may go up to 12 units twice a day on that. cc: Noble Fisher MD
[2019-05-09] MEDS ORDERED: NORVASC PO SCH (01:43)
[2019-05-09] MEDS: HUMALOG SUBQ SCH ×4 (06:17→21:36)
[2019-05-09] MEDS: HUMULIN 70/30 SUBQ SCH ×2 (06:17→17:59)
--- NOTE | 2019-05-09 07:00 | INFECTIOUS DISEASE PROGRESS NO ---
DATE: 05/09/2019 PRESENT ILLNESS: The patient has a Pseudomonas bacteremia urinary tract infection, and most likely the organism is causing a pneumonia as well that may be hematogenous in origin. The patient also has Clostridium difficile diarrhea. The patient also has oral candidiasis. MEDICATIONS: The patient is on cefepime and Dificid. He also is on nystatin swish and swallow. PHYSICAL EXAMINATION: Vital Signs: Temperature is 98.1 degrees, pulse 77, respirations 18, blood pressure is 173/66. General: This is a chronically ill-appearing, elderly male. He is in no acute distress. HEENT: He can hear my spoken words and see near objects. His white coating on the tongue is pretty much all gone. Neck: The patient's jugular venous catheter has been removed. The site is not draining or swollen. The patient does not have any pain when he does move his neck. Lungs: Clear to auscultation. Cardiovascular: Regular heart rate. Abdomen: Soft and nontender. Extremities: The patient has a nonworking AV fistula in the left arm. Neurologic: The patient is alert. He can move his extremities. There is no tremor. IMAGING AND LABORATORY DATA: There is no new radiographic study at this time. The patient does not have a BMP back yet. The patient's CBC shows a white count of 4550, hemoglobin 8.6, and platelet count 75,000. Both the blood and urine cultures are growing Pseudomonas. As regarding the patient's diarrhea on 05/07/2019, he did not have any stool on 05/08/2019. He did have one stool that was described as liquid. ASSESSMENT AND PLAN: The patient has Pseudomonas urinary tract infection, bacteremia, and probable pneumonia. I am switching the patient from intravenous cefepime to oral Levaquin. Some of the side effects of the antibiotic, including rash, diarrhea, seizures, and tendon rupture have been explained to the patient. He agrees with treatment. I plan to continue nystatin for the patient's oral candidiasis. As regarding the patient's Clostridium difficile diarrhea, this is day 13 of treatment with Dificid. I plan one more day, and then I will stop Dificid if the patient is not having much in the way of stool, even though it might be still liquid. I am going to order blood cultures for today. COMORBIDITIES: The patient has a renal transplant, and he is on immunosuppressive medication. The patient is elderly. The patient also has thrombocytopenia and anemia. cc: Ochoa Minor MD
[2019-05-09 08:05] LABS: EOS# 0.09 X1000 (0.0-0.7); HEMOGLOBIN 7.9 g/dL (14.0-18.0); IMM GRAN# 0.03 X1000 (0.0-0.04); IMM GRAN% 0.7 % (0.0-0.5); LYMPH# 0.42 X1000 (1.2-3.4); LYMPH% 9.5 % (20.5-51.1); MCH 29.6 PG (27-31); MCHC 32.9 g/dL (33-37); MCV 89.9 FL (81-99); MONO# 0.29 X1000 (0.11-0.59); MONO% 6.5 % (1.7-9.3); MPV 12.4 FL (7.4-10.4); NEUT% 81.3 % (42.2-75.2); PLT 98 X1000 (130-400); RBC 2.67 XMIL (4.7-6.1); RDW 14.5 % (11.5-14.5); WBC 4.43 X1000 (4.8-10.8)
[2019-05-09] MEDS: PATIENT'S OWN MED PO SCH ×2 (09:54→21:30)
[2019-05-09] MEDS: PROTONIX PO SCH (09:55)
[2019-05-09] MEDS: SODIUM BICARBONATE PO SCH ×2 (09:55→21:30)
[2019-05-09] MEDS: DIFICID PO SCH ×2 (09:55→21:30)
[2019-05-09] MEDS: PROGRAF PO SCH ×2 (09:55→21:29)
[2019-05-09] MEDS: FOLIC ACID PO SCH (09:55)
[2019-05-09] MEDS: LEVAQUIN PO SCH (09:55)
[2019-05-09] MEDS: MYCOSTATIN SUSP PO SCH ×4 (09:55→21:29)
[2019-05-09] MEDS: PREDNISONE PO SCH (09:55)
[2019-05-09] MEDS: LOPRESSOR PO SCH ×2 (09:55→21:29)
[2019-05-09] MEDS: CULTURELLE PO SCH ×2 (09:55→21:30)
[2019-05-09] MEDS: QUESTRAN PO SCH ×2 (09:56→21:29)
--- NOTE | 2019-05-09 10:03 | NEPHROLOGY PROGRESS NOTE ---
DATE: 05/09/2019 SUBJECTIVE: Patient states that "he would like to tell me he is doing fine, but he has not". OBJECTIVE: Vital Signs: Temperature 98.5 degrees, pulse 71, respiratory rate 20, blood pressure 146/60. Intake 260 mL. Output 1 L voided. Physical Examination: General: This is an elderly gentleman resting in bed. He is awake and alert. He is in no acute distress. HEENT: Normocephalic, atraumatic. His oral mucosa is moist. Conjunctivae pink. Neck: Supple without JVD. Cardiovascular: Regular rate and rhythm without murmur or gallop. Pulmonary: He is clear bilaterally. He has equal excursion. Abdomen: Soft, with positive bowel sounds. : Voiding. Extremities: Trace to 1+ edema. No clubbing, cyanosis. Integumentary: Skin is warm and dry. No rash or lesion. Lab Data: WBC of 4.3, hemoglobin 7.9 (8.6). Chemistries are pending. ASSESSMENT AND PLAN: 1. Acute overlying chronic transplant glomerulonephropathy. Presumed transplant pyelonephritis. His renal function is improved. He remains on Levaquin. 2. Clostridium difficile. Remains on Dificid. 3. Medication review. He continues on his Prograf and prednisone. 4. Anemia. Hemoglobin trending down. Monitor and transfuse as warranted. Dictated by ESHA Hanson for Claudio Stephens MD Face to face encounter, data reviewed, discussed with Jayden Castillo on 05/09/19. I agree with the above assessment and plan of care. cc: Claudio Stephens MD [facility]
[2019-05-09 10:46] LABS: ALBUMIN 3.4 g/dL (3.5-5.0); CREATININE 1.8 mg/dL (0.7-1.2); PHOSPHORUS 1.9 mg/dL (2.7-4.5); POTASSIUM 4.2 mmol/L (3.5-5.1)
--- NOTE | 2019-05-09 17:08 | PROGRESS NOTE ---
DATE: 05/09/2019 Mr. Lynch is feeling better. Nausea is better. He still has diarrhea, loose stool. Temperature 97.3, pulse 65, respirations 20, blood pressure 148/57. Pupils are equal and round. Lungs are clear in all lung goldsmith. Cardiovascular exam regular rhythm, rate without murmur or S3. Urine output was 1300 mL. ASSESSMENT AND PLAN: 1. Acute overlying chronic transplant glomerular nephropathy, presumed transplant pyelonephritis. His renal function is pending. Still on Levaquin. 2. Clostridium difficile. He has taken Dificid. 3. He is on Prograf and prednisone for renal transplant. 4. Anemia. Hemoglobin is trending downward. Will transfuse if hemoglobin gets below 7. 5. He has Pseudomonas bacteremia urinary tract infection, most likely organism causing pneumonia from hematogenous origin. The patient is also being treated for Clostridium difficile and oral candidiasis on cefepime and Dificid, nystatin swish and swallow. He is willing to go to rehab and will see if he is eligible, could possibly go tomorrow if everybody is okay with that. Review of his orders I do not see any change right now. cc: Noble Fisher MD
[2019-05-10] MEDS: TYLENOL PO PRN (00:03)
[2019-05-10] MEDS: HUMALOG SUBQ SCH ×2 (06:02→13:11)
[2019-05-10] MEDS: HUMULIN 70/30 SUBQ SCH (06:03)
[2019-05-10 07:56] LABS: BASO# 0.01 X1000 (0.0-0.2); BASO% 0.2 % (0.0-0.8); EOS# 0.08 X1000 (0.0-0.7); EOS% 1.8 % (0.0-10.0); HEMATOCRIT 25.1 % (42.0-52.0); HEMOGLOBIN 8.2 g/dL (14.0-18.0); IMM GRAN% 2.2 % (0.0-0.5); LYMPH# 0.49 X1000 (1.2-3.4); LYMPH% 10.8 % (20.5-51.1); MCH 29.7 PG (27-31); MCHC 32.7 g/dL (33-37); MCV 90.9 FL (81-99); MONO# 0.39 X1000 (0.11-0.59); MONO% 8.6 % (1.7-9.3); MPV 12.2 FL (7.4-10.4); NEUT# 3.46 X1000 (1.4-6.5); NEUT% 76.4 % (42.2-75.2); PLT 133 X1000 (130-400); RBC 2.76 XMIL (4.7-6.1); RDW 14.4 % (11.5-14.5); WBC 4.53 X1000 (4.8-10.8)
[2019-05-10 08:15] LABS: ALBUMIN 3.3 g/dL (3.5-5.0); CALCIUM 9.2 mg/dL (8.8-10.2); CREATININE 2.1 mg/dL (0.7-1.2); PHOSPHORUS 2.2 mg/dL (2.7-4.5); POTASSIUM 4.5 mmol/L (3.5-5.1)
[2019-05-10] MEDS ORDERED: NORVASC PO SCH (09:00)
[2019-05-10] MEDS: QUESTRAN PO SCH (09:38)
[2019-05-10] MEDS: LEVAQUIN PO SCH (09:39)
[2019-05-10] MEDS: PROTONIX PO SCH (09:39)
[2019-05-10] MEDS: PROGRAF PO SCH (09:39)
[2019-05-10] MEDS: DIFICID PO SCH (09:39)
[2019-05-10] MEDS: SODIUM BICARBONATE PO SCH (09:39)
[2019-05-10] MEDS: MYCOSTATIN SUSP PO SCH ×2 (09:39→14:17)
[2019-05-10] MEDS: LOPRESSOR PO SCH (09:40)
[2019-05-10] MEDS: FOLIC ACID PO SCH (09:40)
[2019-05-10] MEDS: PREDNISONE PO SCH (09:40)
[2019-05-10] MEDS: CULTURELLE PO SCH (09:40)
--- NOTE | 2019-05-10 09:46 | NEPHROLOGY PROGRESS NOTE ---
DATE: 05/10/2019 SUBJECTIVE: The patient is resting in bed. He states he has been able to eat. He denies nausea or vomiting. He states he has continued with diarrhea. OBJECTIVE: Vital Signs: Temperature 98 degrees, pulse 66, respiratory rate 19, blood pressure 146/57. Intake 1.3 L. Output 1 L. Physical Examination: General: This is an elderly, chronically ill-appearing gentleman resting in bed. He is awake and alert. No acute distress. HEENT: Normocephalic, atraumatic. Oral mucosa is moist. Neck: Supple, without JVD. Cardiovascular: Regular rate and rhythm. Pulmonary: He is clear bilaterally. Abdomen: Soft, with positive bowel sounds. No tenderness. : Voiding. Extremities: No clubbing, cyanosis, or edema. Right BKA noted. Integumentary: Skin is pale, warm, and dry. Lab Data: Pending. ASSESSMENT AND PLAN: Acute on chronic kidney disease in a transplanted patient. The patient's renal function through yesterday had been stable, have no reason to believe today would be any different. The patient continues on his Prograf and steroids. He is not on CellCept at this time. We have held that secondary to the side effect of diarrhea that the CellCept can cause. Especially in a patient with a Clostridium difficile infection, this could worsen his symptoms significantly. We will reach out to [facility] to discuss with them if we can just continue him on the current antirejection regimen that we have him on or if they would prefer for us to reinitiate the CellCept. Dictated by ESHA Hanson for Claudio Stephens MD Face to face encounter, data reviewed, discussed with Jayden Castillo on 05/10/19. I agree with the above assessment and plan of care. cc: Claudio Stephens MD [facility]
[2019-05-10] MEDS: PATIENT'S OWN MED PO SCH (09:47)
[2019-05-10] MEDS: NORCO-7.5 PO PRN (10:22)
--- NOTE | 2019-05-10 12:23 | DISCHARGE SUMMARY ---
ADMISSION DATE: 04/14/2019 DISCHARGE DATE: 05/10/2019 HISTORY OF PRESENT ILLNESS: His doctor is Dr. Holden. He sees Dr. Stephens for Nephrology. He presented with vomiting coffee-ground emesis, abdominal pain which began a couple days before and progressively worsened. This is a 69-year-old male presented to [facility] with complaints of coffee-ground emesis, abdominal pain since Thursday. He was noncompliant with his medication, medical regimen by report. He had a kidney transplant in 2009, was diabetic. He does not check his blood glucose levels at home. LABORATORY DATA: Showed white blood cell count 18,130. ABGs showed pH 7.15, pCO2 26, PO2 of 99. He is on room air. Sodium 130, potassium 8.2, chloride 94, bicarbonate was 10, anion gap 6. BUN 86, creatinine was 5, glucose 671. Amylase and lipase were both negative. His acetone level was negative. IMAGING STUDIES: Abdominal x-ray showed possible right renal stone, and his chest x-ray showed no evidence of acute disease. PAST MEDICAL HISTORY: 1. Diabetes mellitus type 2. 2. Chronic kidney disease. 3. Hypertension. 4. CVA. 5. Hyperlipidemia. PAST SURGICAL HISTORY: 1. Renal transplant 2009 followed at [facility]. 2. 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 3. Cholecystectomy. 4. Cataract surgery. 5. Right uixrr-wge-isqu amputation. ADMISSION DIAGNOSES: 1. Diabetic ketoacidosis. 2. Upper gastrointestinal bleed suspected. 3. Hyperkalemia. 4. Acute kidney injury on top of chronic kidney disease, status post renal transplant. 5. Leukocytosis. HOSPITAL COURSE: Nephrology was asked to see Dr. Stephens. He had profound hyperkalemia in the setting of diabetic ketoacidosis and the anion gap was 25. Received 1 liter of intravenous fluid resuscitation, second liter and another liter after that. His volume status was low. He needed an additional access to go ahead and get a vascular catheter put with a third port. So that if potassium level does not improve and requires emergent dialysis, that could be done. His acid level CO2 was 10, and gave him some bicarbonate. This showed improvement. Dr. Fraser attempted a central venous catheter placement and able to insert central venous trialysis type catheter in the right femoral vein with fluoroscopic guidance. Gastroenterology was asked to see because of gastrointestinal bleed and felt he had presented with septic shock and low volume, and it looks like he had Clostridium difficile colitis. So, was put on oral vancomycin 250 mg every 6 hours, which was started on 04/15/2019, and the patient was also on Flagyl 500 mg intravenous every 6 hours. The patient was started on Culturelle, put on Nexium high dose 40 mg twice a day. Blood sugars were followed and he seemed to show clinical improvement. Computed tomography of the chest and abdomen done: Very severe colitis, small volume ascites, small right pleural effusion, trace left effusion and adjacent atelectasis, focal fibrosis involving the right middle lobe. Infectious Disease is involved, Dr. Minor treating him for Clostridium difficile colitis, and continued vancomycin 250 mg oral every 6 hours and metronidazole 500 mg intravenous every 6 hours which she changed to every 8 hours. The patient did so improve. Dr. Sampson was following for evaluation of thrombocytopenia. He checked labs for disseminated intravascular coagulation profile. The platelet counts seemed to improve. 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 So, platelet count seemed to improve. If it begins to have trouble again, consider therapy for immune thrombocytopenic purpura. Platelet count came up above 130,000. The patient had some more fever and bacteremia urinary tract infection, most likely organism was causing the pneumonia as well, hematogenous in origin. The patient is improved, pneumonia resolved. Continue to treat him for his Clostridium colitis, although clinically that improved as well. He is very weak and wanted to go to rehabilitation, so the plan is to get him to go to rehabilitation on 05/10/2019. He will go on albuterol 2.5 mg inhalation every 4 hours p.r.n., Norvasc 10 mg a day, Questran 4 g p.o. b.i.d., Dificid 200 mg p.o. b.i.d., folic acid 1 mg daily, [place] 7.5 mg q. 4 hours p.r.n., Humulin 70/30 12 units b.i.d., Culturelle 1 tablet b.i.d., and I believe Levaquin 250 mg daily, Imodium 2 mg p.o. p.r.n., Lopressor 50 mg b.i.d. He is on is mycophenolate mofetil 720 mg capsule b.i.d., Mycostatin suspension 5 mL 4 times a day, Protonix 40 mg p.o. daily, prednisone 7.5 mg daily, sodium bicarbonate 650 mg b.i.d., tacrolimus 2 mg p.o. b.i.d. cc: Noble Fisher MD
[2019-05-10 12:47] VITALS: BP 160/60
== END 2019-05-10 17:09 | DRG 853 ==
LOC: SUPCPDRO → ED 11:14 → SUATTDRO 16:23 → ICU 16:23 → 3N 04-18 12:55 → ICU 04-19 14:55 → 2N 04-27 15:10 → 1N 05-01 18:25
PROVIDERS: ATTEND Emergency Medicine

== ENCOUNTER 2019-06-19 23:03 | Inpatient (IN) ==
--- NOTE | 2019-06-19 23:11 | PROVIDER DOCUMENTATION ---
HPI-General Adult - General Chief Complaint: Fever Stated Complaint: fever Time Seen by Provider: 06/19/19 23:11 Source: patient, family Allergies/Adverse Reactions: Patient Allergies Allergy/AdvReac Type Severity Reaction Status Date / Time sulfamethoxazole AdvReac Unknown Verified 06/19/19 23:45 [From ] trimethoprim [From ] AdvReac Unknown Verified 06/19/19 23:45 Home Medications: Home Medication List Medication Instructions Recorded Confirmed Last Taken Type Insulin Glargine [Lantus] 22 unit SUBQ QAM 12/22/14 06/19/19 03/15/19 08:00 History Prednisone 7.5 mg PO DAILY 10/09/17 06/19/19 03/15/19 08:00 History Aspirin 81 mg PO QAM 12/22/17 06/19/19 09/17/18 08:00 History Tacrolimus [Prograf] 2 mg PO BID 12/22/17 06/19/19 03/15/19 20:00 History Metoprolol [Lopressor] 50 mg PO BID #60 tab 12/29/17 06/19/19 03/15/19 08:00 Rx Amlodipine [Norvasc] 10 mg PO DAILY 02/26/18 06/19/19 09/17/18 08:00 History Docusate Sodium [Colace] 100 mg PO PRN PRN 02/26/18 06/19/19 02/26/18 History Mycophenolate Sodium [Myfortic] 720 mg PO BID 02/26/18 06/19/19 03/15/19 20:00 History Clonidine [Catapres] 0.1 mg PO BID #60 tab 03/01/18 06/19/19 09/17/18 08:00 Rx Polyethylene Glycol 3350 [Miralax] 17 gm PO PRN PRN 09/03/18 06/19/19 Unknown History Cyanocobalamin [Vitamin B-12] 1,000 microgm PO DAILY tablet 09/10/18 06/19/19 09/17/18 08:00 Rx Sodium Bicarbonate 650 mg PO BID #120 tab 09/10/18 06/19/19 09/17/18 08:00 Rx Acetaminophen [Tylenol] 650 mg PO Q6H PRN PRN tablet 09/23/18 06/19/19 Unknown Rx Hydrocodone/APAP 10 mg/325 mg 1 each PO Q4H PRN PRN #0 tablet 09/23/18 06/19/19 Unknown Rx [[place]-10] Amlodipine Besylate 10 mg PO DAILY 04/16/19 06/19/19 03/15/19 08:00 History Chlorthalidone 12.5 mg PO DAILY 04/16/19 06/19/19 03/15/19 08:00 History Albuterol [Albuterol Neb] 2.5 mg INH Q4H PRN PRN neb 05/10/19 06/19/19 Unknown Rx Cholestyramine [Questran] 4 gm PO BID packet 05/10/19 06/19/19 Unknown Rx Folic Acid 1 mg PO DAILY tab 05/10/19 06/19/19 Unknown Rx Insulin Humulin 70/30 [Humulin 12 unit SUBQ BID AC insuln.pen 05/10/19 06/19/19 Unknown Rx 70/30] Lactobacillus Rhamnosus GG 1 ea PO BID cap 05/10/19 06/19/19 Unknown Rx [Culturelle] Levofloxacin [Levaquin] 250 mg PO DAILY tab 05/10/19 06/19/19 Unknown Rx Loperamide [Imodium] 2 mg PO PRN PRN cap 05/10/19 06/19/19 Unknown Rx Menthol/Zinc Oxide Ointment 1 gm TOP PRN PRN tube 05/10/19 06/19/19 Unknown Rx [Calmoseptine Ointment] Pantoprazole [Protonix] 40 mg PO DAILY tab 05/10/19 06/19/19 Unknown Rx - History of Present Illness -Gen Adult Nature of Presenting Problems: This is a 69yo male who presents with CC of fever, generalized pain, and dehyd ration. The family reports that the patient had a cold about 1 week ago and has not fully recovered. Over the last 2 days the patient has had generalized pain and headache as well as cough and nausea. They report a fever as well as some shortness of breath. Location of Pain/Injury: reports: head, generalized (weakness) Onset/Duration: reports: 2 days ago Timing: reports: still present Associated Symptoms: reports: back/neck pain, cough, nausea, shortness of breath . denies: chest pain, diarrhea, rash Review of Systems - Adult - REVIEW OF SYSTEMS - ADULT Constitutional: reports: fever Eyes: reports: no symptoms reported Ears, Nose, Mouth & Throat: reports: other (non productive cough) Cardiovascular: reports: no symptoms reported. denies: chest pain Respiratory: reports: cough, shortness of breath Gastrointestinal: reports: nausea. denies: abdominal pain, diarrhea Genitourinary: reports: no symptoms reported. denies: dysuria Musculoskeletal: reports: neck pain Neurological: reports: headache/migraines Psychiatric: reports: no symptoms reported Endocrine: reports: no symptoms reported Hematologic/Lymphatic: reports: no symptoms reported, other (no bleeding) Allergic/Immunologic: reports: no symptoms reported, other (no swelling) Past History - Adult - PAST MEDICAL HISTORY-ADULT Review of Records: reports: Old Records Reviewed, Nursing Assessment Review, Medications Reviewed, Social history reviewed & non-contributory. Major Childhood Illnesses: reports: denies history Cardiovascular: reports: HTN, hyperlipidemia Respiratory: reports: denies history Gastrointestinal: reports: denies history Obstetrical/Gynecological: reports: denies history Genitourinary: reports: dialysis (in past), ESRD (in past), other (kidney transplant) Musculoskeletal: reports: denies history Neurological: reports: CVA Psychiatric: reports: denies history Endocrine/Immune: reports: Diabetes Other Conditions: reports: denies history - PRIOR SURGERIES/PROCEDURES Surgical/Procedure History: reports: cholecystectomy, orthopedic (extremity) (toe amputation right foot), other (cardiac cath, cataract removal, kidney transplant, hemodialysis port) - PRIOR HOSPITALIZATIONS Prior Hospitalizations: reports: for similar symptoms - IMMUNIZATION STATUS Childhood Immunizations: See Nurse Assessment Flu Vaccine: See Nurse Assessment - FAMILY HISTORY Family History: other (Brain aneuyrsm) - SOCIAL HISTORY Smoking: quit greater than 1 year Substance Use: none/never Alcohol Use Frequency: never Physical Exam-General - PHYSICAL EXAM-ADULT Initial Vital Signs Reviewed: Yes - CONSTITUTIONAL General Appearance: appears well, alert, no apparent distress - EYES Eyes: negative: conjuctival exudate - HEAD, EARS, NOSE, MOUTH & THROAT HENMT: normocephalic/atraumatic - NECK Neck: full range of motion - RESPIRATORY Respiratory: lungs clear. negative: crackles, wheezing - CARDIOVASCULAR Cardiovascular: regular rate, rhythm, no edema - GASTROINTESTINAL (ABDOMEN) Abdominal Exam: soft, guarding, tenderness (RLQ). negative: rebound, Rovsing's sign - MUSCULOSKELETAL Back Exam: no CVA tenderness - SKIN Integumentary: normal color, warm/dry - NEUROLOGIC Neurologic: grossly normal, other (no meningismus) - PSYCHIATRIC Psych/Mental Status: normal mood/affect, normal thought content, normal thought process Progress - PLAN OF CARE/RESULTS Result Diagrams: 06/20/19 01:10 06/20/19 01:10 - CHANGE OF SHIFT REPORT (ED Provider) 1 Report Given and Care Transferred to:: Dr. Manning Time of Transfer: 03:41 Items Pending: Physician Consult/Arrival, Other (Dispo) Procedures - CENTRAL LINE Consent Form Signed?: Yes Central Line Lumen: triple Catheter: [place]: 15 Central Line Procedure Prep: Hand Hygeine Performed, Kit Utilized, Chloraprep, Sterile Body Drape Placed, Antibiotic-coated Catheter Used Patient Position (To prevent Air Embolism): Trendelenburg (SC/IJ) Central Line Position: internal jugular (R) Ultrasound Guided?: Yes Hat, mask, sterile gown, & sterile gloves worn by physician?: Yes Site scrubbed vigorously for 30 seconds? (Groin: 2 min): Yes Anesthetic: 1%, Lidocaine/Xylocaine Post Procedure: Sutured in place, BioPatch placed, Sterile dressing applied, Blood aspirated from each lumen Complications: none Departure - Departure Date of Disposition Decision: 06/20/19 Time of Disposition Decision: 04:58 DIAGNOSIS: Hyperglycemia UTI (urinary tract infection) Qualifiers: Urinary tract infection type: acute cystitis Hematuria presence: without hematuria Qualified Code(s): N30.00 - Acute cystitis without hematuria Disposition: ADMITTED INPATIENT 09 Certified Medical Emergency: Emergent Condition: Stable Referrals and Follow-Ups: Shirley Holden MD [Primary Care Provider] - - Critical Care Note This patient required my direct & personal management of CC.: No Attestation - Physician/ GERI Attestation Patient care was provided by Advanced Practice Provider:: No The physician spent face to face time with patient:: Yes Advanced Practice Provider documentation review:: Supervising physician onsite and consulted in the evaluation and care of this patient. The physician did have a face to face encounter with the patient.
[2019-06-20] MEDS ORDERED: NS 1,000 ML IV ONE ×2 (00:09→04:03)
[2019-06-20] MEDS ORDERED: HURRICAINE SPRAY TOP ONE (01:03)
[2019-06-20 01:23] LABS: BASO# 0.01 X1000 (0.0-0.2); BASO% 0.1 % (0.0-0.8); EOS# 0.01 X1000 (0.0-0.7); EOS% 0.1 % (0.0-10.0); HEMATOCRIT 27.8 % (42.0-52.0); HEMOGLOBIN 8.5 g/dL (14.0-18.0); IMM GRAN# 0.04 X1000 (0.0-0.04); IMM GRAN% 0.4 % (0.0-0.5); LYMPH# 0.84 X1000 (1.2-3.4); LYMPH% 7.4 % (20.5-51.1); MCH 28.1 PG (27-31); MCHC 30.6 g/dL (33-37); MCV 92.1 FL (81-99); MONO# 0.43 X1000 (0.11-0.59); MONO% 3.8 % (1.7-9.3); MPV 12.8 FL (7.4-10.4); NEUT# 10.05 X1000 (1.4-6.5); NEUT% 88.2 % (42.2-75.2); PLT 167 X1000 (130-400); RBC 3.02 XMIL (4.7-6.1); RDW 16.1 % (11.5-14.5); WBC 11.38 X1000 (4.8-10.8)
[2019-06-20 01:54] LABS: ALB/GLOB RATIO 0.7; ALBUMIN 2.5 g/dL (3.5-5.0); CALCIUM 8.8 mg/dL (8.8-10.2); CREATININE 3.5 mg/dL (0.7-1.2); POTASSIUM 5.3 mmol/L (3.5-5.1); TOTAL BILIRUBIN 1.14 mg/dL (0.20-1.00); TOTAL PROTEIN 6.2 g/dL (6.3-8.3)
[2019-06-20 03:23] LABS: URINE SOURCE CLEAN CATCH
[2019-06-20 03:25] LABS: BILIRUBIN URINE NEGATIVE (NEGATIVE); BLOOD URINE SMALL (NEGATIVE); COLOR YELLOW; GLUCOSE URINE >1000 mg/dL (NEGATIVE); KETONE URINE NEGATIVE (NEGATIVE); LEUKOCYTES URINE LARGE (NEGATIVE); NITRITE URINE NEGATIVE (NEGATIVE); PROTEIN URINE 50 mg/dL (NEGATIVE); SP GRAVITY URINE 1.009; TURBIDITY URINE CLEAR (CLEAR); UROBILINOGEN URINE NORMAL (NORMAL)
[2019-06-20 03:26] LABS: UR EPITHELIAL CELLS <10 /HPF (<10); URINE BACTERIA 2+ /HPF; URINE RBC <10 /HPF (<10); URINE WBC TNTC /HPF (<10)
--- NOTE | 2019-06-20 03:42 | EKG Report ---
Test Performed on : 06/20/2019 03:17:22 AM Test Reason : weakness Blood Pressure : / mmHG Vent. Rate : 089 BPM Atrial Rate : 089 BPM P-R Int : 160 ms QRS Dur : 122 ms QT Int : 370 ms P-R-T Axes : 048 -70 066 degrees QTc Int : 450 ms Normal sinus rhythm. Right bundle branch block Left anterior fascicular block Bifascicular block Minimal voltage criteria for LVH, may be normal variant Septal infarct (cited on or before 22-DEC-2017) Abnormal ECG When compared with ECG of 14-APR-2019 13:59, (Unconfirmed) Questionable change in initial forces of Septal leads T wave amplitude has decreased in Inferior leads T wave amplitude has decreased in Anterior leads Unconfirmed Result
[2019-06-20] MEDS ORDERED: HUMULIN R SUBQ ONE (04:03)
[2019-06-20] MEDS ORDERED: ROCEPHIN 1 GM in NS 50 ML IV ONE (04:04)
[2019-06-20] MEDS ORDERED: ZITHROMAX 500 MG/NS 500 MG/250 ML IVPB IV ONE (04:06)
[2019-06-20 04:15] LABS: ALLEN TEST YES; BE -8.3 mmoll (-3.0-3.0); BLOOD TYPE ARTERIAL; HCO3-(ACT) 18.5 mmoll (20.0-26.0); O2(CT) 11.2 mL/dL (15.0-23.0); O2HB 96.1 % (95.0-99.0); PCO2(98.6) 33 mmHg (35-45); PO2(98.6) 88 mmHg (60-100); SAMPLE BLOOD; SAO2 98.7 % (95.0-100.0); THB 8.2 g/dL (11.5-17.4); pH(98.6) 7.32 (7.35-7.45)
[2019-06-20 04:16] LABS: MODALITY ROOM AIR
[2019-06-20] MEDS ORDERED: D5 1/2 NS 1,000 ML IV PRN (05:06)
[2019-06-20] MEDS ORDERED: HUMULIN R IV ONE (05:06)
[2019-06-20] MEDS ORDERED: TYLENOL PO PRN ×2 (05:06→05:23)
[2019-06-20] MEDS ORDERED: D50W SYRINGE IV PRN (05:06)
[2019-06-20] MEDS ORDERED: ZOFRAN IV PRN (05:06)
[2019-06-20] MEDS ORDERED: HUMULIN R 100 UNIT in NS 100 ML IV SCH (05:15)
[2019-06-20] MEDS ORDERED: NS 1,000 ML IV SCH (05:15)
[2019-06-20] MEDS: PROTONIX IV SCH (06:11)
--- NOTE | 2019-06-20 06:23 | HISTORY AND PHYSICAL ---
PRIMARY CARE PHYSICIAN: Dr. Shirley Holden MD SKIN DIVER: Dr. Claudio Stephens. CHIEF COMPLAINT: "I had cold symptoms for 1 week and I have no appetite." HISTORY OF PRESENT ILLNESS: Mr. Lynch is a 69-year-old male with a history of insulin-dependent diabetes mellitus type 2, chronic transplant glomerular nephropathy stage 3, hypertension and peripheral arterial disease, who presented to the ER with a chief complaint of cold symptoms for the last week. The patient reports that he has been having fevers, persistent coughing, as well as nausea and vomiting. The patient also reports that his appetite has been very poor. He states that he has been taking his medications as prescribed. He denies having any chest pain. He does complain of mild shortness of breath. In the ER, the patient was noted to have a blood glucose of 788. He was noted to be acetone negative. He was also noted to have a urinary tract infection. While in the ER, the patient received 2 L of normal saline and 10 units of regular insulin. He also received a dose of Rocephin. PAST MEDICAL HISTORY: 1. Diabetes mellitus type 2, insulin dependent. 2. Hypertension. 3. Chronic transplant glomerular nephropathy stage 3. 4. History of CVA. 5. Hyperlipidemia. 6. Chronic constipation. 7. Peripheral arterial disease. 8. History of C. Difficile colitis in April of 2019. PAST SURGICAL HISTORY: 1. Renal transplant in 2009 at [facility]. 2. Right below the knee amputation. 3. Cholecystectomy. 4. Cataract surgery. FAMILY HISTORY: Reviewed and noncontributory. SOCIAL HISTORY: The patient lives with his family. He denies any tobacco, alcohol or illicit drug use. ALLERGIES: Bactrim. HOME MEDICATIONS: 1. Tylenol 650 mg oral every 6 hours p.r.n. 2. Albuterol 2.5 mg nebulized every 4 hours p.r.n. 3. Norvasc 10 mg p.o. daily. 4. Aspirin 81 mg p.o. every morning. 5. Chlorthalidone 12.5 mg oral daily. 6. Questran 4 g oral twice a day. 7. Catapres 0.1 mg oral twice a day. 8. Vitamin B12 1000 mcg oral daily. 9. Colace 100 mg oral daily p.r.n. 10. Folic Acid 1 mg oral daily. 11. [place] 10/325 one tab oral every 4 hours p.r.n. for pain. 12. Lantus 22 units subcutaneous every morning. 13. Lopressor 50 mg oral twice a day. 14. Mycophenolate 720 mg oral twice a day. 15. Protonix 40 mg p.o. daily. 16. Prednisone 7.5 mg oral daily. 17. Prograf 2 mg oral twice a day. 18. Sodium bicarb 650 mg oral twice a day. REVIEW OF SYSTEMS: A 12-point review of systems has been performed. Please refer to the history of present illness for pertinent positives and negatives. PHYSICAL EXAMINATION: VITAL SIGNS: Temperature 98.4 degrees, blood pressure 158/86, heart rate 92, respirations 18, and O2 saturations 98% on room air. GENERAL: This is a chronically ill-appearing elderly male lying comfortably on the stretcher. SKIN: No rashes. No lesions. Poor skin turgor. HEAD: Normocephalic, atraumatic. Eyes: Conjunctiva clear. EOMI, PERRLA. NECK: Supple. No JVD. No lymphadenopathy. No carotid bruit. HEART: S1, S2 normal. Regular rate and rhythm. LUNGS: Equal air entry bilaterally. No wheezing. No rales. No rhonchi. ABDOMEN: Positive bowel sounds. Soft, nontender, and nondistended. EXTREMITIES: The patient has a right uzbwd-[id number]-[id number] amputation stump. No edema. No peripheral edema noted in the left leg. NEUROLOGIC: The patient is alert and oriented x4. No focal neurologic deficits noted. Cranial nerves 2 through 12 intact. LABORATORY: White blood cell count 11.3, hemoglobin 8.5, hematocrit 27.8, and platelets 167,000. ABG pH 7.32, pCO2 33, PO2 88, bicarb 18, sodium 124, potassium 5.3, chloride 93, CO2 17, BUN 87, creatinine 3.5, glucose 788, calcium 8.8, AST 24, ALT 20, alkaline phosphatase 90, troponin 0.06, total protein 6.2, albumin 2.5, and lipase 61. UA 2+ bacteria. Large leukocytes, small blood. Positive for urine WBCs. Acetone negative. EKG shows normal sinus rhythm with a heart rate of 89 beats per minute. ASSESSMENT AND PLAN: 1. DKA . The patient will be started on IV fluids and an insulin drip. We will monitor the patient's blood sugars closely as per the protocol. We will transition the patient to subcutaneous insulin once his blood sugars and acid base status has improved. 2. Urinary tract infection. We will obtain a urine culture. The patient received Rocephin in the ER. The patient grew out pseudomonas in the urine and blood in April. Will start zosyn. 3. Acute kidney injury on chronic transplant glomerular nephropathy stage 3. The patient is receiving IV fluids. We will also check urine studies and consult with the can cutter. We will also order a renal ultrasound. 4. Hypertension. Continue on Lopressor and Norvasc. 5. History of cerebrovascular accident. Continue on aspirin. 6. Hyponatremia. This should improve as the patient's blood glucose improves. We will monitor closely. 7. Severe protein calorie malnutrition. Will consult with the dietitian. 8. Anemia. Will check iron studies. 9. Gastroesophageal reflux disease. Continue on Protonix. 10. Deep vein thrombosis prophylaxis. Will start the patient on heparin. cc: Shanae Randall MD MTDAna Rosa
--- NOTE | 2019-06-20 06:25 | Diag Imaging Result Doc PS360 ---
CHEST-1 VIEW - 06/20/2019 3:30 AM INDICATION: Post central line placement. COMPARISON: 12:27 AM FINDINGS: There is a right internal jugular central line in good position with the catheter tip at the lower SVC. No new abnormalities. IMPRESSION: Good central line placement with no complication. Electronically signed by Too Arriaga 06/20/2019 6:23 AM
--- NOTE | 2019-06-20 06:25 | Diag Imaging Result Doc PS360 ---
CHEST-PORTABLE - 06/20/2019 INDICATION: fever COMPARISON: 05/04/2019 FINDINGS: There is a hazy infiltrate or atelectasis in the right lung base. This was present previously but has improved since prior. Heart size is normal. No pneumothorax or pleural effusion. IMPRESSION: Improving right basilar infiltrate. Electronically signed by Too Arriaga 06/20/2019 6:22 AM
[2019-06-20 07:54] LABS: BASO# 0.01 X1000 (0.0-0.2); BASO% 0.1 % (0.0-0.8); EOS# 0.03 X1000 (0.0-0.7); EOS% 0.2 % (0.0-10.0); HEMATOCRIT 23.6 % (42.0-52.0); HEMOGLOBIN 7.5 g/dL (14.0-18.0); IMM GRAN# 0.04 X1000 (0.0-0.04); IMM GRAN% 0.3 % (0.0-0.5); LYMPH# 0.97 X1000 (1.2-3.4); LYMPH% 7.6 % (20.5-51.1); MCH 27.8 PG (27-31); MCHC 31.8 g/dL (33-37); MCV 87.4 FL (81-99); MONO# 0.45 X1000 (0.11-0.59); MONO% 3.5 % (1.7-9.3); MPV 12.5 FL (7.4-10.4); NEUT# 11.23 X1000 (1.4-6.5); NEUT% 88.3 % (42.2-75.2); PLT 182 X1000 (130-400); RDW 14.8 % (11.5-14.5); WBC 12.73 X1000 (4.8-10.8)
--- NOTE | 2019-06-20 08:00 | Diag Imaging Result Doc PS360 ---
US RENAL 2 (RETROPER) COMPLETE - 06/20/2019 INDICATION: luna/arf TECHNIQUE: COMPARISON: CT from 04/19/2019 FINDINGS: There is a renal transplant in the right side of the pelvis. There is no hydronephrosis. Renal size and background echotexture is normal. The size measures 13.6 x 6.4 x 5.4 cm. Cortex measures 1.5 cm. No mass or shadowing renal stone. There are several cysts measuring up to 2.3 cm. No mass. The [place] kidneys are extremely atrophic measuring 6.5 cm on the right and 6.1 cm on the left. IMPRESSION: Several benign cysts of the right pelvic renal transplant. No acute abnormality. Electronically signed by Too Arriaga 06/20/2019 7:58 AM
[2019-06-20 08:19] LABS: CALCIUM 8.8 mg/dL (8.8-10.2); CREATININE 3.2 mg/dL (0.7-1.2); MAGNESIUM 1.6 mg/dL (1.5-2.7); PHOSPHORUS 3.5 mg/dL (2.7-4.5); POTASSIUM 4.6 mmol/L (3.5-5.1)
[2019-06-20 08:27] LABS: BANDS 6 % (0-1); LYMPHS 6 % (21-51); MONO 6 % (1-9); SEGS 82 % (42-75)
[2019-06-20 08:28] LABS: HYPOCHROM 1+; LARGE PLATELETS 1+
[2019-06-20 08:47] LABS: CALCIUM 8.4 mg/dL (8.8-10.2); CREATININE 3.2 mg/dL (0.7-1.2)
[2019-06-20 09:37] LABS: ALBUMIN 2.8 g/dL (3.5-5.0); PHOSPHORUS 3.4 mg/dL (2.7-4.5); POTASSIUM 4.6 mmol/L (3.5-5.1)
[2019-06-20] MEDS ORDERED: ZOSYN 2.25 GM in NS 50 ML IV SCH (10:00)
[2019-06-20] MEDS: NORVASC PO SCH (10:07)
[2019-06-20] MEDS: PROGRAF PO SCH ×2 (10:07→20:51)
[2019-06-20] MEDS: TESSALON PO SCH ×3 (10:07→20:52)
[2019-06-20] MEDS: LOPRESSOR PO SCH ×2 (10:07→21:06)
[2019-06-20] MEDS: PREDNISONE PO SCH (10:08)
[2019-06-20 10:46] LABS: CALCIUM 8.5 mg/dL (8.8-10.2); CREATININE 3.2 mg/dL (0.7-1.2); POTASSIUM 4.2 mmol/L (3.5-5.1)
[2019-06-20 11:22] LABS: URINE SOURCE CATH
[2019-06-20 11:30] LABS: BILIRUBIN URINE NEGATIVE (NEGATIVE); BLOOD URINE MODERATE (NEGATIVE); COLOR ORANGE; GLUCOSE URINE NEGATIVE (NEGATIVE); KETONE URINE NEGATIVE (NEGATIVE); LEUKOCYTES URINE LARGE (NEGATIVE); NITRITE URINE NEGATIVE (NEGATIVE); PH URINE 5.5; PROTEIN URINE 50 mg/dL (NEGATIVE); SP GRAVITY URINE 1.008; TURBIDITY URINE HAZY (CLEAR); UR EPITHELIAL CELLS <10 /HPF (<10); URINE BACTERIA NEGATIVE /HPF; URINE RBC <10 /HPF (<10); URINE WBC TNTC /HPF (<10); UROBILINOGEN URINE NORMAL (NORMAL)
[2019-06-20] MEDS ORDERED: D5 NS 1,000 ML IV SCH (11:30)
[2019-06-20] MEDS ORDERED: D5 1/2 NS 1,000 ML IV SCH (11:45)
[2019-06-20] MEDS: DUONEB (A & A) INH SCH ×3 (12:02→21:34)
[2019-06-20 12:17] LABS: UR CREAT RANDOM 37.7 mg/dL (14-26); UR PROT RANDOM 48.8 mg/dL
[2019-06-20] MEDS: HEPARIN SUBQ SCH ×2 (12:54→20:52)
[2019-06-20 14:00] LABS: CALCIUM 8.3 mg/dL (8.8-10.2); POTASSIUM 4.6 mmol/L (3.5-5.1)
[2019-06-20 14:03] LABS: INR 1.49; PROTIME 18.3 Seconds (11.0-16.0)
[2019-06-20 14:04] LABS: PTT 39.6 Seconds (22.3-41.8)
[2019-06-20] MEDS ORDERED: LANTUS INSULIN SUBQ ONE (16:46)
[2019-06-20] MEDS: NS 1,000 ML IV SCH (16:54)
[2019-06-20] MEDS ORDERED: HUMULIN R SUBQ SCH ×2 (17:00→17:57)
[2019-06-20] MEDS: PATIENT'S OWN MED PO SCH ×2 (17:54→20:55)
--- NOTE | 2019-06-20 18:25 | PROGRESS NOTE ---
DATE: 06/20/2019 He is followed by Dr. Shirley Holden, Dr. Saul Stephens. He had cold symptoms for a week. No appetite. This is a 69-year-old with history of insulin-dependent diabetes mellitus type 2, chronic transplant glomerulonephropathy stage III, hypertension, peripheral artery disease, who presented to the ER with chief complaint of cold symptoms for the last week. The patient reports he has been having fever, persistent coughing, as well as nausea and vomiting. Reports his appetite is very poor. States that he has been taking his medication as prescribed. Denies having any chest pain. He does complain of shortness of breath noted to have a glucose was 788. Noted acetone was negative. Noted to have urinary tract sediment as well. Received 2 L of normal saline and 10 units of regular insulin. Admitted with diabetic ketoacidosis. OBJECTIVE: Today he was sitting up eating seemed to feel good. His temperature maximum was 101.5 degrees, pulse 66, respirations 17, blood pressure 134/55. Pupils are equal and round. Lungs are clear in all lung goldsmith. Cardiovascular: Regular rhythm and rate without murmur or S3. Abdomen is soft. Skin is warm and dry. DIAGNOSTIC STUDIES: Blood sugars 500 and 367 are the last blood sugars. Electrolytes when he presented: Sodium 137, potassium 4.7, chloride 101. BUN 80, creatinine 3.2, albumin 2.8. Lactate was 0.8 this morning. Blood gas: PH is 7.32, pCO2 was 33, PO2 was 88, O2 saturations were 96%, his bicarbonate was 14. Renal ultrasound revealed several benign cysts of the right pelvic renal transplant. No acute abnormality otherwise. ASSESSMENT AND PLAN: 1. Diabetic ketoacidosis. Continue fluids. Seems to be doing better. He is eating. Sugar is coming down nicely. 2. Urinary tract infection. Treated with Rocephin in the emergency room. The patient grew out Pseudomonas in the urine in April so started on Zosyn as well. 3. Acute kidney injury on chronic transplant glomerulonephropathy, stage 3. The patient is getting some fluids. Nephrology Dr. Stephens will follow along. 4. Hypertension. On Lopressor, Norvasc. 5. History of cerebrovascular accident. 6. Hyponatremia. 7. Severe protein-calorie malnutrition. 8. Anemia. Check iron studies. 9. Gastroesophageal reflux history. Put on Protonix. REVIEW OF ORDERS: I do not see any change. cc: MD RAMIN Rizvi
[2019-06-20] MEDS ORDERED: CALMOSEPTINE OINTMENT TOP PRN (18:32)
[2019-06-20] MEDS: ZOSYN 2.25 GM in NS 50 ML IV SCH (18:34)
[2019-06-20] MEDS: SODIUM BICARBONATE PO SCH (20:51)
[2019-06-20] MEDS: HUMULIN R SUBQ SCH (21:06)
--- NOTE | 2019-06-20 21:15 | NEPHROLOGY CONSULTATION ---
DATE: 06/20/2019 REASON FOR CONSULTATION: Acute kidney injury overlying chronic kidney disease. HISTORY OF PRESENT ILLNESS: Mr. Lynch is a 69-year-old male who is well known to us. He has diabetes and hypertension. He has end-stage kidney disease treated with renal transplantation many years ago. He has good baseline allograft function, but he did have a recent admission with acute kidney injury requiring dialysis in April. Prior to that, creatinine was 1.1. Creatinine as low as 1.8 to 2.1 at time of discharge in late April. He discontinued dialysis at that point. I did not have any new data until he came to the emergency room for admission. He came in with cough, fever, nausea, shortness of breath. He is really not able to relate clearly what happened to him. He does have a low appetite. He was evaluated in the emergency room at which time his initial vital signs found blood pressure 158/86, but heart rate 124 and he was afebrile. He was evaluated and treated for presumed sepsis and given IV ceftriaxone and azithromycin. His routine home immunosuppression was continued with prednisone, tacrolimus, mycophenolate. He was given IV fluid resuscitation as well. In this context, his creatinine was 3.5 on presentation, 3.2 this morning 8 hours later. PAST MEDICAL HISTORY: As above. HOME MEDICATIONS: Include insulin, prednisone, tacrolimus, aspirin, metoprolol, mycophenolate, docusate, amlodipine, clonidine, vitamin B, sodium bicarbonate, hydrocodone, chlorthalidone, amlodipine, lactobacillus, loperamide, levofloxacin, pantoprazole, albuterol, folate. The patient is not able to clarify this list. ALLERGIES: Trimethoprim and sulfa. SOCIAL HISTORY: No alcohol or tobacco. Lives with his family. FAMILY HISTORY: Noncontributory. REVIEW OF SYSTEMS: Noncontributory. PHYSICAL EXAMINATION: Vital Signs: Blood pressure 143/59, heart rate 63, respirations 17, afebrile. Generally: No acute distress. Pale and unkempt. His speech is thick and slurred. Difficult to understand. Skin: Pale and dry with a few ecchymoses. Conjunctivae are pink. Pupils are equal. Oropharynx is dry. Neck: Supple. Neck veins are appreciated with hepatojugular reflux, 6 cm. Heart: PMI is nondisplaced. Regular rate and rhythm without gallops, murmurs, rubs. Lungs: Have equal excursion and equal breath sounds. No crackles or wheezes. Abdomen: Soft, nontender. Bowel sounds present. He is tender over his transplant in the right lower quadrant. Extremities: No edema, clubbing or cyanosis. IMPRESSION: 1. Acute kidney injury with pyelonephritis. He had pyelonephritis during his last hospitalization and grew Pseudomonas aeruginosa from both blood and urine cultures. This organism was sensitive to 3rd generation cephalosporins as well as levofloxacin. He is currently being treated with ceftriaxone, so we will continue that therapy and await new culture data. Imaging found normal appearing transplanted kidney. Urine electrolytes demonstrate high FENA. 2. He appears euvolemic, so we will minimize his fluids at this time. 3. Electrolytes/acid base acceptable. His hyponatremia has resolved. He does have a moderate metabolic acidosis, but normal anion gap. cc: Claudio Stephens MD
[2019-06-21] MEDS: HUMULIN R SUBQ SCH ×6 (01:00→22:51)
[2019-06-21] MEDS: DUONEB (A & A) INH SCH ×4 (03:30→21:30)
[2019-06-21] MEDS ORDERED: ROCEPHIN 1 GM in NS 50 ML IV SCH (04:00)
[2019-06-21] MEDS: NS 1,000 ML IV SCH (04:06)
[2019-06-21] MEDS: HEPARIN SUBQ SCH ×3 (04:08→21:11)
[2019-06-21] MEDS: ZOSYN 2.25 GM in NS 50 ML IV SCH ×3 (04:08→19:12)
[2019-06-21] MEDS: PROTONIX IV SCH (06:13)
[2019-06-21 06:25] LABS: BASO# 0.03 X1000 (0.0-0.2); BASO% 0.3 % (0.0-0.8); EOS# 0.02 X1000 (0.0-0.7); EOS% 0.2 % (0.0-10.0); HEMATOCRIT 25.5 % (42.0-52.0); HEMOGLOBIN 8.1 g/dL (14.0-18.0); IMM GRAN# 0.03 X1000 (0.0-0.04); IMM GRAN% 0.3 % (0.0-0.5); LYMPH# 1.44 X1000 (1.2-3.4); LYMPH% 12.6 % (20.5-51.1); MCH 29.3 PG (27-31); MCHC 31.8 g/dL (33-37); MCV 92.4 FL (81-99); MONO# 0.31 X1000 (0.11-0.59); MONO% 2.7 % (1.7-9.3); MPV 12.9 FL (7.4-10.4); NEUT# 9.59 X1000 (1.4-6.5); NEUT% 83.9 % (42.2-75.2); PLT 157 X1000 (130-400); RBC 2.76 XMIL (4.7-6.1); RDW 15.8 % (11.5-14.5); WBC 11.42 X1000 (4.8-10.8)
[2019-06-21 07:00] LABS: ALBUMIN 1.8 g/dL (3.5-5.0); CALCIUM 8.6 mg/dL (8.8-10.2); CREATININE 2.8 mg/dL (0.7-1.2); PHOSPHORUS 3.8 mg/dL (2.7-4.5); POTASSIUM 4.5 mmol/L (3.5-5.1)
--- NOTE | 2019-06-21 07:02 | Diag Imaging Result Doc PS360 ---
CHEST-PORTABLE - 06/21/2019 INDICATION: pneumonia COMPARISON: 06/20/2019 FINDINGS: Stable right central line in good position. Stable patchy nonspecific infiltrates or atelectasis in both lung bases. Stable severely low lung volumes. Heart size and pulmonary vascularity remain normal. No significant pleural effusion. IMPRESSION: No change from prior. Mild patchy nonspecific bibasilar infiltrates or atelectasis. Electronically signed by Too Arriaga 06/21/2019 6:59 AM
--- NOTE | 2019-06-21 07:15 | ECHO REPORT ---
ORDER DATE: 06/20/2019 MEASUREMENTS: Septal thickness 1.5, left ventricular internal diameter diastole 4.5, posterior wall thickness 1.5, aortic root 3.3, left atrium 3.6. SUMMARY: 1. Fair quality study. 2. Aortic valve is trileaflet and opens adequately on 2-dimensional images. Peak gradient across the aortic valve is less than 10 mmHg. Mild mitral annular calcification is demonstrated. There is mild mitral regurgitation. Tricuspid valve without evidence of structural abnormality. Pulmonic valve not well demonstrated. The aortic root is normal size. 3. Normal left ventricular chamber size with moderate concentric left hypertrophy is demonstrated. Estimated left ejection fraction appears to be at least 60%. No regional wall motion abnormalities are evident. Left atrium, right atrium and right ventricle are normal size with grossly preserved right ventricular systolic function. 4. No pericardial effusion. 5. Appearance of inferior vena cava suggests normal central venous pressure. CONCLUSIONS: 1. Mild mitral annular calcification with mild mitral regurgitation. 2. Moderate concentric left hypertrophy with estimated left ventricular ejection fraction at least 60%. cc: MD Claudio Lange MD
[2019-06-21] MEDS: NORVASC PO SCH (09:30)
[2019-06-21] MEDS: PREDNISONE PO SCH (09:30)
[2019-06-21] MEDS: LOPRESSOR PO SCH ×2 (09:30→21:11)
[2019-06-21] MEDS: TESSALON PO SCH ×3 (09:30→21:11)
[2019-06-21] MEDS: LANTUS INSULIN SUBQ SCH (09:30)
[2019-06-21] MEDS: SODIUM BICARBONATE PO SCH ×2 (09:30→21:11)
[2019-06-21] MEDS: PROGRAF PO SCH ×2 (09:31→21:11)
[2019-06-21] MEDS: PATIENT'S OWN MED PO SCH ×2 (09:32→21:11)
--- NOTE | 2019-06-21 13:13 | PROGRESS NOTE ---
DATE: 06/21/2019 SUBJECTIVE: Mr. Lynch is feeling good. He is eating lunch. Good appetite. No complaints of pain. OBJECTIVE: Vital Signs: Temperature 98.2 degrees, pulse 75, respirations 18, blood pressure 126/92. Eyes: Pupils are equal and round. Lungs: Clear in all lung goldsmith. Cardiovascular: Regular rhythm and rate without murmur or S3. Blood sugar 367, 92 and 135. X-RAYS: Chest x-ray: No change. Mild patchy nonspecific bibasilar infiltrates, looks like atelectasis. ASSESSMENT AND PLAN: 1. Acute kidney injury with pyelonephritis. He had pyelonephritis during his last hospitalization, grew out Pseudomonas aeruginosa from both blood and urine cultures. This organism was sensitive to third generation cephalosporins, as well as levofloxacin. So, currently on ceftriaxone. Await culture data. His volume status, electrolytes look okay. His electrolytes demonstrate high FENa. 2. Appears euvolemic. 3. Acid base. Electrolytes look good. 4. History of cerebrovascular accident in the past. 5. History of hypertension. 6. History of hyponatremia. 7. Severe protein calorie malnutrition in the past. He seems to be eating well. Good oral intake. Continue his present antibiotics. He is on Zosyn 2.25 g intravenous every 8 hours and ceftriaxone was discontinued. He got a dose yesterday. cc: Noble Fisher MD
--- NOTE | 2019-06-21 20:13 | NEPHROLOGY PROGRESS NOTE ---
DATE: 06/21/2019 Subjective: Patient sitting up in bed eating breakfast voice is feeling better today. Objective: Vital signs: temperature 98.3, heart rate 58, respirations 16, blood pressure 142/66, 99% on room air. General: elderly male sitting up in bed in no acute distress. Skin: Scattered bruises to all extremities. HEENT: atraumatic, normocephalic. conjunctiva pink, equal round and reactive, Moist mucous membranes. Neck: supple, no JVD appreciated. Cardiovascular: Regular rate and rhythm with no gallops or murmurs. PMI non- displaced. Lungs: Clear with Bilateral diminished bases. Abdomen: soft, nondistended, slight tenderness over right kidney but improved from yesterday. : Kat in place Extremities: right below knee amputation. No edema. Labs: WBC 11.4, RBC 2.76, hemoglobin 8.1, hematocrit 25.5, platelet count 157, sodium 137, potassium 4.5, chloride 110, carbon dioxide 13, anion gap 14, BUN 74, creatinine 2.8, estimated GFR 23, calcium 8.6, phosphorus 3.8, albumin 1.8. Intake 2918 output 1350. Impression: Acute kidney injury with pyelonephritis. His BUN and creatinine are trending down. Blood cultures are still pending. Urine culture preliminary Gram negative rods. He remains on antibiotics dosed appropriately. Electrolytes. In target. Non-anion gap acidosis. Worsened today with a CO2 of 13. We will stop Normal saline fluids, patient is eating and drinking appropriately. Anemia. Improved from yesterday. Does not meet transfusion criteria. cc: MD RAMIN Yu
[2019-06-22] MEDS: HUMULIN R SUBQ SCH ×6 (01:44→20:53)
[2019-06-22] MEDS: DUONEB (A & A) INH SCH ×4 (03:37→21:15)
[2019-06-22] MEDS: ZOSYN 2.25 GM in NS 50 ML IV SCH ×3 (04:09→20:51)
[2019-06-22] MEDS: HEPARIN SUBQ SCH ×3 (04:09→20:51)
[2019-06-22] MEDS: PROTONIX IV SCH (06:09)
[2019-06-22] MEDS: SODIUM BICARBONATE PO SCH ×2 (09:18→21:05)
[2019-06-22] MEDS: LOPRESSOR PO SCH ×2 (09:18→20:52)
[2019-06-22] MEDS: TESSALON PO SCH ×3 (09:18→20:52)
[2019-06-22] MEDS: PROGRAF PO SCH ×2 (09:18→20:52)
[2019-06-22] MEDS: NORVASC PO SCH (09:19)
[2019-06-22] MEDS: PATIENT'S OWN MED PO SCH ×2 (09:19→20:52)
[2019-06-22] MEDS: PREDNISONE PO SCH (09:19)
[2019-06-22] MEDS: LANTUS INSULIN SUBQ SCH (09:52)
[2019-06-22 10:59] LABS: ALBUMIN 2.4 g/dL (3.5-5.0); CALCIUM 8.8 mg/dL (8.8-10.2); CREATININE 3.2 mg/dL (0.7-1.2); POTASSIUM 4.3 mmol/L (3.5-5.1)
[2019-06-22 11:05] LABS: BASO# 0.01 X1000 (0.0-0.2); BASO% 0.1 % (0.0-0.8); EOS# 0.03 X1000 (0.0-0.7); EOS% 0.3 % (0.0-10.0); HEMATOCRIT 26.9 % (42.0-52.0); HEMOGLOBIN 8.3 g/dL (14.0-18.0); IMM GRAN# 0.04 X1000 (0.0-0.04); IMM GRAN% 0.4 % (0.0-0.5); LYMPH# 0.92 X1000 (1.2-3.4); LYMPH% 9.4 % (20.5-51.1); MCH 27.7 PG (27-31); MCHC 30.9 g/dL (33-37); MCV 89.7 FL (81-99); MONO# 0.47 X1000 (0.11-0.59); MONO% 4.8 % (1.7-9.3); MPV 12.5 FL (7.4-10.4); NEUT# 8.31 X1000 (1.4-6.5); PLT 225 X1000 (130-400); RDW 15.6 % (11.5-14.5); WBC 9.78 X1000 (4.8-10.8)
[2019-06-22 11:35] LABS: BANDS 6 % (0-1); LYMPHS 8 % (21-51); MONO 2 % (1-9); SEGS 84 % (42-75)
[2019-06-22 11:36] LABS: POIKILOCYTOSIS 1+
--- NOTE | 2019-06-22 13:58 | NEPHROLOGY PROGRESS NOTE ---
DATE: 06/22/2019 Subjective: Patient lying in bed watching TV voices he feels OK. Objective: vital signs. Temperature 97.4, pulse 71, respirations 18, blood pressure 139/68, 100% oxygen on room air. General: elderly male sitting up in bed no acute distress Skin: scattered bruises to upper extremities HEENT: a traumatic normocephalic conjunctiva are pink, equal round and reactive, moist mucous membranes. Neck: supple no JVD appreciated Cardiovascular: regular rate and rhythm, no murmur or Gallop Abdomen: soft nondistended nontender bowel sounds present : Kat in place Extremities: right below knee amputation no edema present Labs: intake 850/ output 1450 Impression: Acute kidney injury with pyelonephritis. Blood cultures are still pending. Urine culture came back with pseudomonas aeruginosa, patient is already on Zosyn. Electrolytes. In target. Non anion gap acidois. Stable. Anemia. Stable, does not meet transfusion criteria. cc: Claudio Stephens MD MTDD
--- NOTE | 2019-06-22 16:02 | PROGRESS NOTE ---
DATE: 06/22/2019 SUBJECTIVE: They were asking if they could use his IV access. He is apparently very difficult to draw blood. I reminded them we need to be very careful with septic technique given his immune compromised status with kidney transplant. He feels better, doing better. OBJECTIVE: Temperature 97.9 degrees, pulse 70, respirations 17, blood pressure 144/69.HEENT: Pupils are equal round. Lungs: Clear in all lung goldsmith. Cardiovascular: Regular rhythm and rate without murmur or S3. Abdomen: Soft. Skin: Warm and dry. DATA: Urine output yesterday was 3200 mL. ASSESSMENT AND PLAN: 1. Acute kidney injury associated with transplant pyelonephritis Pseudomonas aeruginosa. Antibiotics adjusted appropriately. Pain over his transplant has resolved. Ultrasound was unremarkable. Continue present treatment. 2. Appears euvolemic. 3. Acid-base status looks good. 4. History of cerebrovascular accident in the past. 5. Hypertension. Blood pressure is controlled. 6. Hyponatremia, which is resolving. 7. Protein calorie malnutrition. LABORATORY DATA: Review of his lab from today white count 9780, which has come down. Hematocrit 26, hemoglobin 8.3, platelet count 225,000. Sodium 139, potassium 4.3, chloride 109, BUN 70, creatinine 3.2. Blood sugars 135, 143. Reviewed his orders and do not see any change at this time. cc: Noble Fisher MD
[2019-06-23] MEDS: HUMULIN R SUBQ SCH ×6 (00:19→21:31)
[2019-06-23] MEDS: DUONEB (A & A) INH SCH ×4 (03:13→21:29)
[2019-06-23] MEDS: HEPARIN SUBQ SCH ×3 (06:08→21:31)
[2019-06-23] MEDS: PROTONIX IV SCH (06:08)
[2019-06-23] MEDS: ZOSYN 2.25 GM in NS 50 ML IV SCH ×3 (06:19→21:31)
[2019-06-23 07:09] LABS: ALBUMIN 2.7 g/dL (3.5-5.0); CALCIUM 8.5 mg/dL (8.8-10.2); CREATININE 3.2 mg/dL (0.7-1.2); PHOSPHORUS 4.6 mg/dL (2.7-4.5); POTASSIUM 4.8 mmol/L (3.5-5.1)
[2019-06-23] MEDS: TESSALON PO SCH ×3 (08:58→21:31)
[2019-06-23] MEDS: LOPRESSOR PO SCH ×2 (08:58→21:31)
[2019-06-23] MEDS: LANTUS INSULIN SUBQ SCH (08:58)
[2019-06-23] MEDS: PREDNISONE PO SCH (08:58)
[2019-06-23] MEDS: PROGRAF PO SCH ×2 (08:58→21:31)
[2019-06-23] MEDS: SODIUM BICARBONATE PO SCH ×2 (08:59→21:31)
[2019-06-23] MEDS: NORVASC PO SCH (08:59)
[2019-06-23] MEDS: PATIENT'S OWN MED PO SCH ×2 (09:00→21:31)
--- NOTE | 2019-06-23 10:41 | NEPHROLOGY PROGRESS NOTE ---
DATE: 06/23/2019 Subjective: patient awake lying in bed, watching TV. He denies any shortness of breath, chest pain, nausea and vomiting, orthopnea, and morning sickness. Objective: vital signs. Temperature 98.2, pulse 70, respirations 16, blood pressure 151/68, 100% on room air. General: elderly male lying in bed no acute distress Skin: scattered bruises to upper extremities HEENT: a traumatic normocephalic conjunctiva are pink, equal round and reactive, moist mucous membranes. 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 Continue current IV antibiotics. Continue routine transplant medications. Insignificant changes to creatinine, today it is 3.2. Physical therapy and occupational therapy today. Electrolytes. In target. Non anion gap acidosis. Improving. Anemia. Stable, does not meet transfusion criteria. cc: Claudio Stephens MD MTDD
--- NOTE | 2019-06-23 13:58 | PROGRESS NOTE ---
DATE: 06/23/2019 SUBJECTIVE: Mr. Lynch feels much better. He remains afebrile. He is eating well. Bowels are moving good. OBJECTIVE: Vital Signs: Temperature 97.8 degrees, pulse 72, respirations 15, blood pressure 138/73. Eyes: Pupils are equal and round. Lungs: Clear in all lung goldsmith. Cardiovascular exam: Regular rhythm and rate without murmur or S3. Abdomen: Soft. Skin: Warm and dry. : Urine output is 1300 mL. Blood sugar 257, 147 and 150. ASSESSMENT AND PLAN: 1. 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 Continue present antibiotic. Continue his routine immunosuppressives for his kidney transplant. 2. He appears euvolemic. 3. Acid-base status looks good. 4. History of cerebrovascular accident in the past. 5. Hypertension. 6. Hyponatremia seems to have resolved. Sodium 139, potassium 4.8, chloride 108. BUN 65, creatinine 3.2. Creatinine has gone up a little bit from 2.8 when he came in. Continue current medications. cc: Noble Fisher MD
[2019-06-24] MEDS: HUMULIN R SUBQ SCH ×7 (00:33→23:08)
[2019-06-24] MEDS: DUONEB (A & A) INH SCH ×4 (03:47→21:20)
[2019-06-24] MEDS: ZOSYN 2.25 GM in NS 50 ML IV SCH ×3 (05:08→20:59)
[2019-06-24] MEDS: HEPARIN SUBQ SCH ×3 (05:08→20:59)
[2019-06-24] MEDS: SODIUM CHLORIDE 0.9% INJ SCH (06:09)
[2019-06-24] MEDS: PROTONIX IV SCH (06:09)
[2019-06-24 06:25] LABS: ALBUMIN 2.2 g/dL (3.5-5.0); CALCIUM 8.1 mg/dL (8.8-10.2); CREATININE 3.1 mg/dL (0.7-1.2); PHOSPHORUS 4.5 mg/dL (2.7-4.5); POTASSIUM 4.5 mmol/L (3.5-5.1)
[2019-06-24] MEDS: PREDNISONE PO SCH (08:53)
[2019-06-24] MEDS: LOPRESSOR PO SCH ×2 (08:53→20:59)
[2019-06-24] MEDS: NORVASC PO SCH (08:53)
[2019-06-24] MEDS: TESSALON PO SCH ×3 (08:53→20:59)
[2019-06-24] MEDS: SODIUM BICARBONATE PO SCH ×2 (08:54→20:59)
[2019-06-24] MEDS: PATIENT'S OWN MED PO SCH ×2 (08:54→21:00)
[2019-06-24] MEDS: LANTUS INSULIN SUBQ SCH (08:54)
[2019-06-24] MEDS: PROGRAF PO SCH ×2 (08:54→20:59)
--- NOTE | 2019-06-24 13:35 | PROGRESS NOTE ---
DATE: 06/24/2019 SUBJECTIVE: Mr. Lynch is feeling better and eating better. No fever. OBJECTIVE: Temperature 97.9 degrees, pulse 64, respirations 15, and blood pressure 139/71. Pupils are equal and round. Lungs are clear in all lung goldsmith. Cardiovascular exam with regular rhythm and rate without murmur or S3. Urine output is 1700 mL. Blood sugar 257, 124 and 225. ASSESSMENT AND PLAN: 1. 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 This was cultured. Continue present antibiotics. 2. Appears euvolemic. 3. Acid-base status looks good. 4. History of cerebrovascular accident in the past. 5. Hypertension. 6. Hyponatremia, which is resolving. 7. I do not see any change in his current orders. We will discuss with Dr. Stephens the plans. Continue his present intravenous antibiotics. Continue his transplant medications. Creatinine today appears to be stable. Continue physical and occupational therapy. cc: Noble Fisher MD
--- NOTE | 2019-06-24 16:41 | NEPHROLOGY PROGRESS NOTE ---
DATE: 06/24/2019 SUBJECTIVE: He still has not really been out of bed much. He states he is eating better. No abdominal pain. No shortness of breath. OBJECTIVE: Vital Signs: Blood pressure 139/71, heart rate 64, respirations 15, afebrile. Intake 300 mL. Output 1.5 L PHYSICAL EXAMINATION: General: No acute distress. Skin: Warm and dry. Neck: Neck veins are not distended. Heart: Regular with a gallop. Lungs: Equal. No crackles. Abdomen: Soft, nontender. Bowel sounds present. Extremities: No edema, clubbing, or cyanosis. IMPRESSION: 1. Acute kidney injury secondary to pyelonephritis in a transplant kidney. BUN and creatinine are very slowly improving. Acceptable urine output. 2. He is on appropriate antibiotics. 3. Continue Kat catheter through the weekend. 4. His imaging did not show any signs of obstruction. 5. He will need Urology evaluation after he is over his occurring his acute illness. cc: Claudio Stephens MD
[2019-06-25] MEDS: HUMULIN R SUBQ SCH ×6 (01:13→20:43)
[2019-06-25] MEDS: DUONEB (A & A) INH SCH ×4 (03:12→21:58)
[2019-06-25] MEDS: ZOSYN 2.25 GM in NS 50 ML IV SCH ×3 (04:37→20:43)
[2019-06-25] MEDS: HEPARIN SUBQ SCH ×3 (04:37→20:44)
[2019-06-25] MEDS: PROTONIX IV SCH (06:11)
[2019-06-25] MEDS: SODIUM CHLORIDE 0.9% INJ SCH (06:11)
[2019-06-25] MEDS: SODIUM BICARBONATE PO SCH ×2 (08:25→20:44)
[2019-06-25] MEDS: PREDNISONE PO SCH (08:25)
[2019-06-25] MEDS: LOPRESSOR PO SCH ×2 (08:25→20:44)
[2019-06-25] MEDS: LANTUS INSULIN SUBQ SCH (08:25)
[2019-06-25] MEDS: TESSALON PO SCH ×3 (08:25→20:44)
[2019-06-25] MEDS: NORVASC PO SCH (08:25)
[2019-06-25] MEDS: PROGRAF PO SCH ×2 (08:25→20:45)
[2019-06-25] MEDS: PATIENT'S OWN MED PO SCH ×2 (08:26→20:45)
--- NOTE | 2019-06-25 10:51 | PROGRESS NOTE ---
DATE: 06/25/2019 SUBJECTIVE: Mr. Lynch is feeling better. He is bored and tired of being in the hospital but understands we are going to keep him a couple more days, continue IV antibiotics. OBJECTIVE: Vital signs: Temperature 97.9, pulse 67, respirations 15, blood pressure 146/66. Eyes: Pupils are equal and round. Lungs: Clear in all lung goldsmith. Cardiovascular exam: Regular rhythm and rate without murmur or S3. Abdomen: Soft. Skin: Warm and dry. Urine output is 2400 mL. ASSESSMENT AND PLAN: 1. 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 Continue present antibiotics and another 48 hours. 2. Appears euvolemic. 3. Acid-base status looks good. 4. History of cerebrovascular accident in the past. 5. Hypertension. 6. Hyponatremia, which is resolved. 7. Nutrition seems to be good. REVIEW OF ORDERS: He is on Norvasc 10 mg a day, Lantus insulin 30 units subcutaneous daily, Lopressor 50 mg b.i.d., Protonix 40 mg IV q.24 hours, prednisone 7.5 mg a day, sodium bicarbonate 650 mg p.o. b.i.d., Prograf which is tacrolimus, 2 mg p.o. b.i.d, and Zosyn 2.25 mg IV q.8 hours. His labs from the 9 reviewed. Will check electrolytes and CBC again in the morning. Blood sugars appear to be improving. Last several sugars 135, 103, 159. cc: Noble Fisher MD
[2019-06-26] MEDS: HUMULIN R SUBQ SCH ×6 (03:12→21:23)
[2019-06-26] MEDS: DUONEB (A & A) INH SCH ×4 (03:16→22:12)
[2019-06-26] MEDS: HEPARIN SUBQ SCH ×3 (05:29→21:23)
[2019-06-26] MEDS: ZOSYN 2.25 GM in NS 50 ML IV SCH ×3 (05:30→21:24)
[2019-06-26 05:43] LABS: EOS# 0.06 X1000 (0.0-0.7); EOS% 1.1 % (0.0-10.0); HEMATOCRIT 21.6 % (42.0-52.0); HEMOGLOBIN 6.7 g/dL (14.0-18.0); IMM GRAN# 0.02 X1000 (0.0-0.04); IMM GRAN% 0.4 % (0.0-0.5); LYMPH# 1.37 X1000 (1.2-3.4); LYMPH% 24.1 % (20.5-51.1); MCV 90.4 FL (81-99); MONO# 0.37 X1000 (0.11-0.59); MONO% 6.5 % (1.7-9.3); MPV 11.5 FL (7.4-10.4); NEUT# 3.87 X1000 (1.4-6.5); NEUT% 67.9 % (42.2-75.2); PLT 266 X1000 (130-400); RBC 2.39 XMIL (4.7-6.1); RDW 15.3 % (11.5-14.5); WBC 5.69 X1000 (4.8-10.8)
[2019-06-26] MEDS: PROTONIX IV SCH (06:12)
[2019-06-26 06:29] LABS: CALCIUM 8.2 mg/dL (8.8-10.2); CREATININE 3.1 mg/dL (0.7-1.2); POTASSIUM 5.3 mmol/L (3.5-5.1)
[2019-06-26] MEDS: TESSALON PO SCH ×3 (08:11→21:24)
[2019-06-26] MEDS: LOPRESSOR PO SCH ×2 (08:11→21:24)
[2019-06-26] MEDS: SODIUM BICARBONATE PO SCH ×2 (08:12→21:24)
[2019-06-26] MEDS: PREDNISONE PO SCH (08:12)
[2019-06-26] MEDS: PROGRAF PO SCH ×2 (08:12→21:24)
[2019-06-26] MEDS: NORVASC PO SCH (08:13)
[2019-06-26] MEDS: LANTUS INSULIN SUBQ SCH (08:13)
[2019-06-26] MEDS: PATIENT'S OWN MED PO SCH ×2 (08:19→21:25)
[2019-06-26] MEDS ORDERED: NS 500 ML IV ONE (08:50)
--- NOTE | 2019-06-26 09:03 | PROGRESS NOTE ---
DATE: 06/26/2019 SUBJECTIVE: Mr. Lynch feels much better. I expect he can go home tomorrow. He is eating well. Bowels are moving. Breathing comfortably. OBJECTIVE: Temperature 97.8 degrees, pulse 75, respirations 17, blood pressure 165/70. Pupils are equal and round. Lungs are clear in all lung goldsmith. Cardiovascular Examination: Regular rhythm and rate without murmur or S3. Abdomen is soft. Skin is warm and dry. Urine output is 2000 mL. ASSESSMENT AND PLAN: 1. 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 Continue present antibiotics. Hope to switch him to oral medicine. Tomorrow, maybe can go home. 2. Appears euvolemic. 3. Acid-base status looks good. 4. History of cardiovascular accident in the past. 5. Hypertension. 6. Hyponatremia, which is resolved. 7. Nutrition is good. Good oral intake. LABORATORY DATA: Review of lab from this morning, white count 5690, hematocrit is 21, hemoglobin 6.7, platelet count is 266,000. I am probably going to give him 1 unit of packed red blood cells today. Sodium 137, potassium 5.3, chloride 105, BUN is 54, creatinine 3.1. REVIEW OF ORDERS: Looking over his orders, I do not see any change. Microbiology showed Pseudomonas aeruginosa and it is sensitive really to everything. Was discussed with Dr. Stephens with the plan. He is allergic to sulfa drugs and trimethoprim so my thought was maybe to put him on a second generation cephalosporin and maybe Levaquin in combination. cc: Noble Fisher MD
[2019-06-27] MEDS: HUMULIN R SUBQ SCH ×5 (01:16→16:58)
[2019-06-27] MEDS: DUONEB (A & A) INH SCH ×3 (02:34→16:10)
[2019-06-27] MEDS: HEPARIN SUBQ SCH ×2 (04:41→13:54)
[2019-06-27] MEDS: ZOSYN 2.25 GM in NS 50 ML IV SCH ×2 (04:42→13:54)
--- NOTE | 2019-06-27 08:40 | NEPHROLOGY PROGRESS NOTE ---
DATE: 06/27/2019 Subjective: patient resting in bed. He denies any shortness of breath, chest pain, nausea and vomiting, orthopnea, and morning sickness. Objective: vital signs. Temperature 98.0, pulse 69, respirations 11, blood pressure 174/77, 02 sat 97% on room air. General: elderly male lying in bed no acute distress Skin: scattered bruises to upper extremities HEENT: a traumatic normocephalic conjunctiva are pink, equal round and reactive, moist mucous membranes. Neck: supple, 6cm JVD Cardiovascular: regular rate and rhythm with a Gallop. No murmur noted. Abdomen: soft, nondistended and nontender, bowel sounds present : Kat in place with clear yellow urine. Otherwise not observed Extremities: right below knee amputation, no edema present Labs:. Input 1250, output 1700. 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 Ordered a repeat urinalysis with urine cultures. Continue current IV antibiotics. Continue routine transplant medications. No significant changes to creatinine, remains around 3.1. He has had two urinary tract infections recently. If he goes home, I suggest he go home with his Kat. We will consult urology outpatient through [facility] transplant center. Electrolytes. Anemia. Stable, does not meet transfusion criteria. Blood pressure. Above goal. We will stop his metoprolol 50 mg BID to Coreg 25 mg BID. cc: Claudio Stephens MD MTDD
[2019-06-27] MEDS ORDERED: COREG PO SCH (09:00)
[2019-06-27] MEDS: PATIENT'S OWN MED PO SCH (09:28)
[2019-06-27] MEDS: PROGRAF PO SCH (09:29)
[2019-06-27] MEDS: TESSALON PO SCH ×2 (09:29→16:50)
[2019-06-27] MEDS: LANTUS INSULIN SUBQ SCH (09:29)
[2019-06-27] MEDS: NORVASC PO SCH (09:29)
[2019-06-27] MEDS: SODIUM BICARBONATE PO SCH (09:29)
[2019-06-27] MEDS: PREDNISONE PO SCH (09:30)
[2019-06-27 09:46] LABS: URINE SOURCE CATH
[2019-06-27 10:00] LABS: BILIRUBIN URINE NEGATIVE (NEGATIVE); BLOOD URINE SMALL (NEGATIVE); COLOR STRAW; GLUCOSE URINE NEGATIVE (NEGATIVE); KETONE URINE NEGATIVE (NEGATIVE); LEUKOCYTES URINE TRACE (NEGATIVE); NITRITE URINE NEGATIVE (NEGATIVE); PROTEIN URINE TRACE mg/dL (NEGATIVE); SP GRAVITY URINE 1.009; TURBIDITY URINE CLEAR (CLEAR); UROBILINOGEN URINE NORMAL (NORMAL)
[2019-06-27 10:02] LABS: UR EPITHELIAL CELLS <10 /HPF (<10); URINE BACTERIA NEGATIVE /HPF; URINE WBC <10 /HPF (<10)
--- NOTE | 2019-06-27 10:10 | PROGRESS NOTE ---
DATE: 06/27/2019 SUBJECTIVE: He feels much better, eating well, breathing comfortably. OBJECTIVE: Vital Signs: Temperature 97.5 degrees, pulse 70, respirations 20, blood pressure 164/73. HEENT: Pupils are equal and round. Lungs: Clear in all lung goldsmith. Cardiovascular: Regular rhythm and rate without murmur or S3. Urine output was 3400 mL. LABORATORY DATA: From yesterday, we gave him a unit of blood because his hemoglobin was 6.7. ASSESSMENT AND PLAN: He grew out Pseudomonas and is sensitive to everything, so the plan is to let him go home today. I think we can let him go home on Levaquin. I will give him another 2 weeks of Levaquin at 500 mg. Actually I think I can give him 250 mg a day given renal function. We will discuss with Dr. Stephens. cc: Noble Fisher MD
[2019-06-27 10:17] LABS: ALBUMIN 2.5 g/dL (3.5-5.0); CALCIUM 8.7 mg/dL (8.8-10.2); CREATININE 3.3 mg/dL (0.7-1.2); PHOSPHORUS 4.4 mg/dL (2.7-4.5); POTASSIUM 5.3 mmol/L (3.5-5.1)
[2019-06-27 15:35] VITALS: BP 153/73
--- NOTE | 2019-06-27 16:43 | DISCHARGE SUMMARY ---
ADMISSION DATE: 06/20/2019 DISCHARGE DATE: 06/27/[address] Claudio Stephens. Also followed by Dr. Shirley Holden. He presented with no appetite and what he thought were cold symptoms. A 69-year-old with history of insulin-dependent diabetes mellitus type 2, chronic transplant glomerulonephropathy stage 3, hypertension, peripheral artery disease, presented to the ER with chief complaint of cold symptoms for the last week. Reports that he is having fevers, persistent coughing, as well as nausea and vomiting. Reported his appetite was poor. Had been taking medications as he had been prescribed. Denied any chest pain or complaints of shortness of breath. Noted to have blood glucose of 788. He was acetone negative and noted to have quite a bit of sediment in the urine consistent with urinary tract infection. PAST MEDICAL HISTORY: 1. Diabetes mellitus, type 2, insulin dependent. 2. Hypertension. 3. Chronic transplant glomerulonephropathy, stage 3. 4. History of CVA. 5. Hyperlipidemia. 6. Chronic constipation. 7. Peripheral artery disease. 8. History of Clostridium difficile colitis in April 2019. PAST SURGICAL HISTORY: 1. Renal transplant in 2009 at [facility]. 2. Right [id number] amputation. 3. Cholecystectomy. 4. Cataract surgery. So admitted with urinary tract infection and what appeared to be hyperglycemia without significant acidosis. He has acute kidney injury on top of chronic transplant glomerulonephropathy, stage 3. Dr. Stephens was following his cultures from the urine, grew out Pseudomonas aeruginosa, which was sensitive to cefepime and sensitive to ceftazidime and levofloxacin, so received IV antibiotics. He seemed to feel better clinically. Renal function seemed to be stable. He was on Zosyn 2.25 g IV q.8 h., and blood pressures remained well controlled. He continued on his tacrolimus 2 mg p.o. b.i.d. and his sodium bicarbonate. Serum creatinine is remained around 3.3. Blood sugars appeared well controlled and so felt like he could go home. We will keep his Kat catheter in. Try not to transfuse unless his hemoglobin is below 7. I think we gave him 1 unit of blood because it was below 7. He is on mycophenolate 720 mg twice a day. He is on amlodipine 10 mg daily, taking Tessalon Perles as needed for cough, Coreg 25 mg b.i.d. which I believe we stopped or held. Dr. Stephens wanted to hold those blood pressure medicines. We will hold the Coreg, and he is getting Lantus insulin 30 units subcutaneous daily. He is getting prednisone 7.5 mg a day, sodium bicarbonate 650 mg b.i.d., and tacrolimus 2 mg p.o. b.i.d. We will give him Levaquin; I gave him 250 mg p.o. daily, and I will give him enough for another 2 weeks. He will follow up at [facility] transplant Clinic and of course follow up with Dr. Stephens and Dr. Holden. cc: Noble Fisher MD
== END 2019-06-27 18:35 | disposition home health service (06) | DRG 637 ==
LOC: ED 23:03 → EDIPHOLD 06-20 05:56 → SUATTDRO 06-20 05:56 → 2N 06-20 07:27
PROVIDERS: ATTEND Emergency Medicine

== ENCOUNTER 2019-07-08 13:56 | Inpatient (IN) ==
[2019-07-08] MEDS ORDERED: NS 1,000 ML IV ONE (14:57)
[2019-07-08] MEDS ORDERED: HUMULIN R IV ONE (14:57)
--- NOTE | 2019-07-08 15:09 | PROVIDER DOCUMENTATION ---
HPI-General Adult - General Chief Complaint: High Blood Sugar Stated Complaint: HIGH BLOOD SUGAR Time Seen by Provider: 07/08/19 14:10 Source: patient Allergies/Adverse Reactions: Patient Allergies Allergy/AdvReac Type Severity Reaction Status Date / Time sulfamethoxazole AdvReac Unknown Verified 07/08/19 14:11 [From ] trimethoprim [From ] AdvReac Unknown Verified 07/08/19 14:11 Home Medications: Home Medication List Medication Instructions Recorded Confirmed Last Taken Type Insulin Glargine [Lantus] 22 unit SUBQ QAM 12/22/14 06/19/19 03/15/19 08:00 History Prednisone 7.5 mg PO DAILY 10/09/17 06/19/19 03/15/19 08:00 History Aspirin 81 mg PO QAM 12/22/17 06/19/19 09/17/18 08:00 History Tacrolimus [Prograf] 2 mg PO BID 12/22/17 06/19/19 03/15/19 20:00 History Amlodipine [Norvasc] 10 mg PO DAILY 02/26/18 06/19/19 09/17/18 08:00 History Docusate Sodium [Colace] 100 mg PO PRN PRN 02/26/18 06/19/19 02/26/18 History Mycophenolate Sodium [Myfortic] 720 mg PO BID 02/26/18 06/19/19 03/15/19 20:00 History Clonidine [Catapres] 0.1 mg PO BID #60 tab 03/01/18 06/19/19 09/17/18 08:00 Rx Polyethylene Glycol 3350 [Miralax] 17 gm PO PRN PRN 09/03/18 06/19/19 Unknown History Cyanocobalamin [Vitamin B-12] 1,000 microgm PO DAILY tablet 09/10/18 06/19/19 09/17/18 08:00 Rx Sodium Bicarbonate 650 mg PO BID #120 tab 09/10/18 06/19/19 09/17/18 08:00 Rx Acetaminophen [Tylenol] 650 mg PO Q6H PRN PRN tablet 09/23/18 06/19/19 Unknown Rx Hydrocodone/APAP 10 mg/325 mg 1 each PO Q4H PRN PRN #0 tablet 09/23/18 06/19/19 Unknown Rx [[place]-10] Amlodipine Besylate 10 mg PO DAILY 04/16/19 06/19/19 03/15/19 08:00 History Chlorthalidone 12.5 mg PO DAILY 04/16/19 06/19/19 03/15/19 08:00 History Albuterol [Albuterol Neb] 2.5 mg INH Q4H PRN PRN neb 05/10/19 06/19/19 Unknown Rx Cholestyramine [Questran] 4 gm PO BID packet 05/10/19 06/19/19 Unknown Rx Folic Acid 1 mg PO DAILY tab 05/10/19 06/19/19 Unknown Rx Insulin Humulin 70/30 [Humulin 12 unit SUBQ BID AC insuln.pen 05/10/19 06/19/19 Unknown Rx 70/30] Lactobacillus Rhamnosus GG 1 ea PO BID cap 05/10/19 06/19/19 Unknown Rx [Culturelle] Loperamide [Imodium] 2 mg PO PRN PRN cap 05/10/19 06/19/19 Unknown Rx Menthol/Zinc Oxide Ointment 1 gm TOP PRN PRN tube 05/10/19 06/19/19 Unknown Rx [Calmoseptine Ointment] Pantoprazole [Protonix] 40 mg PO DAILY tab 05/10/19 06/19/19 Unknown Rx Levofloxacin [Levaquin] 250 mg PO DAILY 14 Days #14 tab 06/27/19 Unknown Rx - History of Present Illness -Gen Adult Nature of Presenting Problems: 69 yr old M, hx of DM, presents with reports of elevated BG. He states that he did not take his insulin today, nor has he eaten. His blood glucose was noted to be elevated on recheck at home, and he was brought in. He denies any chest pain or abdominal pain. He denies nausea or vomiting, though he states he just generally doesn't feel as well as he normally does. He did state that he had increased urinary frequency today, as well as pain with urination. Onset/Duration: reports: 4-6 hours ago Associated Symptoms: reports: fatigue - Diabetes Related Context Context: reports: high blood sugar Review of Systems - Adult - REVIEW OF SYSTEMS - ADULT Constitutional: reports: fatique Eyes: reports: no symptoms reported Ears, Nose, Mouth & Throat: reports: no symptoms reported Cardiovascular: reports: no symptoms reported Respiratory: reports: no symptoms reported Gastrointestinal: reports: no symptoms reported Genitourinary: reports: dysuria, frequency Musculoskeletal: reports: no symptoms reported Neurological: reports: no symptoms reported Psychiatric: reports: no symptoms reported Past History - Adult - PAST MEDICAL HISTORY-ADULT Review of Records: reports: Old Records Reviewed, Nursing Assessment Review Major Childhood Illnesses: reports: denies history Cardiovascular: reports: HTN, hyperlipidemia Respiratory: reports: denies history Gastrointestinal: reports: denies history Obstetrical/Gynecological: reports: denies history Genitourinary: reports: dialysis (in past), ESRD (in past), other (kidney transplant) Musculoskeletal: reports: denies history Neurological: reports: CVA Psychiatric: reports: denies history Endocrine/Immune: reports: Diabetes Other Conditions: reports: denies history - PRIOR SURGERIES/PROCEDURES Surgical/Procedure History: reports: cholecystectomy, orthopedic (extremity) (toe amputation right foot), other (cardiac cath, cataract removal, kidney transplant, hemodialysis port) - PRIOR HOSPITALIZATIONS Prior Hospitalizations: reports: for similar symptoms - IMMUNIZATION STATUS Childhood Immunizations: See Nurse Assessment Flu Vaccine: See Nurse Assessment - FAMILY HISTORY Family History: reviewed, not pertinent - SOCIAL HISTORY Smoking: denies Physical Exam-General - PHYSICAL EXAM-ADULT Initial Vital Signs Reviewed: Yes - CONSTITUTIONAL General Appearance: alert, thin, other (appears a little sleepy - is responsive to commands) - EYES Eyes: PERRL/EOMI - HEAD, EARS, NOSE, MOUTH & THROAT HENMT: other (mucous membranes appear a little dry) - RESPIRATORY Respiratory: lungs clear, normal breath sounds - CARDIOVASCULAR Cardiovascular: regular rate, rhythm - GASTROINTESTINAL (ABDOMEN) Abdominal Exam: normal bowel sounds, non tender, soft - SKIN Integumentary: warm/dry - PSYCHIATRIC Psych/Mental Status: normal mood/affect, oriented x 3 Progress - PLAN OF CARE/RESULTS Progress/Plan/Lab Results: Vital Signs - 8 hr 07/08/19 14:07 Temperature 99.6 F Pulse Rate 96 H Respiratory Rate 20 Blood Pressure 159/76 O2 Sat by Pulse Oximetry 100 Laboratory Results - last 24 hr 07/08/19 14:20 POC Glucose 413 H D Orders Category Date Time Status CBC WITH ELECTRONIC DIFF [HEME] Stat Lab 07/08/19 14:58 Uncollected CMP [COMPREHENSIVE METABOLIC PANEL] [CHEM] Stat Lab 07/08/19 14:58 Uncollected 0.9% Sodium Chloride Inj [Ns] 1,000 ml Med 07/08/19 14:57 Active IV 999 mls/hr Insulin Human Regular [Humulin R] Med 07/08/19 14:57 Discontinued 10 unit IV NOW ONE UA shows nitrites and leuks; as well as KAY and Na that is still mildly low when corrected; BG is coming down slowly after 10 u of regular insulin IV; spoke with hospitalist, who accepts admission. Relayed results and plan to pt, who verbal ized agreement. Result Diagrams: 07/08/19 15:31 07/08/19 15:31 - CONSULTS/PCP/HOSPITALIST Notification #1 *Consult/PCP/Hospitalist*: Dr. Delarosa Time Discussed: 17:00 Consult Disposition: Admit Departure - Departure Date of Disposition Decision: 07/08/19 Time of Disposition Decision: 17:33 DIAGNOSIS: UTI (urinary tract infection), Diabetes type 2, uncontrolled Disposition: ADMITTED INPATIENT 09 Certified Medical Emergency: Emergent Condition: Fair Referrals and Follow-Ups: Shirley Holden MD [Primary Care Provider] - - Critical Care Note This patient required my direct & personal management of CC.: No Attestation - Physician/ GERI Attestation Patient care was provided by Advanced Practice Provider:: No The physician spent face to face time with patient:: Yes Advanced Practice Provider documentation review:: Supervising physician onsite and consulted in the evaluation and care of this patient. The physician did have a face to face encounter with the patient.
[2019-07-08 15:44] LABS: BASO# 0.01 X1000 (0.0-0.2); BASO% 0.1 % (0.0-0.8); EOS# 0.01 X1000 (0.0-0.7); EOS% 0.1 % (0.0-10.0); HEMATOCRIT 27.6 % (42.0-52.0); IMM GRAN# 0.21 X1000 (0.0-0.04); IMM GRAN% 2.2 % (0.0-0.5); LYMPH# 0.92 X1000 (1.2-3.4); LYMPH% 9.6 % (20.5-51.1); MCH 28.2 PG (27-31); MCHC 32.6 g/dL (33-37); MCV 86.5 FL (81-99); MONO# 0.73 X1000 (0.11-0.59); MONO% 7.7 % (1.7-9.3); MPV 11.6 FL (7.4-10.4); NEUT# 7.66 X1000 (1.4-6.5); NEUT% 80.3 % (42.2-75.2); PLT 98 X1000 (130-400); RBC 3.19 XMIL (4.7-6.1); RDW 14.7 % (11.5-14.5); WBC 9.54 X1000 (4.8-10.8)
[2019-07-08 16:06] LABS: URINE SOURCE CATH
[2019-07-08 16:10] LABS: BILIRUBIN URINE NEGATIVE (NEGATIVE); BLOOD URINE MODERATE (NEGATIVE); COLOR ORANGE; GLUCOSE URINE 300 mg/dL (NEGATIVE); KETONE URINE NEGATIVE (NEGATIVE); LEUKOCYTES URINE LARGE (NEGATIVE); NITRITE URINE POSITIVE (NEGATIVE); PROTEIN URINE 70 mg/dL (NEGATIVE); SP GRAVITY URINE 1.007; TURBIDITY URINE TURBID (CLEAR); UROBILINOGEN URINE NORMAL (NORMAL)
[2019-07-08] MEDS ORDERED: ROCEPHIN 1 GM in NS 50 ML IV ONE (16:12)
[2019-07-08 16:13] LABS: UR EPITHELIAL CELLS <10 /HPF (<10); URINE BACTERIA 4+ /HPF; URINE RBC TNTC /HPF (<10); URINE WBC TNTC /HPF (<10)
[2019-07-08 16:22] LABS: ALB/GLOB RATIO 0.6; ALBUMIN 2.6 g/dL (3.5-5.0); CALCIUM 8.7 mg/dL (8.8-10.2); CREATININE 2.7 mg/dL (0.7-1.2); POTASSIUM 4.9 mmol/L (3.5-5.1); TOTAL BILIRUBIN 0.53 mg/dL (0.20-1.00); TOTAL PROTEIN 7.3 g/dL (6.3-8.3)
[2019-07-08 16:31] LABS: URINE YEAST NONE SEEN
[2019-07-08] MEDS ORDERED: TYLENOL PO ONE (17:58)
[2019-07-08] MEDS ORDERED: TYLENOL PO PRN (18:23)
[2019-07-08] MEDS ORDERED: ZOFRAN IV PRN (18:23)
[2019-07-08] MEDS: NS 1,000 ML IV SCH (19:14)
--- NOTE | 2019-07-08 20:27 | HISTORY AND PHYSICAL ---
PRIMARY CARE PHYSICIAN: Dr. Holden. CHIEF COMPLAINT: High blood sugar. HISTORY OF PRESENTING ILLNESS: This is a 69-year-old male who presents to [facility] ER with complaints of an elevated blood sugar. States that he did not take his insulin today nor had he eaten so he came to the emergency room when his blood sugar was high. His laboratory data showed a sodium of 125, BUN of 63 with a creatinine of 2.7, which is actually an improvement where his baseline has been around 3.2 to 3.3. His blood glucose was 426. Urinalysis showed positive nitrites, large leukocytes, 4+ bacteria so he will be admitted for further evaluation and treatment. PAST MEDICAL HISTORY: Diabetes type 2 insulin dependent, hypertension, chronic transplant glomerular nephropathy stage 3, history of CVA, hyperlipidemia, chronic constipation, peripheral artery disease, history of C difficile colitis in April 2019. PAST SURGICAL HISTORY: Of a renal transplant in 2009 at [facility], right [id number] amputation, cholecystectomy and cataract surgery. FAMILY HISTORY: Reviewed and noncontributory. SOCIAL HISTORY: Currently lives with family. Denies any tobacco, alcohol or illicit drug use. ALLERGIES: Sulfa. HOME MEDICATIONS: Current list will need to be obtained, reconciled, reviewed and restarted as appropriate and will place an order for nursing to update and confirm home medications. LABORATORY DATA: Showed a white blood cell count of 9.54, hemoglobin 9, hematocrit 27.6, platelets 98,000. Sodium 125, potassium 4.9, chloride 94, CO2 17, BUN of 63, creatinine 2.7, glucose 426. Urinalysis with positive nitrites, large leukocytes, 4+ bacteria. REVIEW OF SYSTEMS: He denied any fever, chills, blurred vision, dizziness, chest pain, coughing, shortness of breath. He denied any abdominal pain, constipation, diarrhea. He did state he had some burning with urination and frequency. PHYSICAL EXAMINATION: On arrival he had a temperature of 99.6 degrees, pulse 96, respirations 20, blood pressure 159/76, saturating 100% on room air. GENERAL: This is a 69-year-old male who is lying in the bed and answers questions appropriately. HEENT: Normocephalic, atraumatic. Normal ENT inspection. Oropharynx and nares are clear. Pupils are equal, round, and reactive to light, accommodation. Extraocular movements are intact. NECK: Normal inspection, normal range of motion. LUNGS: Clear to auscultation bilaterally with equal lung expansion and chest wall movement. HEART: With regular rate and rhythm. No murmurs, rubs, or gallops. ABDOMEN: Soft, nontender, nondistended. Bowel sounds are present x4 quadrants. MUSCULOSKELETAL: 5/5 strength x4 extremities. NEUROLOGICAL: The cranial nerves 2-12 appear grossly intact. ASSESSMENT: 1. Diabetes type 2 uncontrolled with hyperglycemia. 2. Hyponatremia. 3. Urinary tract infection. 4. Chronic kidney disease. OUR PLAN: He will be admitted to the medical unit, placed on telemetry, diabetic diet, pattern blood sugars with sliding scale insulin, normal saline at 75 mL an hour, Rocephin 1 gram IV q.24, urine culture is pending. SCDs for DVT prophylaxis. Update and confirm home medications. Rocephin 1 gram IV q.24 and recheck a CBC, BMP in the a.m. Further orders after seen by attending. Dictated by ESHA Mcdowell for Dilan Delarosa MD cc: MD Dilan Beckwith MD Patient admitted with uncontrolled type 2 Diabetes Mellitus. I agree with the assessment and plan of the ESHA. Dr. Delarosa. [facility]ITAL[facility]
[2019-07-08] MEDS: HUMALOG SUBQ SCH (21:52)
[2019-07-09] MEDS: HUMALOG SUBQ SCH ×4 (06:42→23:19)
[2019-07-09 08:03] LABS: EOS# 0.01 X1000 (0.0-0.7); EOS% 0.1 % (0.0-10.0); HEMATOCRIT 25.1 % (42.0-52.0); HEMOGLOBIN 8.1 g/dL (14.0-18.0); IMM GRAN# 0.08 X1000 (0.0-0.04); IMM GRAN% 0.8 % (0.0-0.5); LYMPH# 0.88 X1000 (1.2-3.4); LYMPH% 9.1 % (20.5-51.1); MCH 28.3 PG (27-31); MCHC 32.3 g/dL (33-37); MCV 87.8 FL (81-99); MONO# 0.54 X1000 (0.11-0.59); MONO% 5.6 % (1.7-9.3); MPV 11.9 FL (7.4-10.4); NEUT# 8.17 X1000 (1.4-6.5); NEUT% 84.4 % (42.2-75.2); PLT 119 X1000 (130-400); RBC 2.86 XMIL (4.7-6.1); WBC 9.68 X1000 (4.8-10.8)
[2019-07-09 08:31] LABS: CALCIUM 8.7 mg/dL (8.8-10.2); CREATININE 2.8 mg/dL (0.7-1.2); POTASSIUM 4.4 mmol/L (3.5-5.1)
[2019-07-09] MEDS ORDERED: IMODIUM PO PRN (08:31)
[2019-07-09] MEDS ORDERED: NORCO-10 PO PRN (08:31)
[2019-07-09] MEDS ORDERED: CALMOSEPTINE OINTMENT TOP PRN (08:31)
[2019-07-09] MEDS ORDERED: COLACE PO PRN (08:31)
[2019-07-09] MEDS ORDERED: MIRALAX PO PRN (08:31)
[2019-07-09] MEDS ORDERED: NORVASC PO SCH (09:00)
[2019-07-09] MEDS ORDERED: INSULIN PEN NEEDLES ONE (09:57)
[2019-07-09] MEDS: ALBUTEROL NEB INH PRN ×2 (10:51→15:40)
[2019-07-09] MEDS: PROTONIX PO SCH (11:11)
[2019-07-09] MEDS: VITAMIN B-12 PO SCH (11:11)
[2019-07-09] MEDS: ASPIRIN PO SCH (11:12)
[2019-07-09] MEDS: HYGROTON PO SCH (11:12)
[2019-07-09] MEDS: FOLIC ACID PO SCH (11:12)
[2019-07-09] MEDS: CATAPRES PO SCH ×2 (11:13→20:31)
[2019-07-09] MEDS: PREDNISONE PO SCH (11:13)
[2019-07-09] MEDS: CULTURELLE PO SCH ×2 (11:13→20:32)
[2019-07-09] MEDS: NORVASC PO SCH (11:14)
[2019-07-09] MEDS: PROGRAF PO SCH ×2 (11:15→20:31)
[2019-07-09] MEDS: LANTUS INSULIN SUBQ SCH (11:16)
[2019-07-09] MEDS: PATIENT'S OWN MED PO SCH ×2 (11:16→22:03)
[2019-07-09] MEDS: QUESTRAN LIGHT PO SCH ×2 (11:17→20:31)
[2019-07-09] MEDS: SODIUM BICARBONATE PO SCH ×2 (11:17→20:32)
--- NOTE | 2019-07-09 12:43 | PROGRESS NOTE ---
DATE: 07/09/2019 SUBJECTIVE: Patient with no new complaints. States he is feeling a little bit better. Denies any fevers, chills, or chest pain. PHYSICAL EXAMINATION: Vital signs: He is currently febrile with a T-max of 100.5 degrees, pulse is 90, respiratory 20, blood pressure 116/54. General: Patient is awake. He is in no respiratory distress. Very pleasant. HEENT: Normocephalic. Neck: Supple. Cardiovascular: Regular rate. Chest: Clear. Abdomen: Soft. Extremities: Moves all extremities. Neurologic: No changes. ASSESSMENT: 1. Type 2 diabetes, uncontrolled with hyperglycemia. 2. Chronic renal failure with a creatinine of 2.7. 3. Hyponatremia, improving. Sodium currently up from 125 to his current base at 131. 4. Urinary tract infection. We will continue antibiotics, Rocephin until culture and sensitivity. cc: Magdy Payne MD
[2019-07-09] MEDS: ROCEPHIN 1 GM in NS 50 ML IV SCH (17:52)
[2019-07-09] MEDS: HUMULIN 70/30 SUBQ SCH (17:53)
[2019-07-09] MEDS ORDERED: FLU VACCINE IM ONE (19:06)
[2019-07-09] MEDS: NS 1,000 ML IV SCH (23:20)
[2019-07-10] MEDS: PATIENT'S OWN MED PO SCH ×3 (02:04→20:48)
[2019-07-10 07:02] LABS: CALCIUM 8.4 mg/dL (8.8-10.2); CREATININE 2.9 mg/dL (0.7-1.2); POTASSIUM 5.3 mmol/L (3.5-5.1)
[2019-07-10 07:04] LABS: EOS# 0.02 X1000 (0.0-0.7); EOS% 0.3 % (0.0-10.0); HEMATOCRIT 24.8 % (42.0-52.0); HEMOGLOBIN 7.9 g/dL (14.0-18.0); IMM GRAN# 0.05 X1000 (0.0-0.04); IMM GRAN% 0.7 % (0.0-0.5); LYMPH# 0.93 X1000 (1.2-3.4); LYMPH% 12.3 % (20.5-51.1); MCH 27.9 PG (27-31); MCHC 31.9 g/dL (33-37); MCV 87.6 FL (81-99); MONO% 5.3 % (1.7-9.3); MPV 11.4 FL (7.4-10.4); NEUT# 6.19 X1000 (1.4-6.5); NEUT% 81.4 % (42.2-75.2); PLT 132 X1000 (130-400); RBC 2.83 XMIL (4.7-6.1); WBC 7.59 X1000 (4.8-10.8)
[2019-07-10] MEDS: HUMULIN 70/30 SUBQ SCH ×2 (07:31→17:55)
[2019-07-10] MEDS: HUMALOG SUBQ SCH ×4 (07:32→20:48)
[2019-07-10] MEDS: ALBUTEROL NEB INH PRN ×3 (07:47→15:25)
[2019-07-10] MEDS: SODIUM BICARBONATE PO SCH ×2 (08:07→20:47)
[2019-07-10] MEDS: CULTURELLE PO SCH ×2 (08:07→20:47)
[2019-07-10] MEDS: NORVASC PO SCH (08:07)
[2019-07-10] MEDS: CATAPRES PO SCH ×2 (08:07→20:47)
[2019-07-10] MEDS: FOLIC ACID PO SCH (08:07)
[2019-07-10] MEDS: PROTONIX PO SCH (08:08)
[2019-07-10] MEDS: VITAMIN B-12 PO SCH (08:08)
[2019-07-10] MEDS: ASPIRIN PO SCH (08:08)
[2019-07-10] MEDS: LANTUS INSULIN SUBQ SCH (08:09)
[2019-07-10] MEDS: PREDNISONE PO SCH (08:10)
[2019-07-10] MEDS: HYGROTON PO SCH (08:30)
[2019-07-10] MEDS: PROGRAF PO SCH ×2 (08:30→20:49)
[2019-07-10] MEDS: QUESTRAN LIGHT PO SCH ×2 (08:31→20:47)
--- NOTE | 2019-07-10 09:35 | PROGRESS NOTE ---
DATE: 07/10/2019 ADDENDUM: Note that his urine culture from 07/08/2019 grew Pseudomonas aeruginosa and it is sensitive to ceftazidime and levofloxacin. The patient is on ceftriaxone right now. We will continue present regimen. cc: Noble Fisher MD
--- NOTE | 2019-07-10 09:44 | PROGRESS NOTE ---
DATE: 07/10/2019 SUBJECTIVE: This is a 69-year-old who came in with high blood sugar, apparently, low sodium. 69- year-old presented to [facility]. Elevated blood sugar. States he did not take his insulin and had not eaten, so came to the emergency room. Blood sugar was high. Labs showed sodium was 125, BUN 63, creatinine 2.7, which is an improvement from his baseline of 3.2 and 3.3. He has kidney transplant nephropathy and recently had an infection, and from that standpoint seems to be doing better. He reports he feels pretty good this morning. Anxious to go home. OBJECTIVE: Vital Signs: Temperature 97.6 degrees, pulse 60, respirations 20, blood pressure 141/57. Eyes: Pupils are equal and round. Neck: No distended neck veins. Lungs: Clear in all lung goldsmith. Cardiovascular: Regular rhythm and rate without murmur or S3. Height 5 feet 5 inches. Urine output 1500 mL. ASSESSMENT AND PLAN: 1. Diabetes mellitus type 2. Blood sugars were high. Sugars are still above 300. He is on 70/30 at 12 units twice a day and Lantus 22 units every morning. 2. Hyponatremia. Sodium has come back up nicely. 3. Status post kidney transplant with renal transplant nephropathy, and creatinine baseline around 3.1, is at 2.9 right now, so appears to be heading in the right direction. 4. Blood pressures appear well controlled. 5. No sign of infection. REVIEW OF ORDERS: He is on: 1. Norvasc 10 mg a day. 2. Aspirin 81 mg a day. 3. Catapres 0.1 mg b.i.d. 4. Colace 100 mg p.o. p.r.n. 5. Folic acid 1 mg daily. 6. Lantus insulin 22 units in the morning, 70/30 Humulin 12 units twice a day. 7. He is getting normal saline at 75 mL an hour. 8. Protonix 40 mg a day. 9. Glycol 17 g p.o. p.r.n. daily. 10. Prednisone 7.5 mg a day. 11. Ceftriaxone 1 g IV q.24 hours. 12. Sodium bicarbonate 650 mg b.i.d. 13. Prograf 2 mg b.i.d. cc: Noble Fisher MD
[2019-07-10] MEDS: ROCEPHIN 1 GM in NS 50 ML IV SCH (17:28)
[2019-07-11] MEDS: HUMULIN 70/30 SUBQ SCH (06:31)
[2019-07-11 07:29] VITALS: BP 138/63
[2019-07-11] MEDS: HUMALOG SUBQ SCH ×2 (08:03→10:56)
[2019-07-11 08:47] LABS: EOS# 0.08 X1000 (0.0-0.7); EOS% 1.2 % (0.0-10.0); HEMATOCRIT 25.1 % (42.0-52.0); HEMOGLOBIN 7.9 g/dL (14.0-18.0); IMM GRAN# 0.03 X1000 (0.0-0.04); IMM GRAN% 0.4 % (0.0-0.5); LYMPH# 1.11 X1000 (1.2-3.4); LYMPH% 16.3 % (20.5-51.1); MCH 28.9 PG (27-31); MCHC 31.5 g/dL (33-37); MCV 91.9 FL (81-99); MONO% 5.9 % (1.7-9.3); MPV 10.8 FL (7.4-10.4); NEUT# 5.21 X1000 (1.4-6.5); NEUT% 76.2 % (42.2-75.2); PLT 165 X1000 (130-400); RBC 2.73 XMIL (4.7-6.1); WBC 6.83 X1000 (4.8-10.8)
[2019-07-11 09:48] LABS: HEMOGLOBIN A1C 7.7 % (4.8-6.0)
--- NOTE | 2019-07-11 09:58 | DISCHARGE SUMMARY ---
ADMISSION DATE: 07/08/2019 DISCHARGE DATE: 07/11/2019 HOSPITAL COURSE: This is a patient of Dr. Holden who presented with high blood sugars. A 69- year-old who presented to [facility]. In the ER, complained of elevated blood sugar. States that did not take his insulin on that day and had eaten. Came to the emergency room. Blood sugar was high. Laboratory showed sodium of 125, BUN 63, creatinine 2.7 which is actually improved from his baseline at 3.2. He has a transplanted kidney, nephropathy, and had been followed recently in the hospital for a urinary tract infection. Blood sugars came down. We put him back on the insulin. His sodium came up with a little bit of hydration. His hematocrit was stable. It was 25. Hemoglobin 7.9, MCV of 91. Did not have an elevated white count. Sodium came up to 134 and he wanted to go home. He was eating fine. His bowels were moving well. DISCHARGE MEDICATIONS: He will be on Norvasc 10 mg a day, aspirin 81 mg a day, [place] 12.5 mg p.o. daily, Questran Light 4 g p.o. b.i.d., Catapres 0.1 mg p.o. b.i.d., vitamin B12 1000 mcg p.o. daily, Colace 100 mg as needed daily, folic acid 1 mg a day, [place] 10 q.4 hours p.r.n. pain, Lantus insulin 22 units q.a.m., 70/30 with 12 units b.i.d., Culturelle 1 twice a day, Imodium 2 mg p.o. p.r.n. He is on his mycophenolate 720 mg p.o. b.i.d., Protonix 40 mg a day, MiraLAX 17 g p.o. daily p.r.n., prednisone 7.5 mg a day, sodium bicarbonate 650 mg a day, and Prograf 2 mg p.o. b.i.d. FOLLOWUP: He will follow up with Dr. Stephens and his primary care. He is also followed at [facility] Neph[facility]. cc: Noble Fisher MD
[2019-07-11] MEDS: HYGROTON PO SCH (10:26)
[2019-07-11] MEDS: NORVASC PO SCH (10:27)
[2019-07-11] MEDS: ASPIRIN PO SCH (10:27)
[2019-07-11] MEDS: PREDNISONE PO SCH (10:27)
[2019-07-11] MEDS: CATAPRES PO SCH (10:27)
[2019-07-11] MEDS: FOLIC ACID PO SCH (10:27)
[2019-07-11] MEDS: QUESTRAN LIGHT PO SCH (10:27)
[2019-07-11] MEDS: SODIUM BICARBONATE PO SCH (10:27)
[2019-07-11] MEDS: PROGRAF PO SCH (10:28)
[2019-07-11] MEDS: VITAMIN B-12 PO SCH (10:28)
[2019-07-11] MEDS: PROTONIX PO SCH (10:28)
[2019-07-11] MEDS: CULTURELLE PO SCH (10:28)
[2019-07-11] MEDS: PATIENT'S OWN MED PO SCH (10:33)
[2019-07-11] MEDS: LANTUS INSULIN SUBQ SCH (10:35)
[2019-07-11 10:55] LABS: CALCIUM 7.8 mg/dL (8.8-10.2); MAGNESIUM 1.6 mg/dL (1.5-2.7); POTASSIUM 4.9 mmol/L (3.5-5.1)
== END 2019-07-11 12:29 | disposition home health service (06) | DRG 638 ==
LOC: SUPCPDRO → ED 13:56 → SUATTDRO 17:41 → EDIPHOLD 17:41 → 4N 07-09 08:53
PROVIDERS: ATTEND Emergency Medicine